=== PATIENT | female | born 1960 | race Caucasian/White ===

== ENCOUNTER 2018-01-13 01:04 | Emergency (ER) | payer OTHER ==
[2018-01-13] MEDS ORDERED: CYCLOBENZAPRINE 10MG STARTER 3 TAB BTL PO STA (02:23)
--- NOTE | 2018-01-13 02:25 | ED ---
General Adult HPI - General Chief complaint: Skin/Abscess/Foreign Body Stated complaint: pain Time Seen by Provider: 01/13/18 01:25 Source: patient, RN notes reviewed, old records reviewed Mode of arrival: ambulatory Limitations: no limitations - History of Present Illness Initial comments: This patient is a 57 year old female with CC of neck abscess. She has been seen by [facility] and PCP and placed on clindamycin and rifampin. She reports that she thinks it needs to be drained at this time. She also states that she is having muscle spasm and pinched nerve in her neck and mid back. No falls or trauma. She states that she is out of her gabapentin for her neuroahty. She also complains of concern for a yeast infection because of taking antibiotics. - Related Data Home Medications Medication Instructions Recorded Confirmed Enalapril/Hydrochlorothiazide 1 each PO DAILY 02/15/15 03/06/15 [Vaseretic 10-25 mg] glipiZIDE [Glucotrol] 1 tab PO DAILY 02/15/15 03/06/15 metFORMIN HCL 1,000 mg PO BID 02/15/15 03/06/15 Previous Rx's Medication Instructions Recorded Cephalexin [Keflex] 500 mg PO Q6HR 14 Days cap 02/15/15 Acetaminophen-Codeine 300-30mg 1 each PO Q4H PRN #20 tablet 03/06/15 [Tylenol w/codeine #3] Doxycycline Monohydrate [Monodox] 100 mg PO Q12HR #20 cap 03/06/15 Naproxen [Naprosyn] 500 mg PO Q12HR #24 tab 03/06/15 Fluconazole [Diflucan] 150 mg PO ONCE #3 tab 01/13/18 HYDROcodone/APAP 5-325MG [Radom 1 - 2 tab PO Q6HR PRN #8 tab 01/13/18 5-325] Methocarbamol [Robaxin] 1,000 mg PO QID #15 tab 01/13/18 Allergies Allergy/AdvReac Type Severity Reaction Status Date / Time codeine Allergy Rash/Hives Verified 01/13/18 01:09 Sulfa (Sulfonamide Allergy Unknown Verified 01/13/18 01:10 Antibiotics) Review of Systems ROS Statement: Those systems with pertinent positive or pertinent negative responses have been documented in the HPI. ROS Other: All systems not noted in ROS Statement are negative. Past Medical History Past Medical History: Diabetes Mellitus, Hypertension History of Any Multi-Drug Resistant Organisms: MRSA Date of last positivie culture/infection: 02/15/2015 MDRO Source:: Face Past Surgical History: Section, Orthopedic Surgery Past Psychological History: No Psychological Hx Reported Smoking Status: Never smoker Past Alcohol Use History: None Reported Past Drug Use History: None Reported General Exam - General Exam Comments Initial Comments: This is a 57 year old female no distress. Patient appears to be homeless, has belongings in bags. Limitations: no limitations General appearance: alert, in no apparent distress Head exam: Present: atraumatic Eye exam: Present: normal appearance, PERRL, EOMI. Absent: scleral icterus, conjunctival injection, periorbital swelling ENT exam: Present: normal exam, mucous membranes moist Neck exam: Present: normal inspection, other (cyst and abscess over posterior neck. Measures 3 cm. ). Absent: tenderness, meningismus, lymphadenopathy Respiratory exam: Present: normal lung sounds bilaterally. Absent: respiratory distress, wheezes, rales, rhonchi, stridor Cardiovascular Exam: Present: regular rate, normal rhythm, normal heart sounds. Absent: systolic murmur, diastolic murmur, rubs, gallop, clicks GI/Abdominal exam: Present: soft, normal bowel sounds. Absent: distended, tenderness, guarding, rebound, rigid Extremities exam: Present: normal inspection, full ROM, normal capillary refill. Absent: tenderness, pedal edema, joint swelling, calf tenderness Back exam: Present: normal inspection Neurological exam: Present: alert, oriented X3, CN II-XII intact Psychiatric exam: Present: normal affect, normal mood Skin exam: Present: warm, dry, intact, normal color. Absent: rash Course Vital Signs 01/13/18 01/13/18 01:06 02:46 Temperature 98.5 F 97.4 F L Pulse Rate 116 H 95 Respiratory 18 19 Rate Blood Pressure 125/75 132/63 O2 Sat by Pulse 98 97 Oximetry Procedures - Incision & Drainage Site: neck Size (cm): 3 Anesthetic Used: lidocaine 1% Amount (mLs): 2 I&D Cleaning Method: Iodine Sterile Field Used?: Yes Scalpel Used: #11 I&D Drainage Obtained: Blood Culture Obtained?: No Complications: pain Patient Tolerated Procedure: well Medical Decision Making - Medical Decision Making 57-year-old female complaining of abscess over her neck. She states that she's been on anabiotic's already. She still has anabiotic's left. Concern for [place] faction. She also states that she's out of her muscle relaxers. Patient does have a prescription for a Robaxin. I will refill this for her. Patient did undergo incision and drainage of the neck abscess. No significant puss was removed. Patient informed thta she may need to see demratolgist for enlarge cyst removal. She complains of pain after I and D. MAPS report ran, and patient has had no controlled substances for one year. Discussed will give her 8 pain pills, and she can follow up with PCP. REturn parameters dicsussed. Disposition Clinical Impression: Muscle spasm, Epidermal cyst of neck Disposition: HOME SELF-CARE Condition: Good Instructions: Muscle Spasm (ED), Cyst (ED) Additional Instructions: Patient denies use a muscle relaxers as prescribed. Return to the emergency department if any alarming signs or symptoms occur. Continue your antibiotic prescription. Follow-up with primary care provider salesperson wigs for complete removal of the cyst on the neck. Prescriptions: Fluconazole [Diflucan] 150 mg PO ONCE #3 tab HYDROcodone/APAP 5-325MG [Radom 5-325] 1 - 2 tab PO Q6HR PRN #8 tab PRN Reason: Pain Methocarbamol [Robaxin] 1,000 mg PO QID #15 tab Is patient prescribed a controlled substance at d/c from ED?: Yes When asked, does pt state using other controlled substances?: No If prescribed controlled substance>3 days was MAPS reviewed?: Prescribed <3 Days If opioid is for acute pain is fill amount 7 days or less?: No If Rx opioid, was Start Talking consent form obtained?: No Referrals: Patricio Stein MD [Primary Care Provider] - 1-2 days Time of Disposition: 02:22
[2018-01-13 02:47] VITALS: BP 132/63; PULSE 95; RESP 19; TEMP 97.4
== END 2018-01-13 02:47 | disposition home or self-care (01) ==
LOC: EC 01:04
DX: L72.0 Epidermal cyst (principal); M62.838 Other muscle spasm; M62.830 Muscle spasm of back; I10 Essential (primary) hypertension; E11.40 Type 2 diabetes mellitus with diabetic neuropathy, unspecified; Z86.14 Personal history of Methicillin resistant Staphylococcus aureus infection; Z79.899 Other long term (current) drug therapy; Z79.84 Long term (current) use of oral hypoglycemic drugs; Z88.2 Allergy status to sulfonamides; Z88.5 Allergy status to narcotic agent
CPT/HCPCS: 10060; 99283

== ENCOUNTER 2019-02-25 02:16 | Emergency (ER) | payer OTHER ==
[2019-02-25 02:38] VITALS: RESP 18; TEMP 98.1
[2019-02-25] MEDS ORDERED: traMADol 50 MG STARTER PACK 3 TAB BTL PO STA (03:26)
[2019-02-25] MEDS ORDERED: KETOROLAC 30 MG/ML 1 ML VIAL IM STA (03:26)
[2019-02-25] MEDS ORDERED: ORPHENADRINE 30 MG/ML 2 ML VIAL IM STA (03:28)
--- NOTE | 2019-02-25 03:31 | ED ---
Back Pain HPI - General Chief Complaint: Back Pain/Injury Stated Complaint: Back Pain Time Seen by Provider: 02/25/19 03:16 Source: patient Limitations: no limitations - History of Present Illness Initial Comments: 59-year-old female patient with past medical history significant for neuropathy presents to the emergency department today for evaluation of acute low back pain. Patient states that she has been moving her belongings into storage. Patient states she has been lifting and appropriately using her back muscles. Patient states she is having bilateral low back pain. Patient states the pain worsens with bending and lifting. She denies any radiation of the pain down her legs. Denies any new numbness or tingling to the lower extremities. Denies any saddle anesthesia or loss of bowel or bladder control. Patient denies fever or chills with this. Denies any hematuria, dysuria, urinary frequency, urinary urgency. Patient states she was seen and evaluated at [facility] was not giving any pain medications. Patient states she has been taking ibuprofen but has not been helping. She is requesting something for pain. Patient denies any recent rash, shortness breath, chest pain, abdominal pain, nausea, vomiting, diarrhea, constipation, weakness, hematuria, dysuria, urinary urgency, urinary frequency, headache, visual changes, or any other complaints. - Related Data Home Medications Medication Instructions Recorded Confirmed Enalapril/Hydrochlorothiazide 1 each PO DAILY 02/15/15 02/25/19 [Vaseretic 10-25 mg] glipiZIDE [Glucotrol] 1 tab PO DAILY 02/15/15 02/25/19 metFORMIN HCL 1,000 mg PO BID 02/15/15 02/25/19 Previous Rx's Medication Instructions Recorded Cephalexin [Keflex] 500 mg PO Q6HR 14 Days cap 02/15/15 Acetaminophen-Codeine 300-30mg 1 each PO Q4H PRN #20 tablet 03/06/15 [Tylenol w/codeine #3] Fluconazole [Diflucan] 150 mg PO ONCE #3 tab 01/13/18 Methocarbamol [Robaxin] 1,000 mg PO QID #15 tab 01/13/18 Allergies Allergy/AdvReac Type Severity Reaction Status Date / Time codeine Allergy Rash/Hives Verified 01/13/18 01:09 Sulfa (Sulfonamide Allergy Unknown Verified 01/13/18 01:10 Antibiotics) Review of Systems ROS Statement: Those systems with pertinent positive or pertinent negative responses have been documented in the HPI. ROS Other: All systems not noted in ROS Statement are negative. Past Medical History Past Medical History: Atrial Fibrillation, Diabetes Mellitus, Hypertension History of Any Multi-Drug Resistant Organisms: MRSA Date of last positivie culture/infection: 02/15/2015 MDRO Source:: Face Past Surgical History: Section, Orthopedic Surgery Past Psychological History: No Psychological Hx Reported Smoking Status: Never smoker Past Alcohol Use History: Occasional Past Drug Use History: None Reported General Exam Limitations: no limitations General appearance: alert, in no apparent distress, other (Physical well- developed, well-nourished adult female patient in no acute distress. Vital signs upon presentation are temperature 98.1F, pulse 124, respirations 18, blood pressure 120/69, pulse ox 97% on room air.) Respiratory exam: Present: normal lung sounds bilaterally. Absent: respiratory distress, wheezes, rales, rhonchi, stridor Cardiovascular Exam: Present: regular rate, normal rhythm, normal heart sounds. Absent: systolic murmur, diastolic murmur, rubs, gallop, clicks GI/Abdominal exam: Present: soft, normal bowel sounds. Absent: distended, tenderness, guarding, rebound, rigid Extremities exam: Present: normal inspection, full ROM, normal capillary refill, other (Skin to the lower extremities is pink, warm, dry. Cap refills less than 3 seconds. Pedal and posttibial pulses are 2+ and equal bilaterally.). Absent: tenderness, pedal edema, joint swelling, calf tenderness Back exam: Present: normal inspection. Absent: vertebral tenderness Neurological exam: Present: alert, oriented X3, CN II-XII intact, other (Strength in all 4 extremities is 5/5.) Psychiatric exam: Present: normal affect, normal mood Skin exam: Present: warm, dry, intact, normal color. Absent: rash Course Vital Signs 02/25/19 02/25/19 02/25/19 02:31 03:01 03:52 Temperature 98.1 F Pulse Rate 124 H 108 H 110 H Respiratory 18 18 Rate Blood Pressure 120/69 132/79 O2 Sat by Pulse 97 97 Oximetry Medical Decision Making - Medical Decision Making 59-year-old female patient presents to the emergency department today for evaluation of the low back pain. Patient does admit to having moved her belongings into storage and has been lifting heavy objects for the last 3 days. Patient does admit to being homeless and carrying 2 large bags with her at all times. Patient denies any concerning symptoms for cauda equina. Physical examination is unremarkable. She is neurologically intact with no focal deficits. She is able to ambulate without difficulty. Patient was given pain medication here in the emergency department. She is instructed to follow-up w ith her primary care physician for any further medications. Return parameters were discussed in detail. She verbalizes understanding and agrees with this plan. Disposition Clinical Impression: Low back pain Disposition: HOME SELF-CARE Condition: Good Instructions (If sedation given, give patient instructions): Acute Low Back Pain (ED) Additional Instructions: Continue taking ibuprofen. Take starter pack medication sparingly. Follow-up with your primary care physician for recheck as soon as possible and refill any further medications. Return to the emergency department immediately for any new, worsening, or concerning symptoms. Is patient prescribed a controlled substance at d/c from ED?: No Referrals: Alisa Alfred MD [Primary Care Provider] - 1-2 days Time of Disposition: 03:31
[2019-02-25 03:56] VITALS: BP 132/79; PULSE 110
== END 2019-02-25 03:52 | disposition home or self-care (01) ==
LOC: EC 02:16
DX: M54.5 Low back pain (principal); E11.9 Type 2 diabetes mellitus without complications; I10 Essential (primary) hypertension; Z59.0 Homelessness; Z88.2 Allergy status to sulfonamides; Z88.5 Allergy status to narcotic agent; Z79.84 Long term (current) use of oral hypoglycemic drugs; Z79.899 Other long term (current) drug therapy; Z86.14 Personal history of Methicillin resistant Staphylococcus aureus infection; Z86.69 Personal history of other diseases of the nervous system and sense organs; X50.0XXA Overexertion from strenuous movement or load, initial encounter
CPT/HCPCS: 99283; 96372 ×2; J2360; J1885

== ENCOUNTER 2019-02-27 05:30 | Emergency (ER) | payer OTHER ==
[2019-02-27] MEDS ORDERED: DIPH,PERTUS(ACELL)TETVAC-LF 0.5 ML VIAL IM ONE (05:37)
[2019-02-27] MEDS ORDERED: SODIUM CHLORIDE 0.9% 1,000 ML IV STA (05:37)
--- NOTE | 2019-02-27 06:14 | CT ---
EXAM: CT Head Without Intravenous Contrast. CLINICAL HISTORY: Reason: trauma TECHNIQUE: Axial computed tomography images of the head/brain without intravenous contrast. CTDI is 25.8 mGy and DLP is 821 mGy-cm. This CT exam was performed using one or more of the following dose reduction techniques: automated exposure control, adjustment of the mA and/or kV according to patient size, and/or use of iterative reconstruction technique. COMPARISON: No relevant prior studies available. FINDINGS: Brain: No acute intracranial hemorrhage or mass effect. No significant white matter disease. No edema. Ventricles: Unremarkable. No ventriculomegaly. Bones: No acute fracture. Sinuses: Unremarkable as visualized. No acute sinusitis. Mastoid air cells: Unremarkable as visualized. No mastoid effusion. IMPRESSION: No evidence of acute intracranial abnormality. EXAM: CT Cervical Spine Without Intravenous Contrast. CLINICAL HISTORY: Reason: trauma TECHNIQUE: Axial computed tomography images of the cervical spine without intravenous contrast. CTDI is 8.8 mGy and DLP is 269 mGy-cm. This CT exam was performed using one or more of the following dose reduction techniques: automated exposure control, adjustment of the mA and/or kV according to patient size, and/or use of iterative reconstruction technique. COMPARISON: No relevant prior studies available. FINDINGS: Vertebrae: Unremarkable. No acute fracture. Discs/spinal canal/neural foramina: No acute findings. No spinal canal stenosis. Soft tissues: Unremarkable. Lung apices: Unremarkable as visualized. IMPRESSION: No fracture or malalignment of the cervical spine
[2019-02-27] MEDS ORDERED: LIDOCAINE 1% INJ 10MG/ML (20 ML MDV) SQ ONE (06:17)
--- NOTE | 2019-02-27 06:29 | CT ---
EXAM: CT Maxillofacial Without Intravenous Contrast. CLINICAL HISTORY: Reason: trauma TECHNIQUE: Axial computed tomography images of the face without intravenous contrast. CTDI is 8.8 mGy and DLP is 269 mGy-cm. This CT exam was performed using one or more of the following dose reduction techniques: automated exposure control, adjustment of the mA and/or kV according to patient size, and/or use of iterative reconstruction technique. COMPARISON: No relevant prior studies available. FINDINGS: Bones: No acute fracture. Extracranial soft tissues: Mild left periorbital soft tissue swelling. Sinuses: Mild mucosal thickening seen within bilateral maxillary sinuses. No air-fluid levels. Orbits: Unremarkable. IMPRESSION: No evidence of acute facial fracture. Left periorbital soft tissue swelling.
[2019-02-27 06:33] LABS: ALT 23 U/L (9-52); AST 43 U/L (14-36); African American GFR (CKD) >90 (>60 ml/min/1.73 sqM); Alkaline Phosphatase 126 U/L (38-126); Anion Gap 13 mmol/L; Blood Urea Nitrogen 12 mg/dL (7-17); Calcium 8.9 mg/dL (8.4-10.2); Carbon Dioxide 18 mmol/L (22-30); Chloride 110 mmol/L (98-107); Glucose 193 mg/dL (74-99); Potassium 4.3 mmol/L (3.5-5.1); Sodium 141 mmol/L (137-145); Total Bilirubin 0.9 mg/dL (0.2-1.3); Total Protein 8.1 g/dL (6.3-8.2)
[2019-02-27 06:34] LABS: Anisocytosis Slight; Basophils % (A) 1 %; Eosinophils # (A) 0.1 k/uL (0-0.7); Eosinophils % (A) 2 %; HCT 36.2 % (34.0-46.0); HGB 11.3 gm/dL (11.4-16.0); Hypochromasia Moderate; Lymphocytes # (A) 1.2 k/uL (1.0-4.8); Lymphocytes % (A) 21 %; MCH 29.2 pg (25.0-35.0); MCHC 31.3 g/dL (31.0-37.0); MCV 93.4 fL (80.0-100.0); Mean Platelet Volume 7.7; Monocytes # (A) 0.5 k/uL (0-1.0); Monocytes % (A) 9 %; Neutrophils # (A) 3.6 k/uL (1.3-7.7); Neutrophils % (A) 63 %; Platelet Count 213 k/uL (150-450); RBC 3.87 m/uL (3.80-5.40); RDW 16.6 % (11.5-15.5); WBC 5.7 k/uL (3.8-10.6)
[2019-02-27 06:52] LABS: Partial Thromboplastin Time 24.4 sec (22.0-30.0); Prothrombin Time 10.9 sec (9.0-12.0)
[2019-02-27 07:08] LABS: Alcohol 158 mg/dL
[2019-02-27] MEDS ORDERED: METOPROLOL SUCCINATE (ER) 50 MG TAB.ER.24H PO STA (07:11)
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
[2019-02-27 07:51] VITALS: BP 148/89; PULSE 109; RESP 20; TEMP 98.3
== END 2019-02-27 08:30 | disposition home or self-care (01) ==
LOC: EC 05:30
DX: S01.81XA Laceration without foreign body of other part of head, initial encounter (principal); Z23 Encounter for immunization; G56.02 Carpal tunnel syndrome, left upper limb; E11.9 Type 2 diabetes mellitus without complications; I10 Essential (primary) hypertension; Z79.84 Long term (current) use of oral hypoglycemic drugs; Z79.899 Other long term (current) drug therapy; Z88.2 Allergy status to sulfonamides; Z88.5 Allergy status to narcotic agent; Z59.0 Homelessness; W18.09XA Striking against other object with subsequent fall, initial encounter; Y93.84 Activity, sleeping; Y92.521 Bus station as the place of occurrence of the external cause
CPT/HCPCS: 36415; 93005; 80053; 85025; 85610; 85730; 72125; 70486; 70450; 90715; 99284; 12013; 90471; 96360; G0480; J2001; 80320

== ENCOUNTER 2019-03-25 02:15 | Emergency (ER) | payer OTHER ==
[2019-03-25 02:28] VITALS: BP 155/82; PULSE 99; RESP 18; TEMP 97.5
--- NOTE | 2019-03-25 02:34 | ED ---
General Adult HPI - General Chief complaint: Recheck/Abnormal Lab/Rx Stated complaint: Back Pain Time Seen by Provider: 03/25/19 02:30 Source: patient Mode of arrival: ambulatory Limitations: no limitations - History of Present Illness Initial comments: Prema is a 51-year-old female who presents the emergency department today for reevaluation of her left wrist splint. 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 Patient states her follow-up has been delayed due to not having insurance and being homeless, however she has finally gotten follow-up established. Patient reports that she's been wearing the splint for multiple weeks, she states that it's gotten wet multiple times she is followed up with the walk-in clinic and has a slightly rapid however she feels like it is no longer functional. Patient denies any acute injuries or complaints. - Related Data Home Medications Medication Instructions Recorded Confirmed Enalapril/Hydrochlorothiazide 1 each PO DAILY 02/15/15 02/25/19 [Vaseretic 10-25 mg] glipiZIDE [Glucotrol] 1 tab PO DAILY 02/15/15 02/25/19 metFORMIN HCL 1,000 mg PO BID 02/15/15 02/25/19 Previous Rx's Medication Instructions Recorded Cephalexin [Keflex] 500 mg PO Q6HR 14 Days cap 02/15/15 Acetaminophen-Codeine 300-30mg 1 each PO Q4H PRN #20 tablet 03/06/15 [Tylenol w/codeine #3] Fluconazole [Diflucan] 150 mg PO ONCE #3 tab 01/13/18 Methocarbamol [Robaxin] 1,000 mg PO QID #15 tab 01/13/18 Allergies Allergy/AdvReac Type Severity Reaction Status Date / Time codeine Allergy Rash/Hives Verified 03/25/19 02:28 Sulfa (Sulfonamide Allergy Unknown Verified 03/25/19 02:28 Antibiotics) Review of Systems ROS Statement: Those systems with pertinent positive or pertinent negative responses have been documented in the HPI. ROS Other: All systems not noted in ROS Statement are negative. Past Medical History Past Medical History: Atrial Fibrillation, Diabetes Mellitus, Hypertension Additional Past Medical History / Comment(s): radial nerve damage, back pain, History of Any Multi-Drug Resistant Organisms: MRSA Date of last positivie culture/infection: 02/15/2015 MDRO Source:: Face Past Surgical History: Section, Orthopedic Surgery Additional Past Surgical History / Comment(s): left great toe, Past Psychological History: No Psychological Hx Reported Smoking Status: Never smoker Past Alcohol Use History: Occasional Past Drug Use History: None Reported General Exam - General Exam Comments Initial Comments: Physical Exam GENERAL: Patient is well-developed and well-nourished. Patient is nontoxic and well-hydrated and is in no distress. HENT: Normocephalic, Atraumatic. EYES: PERRL, EOMI PULMONARY: Unlabored respirations CARDIOVASCULAR: RRR ABDOMEN: Soft and nontender with normal bowel sounds. SKIN: Well-healing laceration on left face, sutures recently removed : Deferred NEUROLOGIC: Patient is alert and oriented x3. Moving all extremities spontaneously MUSCULOSKELETAL: Weakness of the right arm is chronic Left arm any splint with multiple layers of Norm wrap PSYCHIATRIC: Normal psychiatric evaluation Limitations: no limitations Course Vital Signs 03/25/19 02:26 Temperature 97.5 F L Pulse Rate 99 Respiratory 18 Rate Blood Pressure 155/82 O2 Sat by Pulse 98 Oximetry Procedures - Orthopedic Splinting/Casting Injury #1 Side: left Upper Extremity Injury Location: wrist Upper Extremity Immobilizer: wrist splint, Norm wrap Medical Decision Making - Medical Decision Making The patient was seen and evaluated, history is obtained from patient, patient no acute injuries or complaints, patient would like her splint reassessed Upon evaluation the splint is in disrepair, is malodorous. The splint was removed patient washed her arms thoroughly. Her arms and dry thoroughly and new splint was applied. The patient was advised to try to keep the splint dry follow-up with hand surgery as scheduled Disposition Clinical Impression: Wrist pain, chronic Disposition: HOME SELF-CARE Condition: Stable Instructions (If sedation given, give patient instructions): Wrist Injury (ED) Is patient prescribed a controlled substance at d/c from ED?: No Referrals: Alisa Alfred MD [Primary Care Provider] - 1-2 days
--- NOTE | 2019-03-28 03:53 | CDI ---
Documentation Clarification OP Dear Aida MENON, DO Please provide type of splint applied. Thank you, Michael Ovalle Learning And Development Analyst If you have any questions, please contact Forging Operator at [phone] [facility]
== END 2019-03-25 03:30 | disposition home or self-care (01) ==
LOC: EC 02:15
DX: M25.532 Pain in left wrist (principal); G89.29 Other chronic pain; M54.9 Dorsalgia, unspecified; E11.9 Type 2 diabetes mellitus without complications; I10 Essential (primary) hypertension; Z86.14 Personal history of Methicillin resistant Staphylococcus aureus infection; Z79.84 Long term (current) use of oral hypoglycemic drugs; Z79.899 Other long term (current) drug therapy; Z88.5 Allergy status to narcotic agent; Z88.2 Allergy status to sulfonamides
CPT/HCPCS: 29125; 99283

== ENCOUNTER 2019-04-22 13:39 | Inpatient (IN) | payer OTHER ==
[2019-04-22] MEDS ORDERED: METOCLOPRAMIDE 5 MG/ML 2 ML VIAL IVP STA (14:07)
[2019-04-22] MEDS ORDERED: SODIUM CHLORIDE 0.9% 1,000 ML IV STA (14:07)
[2019-04-22] MEDS ORDERED: KETOROLAC 30 MG/ML 1 ML VIAL IVP STA (14:07)
[2019-04-22] MEDS ORDERED: diphenhydrAMINE 50 MG/ML 1 ML VIAL IVP STA (14:07)
[2019-04-22 14:45] LABS: Anisocytosis Slight; Basophils % (A) 0 %; Eosinophils # (A) 0.1 k/uL (0-0.7); Eosinophils % (A) 2 %; HCT 32.7 % (34.0-46.0); HGB 10.7 gm/dL (11.4-16.0); Lymphocytes # (A) 0.9 k/uL (1.0-4.8); Lymphocytes % (A) 11 %; MCH 29.2 pg (25.0-35.0); MCHC 32.6 g/dL (31.0-37.0); MCV 89.6 fL (80.0-100.0); Mean Platelet Volume 7.4; Monocytes # (A) 0.3 k/uL (0-1.0); Monocytes % (A) 4 %; Neutrophils # (A) 6.9 k/uL (1.3-7.7); Neutrophils % (A) 82 %; Platelet Count 306 k/uL (150-450); RBC 3.65 m/uL (3.80-5.40); RDW 16.1 % (11.5-15.5); WBC 8.4 k/uL (3.8-10.6)
[2019-04-22 14:52] LABS: ALT 21 U/L (9-52); AST 26 U/L (14-36); African American GFR (CKD) >90 (>60 ml/min/1.73 sqM); Albumin 3.8 g/dL (3.5-5.0); Alkaline Phosphatase 116 U/L (38-126); Anion Gap 14 mmol/L; Blood Urea Nitrogen 17 mg/dL (7-17); Carbon Dioxide 18 mmol/L (22-30); Chloride 105 mmol/L (98-107); Glucose 278 mg/dL (74-99); Potassium 3.7 mmol/L (3.5-5.1); Sodium 137 mmol/L (137-145); Total Bilirubin 1.2 mg/dL (0.2-1.3); Total Protein 7.6 g/dL (6.3-8.2)
--- NOTE | 2019-04-22 15:06 | XR ---
EXAMINATION TYPE: XR KUB DATE OF EXAM: 04/22/2019 CLINICAL DATA: 59-year-old female with abdominal pain, PH[facility] COMPARISON: None FINDINGS: Lung bases are clear. No evidence for free intraperitoneal air. No dilated small bowel or air-fluid levels. Scattered air and stool seen throughout the colon extendi ng distally into the rectum. Moderate to large stool burden. No suspicious calcifications identified. Levoconvex scoliosis. IMPRESSION: 1. Moderate to large stool burden. 2.No evidence of bowel obstruction or free intraperitoneal air.
[2019-04-22 16:07] LABS: Appearance,Urine Clear (Clear); Bilirubin,Urine Negative (Negative); Blood,Urine Small (Negative); Color,Urine Light Yellow; Glucose,Urine (UA) 1+ (Negative); Ketones,Urine Negative (Negative); Leukocyte Esterase,Urine Negative (Negative); Nitrite,Urine Negative (Negative); PH, Urine 6.5 (5.0-8.0); Protein,Urine 1+ (Negative); RBC,Urine 2 /hpf (0-5); Specific Gravity,Urine 1.005 (1.001-1.035); Squamous Epithelial Cell,Urine <1 /hpf (0-4); Urobilinogen,Urine <2.0 mg/dL (<2.0)
[2019-04-22] MEDS ORDERED: KETOROLAC 30 MG/ML 1 ML VIAL IVP PRN (16:16)
[2019-04-22] MEDS ORDERED: HYDROmorphone 0.5 MG/0.5 ML SYRINGE IVP PRN (16:16)
[2019-04-22] MEDS ORDERED: NALOXONE 0.4 MG/ML 1 ML VIAL IV PRN (16:16)
--- NOTE | 2019-04-22 16:16 | ED ---
Abdominal Pain HPI - General Source: patient, RN notes reviewed Mode of arrival: ambulatory Limitations: no limitations <Randy Caba - Last Filed: 04/22/19 16:14> <Corbin Lovelace - Last Filed: 04/22/19 16:35> - General Chief Complaint: Abdominal Pain Stated Complaint: Lower back pain, abd pain, nausea Time Seen by Provider: 04/22/19 13:59 - History of Present Illness Initial Comments: 59-year-old female presents emergency Department chief complaint of abdominal pain. Patient states she's been having worsening symptoms. Patient states she is upper abdominal cramping and pain he rates her back. Patient states that she does not feel constipated though she's had some harder stools than usual. Patient had some nausea no recent vomiting. Denies fever, chills no chest pain or shortness breath. Patient states that she has known hiatal hernia no dysuria no hematuria no melena or hematochezia. (Randy Caba) - Related Data Home Medications Medication Instructions Recorded Confirmed Enalapril/Hydrochlorothiazide 1 each PO DAILY 02/15/15 02/25/19 [Vaseretic 10-25 mg] glipiZIDE [Glucotrol] 1 tab PO DAILY 02/15/15 02/25/19 metFORMIN HCL 1,000 mg PO BID 02/15/15 02/25/19 Previous Rx's Medication Instructions Recorded Cephalexin [Keflex] 500 mg PO Q6HR 14 Days cap 02/15/15 Acetaminophen-Codeine 300-30mg 1 each PO Q4H PRN #20 tablet 03/06/15 [Tylenol w/codeine #3] Fluconazole [Diflucan] 150 mg PO ONCE #3 tab 01/13/18 Methocarbamol [Robaxin] 1,000 mg PO QID #15 tab 01/13/18 Allergies Allergy/AdvReac Type Severity Reaction Status Date / Time codeine Allergy Rash/Hives Verified 04/22/19 13:48 Sulfa (Sulfonamide Allergy Unknown Verified 04/22/19 13:48 Antibiotics) Review of Systems ROS Other: All systems not noted in ROS Statement are negative. <Randy Caba - Last Filed: 04/22/19 16:14> ROS Other: All systems not noted in ROS Statement are negative. <Corbin Lovelace - Last Filed: 04/22/19 16:35> ROS Statement: Those systems with pertinent positive or pertinent negative responses have been documented in the HPI. Past Medical History Past Medical History: Atrial Fibrillation, Diabetes Mellitus, Hypertension Additional Past Medical History / Comment(s): radial nerve damage, back pain, History of Any Multi-Drug Resistant Organisms: MRSA Date of last positivie culture/infection: 02/15/2015 MDRO Source:: Face Past Surgical History: Section, Orthopedic Surgery Additional Past Surgical History / Comment(s): left great toe, Past Psychological History: No Psychological Hx Reported Smoking Status: Never smoker Past Alcohol Use History: Occasional Past Drug Use History: None Reported <Randy Caba - Last Filed: 04/22/19 16:14> General Exam Limitations: no limitations General appearance: alert, in no apparent distress Head exam: Present: atraumatic, normocephalic, normal inspection Eye exam: Present: normal appearance, PERRL, EOMI. Absent: scleral icterus, conjunctival injection, periorbital swelling ENT exam: Present: normal exam, normal oropharynx, mucous membranes moist Neck exam: Present: normal inspection, full ROM. Absent: tenderness, meningismus, lymphadenopathy Respiratory exam: Present: normal lung sounds bilaterally. Absent: respiratory distress, wheezes, rales, rhonchi, stridor Cardiovascular Exam: Present: regular rate, normal rhythm, normal heart sounds. Absent: systolic murmur, diastolic murmur, rubs, gallop, clicks GI/Abdominal exam: Present: soft, tenderness, normal bowel sounds. Absent: distended, guarding, rebound, rigid Back exam: Absent: CVA tenderness (R), CVA tenderness (L) <Randy Caba - Last Filed: 04/22/19 16:14> Course <Corbin Lovelace - Last Filed: 04/22/19 16:35> Vital Signs 04/22/19 04/22/19 04/22/19 13:46 15:54 16:31 Temperature 98 F 98.0 F Pulse Rate 105 H 85 Respiratory 20 18 18 Rate Blood Pressure 167/68 169/92 O2 Sat by Pulse 98 99 Oximetry - Reevaluation(s) Reevaluation #1: 04/22/19 16:34 PA supervision: I personally evaluate this case and did discuss the findings with Dr. Duke. Patient will be admitted for evaluation treatment of acute pancreatitis. (Corbin Lovelace) Medical Decision Making - Lab Data Result diagrams: 04/22/19 14:30 04/22/19 14:30 <Randy Caba - Last Filed: 04/22/19 16:14> - Lab Data Result diagrams: 04/22/19 14:30 04/22/19 14:30 <Corbin Lovelace - Last Filed: 04/22/19 16:35> - Medical Decision Making 51-year-old female presented for abdominal pain. Patient has acute pancreatitis. Patient states she's occasional alcohol drinker but states that she does not drink recently. Patient will be admitted for pain control, IV hydration (Randy Caba) - Lab Data Lab Results 04/22/19 04/22/19 04/22/19 Range/Units 14:30 14:30 15:50 WBC 8.4 (3.8-10.6) k/uL RBC 3.65 L (3.80-5.40) m/uL Hgb 10.7 L (11.4-16.0) gm/dL Hct 32.7 L (34.0-46.0) % MCV 89.6 (80.0-100.0) fL MCH 29.2 (25.0-35.0) pg MCHC 32.6 (31.0-37.0) g/dL RDW 16.1 H (11.5-15.5) % Plt Count 306 (150-450) k/uL Neutrophils % 82 % Lymphocytes % 11 % Monocytes % 4 % Eosinophils % 2 % Basophils % 0 % Neutrophils # 6.9 (1.3-7.7) k/uL Lymphocytes # 0.9 L (1.0-4.8) k/uL Monocytes # 0.3 (0-1.0) k/uL Eosinophils # 0.1 (0-0.7) k/uL Basophils # 0.0 (0-0.2) k/uL Anisocytosis Slight Sodium 137 (137-145) mmol/L Potassium 3.7 (3.5-5.1) mmol/L Chloride 105 (98-107) mmol/L Carbon Dioxide 18 L (22-30) mmol/L Anion Gap 14 mmol/L BUN 17 (7-17) mg/dL Creatinine 0.50 L (0.52-1.04) mg/dL Est GFR (CKD-EPI)AfAm >90 (>60 ml/min/1.73 sqM) Est GFR (CKD-EPI)NonAf >90 (>60 ml/min/1.73 sqM) Glucose 278 H (74-99) mg/dL Calcium 9.0 (8.4-10.2) mg/dL Total Bilirubin 1.2 (0.2-1.3) mg/dL AST 26 (14-36) U/L ALT 21 (9-52) U/L Alkaline Phosphatase 116 (38-126) U/L Total Protein 7.6 (6.3-8.2) g/dL Albumin 3.8 (3.5-5.0) g/dL Lipase 4809 H (23-300) U/L Urine Color Light Yellow Urine Appearance Clear (Clear) Urine pH 6.5 (5.0-8.0) Ur Specific [place] 1.005 (1.001-1.035) Urine Protein 1+ H (Negative) Urine Glucose (UA) 1+ H (Negative) Urine Ketones Negative (Negative) Urine Blood Small H (Negative) Urine Nitrite Negative (Negative) Urine Bilirubin Negative (Negative) Urine Urobilinogen <2.0 (<2.0) mg/dL Ur Leukocyte Esterase Negative (Negative) Urine RBC 2 (0-5) /hpf Urine WBC 1 (0-5) /hpf Ur Squamous Epith Cells <1 (0-4) /hpf Disposition <Randy Caba - Last Filed: 04/22/19 16:14> <Corbin Lovelace - Last Filed: 04/22/19 16:35> Clinical Impression: Acute pancreatitis Disposition: ADMITTED IP TO THIS HOSP Condition: Fair Referrals: Alisa Alfred MD [Primary Care Provider] - 1-2 days
[2019-04-22] MEDS: SODIUM CHLORIDE 0.9% 1,000 ML IV SCH (16:45)
[2019-04-22] MEDS ORDERED: glipiZIDE 5 MG TAB PO PRN (19:56)
--- NOTE | 2019-04-22 20:55 | XR ---
EXAMINATION TYPE: XR chest 1V portable DATE OF EXAM: 04/22/2019 COMPARISON: 03/06/2015 HISTORY: Abdominal pain TECHNIQUE: Single frontal view of the chest is obtained. FINDINGS: There is no heart failure nor confluent pneumonic infiltrate. Costophrenic angles are ilene r. Bony thorax is intact. There is hiatal hernia. IMPRESSION: No active cardiopulmonary disease. No change.
[2019-04-22 22:05] LABS: Glucose,Whole Blood 126 mg/dL (75-99)
[2019-04-22] MEDS: IOPAMIDOL-300 CONTRAST 30 ML VIAL (ORAL USE) PO PRN ×2 (22:26→23:26)
[2019-04-22] MEDS: INSULIN ASPART (NovoLOG) 100 UNIT/ML VIAL SQ SCH (22:27)
[2019-04-22] MEDS: GABAPENTIN 400 MG CAP PO SCH (22:27)
[2019-04-22] MEDS ORDERED: DILTIAZEM 5 MG/ML 5 ML VIAL IVP STA (23:19)
[2019-04-22] MEDS ORDERED: DILTIAZEM 125 MG in SODIUM CHLORIDE 0.9% 100 ML IV SCH (23:30)
--- NOTE | 2019-04-22 23:58 | HP ---
HISTORY AND PHYSICAL DATE OF SERVICE: 04/22/2019. CHIEF COMPLAINTS: Abdominal pain. HISTORY OF PRESENT ILLNESS: This 59-year-old woman with a past medical history of multiple medical problems including atrial fibrillation, diabetes, hypertension, history of history of back pain, history of MRSA, history of multiple trigger fingers, being followed by Dr. Alisa Alfred in the outpatient setting is complaining of abdominal pain. The pain is felt in the anterior part of the abdomen which is radiating sideways and mostly cramping in nature. The patient came to [facility] and the patient was found to have a lipase of [id number] indicating of acute pancreatitis. The patient admitted for further evaluation and treatment. There is no history of fever, rigors or chills. No history of headache or loss of consciousness. Patient apparently was admitted in [facility] also recently. Patient also had a cast applied for the radial on the left side. The patient has multiple trigger fingers in bilateral fingers surgery, being followed by the orthopedic surgeon according to her. There is no history of fever, rigors or chills. No history of headache, loss of consciousness or seizures. PAST MEDICAL HISTORY: History of atrial ablation, diabetes, hypertension, history of back pain, history of MRSA. MEDICATIONS: Prior to admission home medications are: 1. Glucotrol 5 mg daily p.r.n. 2. DOK. 3. Toprol-XL 25 mg p.o. daily. 4. Zanaflex 4 mg q.h.s. p.r.n. 5. Metformin 1000 mg p.o. b.i.d. 6. FiberCon 620 mg p.o. daily. 7. Singulair 10 mg p.o. daily. 8. Loratadine 10 mg p.o. 9. Motrin 800 mg p.o. t.i.d. 10.Neurontin 800 mg p.o. b.i.d. 11.Lisinopril 20 mg daily. ALLERGIES: CODEINE AND SULFA. FAMILY HISTORY: No history of heart disease or strokes in the family. SOCIAL HISTORY: No history of smoking. Occasional alcohol intake. REVIEW OF SYSTEMS: ENT: Diminished vision. Diminished hearing. CARDIOVASCULAR: No angina or palpitations. RESPIRATIONS: No cough. No hemoptysis. GI as mentioned earlier. no dysuria or hematuria. NERVOUS SYSTEM: No numbness or weakness. ALLERGY/IMMUNOLOGY: No asthma or hayfever. MUSCULOSKELETAL as mentioned earlier. HEMATOLOGY/ONCOLOGY: No history of anemia. ENDOCRINE: Diabetes. CONSTITUTIONAL: As mentioned earlier. DERMATOLOGY: Negative. RHEUMATOLOGY: Negative. PSYCHIATRIC: As mentioned earlier. PHYSICAL EXAM: Patient is alert, oriented x3. The pulse is 106, blood pressure is 172/90. Respirations 20, temperature 97.8, pulse ox 100 percent on room air. HEENT are conjunctivae normal. Oral mucosa moist. NECK is no jugular venous distention. No carotid bruit. No lymph node enlargement. CARDIOVASCULAR SYSTEM: S1, S2. No S3, no S4. RESPIRATIONS: Breath sounds diminished in the bases. No rhonchi. No crackles. ABDOMEN: Soft. Mild diffuse distention. Mild diffuse tenderness also present. No guarding. No mass palpable. Both hands multiple trigger fingers. LEGS no edema. No swelling. NERVOUS SYSTEM: Higher functions as mentioned earlier. Moves all 4 limbs. No focal motor or sensory deficits. LYMPHATICS: No lymph nodes palpable in the neck, axillae or groin. SKIN: No ulcer. No rashes. No bleeding. JOINTS: No active deforming arthropathy. LABS: At this time shows WBC 8.5, hemoglobin 10.7, sodium 130, potassium 3.7, glucose 270. Other labs are reviewed. ASSESSMENT: 1. Abdominal pain with acute severe pancreatitis, present on admission. 2. Diabetes mellitus type 2. 3. Atrial fibrillation, chronic. 4. Hypertension. 5. Left radial nerve damage. 6. History of back pain, degenerative joint disease. 7. History of MRSA. 8. History of section. 9. History of degenerative joint disease. 10.Multiple trigger fingers in both hands. 11.Anemia, normocytic anemia of chronic disease. RECOMMENDATIONS AND DISCUSSION: In this 59-year-old woman who presented with multiple medical issues, we will monitor the patient closely, continue the current management and continue symptomatic treatment. We will obtain a Gastroenterology consultation. I would also recommend symptomatic treatment. I would also recommend proton pump inhibitors. DVT prophylaxis. CT scan of the abdomen pelvis with only p.o. contrast and continue to monitor. A chest x-ray also will be ordered. Prognosis guarded because of multiple complex medical issues. Medication reconciliation will be continued. Home medications will be continued. A copy of this dictation being forwarded to Dr. Alisa Alfred who is the primary physician. The exact etiology of pancreatitis is unknown at this time. The patient does not have any predisposing factors such as hyperlipidemia or ETOH. The possibility of idiopathic or gallstone pancreatitis high on the list. We will continue to monitor. Prognosis guarded. JOSEPHINEL / IJN: [id number] / MTDGrecia
[2019-04-23] MEDS: HYDROmorphone 1 MG/ML 1 ML SYRINGE IVP PRN ×4 (00:21→19:33)
--- NOTE | 2019-04-23 01:28 | CT ---
EXAM: CT Abdomen and Pelvis Without Intravenous Contrast CLINICAL HISTORY: ITS.REASON CT Reason: pancreatitis TECHNIQUE: Axial computed tomography images of the abdomen and pelvis without intravenous contrast. CTDI is 14.9 mGy and DLP is 895.9 mGy-cm. This CT exam was performed using one or more of the following dose reduction techniques: automated exposure control, adjustment of the mA and/or kV according to patient size, and/or use of iterative reconstruction technique. COMPARISON: 04/22/2019. FINDINGS: Limitations: Limited evaluation of the viscera due to lack of intravenous contrast administration. Lung bases: Subsegmental atelectasis at the lung bases. Mediastinum: A 9.8 x 7.7 cm hiatal hernia is noted. ABDOMEN: Liver: Unremarkable. Gallbladder and bile ducts: No gallstone is noted. No intrahepatic duct dilatation. Common bile duct does not appear to be dilated. Pancreas: Extensive inflammatory changes are noted surrounding the pancreas compatible with fulminant acute pancreatitis. Coarse calcifications are noted in the head and body of the pancreas suggestive of chronic pancreatitis. No ductal dilation. Spleen: Unremarkable. No splenomegaly. Adrenals: Unremarkable. No mass. Kidneys and ureters: Unremarkable. No obstructing stones. No hydronephrosis. Stomach and bowel: Unremarkable. No obstruction. No mucosal thickening. PELVIS: Appendix: No findings to suggest acute appendicitis. Bladder: Unremarkable. No stones. Reproductive: Unremarkable as visualized. ABDOMEN and PELVIS: Intraperitoneal space: Small amount of ascites about the right lobe of the liver tracking along the right pericolic gutter. Small amount of ascites in the left pericolic gutter. No free air. Bones/joints: Compression deformity of the L1 vertebral body of indeterminate age. No dislocation. Soft tissues: Unremarkable. Vasculature: See above. Lymph nodes: Unremarkable. No enlarged lymph nodes. IMPRESSION: Acute pancreatitis. Changes of chronic pancreatitis. Hiatal hernia. Ascites.
[2019-04-23] MEDS: SODIUM CHLORIDE 0.9% 1,000 ML IV SCH ×3 (04:46→23:59)
[2019-04-23 06:20] LABS: Glucose,Whole Blood 93 mg/dL (75-99)
[2019-04-23] MEDS: INSULIN ASPART (NovoLOG) 100 UNIT/ML VIAL SQ SCH ×4 (06:44→20:33)
[2019-04-23 06:46] LABS: Anisocytosis Slight; Basophils % (A) 1 %; Eosinophils # (A) 0.2 k/uL (0-0.7); Eosinophils % (A) 3 %; HCT 31.7 % (34.0-46.0); Hypochromasia Slight; Lymphocytes % (A) 15 %; MCH 29.4 pg (25.0-35.0); MCHC 31.6 g/dL (31.0-37.0); Mean Platelet Volume 7.7; Monocytes # (A) 0.3 k/uL (0-1.0); Monocytes % (A) 5 %; Neutrophils % (A) 75 %; Platelet Count 265 k/uL (150-450); RBC 3.41 m/uL (3.80-5.40); RDW 16.3 % (11.5-15.5); WBC 6.7 k/uL (3.8-10.6)
[2019-04-23 06:56] LABS: ALT 24 U/L (9-52); AST 25 U/L (14-36); African American GFR (CKD) >90 (>60 ml/min/1.73 sqM); Albumin 3.4 g/dL (3.5-5.0); Alkaline Phosphatase 92 U/L (38-126); Anion Gap 9 mmol/L; Blood Urea Nitrogen 13 mg/dL (7-17); Calcium 8.5 mg/dL (8.4-10.2); Carbon Dioxide 23 mmol/L (22-30); Chloride 109 mmol/L (98-107); Glucose 99 mg/dL (74-99); Potassium 3.7 mmol/L (3.5-5.1); Sodium 141 mmol/L (137-145); Total Bilirubin 1.2 mg/dL (0.2-1.3); Total Protein 6.9 g/dL (6.3-8.2)
[2019-04-23 07:22] LABS: Amylase 590 U/L (30-110)
[2019-04-23] MEDS: LISINOPRIL 20 MG TAB PO SCH (08:59)
[2019-04-23] MEDS: GABAPENTIN 400 MG CAP PO SCH ×2 (08:59→20:33)
[2019-04-23] MEDS ORDERED: METOPROLOL SUCCINATE (ER) 25 MG TAB.ER.24H PO SCH (09:00)
[2019-04-23] MEDS ORDERED: HEPARIN SODIUM,PORCINE 5,000 UNIT/ML 1 ML VIAL IV ONE (10:31)
[2019-04-23] MEDS ORDERED: HEPARIN SODIUM,PORCINE 5,000 UNIT/ML 1 ML VIAL IV PRN (10:31)
--- NOTE | 2019-04-23 10:32 | P.CRDCN ---
History of Present Illness Consult date: 04/23/19 Requesting physician: Maddie Duke Consult reason: atrial fibrillation Chief complaint: Abdominal pain History of present illness: This is a 59-year-old female with past medical history significant for paroxysmal atrial fibrillation, diabetes, hypertension, MRSA, multiple trigger fingers, back pain, occasional alcohol use, who presented to the emergency room with symptoms of severe abdominal pain on April 22. A cardiology consultation was requested at this time because the patient had gone into atrial fibrillation with a rapid ventricular response. It's hard to get a detailed history from the patient, she doesn't seem to be able to focus on one issue at a time, appears very stressed. She does state that she has known to have atrial fibrillation off and on in the past, she states that she was on Eliquis, Xarelto, Coumadin, aspirin, all at different times, but currently was not on any anticoagulation prior to coming in. Patients states that she is currently homeless, she has stated several of the shelters in this area, and currently feels that she has nowhere to go. KUB was performed on arrival here which revealed moderate to large stool burden, no evidence of bowel obstruction or free air. Chest x-ray does not reveal any active cardiopulmonary disease. CAT scan of the abdomen and pelvis was performed which revealed acute pancreatitis, hiatal hernia, ascites. Blood pressure on arrival here 166/68, heart rate 105, temperature 90.8, she's 98% on room air. Blood pressure this morning 160/90 with a heart rate in the 90s, 98% on room air. White blood cell count is normal, hemoglobin 10.0, platelet count 265. Sodium 141, potassium 3.7, BUN 13, creatinine 0.5. AST ALT and alk phos normal, troponin negative, albumin is 3.4, amylase 590, lipase 4809 on admission, 2736 this morning, UA was negative. At the time of my examination this morning, the patient's main complaint is that of severe abdominal discomfort, she denies any palpitations, her breathing overall is stable. Past Medical History Past Medical History: Atrial Fibrillation, Diabetes Mellitus, Hypertension Additional Past Medical History / Comment(s): radial nerve damage, back pain, History of Any Multi-Drug Resistant Organisms: MRSA Date of last positivie culture/infection: 02/15/2015 MDRO Source:: Face and foot Past Surgical History: Section, Orthopedic Surgery Additional Past Surgical History / Comment(s): left great toe, Past Psychological History: No Psychological Hx Reported Smoking Status: Never smoker Past Alcohol Use History: Occasional Past Drug Use History: None Reported Medications and Allergies Home Medications Medication Instructions Recorded Confirmed Type metFORMIN HCL 1,000 mg PO BID 02/15/15 04/22/19 History Calcium Polycarbophil [Fibercon] 625 mg PO DAILY 04/22/19 04/22/19 History Docusate Sodium [Dok] 100 mg PO DAILY PRN 04/22/19 04/22/19 History Gabapentin [Neurontin] 800 mg PO BID 04/22/19 04/22/19 History Ibuprofen [Motrin] 800 mg PO TID 04/22/19 04/22/19 History Lisinopril 20 mg PO DAILY 04/22/19 04/22/19 History Loratadine 10 mg PO DAILY 04/22/19 04/22/19 History Metoprolol Succinate [Toprol XL] 25 mg PO DAILY 04/22/19 04/22/19 History Montelukast Sodium [Singulair] 10 mg PO DAILY 04/22/19 04/22/19 History glipiZIDE [Glucotrol] 5 mg PO DAILY PRN 04/22/19 04/22/19 History tiZANidine [Zanaflex] 4 mg PO HS PRN 04/22/19 04/22/19 History Allergies Allergy/AdvReac Type Severity Reaction Status Date / Time codeine Allergy Rash/Hives Verified 04/22/19 16:58 Sulfa (Sulfonamide Allergy Unknown Verified 04/22/19 16:58 Antibiotics) Physical Exam Vitals: Vital Signs Temp Pulse Pulse Pulse Resp BP BP 04/23/19 08:00 97.1 F L 95 18 160/92 04/23/19 03:22 98.4 F 99 18 147/94 04/23/19 03:21 18 04/23/19 01:46 114 H 153/106 04/23/19 00:30 98.5 F 120 H 18 184/113 04/22/19 23:36 97.8 F 128 H 128 H 18 180/98 04/22/19 21:17 97.8 F 128 H 16 163/86 04/22/19 19:20 97.8 F 106 H 119 H 20 172/99 04/22/19 16:31 98.0 F 85 18 169/92 04/22/19 15:54 18 04/22/19 13:46 98 F 105 H 20 167/68 Pulse Ox 04/23/19 08:00 98 04/23/19 03:22 99 04/23/19 03:21 04/23/19 01:46 04/23/19 00:30 99 04/22/19 23:36 04/22/19 21:17 100 04/22/19 19:20 100 04/22/19 16:31 99 04/22/19 15:54 04/22/19 13:46 98 Intake and Output 04/22/19 04/23/19 04/23/19 22:59 06:59 14:59 Intake Total 800 Balance 800 Intake: Oral 800 Other: Voiding Method Toilet # Voids 1 Weight 93.4 kg PHYSICAL EXAMINATION: GENERAL: 59-year-old female in no acute distress at the time of my examination HEENT: Head is atraumatic, normocephalic. Pupils equal, round. Sclera anicteric. Conjunctiva are clear. Mucous membranes of the mouth are moist. Neck is supple. There is no elevated jugular venous pressure. No carotid bruit is heard. HEART EXAMINATION: Heart S1, S2 normal. No murmur or gallop heard. CHEST EXAMINATION: Lungs are clear to auscultation and precussion. No chest wall tenderness is noted on palpation or with deep breathing. ABDOMEN: Soft, nontender. Bowel sounds are heard. No organomegaly noted. EXTREMITIES: 2+ peripheral pulses with evidence of peripheral edema and no calf tenderness noted. Patient has multiple trigger fingers NEUROLOGIC patient is awake, alert and oriented 3 . . Results 04/23/19 06:08 04/23/19 06:08 Cardiac Enzymes 04/22/19 04/22/19 04/23/19 Range/Units 14:30 23:31 06:08 AST 26 25 (14-36) U/L Troponin I <0.012 (0.000-0.034) ng/mL CBC 04/22/19 04/23/19 Range/Units 14:30 06:08 WBC 8.4 6.7 (3.8-10.6) k/uL RBC 3.65 L 3.41 L (3.80-5.40) m/uL Hgb 10.7 L 10.0 L (11.4-16.0) gm/dL Hct 32.7 L 31.7 L (34.0-46.0) % Plt Count 306 265 (150-450) k/uL Comprehensive Metabolic Panel 04/22/19 04/23/19 Range/Units 14:30 06:08 Sodium 137 141 (137-145) mmol/L Potassium 3.7 3.7 (3.5-5.1) mmol/L Chloride 105 109 H (98-107) mmol/L Carbon Dioxide 18 L 23 (22-30) mmol/L BUN 17 13 (7-17) mg/dL Creatinine 0.50 L 0.56 (0.52-1.04) mg/dL Glucose 278 H 99 (74-99) mg/dL Calcium 9.0 8.5 (8.4-10.2) mg/dL AST 26 25 (14-36) U/L ALT 21 24 (9-52) U/L Alkaline Phosphatase 116 92 (38-126) U/L Total Protein 7.6 6.9 (6.3-8.2) g/dL Albumin 3.8 3.4 L (3.5-5.0) g/dL Current Medications Generic Name Dose Route Start Last Admin Trade Name Freq PRN Reason Stop Dose Admin Acetaminophen 650 mg 04/22/19 16:16 Tylenol Tab PO Q6HR PRN Mild Pain or Fever > 100.5 Hydrocodone Bitart/Acetaminophen 1 each 04/22/19 16:16 [place] 5-325 PO Q4HR PRN Moderate Pain Gabapentin 800 mg 04/22/19 21:00 04/23/19 08:59 Neurontin PO 800 mg BID BIBIANA Administration Glipizide 5 mg 04/22/19 19:56 Glucotrol PO DAILY PRN Elevated Blood Sugar Hydromorphone HCl 0.5 mg 04/22/19 16:16 Dilaudid IVP Q3HR PRN Moderate Pain Hydromorphone HCl 1 mg 04/22/19 16:16 04/23/19 08:59 Dilaudid IVP 1 mg Q3HR PRN Administration Severe Pain Sodium Chloride 1,000 mls @ 100 mls/hr 04/22/19 16:30 04/23/19 04:46 Saline 0.9% IV 100 mls/hr .Q10H BIBIANA Administration Diltiazem HCl 125 mg/ Sodium 125 mls @ 5 mls/hr 04/22/19 23:30 04/23/19 00:26 Chloride IV 5 mg/hr .Q24H BIBIANA 5 mls/hr Administration 5 MG/HR Insulin Aspart 0 unit 04/22/19 21:00 04/23/19 06:44 Novolog SQ Not Given ACHS [facility] Protocol Lisinopril 20 mg 04/23/19 09:00 04/23/19 08:59 Zestril PO 20 mg DAILY BIB[facility]NA Administration Metoprolol Succinate 25 mg 04/23/19 09:00 04/23/19 08:59 Toprol Xl PO 25 mg DAILY BIBIANA Administration Naloxone HCl 0.2 mg 04/22/19 16:16 Narcan IV Q2M PRN Opioid Reversal Ondansetron HCl 4 mg 04/22/19 16:16 Zofran IVP Q8HR PRN Nausea And Vomiting Intake and Output 04/22/19 04/23/19 04/23/19 22:59 06:59 14:59 Intake Total 800 Balance 800 Intake: Oral 800 Other: Voiding Method Toilet # Voids 1 Weight 93.4 kg 04/23/19 06:08 04/23/19 06:08 EKG Interpretations (text) EKG shows atrial fibrillation with moderately rapid ventricular response Assessment and Plan Plan: Assessment and plan #1 acute pancreatitis #2 paroxysmal atrial fibrillation #3 diabetes #4 hypertension #5 MRSA #6 history of multiple trigger fingers #7 occasional EtOH use #8 anxiety #9 chronic neck and back pain Plan We will discontinue the IV Cardizem and increase the patient's dose of m etoprolol, patient is a diabetic, we will initiate a statin on her. I also had a lengthy discussion with her regarding the importance of anticoagulation for stroke prevention, patient has been on multiple blood thinners in the past and she is agreeable to be back on Eliquis. We will obtain an echocardiogram with Doppler study as well as a TSH level. We will initiate IV heparin, until the patient is evaluated by GI service, if no procedures are scheduled to be performed we can start the patient on Eliquis. Further recommendations to follow. DNP note has been reviewed, I agree with a documented findings and plan of care. Patient was seen and examined.
[2019-04-23] MEDS ORDERED: HEPARIN SOD,PORK IN 0.45% NACL 25,000 UNIT in 0.45% NACL 1 250ML.BAG IV SCH (10:45)
[2019-04-23] MEDS: HYDROcodone/APAP 5-325MG 1 EACH TAB PO PRN ×2 (10:51→15:53)
[2019-04-23 11:05] LABS: Anisocytosis Slight; Basophils % (A) 0 %; Eosinophils # (A) 0.1 k/uL (0-0.7); Eosinophils % (A) 2 %; HCT 31.6 % (34.0-46.0); Hypochromasia Slight; Lymphocytes # (A) 0.7 k/uL (1.0-4.8); Lymphocytes % (A) 10 %; MCH 29.4 pg (25.0-35.0); MCHC 31.6 g/dL (31.0-37.0); MCV 92.9 fL (80.0-100.0); Mean Platelet Volume 7.6; Monocytes # (A) 0.4 k/uL (0-1.0); Monocytes % (A) 6 %; Neutrophils # (A) 5.7 k/uL (1.3-7.7); Neutrophils % (A) 81 %; Platelet Count 282 k/uL (150-450); RDW 16.1 % (11.5-15.5); WBC 7.1 k/uL (3.8-10.6)
[2019-04-23] MEDS ORDERED: METOPROLOL SUCCINATE (ER) 25 MG TAB.ER.24H PO STA ×2 (11:12→11:34)
[2019-04-23 11:22] LABS: INR 1.1 (<1.2); Partial Thromboplastin Time 25.6 sec (22.0-30.0); Prothrombin Time 11.8 sec (9.0-12.0)
[2019-04-23 12:35] LABS: Glucose,Whole Blood 147 mg/dL (75-99)
--- NOTE | 2019-04-23 13:11 | ECHOF ---
Referral Reason:afib MEASUREMENTS -------- HEIGHT: 182.9 cm WEIGHT: 93.0 kg BP: IVSd: 1.5 cm (0.6 - 1.1) LVIDd: 4.3 cm (3.9 - 5.3) LVPWd: 1.1 cm (0.6 - 1.1) EDV(Teich): 83 ml IVSs: 1.8 cm LVIDs: 3.3 cm LVPWs: 1.5 cm %IVS Thck: 19 % ESV(Teich): 44 ml EF(Teich): 46 % %FS: 23 % SV(Teich): 38 ml LA Diam: 4.7 cm (2.7 - 3.8) LALs A4C: 5.6 cm LAAs A4C: 24.0 cm LAESV A-L A4C: 87 ml LAESV MOD A4C: 82 ml LALs A2C: 5.2 cm LAAs A2C: 18.7 cm LAESV A-L A2C: 57 ml LAESV MOD A2C: 55 ml LAESV(A-L): 73 ml LAESV Index (A-L): 34.12 ml/m Ao Diam: 3.3 cm (2.0 - 3.7) LA Diam: 3.6 cm (2.7 - 3.8) AV Cusp: 2.1 cm (1.5 - 2.6) EPSS: 1.1 cm MV E Chau: 1.16 m/s MV DecT: 85 ms MV Dec [place]: 13.6 m/s MV A Chau: 0.03 m/s MV E/A Ratio: 36.51 MV PHT: 25 ms TR Vmax: 2.83 m/s TR maxP.08 mmHg RAP: 5.00 mmHg RVSP: 37.08 mmHg MV EF SLOPE: 118.44 mm/s (70 - 150) MV EXCURSION: 21.52 mm (> 18.000) FINDINGS -------- Atrial fibrillation. This was a technically adequate study. The left ventricular size is normal. There is moderate concentric left ventricular hypertrophy. O verall left ventricular systolic function is low-normal with, an EF between 50 - 55 %. Left ventric ular fillimg pressure cannot be estimated due to Atrial fibrillation. The right ventricle is normal in size. The left atrium is moderately dilated. LA is moderately dilated 34-39 ml/m2 The right atrial size is normal. The aortic valve is trileaflet, and appears structurally normal. No aortic stenosis or regurgitation. Mild mitral annular calcification present. Mild mitral regurgitation is present. Mild tricuspid regurgitation present. There is mild pulmonary hypertension. The right ventricular systolic pressure, as measured by Doppler, is 37.08mmHg. There is no pulmonic regurgitation present. The aortic root size is normal. There is no pericardial effusion. CONCLUSIONS -------- 1. Atrial fibrillation. 2. This was a technically adequate study. 3. The left ventricular size is normal. 4. There is moderate concentric left ventricular hypertrophy. 5. Overall left ventricular systolic function is low-normal with, an EF between 50 - 55 %. 6. Left ventricular fillimg pressure cannot be estimated due to Atrial fibrillation. 7. The right ventricle is normal in size. 8. The left atrium is moderately dilated. 9. LA is moderately dilated 34-39 ml/m2 10. The right atrial size is normal. 11. The aortic valve is trileaflet, and appears structurally normal. No aortic stenosis or regurgitat ion. 12. Mild mitral annular calcification present. 13. Mild mitral regurgitation is present. 14. Mild tricuspid regurgitation present. 15. There is mild pulmonary hypertension. 16. The right ventricular systolic pressure, as measured by Doppler, is 37.08mmHg. 17. There is no pulmonic regurgitation present. 18. The aortic root size is normal. 19. There is no pericardial effusion. CALL CENTER AGENT: Britney Anderson RDCS
--- NOTE | 2019-04-23 14:17 | US ---
EXAMINATION TYPE: US gallbladder DATE OF EXAM: 04/23/2019 COMPARISON: CT CLINICAL HISTORY: gall stones, pancreatitis. EXAM MEASUREMENTS: Liver Length: 19.3 cm Gallbladder Wall: 0.3 cm CBD: 0.6 cm Right Kidney: 12.1 x 5.4 x 6.6 cm Technically difficult study due to being performed portably and extensive midline bowel gas. Pancreas: Obscured by bowel gas Liver: limited to intercostal views, visualized portions appear wnl , measures 19.3 cm Gallbladder: No stones seen Evidence for sonographic Ivory's sign: No CBD: wnl Right Kidney: No hydronephrosis or masses seen IMPRESSION: No gallstones or dilated ducts. No focal liver defect.
[2019-04-23 16:35] LABS: Glucose,Whole Blood 136 mg/dL (75-99)
[2019-04-23] MEDS ORDERED: amLODIPine 5 MG TAB PO STA (18:30)
[2019-04-23] MEDS: MEROPENEM 2 GM in SODIUM CHLORIDE 0.9% 100 ML IVPB SCH ×2 (19:15→23:28)
[2019-04-23] MEDS: ACETAMINOPHEN TAB 325 MG TAB PO PRN (19:33)
[2019-04-23] MEDS: ONDANSETRON 4 MG/2 ML VIAL IVP PRN (19:33)
[2019-04-23 20:05] LABS: Glucose,Whole Blood 130 mg/dL (75-99)
--- NOTE | 2019-04-23 22:01 | PN ---
PROGRESS NOTE DATE OF SERVICE: 04/23/2019. This 59-year-old woman who was admitted after abdominal pain with acute severe pancreatitis being closely monitored. Patient also had atrial fibrillation, rapid ventricular rate. The patient was transferred to the Cardiology unit and the patient was started on IV heparin as well. The patient being closely monitored at this time. Amylase and lipase are still elevated at [address] scan of the abdomen and pelvis was also done which showed extensive inflammatory changes surrounding in the pancreas with acute pancreatitis. Coarse calcification also noted. Chronic pancreatitis also noted. The 2D echo showed ejection fraction of 50-55 percent and moderately dilated LA. A gallbladder ultrasound was also done which showed no gallstones or dilated ducts also. No chest pain. No palpitations. PAST MEDICAL HISTORY: Reviewed. REVIEW OF SYSTEMS: Cardiovascular System: As mentioned earlier. RESPIRATORY: As mentioned earlier. GASTROINTESTINAL: As mentioned earlier. no dysuria. Nervous systems: No numbness or weakness. CURRENT MEDICATIONS: Reviewed and include: 1. Tylenol 650 q.6h p.r.n. 2. Siren 5 mg q.4 p.r.n. 3. Lipitor 40 mg p.o. daily. 4. Neurontin 800 mg p.o. b.i.d. 5. Glucotrol 5 mg p.o. daily. 6. Heparin subcu b.i.d. 7. Dilaudid p.r.n. 8. NovoLog. 9. Zestril 20 mg p.r.n. 10.Toprol-XL 50 mg p.o. daily. 11.Zofran. PHYSICAL EXAM: Patient is alert, oriented times three. Pulse is 87. Blood pressure 151/86, respiration 18, temperature 97.2, pulse ox 100 percent on room air. HEENT: Conjunctivae normal. NECK: No jugular venous distention. CARDIOVASCULAR: S1, S2 muffled. RESPIRATIONS: Breath sounds diminished in the bases. A few scattered rhonchi and crackles. ABDOMEN: Soft, nontender. Mild diffuse discomfort on palpation. No guarding. No mass palpable. LEGS: No edema. No swelling. CENTRAL NERVOUS SYSTEM: No focal deficits. LABS: WBC 7.1, hemoglobin is 10, sodium 131, potassium 3.7. Amylase 590, lipase is 2736. ASSESSMENT: 1. Abdominal pain with acute severe pancreatitis with fulminant pancreatitis present on admission. 2. Atrial fibrillation with fast ventricular rate. 3. Chronic pancreatitis in the CT scan. 4. Diabetes mellitus type 2. 5. Atrial fibrillation, chronic. 6. Hypertension. 7. Left radial nerve damage. 8. History of back pain, degenerative joint disease. 9. History of MRSA. 10.History of section. 11.History of degenerative joint disease. 12.History of multiple trigger fingers on both hands. 13.Anemia, normocytic anemia of chronic disease. RECOMMENDATIONS AND DISCUSSION: Recommend to continue current medications, continue to monitor. Symptomatic treatment. Otherwise at this time, I recommend to continue current medications, symptomatic treatment. Otherwise, will continue with diltiazem. Continue with beta blockers and I would also recommend avoid IV heparin because of the fulminant nature of the pancreatitis. Empiric antibiotics. Repeat labs. Guarded prognosis. Further recommendations to follow. I would also recommend closely follow with Gastroenterology also. MMODL / IJN: [id number] / MTDD
--- NOTE | 2019-04-23 23:29 | P.CONS ---
History of Present Illness - Reason for Consult Consult date: 04/23/19 Pancreatitis Requesting physician: Maddie Duke - Chief Complaint Abdominal pain - History of Present Illness 59-year-old female with a medical history significant for hypertension, diabetes mellitus, atrial fibrillation, chronic back pain as well as prior episode of MRSA who presented to the hospital with complaints of abdominal pain. The patient reported severe sharp and cramping abdominal pain with associated nausea and vomiting. The pain was present for over 1 day and constant in nature causing her to present to the hospital for further evaluation. She denies any significant history of tobacco or alcohol abuse. She does report chronic constipation at baseline her bowel movements have been stable. On presentation to the hospital computed tomography scan of the abdomen was suggestive of acute on chronic pancreatitis with findings of ascites. Ultrasound gallbladder was negative for any biliary abnormalities or gallstones. Lipase on presentation was greater than 4000. Currently she is seen lying in bed reporting that overall her abdominal pain is improved. No further nausea or vomiting. She has tolerated liquids. Review of Systems REVIEW OF SYSTEMS: CONSTITUTIONAL: Denies any fevers, chills, weight change or fatigue. CARDIOVASCULAR: Denies any chest pain, palpitations high or low blood pressures RESPIRATORY: Denies any shortness of breath, hemoptysis or cough. GENITOURINARY: No dysuria or hematuria. MUSCULOSKELETAL: Does report chronic musculoskeletal problems with hands. SKIN: Denies any new rashes or lesions, jaundice or pallor. PSYCHIATRICNo recent change in mmod. NEUROLOGY: Denies headache, denies any new focal deficits. EARS/NOSE/THROAT: No recent hearing change, congestion, nasal discharge or sore throat. EYES: No pain in eyes, discharge or change in vision. GASTROINTESTINAL: As per HPI. Past Medical History Past Medical History: Atrial Fibrillation, Diabetes Mellitus, Hypertension Additional Past Medical History / Comment(s): radial nerve damage, back pain, History of Any Multi-Drug Resistant Organisms: MRSA Year Discovered:: 02/15/2015 MDRO Source:: Face and foot Past Surgical History: Section, Orthopedic Surgery Additional Past Surgical History / Comment(s): left great toe, Past Psychological History: No Psychological Hx Reported Smoking Status: Never smoker Past Alcohol Use History: Occasional Past Drug Use History: None Reported Additional History: Family history: Reviewed with the patient in no ncontributory to current medical presentation. Medications and Allergies Home Medications Medication Instructions Recorded Confirmed Type metFORMIN HCL 1,000 mg PO BID 02/15/15 04/22/19 History Calcium Polycarbophil [Fibercon] 625 mg PO DAILY 04/22/19 04/22/19 History Docusate Sodium [Dok] 100 mg PO DAILY PRN 04/22/19 04/22/19 History Gabapentin [Neurontin] 800 mg PO BID 04/22/19 04/22/19 History Ibuprofen [Motrin] 800 mg PO TID 04/22/19 04/22/19 History Lisinopril 20 mg PO DAILY 04/22/19 04/22/19 History Loratadine 10 mg PO DAILY 04/22/19 04/22/19 History Metoprolol Succinate [Toprol XL] 25 mg PO DAILY 04/22/19 04/22/19 History Montelukast Sodium [Singulair] 10 mg PO DAILY 04/22/19 04/22/19 History glipiZIDE [Glucotrol] 5 mg PO DAILY PRN 04/22/19 04/22/19 History tiZANidine [Zanaflex] 4 mg PO HS PRN 04/22/19 04/22/19 History Allergies Allergy/AdvReac Type Severity Reaction Status Date / Time codeine Allergy Rash/Hives Verified 04/22/19 16:58 Sulfa (Sulfonamide Allergy Unknown Verified 04/22/19 16:58 Antibiotics) Physical Exam Vitals: Vital Signs Temp Pulse Pulse Resp BP Pulse Ox 04/23/19 20:30 167/89 04/23/19 19:15 97.8 F 83 18 182/125 100 04/23/19 16:00 97.8 F 88 18 150/98 98 04/23/19 12:00 97.2 F L 87 18 151/86 100 04/23/19 08:00 97.1 F L 95 18 160/92 98 04/23/19 03:22 98.4 F 99 18 147/94 99 04/23/19 03:21 18 04/23/19 01:46 114 H 153/106 04/23/19 00:30 98.5 F 120 H 18 184/113 99 04/22/19 23:36 97.8 F 128 H 128 H 18 180/98 Intake and Output 04/23/19 04/23/19 04/24/19 14:59 22:59 06:59 Intake Total 1865 663.462 Balance 1865 663.462 Intake: Intake, IV Titration 825 63.462 Amount Diltiazem 125 mg In 25 Sodium Chloride 0.9% 100 ml @ 5 MG/HR 5 mls/hr IV .Q24H BIBIANA Rx#:[id number] Heparin Sod,Pork in 0.45% 63.462 NaCl 25,000 unit In 0.45 % NaCl 1 250ml.bag @ 10.7 UNITS/KG/HR 9.994 mls/hr IV .Q24H BIBIANA Rx#: [id number] Sodium Chloride 0.9% 1, 800 000 ml @ 100 mls/hr IV . Q10H BIBIANA Rx#:[id number] Oral 1040 600 Other: Voiding Method Toilet Toilet # Voids 3 On physical examination, patient appears comfortable in no apparent distress. HEAD: Normocephalic, atraumatic. EYES: No scleral icterus. No conjunctival injection. MOUTH: No lesions, tongue midline. NECK: Trachea midline, no gross abnormalities. CHEST: Clear to auscultation with no wheezing or rhonchi appreciated. HEART: Regular rate and rhythm. ABDOMEN: Soft, obese. Bowel sounds are positive. No organomegaly. No guarding or rigidity. EXTREMITIES: No pedal edema. SKIN: No rashes, no jaundice. NEUROLOGIC: Alert and oriented x3. No focal deficits. Results CBC & Chem 7: 04/23/19 10:45 04/23/19 06:08 Labs: Abnormal Lab Results - Last 24 Hours (Table) 04/23/19 04/23/19 04/23/19 Range/Units 06:08 06:08 10:45 RBC 3.41 L 3.40 L (3.80-5.40) m/uL Hgb 10.0 L 10.0 L (11.4-16.0) gm/dL Hct 31.7 L 31.6 L (34.0-46.0) % RDW 16.3 H 16.1 H (11.5-15.5) % Lymphocytes # 0.7 L (1.0-4.8) k/uL APTT (22.0-30.0) sec Chloride 109 H (98-107) mmol/L POC Glucose (mg/dL) (75-99) mg/dL Albumin 3.4 L (3.5-5.0) g/dL Amylase 590 H* (30-110) U/L Lipase 2736 H (23-300) U/L 04/23/19 04/23/19 04/23/19 Range/Units 12:01 16:34 16:43 RBC (3.80-5.40) m/uL Hgb (11.4-16.0) gm/dL Hct (34.0-46.0) % RDW (11.5-15.5) % Lymphocytes # (1.0-4.8) k/uL APTT 32.1 H (22.0-30.0) sec Chloride (98-107) mmol/L POC Glucose (mg/dL) 147 H 136 H (75-99) mg/dL Albumin (3.5-5.0) g/dL Amylase (30-110) U/L Lipase (23-300) U/L 04/23/19 Range/Units 20:04 RBC (3.80-5.40) m/uL Hgb (11.4-16.0) gm/dL Hct (34.0-46.0) % RDW (11.5-15.5) % Lymphocytes # (1.0-4.8) k/uL APTT (22.0-30.0) sec Chloride (98-107) mmol/L POC Glucose (mg/dL) 130 H (75-99) mg/dL Albumin (3.5-5.0) g/dL Amylase (30-110) U/L Lipase (23-300) U/L Microbiology - Last 24 Hours (Table) 04/23/19 19:00 Urine Culture - Preliminary Urine,Voided CT scan - abdomen: report reviewed (Computed tomography scan of abdomen with findings of acute uncomplicated pancreatitis with findings of chronic pancreatitis.) Assessment and Plan (1) Acute pancreatitis Narrative/Plan: 69-year-old female who presents to the hospital with complaints of abdominal pain and was found to have inflammation in the pancreas on computed tomography scan of the abdomen consistent with acute pancreatitis. Lipase was also found to be elevated at greater than 4000. No prior episodes of pancreatitis reported by the patient. She denies any excessive alcohol use. Ultrasound and CT were both negative for any biliary abnormalities or findings of cholelithiasis. Current Visit: Yes Status: Acute Code(s): K85.90 - ACUTE PANCREATITIS WITHOUT NECROSIS OR INFECTION, UNSP SNOMED Code(s): 722902126 Plan: Supportive care Liquid diet, okay to advance to low-fat as abdominal pain improves We'll check ANABELL and IgG levels Continue bowel regimen Continue pain control Continue IV fluid hydration Continue to monitor clinically Thank you for allowing us to this. In the care of the patient we will continue to follow
[2019-04-24] MEDS: HYDROcodone/APAP 5-325MG 1 EACH TAB PO PRN ×3 (02:24→16:18)
[2019-04-24 06:13] LABS: Glucose,Whole Blood 150 mg/dL (75-99)
[2019-04-24] MEDS: INSULIN ASPART (NovoLOG) 100 UNIT/ML VIAL SQ SCH ×4 (06:13→21:39)
[2019-04-24 07:04] LABS: Basophils # (A) 0.1 k/uL (0-0.2); Basophils % (A) 1 %; Eosinophils # (A) 0.2 k/uL (0-0.7); Eosinophils % (A) 4 %; HCT 29.8 % (34.0-46.0); HGB 9.4 gm/dL (11.4-16.0); Hypochromasia Slight; Lymphocytes # (A) 0.9 k/uL (1.0-4.8); Lymphocytes % (A) 18 %; MCHC 31.6 g/dL (31.0-37.0); MCV 91.7 fL (80.0-100.0); Mean Platelet Volume 7.5; Monocytes # (A) 0.3 k/uL (0-1.0); Monocytes % (A) 7 %; Neutrophils # (A) 3.4 k/uL (1.3-7.7); Neutrophils % (A) 68 %; Platelet Count 244 k/uL (150-450); RBC 3.25 m/uL (3.80-5.40); RDW 15.8 % (11.5-15.5); WBC 4.9 k/uL (3.8-10.6)
[2019-04-24 07:15] LABS: ALT 15 U/L (9-52); AST 21 U/L (14-36); African American GFR (CKD) >90 (>60 ml/min/1.73 sqM); Albumin 3.1 g/dL (3.5-5.0); Alkaline Phosphatase 85 U/L (38-126); Amylase 152 U/L (30-110); Anion Gap 7 mmol/L; Blood Urea Nitrogen 9 mg/dL (7-17); Calcium 8.6 mg/dL (8.4-10.2); Carbon Dioxide 22 mmol/L (22-30); Chloride 109 mmol/L (98-107); Glucose 145 mg/dL (74-99); Potassium 3.5 mmol/L (3.5-5.1); Sodium 138 mmol/L (137-145); Total Bilirubin 0.9 mg/dL (0.2-1.3); Total Protein 6.5 g/dL (6.3-8.2); Triglycerides 43 mg/dL (<150)
[2019-04-24] MEDS: LISINOPRIL 20 MG TAB PO SCH (09:34)
[2019-04-24] MEDS: ATORVASTATIN 40 MG TAB PO SCH (09:34)
[2019-04-24] MEDS: amLODIPine 5 MG TAB PO SCH (09:34)
[2019-04-24] MEDS: METOPROLOL SUCCINATE (ER) 50 MG TAB.ER.24H PO SCH (09:34)
[2019-04-24] MEDS: DOCUSATE 100 MG CAP PO SCH ×2 (09:34→20:27)
[2019-04-24] MEDS: GABAPENTIN 400 MG CAP PO SCH ×2 (09:35→20:27)
[2019-04-24] MEDS: MEROPENEM 2 GM in SODIUM CHLORIDE 0.9% 100 ML IVPB SCH ×3 (09:36→23:05)
[2019-04-24] MEDS: SODIUM CHLORIDE 0.9% 1,000 ML IV SCH ×2 (09:36→17:42)
[2019-04-24 11:41] LABS: Glucose,Whole Blood 229 mg/dL (75-99)
[2019-04-24] MEDS: ACETAMINOPHEN TAB 325 MG TAB PO PRN ×2 (12:35→20:27)
[2019-04-24 16:49] LABS: Glucose,Whole Blood 133 mg/dL (75-99)
[2019-04-24 20:45] LABS: Glucose,Whole Blood 197 mg/dL (75-99)
--- NOTE | 2019-04-24 20:49 | P.PN ---
Subjective Progress Note Date: 04/24/19 Principal diagnosis: Acute uncomplicated pancreatitis Patient seen lying in bed reporting that her abdominal pain is improved. She is upset that she has not mashed potatoes with her lunch tray today. No nausea or vomiting. Objective - Vital Signs Vital signs: Vital Signs Temp 97.7 F 04/24/19 16:00 Pulse 81 04/24/19 16:00 Resp 16 04/24/19 16:00 BP 145/87 04/24/19 16:00 Pulse Ox 99 04/24/19 16:00 Intake & Output 04/24/19 04/24/19 04/25/19 06:59 18:59 06:59 Intake Total 1999 Balance 1999 Weight 95.5 kg 95.5 kg Intake: Intake, IV Titration 800 Amount Meropenem 2 gm In Sodium 100 Chloride 0.9% 100 ml @ 200 mls/hr IVPB Q8HR [facility] Rx#:[id number] Sodium Chloride 0.9% 1, 700 000 ml @ 100 mls/hr IV . Q10H [facility] Rx#:[id number] Oral 1200 Other: Voiding Method Toilet # Voids 2 - Exam On physical examination, patient appears comfortable in no apparent distress. HEAD: Normocephalic, atraumatic. EYES: No scleral icterus. No conjunctival injection. MOUTH: No lesions, tongue midline. NECK: Trachea midline, no gross abnormalities. CHEST: Clear to auscultation with no wheezing or rhonchi appreciated. HEART: S1-S2 appreciated. ABDOMEN: Soft, nontender. Bowel sounds are positive. No organomegaly. No guarding or rigidity. EXTREMITIES: No pedal edema. SKIN: No rashes, no jaundice. NEUROLOGIC: Alert and oriented x3. No focal deficits. - Labs CBC & Chem 7: 04/24/19 06:09 04/24/19 06:09 Labs: Abnormal Lab Results - Last 24 Hours (Table) 04/24/19 04/24/19 04/24/19 Range/Units 06:09 06:09 06:11 RBC 3.25 L (3.80-5.40) m/uL Hgb 9.4 L (11.4-16.0) gm/dL Hct 29.8 L (34.0-46.0) % RDW 15.8 H (11.5-15.5) % Lymphocytes # 0.9 L (1.0-4.8) k/uL Chloride 109 H (98-107) mmol/L Creatinine 0.43 L (0.52-1.04) mg/dL Glucose 145 H (74-99) mg/dL POC Glucose (mg/dL) 150 H (75-99) mg/dL Albumin 3.1 L (3.5-5.0) g/dL Amylase 152 H (30-110) U/L Lipase 308 H (23-300) U/L 04/24/19 04/24/19 Range/Units 11:40 16:47 RBC (3.80-5.40) m/uL Hgb (11.4-16.0) gm/dL Hct (34.0-46.0) % RDW (11.5-15.5) % Lymphocytes # (1.0-4.8) k/uL Chloride (98-107) mmol/L Creatinine (0.52-1.04) mg/dL Glucose (74-99) mg/dL POC Glucose (mg/dL) 229 H 133 H (75-99) mg/dL Albumin (3.5-5.0) g/dL Amylase (30-110) U/L Lipase (23-300) U/L Microbiology - Last 24 Hours (Table) 04/23/19 17:32 Blood Culture - Preliminary Blood No Growth after 24 hours 04/23/19 19:00 Urine Culture - Preliminary Urine,Voided Assessment and Plan (1) Acute pancreatitis Narrative/Plan: 69-year-old female who presents to the hospital with complaints of abdominal pain and was found to have inflammation in the pancreas on computed tomography scan of the abdomen consistent with acute pancreatitis. Lipase was also found to be elevated at greater than 4000. No prior episodes of pancreatitis reported by the patient. She denies any excessive alcohol use. Ultrasound and CT were both negative for any biliary abnormalities or findings of cholelithiasis. Current Visit: Yes Status: Acute Code(s): K85.90 - ACUTE PANCREATITIS WITHOUT NECROSIS OR INFECTION, UNSP SNOMED Code(s): 710997200 Plan: Supportive care Patient tolerating low-fat diet ANABELL and IgG levels pending Continue bowel regimen Continue pain control Continue IV fluid hydrationOkay to discharge from gastroenterology standpoint Patient should have MRI or endoscopic ultrasound in 6-8 weeks to rule out pancreatic pathology as source of acute pancreatitis after inflammation has subsided Thank you for allowing us to participate in the care of this patient, the GI service will stand by, please also
--- NOTE | 2019-04-24 21:45 | PN ---
PROGRESS NOTE DATE OF SERVICE: 04/24/2019. This 59-year-old woman who was admitted with abdominal pain with acute severe pancreatitis and pancreatitis present on admission. The patient had atrial fibrillation. Heparin has been avoided at this time. Ultrasound of the gallbladder was done which showed no gallstones. No dilated pancreatic duct. The patient was seen by Cardiology and also Gastroenterology, Dr. Rodarte has seen the patient and recommended to continue the current medications. ANABELL and IgG levels have been recommended at this time. No chest pain. No palpitations. 2D echo with Doppler showed ejection fraction about 50-55 percent with moderate LA dilatation thank current medications are please also history the patient also had atrial fibrillation for that reason was transferred to telemetry and is being closely monitored. Rate is controlled at this time. PAST MEDICAL HISTORY: Reviewed. REVIEW OF SYSTEMS: CARDIOVASCULAR: As mentioned earlier. RESPIRATORY: As mentioned earlier. GASTROINTESTINAL: No nausea or vomiting. no dysuria. CENTRAL NERVOUS SYSTEM: No numbness or weakness. MEDICATIONS: The current medications are: 1. Tylenol p.r.n. 2. [place] 5 mg. 3. Norvasc 5 mg. 4. Lipitor 40 mg. 5. Colace 100 mg p.o. b.i.d. 6. Neurontin 800 mg p.o. b.i.d. 7. Glucotrol 5 mg p.r.n. 8. Dilaudid 0.5 q.3 p.r.n. 9. NovoLog scale. 10.Zestril 20 mg p.o. daily. 11.Meropenem 2 g IV q.8h. 12.Toprol-XL 50 mg p.o. daily. 13.Zofran. PHYSICAL EXAM: Patient is alert, oriented times three. Pulse is 89. Blood pressure 154/98, respirations 16, temperature 97.2. Pulse ox 100 percent on room air. HEENT: Conjunctivae normal. Oral mucosa moist. NECK is no jugular venous distention. No carotid bruit. No lymph node enlargement. CARDIOVASCULAR SYSTEM: S1, S2 muffled, irregular. No murmurs. No thrills. RESPIRATIONS: Breath sounds diminished at the bases. No rhonchi. No crackles. ABDOMEN: Soft. Mild diffuse discomfort. No guarding. No rigidity. No mass palpable. LEGS: No edema. No swelling. CENTRAL NERVOUS SYSTEM: No focal deficits. LABS: WBC 4.9, hemoglobin 9.4, glucose 150. ASSESSMENT: 1. Abdominal pain with acute severe pancreatitis with necrotizing pancreatitis, present on admission. 2. Atrial fibrillation with fast ventricular rate. 3. Chronic pancreatitis in the CT scan. 4. Diabetes mellitus type 2. 5. History of atrial fibrillation chronic. 6. Hypertension. 7. Left radial nerve damage recently. 8. History of back pain, degenerative joint disease. 9. History of MRSA. 10.History of section. 11.History of degenerative joint disease. 12.History of multiple trigger fingers on both hands. 13.Anemia, normocytic anemia of chronic disease. RECOMMENDATIONS AND DISCUSSION: Recommend to continue current medications, symptomatic treatment. Closely monitor. Other than that, I would recommend continue with antibiotics. Continue with beta blockers. Monitor closely. Guarded prognosis because of multiple complex medical issues. Further recommendations to follow. MMANUPAMAL / CESARION: [id number] / MTDD
[2019-04-25] MEDS: ACETAMINOPHEN TAB 325 MG TAB PO PRN ×3 (02:01→21:22)
[2019-04-25] MEDS: SODIUM CHLORIDE 0.9% 1,000 ML IV SCH ×2 (05:24→12:43)
[2019-04-25] MEDS: INSULIN ASPART (NovoLOG) 100 UNIT/ML VIAL SQ SCH ×4 (06:05→21:09)
[2019-04-25 06:29] LABS: Glucose,Whole Blood 134 mg/dL (75-99)
[2019-04-25 06:33] LABS: Anisocytosis Slight; Basophils % (A) 1 %; Eosinophils # (A) 0.2 k/uL (0-0.7); Eosinophils % (A) 5 %; HCT 31.2 % (34.0-46.0); Hypochromasia Slight; Lymphocytes % (A) 22 %; MCH 29.4 pg (25.0-35.0); MCHC 31.9 g/dL (31.0-37.0); MCV 92.4 fL (80.0-100.0); Mean Platelet Volume 7.6; Monocytes # (A) 0.2 k/uL (0-1.0); Monocytes % (A) 5 %; Neutrophils # (A) 2.9 k/uL (1.3-7.7); Neutrophils % (A) 65 %; Platelet Count 275 k/uL (150-450); RBC 3.38 m/uL (3.80-5.40); RDW 16.2 % (11.5-15.5); WBC 4.6 k/uL (3.8-10.6)
[2019-04-25 07:10] LABS: ALT 23 U/L (9-52); AST 32 U/L (14-36); African American GFR (CKD) >90 (>60 ml/min/1.73 sqM); Albumin 3.6 g/dL (3.5-5.0); Alkaline Phosphatase 144 U/L (38-126); Amylase 65 U/L (30-110); Anion Gap 9 mmol/L; Blood Urea Nitrogen 13 mg/dL (7-17); Calcium 9.1 mg/dL (8.4-10.2); Carbon Dioxide 22 mmol/L (22-30); Chloride 109 mmol/L (98-107); Glucose 129 mg/dL (74-99); Potassium 4.3 mmol/L (3.5-5.1); Sodium 140 mmol/L (137-145); Total Protein 7.7 g/dL (6.3-8.2)
[2019-04-25] MEDS: HYDROcodone/APAP 5-325MG 1 EACH TAB PO PRN ×3 (07:34→17:40)
[2019-04-25] MEDS: amLODIPine 5 MG TAB PO SCH (08:51)
[2019-04-25] MEDS: LISINOPRIL 20 MG TAB PO SCH (08:51)
[2019-04-25] MEDS: METOPROLOL SUCCINATE (ER) 50 MG TAB.ER.24H PO SCH (08:51)
[2019-04-25] MEDS: DOCUSATE 100 MG CAP PO SCH ×2 (08:51→21:09)
[2019-04-25] MEDS: GABAPENTIN 400 MG CAP PO SCH ×2 (08:51→21:09)
[2019-04-25] MEDS: ATORVASTATIN 40 MG TAB PO SCH (08:51)
[2019-04-25] MEDS: MEROPENEM 2 GM in SODIUM CHLORIDE 0.9% 100 ML IVPB SCH ×2 (08:52→16:42)
[2019-04-25 08:53] LABS: IgG Subclass 3 28.8 mg/dL (11.0-85.0)
--- NOTE | 2019-04-25 09:04 | PN ---
PROGRESS NOTE This patient is admitted with acute pancreatitis. Patient has atrial fibrillation. Patient's heart rate remains controlled. She is feeling better. Denies any chest pain or shortness of breath. Blood pressure is 153/89 mmHg, heart rate is 90 per minute. First and second heart sounds are normal. Lungs are clinically clear to auscultation and percussion. We will start the patient on Eliquis when it is okay with GI services. MMODL / IJN: [id number] /
[2019-04-25 12:18] LABS: Glucose,Whole Blood 219 mg/dL (75-99)
--- NOTE | 2019-04-25 13:14 | P.PN ---
Subjective Progress Note Date: 04/25/19 This is a 59-year-old female with past medical history significant for paroxysmal atrial fibrillation, diabetes, hypertension, MRSA, multiple trigger fingers, back pain, occasional alcohol use, who presented to the emergency room with symptoms of severe abdominal pain on April 22. A cardiology consultation was requested at this time because the patient had gone into atrial fibrillation with a rapid ventricular response. It's hard to get a detailed history from the patient, she doesn't seem to be able to focus on one issue at a time, appears very stressed. She does state that she has known to have atrial fibrillation off and on in the past, she states that she was on Eliquis, Xarelt o, Coumadin, aspirin, all at different times, but currently was not on any anticoagulation prior to coming in. Patients states that she is currently homeless, she has stated several of the shelters in this area, and currently feels that she has nowhere to go. KUB was performed on arrival here which revealed moderate to large stool burden, no evidence of bowel obstruction or free air. Chest x-ray does not reveal any active cardiopulmonary disease. CAT scan of the abdomen and pelvis was performed which revealed acute pancreatitis, hiatal hernia, ascites. Blood pressure on arrival here 166/68, heart rate 105, temperature 90.8, she's 98% on room air. Blood pressure this morning 160/90 with a heart rate in the 90s, 98% on room air. White blood cell count is normal, hemoglobin 10.0, platelet count 265. Sodium 141, potassium 3.7, BUN 13, creatinine 0.5. AST ALT and alk phos normal, troponin negative, albumin is 3.4, amylase 590, lipase 4809 on admission, 2736 this morning, UA was negative. At the time of my examination this morning, the patient's main complaint is that of severe abdominal discomfort, she denies any palpitations, her breathing overall is stable. 04/25/2019 Patient was seen and examined this morning, continues to be in atrial fibrillation, heart rate is under adequate control. From our perspective, patient will need to be started on Eliquis once she has been cleared by GI service. Objective - Vital Signs Vital signs: Vital Signs Temp 97.1 F L 04/25/19 06:09 Pulse 97 04/25/19 06:09 Resp 16 04/25/19 06:09 BP 155/97 04/25/19 06:09 Pulse Ox 98 04/25/19 06:09 Intake & Output 04/24/19 04/25/19 04/25/19 18:59 06:59 18:59 Intake Total 1999 1540 Balance 1999 1540 Weight 95.5 kg 96.2 kg Intake: Intake, IV Titration 800 700 Amount Meropenem 2 gm In Sodium 100 100 Chloride 0.9% 100 ml @ 200 mls/hr IVPB Q8HR [facility] Rx#:[id number] Sodium Chloride 0.9% 1, 700 600 000 ml @ 100 mls/hr IV . Q10H [facility] Rx#:[id number] Oral 1200 840 Other: # Voids 2 1 2 # Bowel Movements 1 - Exam PHYSICAL EXAMINATION: GENERAL: 59-year-old female in no acute distress at the time of my examination HEENT: Head is atraumatic, normocephalic. Pupils equal, round. Sclera anicteric. Conjunctiva are clear. Mucous membranes of the mouth are moist. Neck is supple. There is no elevated jugular venous pressure. No carotid bruit is heard. HEART EXAMINATION: Heart S1, S2 normal. No murmur or gallop heard. CHEST EXAMINATION: Lungs are clear to auscultation and precussion. No chest wall tenderness is noted on palpation or with deep breathing. ABDOMEN: Soft, nontender. Bowel sounds are heard. No organomegaly noted. EXTREMITIES: 2+ peripheral pulses with evidence of peripheral edema and no calf tenderness noted. Patient has multiple trigger fingers NEUROLOGIC patient is awake, alert and oriented 3 . . - Labs CBC & Chem 7: 04/25/19 05:52 04/25/19 05:52 Labs: Abnormal Lab Results - Last 24 Hours (Table) 04/24/19 04/24/19 04/24/19 Range/Units 06:09 16:47 20:44 RBC (3.80-5.40) m/uL Hgb (11.4-16.0) gm/dL Hct (34.0-46.0) % RDW (11.5-15.5) % Chloride (98-107) mmol/L Glucose (74-99) mg/dL POC Glucose (mg/dL) 133 H 197 H (75-99) mg/dL Alkaline Phosphatase (38-126) U/L Lipase (23-300) U/L IgG1 1060.0 H (405.0-1011.0) mg/dL IgG4 235.0 H (3.0-175.0) mg/dL ANABELL Screen POSITIVE H (NEGATIVE) 04/25/19 04/25/19 04/25/19 Range/Units 05:52 05:52 06:02 RBC 3.38 L (3.80-5.40) m/uL Hgb 10.0 L (11.4-16.0) gm/dL Hct 31.2 L (34.0-46.0) % RDW 16.2 H (11.5-15.5) % Chloride 109 H (98-107) mmol/L Glucose 129 H (74-99) mg/dL POC Glucose (mg/dL) 134 H (75-99) mg/dL Alkaline Phosphatase 144 H (38-126) U/L Lipase 335 H (23-300) U/L IgG1 (405.0-1011.0) mg/dL IgG4 (3.0-175.0) mg/dL ANABELL Screen (NEGATIVE) 04/25/19 Range/Units 11:38 RBC (3.80-5.40) m/uL Hgb (11.4-16.0) gm/dL Hct (34.0-46.0) % RDW (11.5-15.5) % Chloride (98-107) mmol/L Glucose (74-99) mg/dL POC Glucose (mg/dL) 219 H (75-99) mg/dL Alkaline Phosphatase (38-126) U/L Lipase (23-300) U/L IgG1 (405.0-1011.0) mg/dL IgG4 (3.0-175.0) mg/dL ANABELL Screen (NEGATIVE) Microbiology - Last 24 Hours (Table) 04/23/19 19:00 Urine Culture - Final Urine,Voided 04/23/19 17:32 Blood Culture - Preliminary Blood No Growth after 24 hours Assessment and Plan Plan: Assessment and plan #1 acute pancreatitis #2 paroxysmal atrial fibrillation #3 diabetes #4 hypertension #5 MRSA #6 history of multiple trigger fingers #7 occasional EtOH use #8 anxiety #9 chronic neck and back pain Plan From cardiology's perspective, patient will need to be initiated on Eliquis 5 mg one tablet by mouth twice a day once cleared by GI service. Continue the rest of her medications. DNP note has been reviewed, I agree with a documented findings and plan of care. Patient was seen and examined.
--- NOTE | 2019-04-25 13:51 | P.CONS ---
History of Present Illness - Reason for Consult Consult date: 04/25/19 Bilateral foot wounds - History of Present Illness This is a 59-year-old female who presented to the hospital on April 22 with abdominal pain and has been treated for acute pancreatitis with improvement of her lipase and resolution of symptoms. The patient is currently tolerating a low-fat diet. She was followed by Dr. Rodarte and cleared for discharge. Patient did have IgG 1 and IgG G4 levels elevated, ANABELL positive. The patient has been followed by cardiology for paroxysmal atrial fibrillation, patient is on chronic eliquis. Regarding patient's wounds on her feet. She has seen Dr. 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 Patient states that she saw Dr. Comer at the [place] office but now she does not have a car and has to use the bus and in [place] appointment at our office for evaluation of a nonhealing wound to the right great toe. For unexplained reason, patient apparently was not seen in the office. Patient presents with a diabetic wound to the plantar surface of the right great toe and also a small wound to the plantar surface of the left foot at the distal fourth metatarsal. Patient has another wound on the left third toe. Complicating wound healing is that patient is homeless and states that she is walking many miles each day or using the bus. She sleeps at [facility] or [facility]. She has multiple physical complaints regarding joint pain such as shoulder pain, neck pain, contractures of the fingers. Review of Systems Constitutional: Denies anorexia, Denies chills, Denies fatigue, Denies fever, Denies poor appetite, Denies weakness Eyes: denies blurred vision, denies pain Ears, nose, mouth and throat: Denies dysphagia, Denies nasal congestion, Denies nasal discharge, Denies vertigo Cardiovascular: Denies chest pain, Denies dyspnea on exertion, Denies li ghtheadedness, Denies shortness of breath, Denies syncope Respiratory: Denies cough, Denies cough with sputum, Denies dyspnea, Denies hemoptysis, Denies home oxygen, Denies wheezing Gastrointestinal: Denies abdominal pain, Denies diarrhea, Denies loss of appetite, Denies vomiting Genitourinary: Denies difficulty voiding, Denies urgency Musculoskeletal: Reports frequent falls, Denies myalgias Integumentary: Reports wounds, Denies pruritus, Denies rash Neurological: Reports numbness, Denies change in mentation, Denies change in speech, Denies weakness Psychiatric: Denies anxiety, Denies depression Endocrine: Denies fatigue, Denies weight change Past Medical History Past Medical History: Atrial Fibrillation, Diabetes Mellitus, Hypertension Additional Past Medical History / Comment(s): radial nerve damage, back pain, History of Any Multi-Drug Resistant Organisms: MRSA Year Discovered:: 02/15/2015 MDRO Source:: Face and foot Past Surgical History: Section, Orthopedic Surgery Additional Past Surgical History / Comment(s): left great toe, Past Psychological History: No Psychological Hx Reported Smoking Status: Never smoker Past Alcohol Use History: Occasional Additional Past Alcohol Use History / Comment(s): Patient states that she is a lifelong nonsmoker, no illicit drug use, no alcohol use. She is homeless and states that she is walking many miles each day. She sleeps at [facility] or [facility]. Past Drug Use History: None Reported Medications and Allergies Home Medications Medication Instructions Recorded Confirmed Type metFORMIN HCL 1,000 mg PO BID 02/15/15 04/22/19 History Calcium Polycarbophil [Fibercon] 625 mg PO DAILY 04/22/19 04/22/19 History Docusate Sodium [Dok] 100 mg PO DAILY PRN 04/22/19 04/22/19 History Gabapentin [Neurontin] 800 mg PO BID 04/22/19 04/22/19 History Ibuprofen [Motrin] 800 mg PO TID 04/22/19 04/22/19 History Lisinopril 20 mg PO DAILY 04/22/19 04/22/19 History Loratadine 10 mg PO DAILY 04/22/19 04/22/19 History Metoprolol Succinate [Toprol XL] 25 mg PO DAILY 04/22/19 04/22/19 History Montelukast Sodium [Singulair] 10 mg PO DAILY 04/22/19 04/22/19 History glipiZIDE [Glucotrol] 5 mg PO DAILY PRN 04/22/19 04/22/19 History tiZANidine [Zanaflex] 4 mg PO HS PRN 04/22/19 04/22/19 History Allergies Allergy/AdvReac Type Severity Reaction Status Date / Time codeine Allergy Rash/Hives Verified 09/06/19 16:58 Sulfa (Sulfonamide Allergy Unknown Verified 04/22/19 16:58 Antibiotics) Physical Exam Vitals: Vital Signs Temp Pulse Resp BP BP Pulse Ox 04/25/19 06:09 97.1 F L 97 16 155/97 98 04/24/19 23:00 97.1 F L 98 16 154/89 98 04/24/19 16:00 97.7 F 81 16 145/87 99 Intake and Output 04/24/19 04/25/19 04/25/19 22:59 06:59 14:59 Intake Total 1540 Balance 1540 Intake: Intake, IV Titration 700 Amount Meropenem 2 gm In Sodium 100 Chloride 0.9% 100 ml @ 200 mls/hr IVPB Q8HR [facility] Rx#:[id number] Sodium Chloride 0.9% 1, 600 000 ml @ 100 mls/hr IV . Q10H [facility] Rx#:[id number] Oral 840 Other: # Voids 1 1 2 # Bowel Movements 1 Weight 96.2 kg Gen: This is an obese 59-year-old female. She appears disheveled. She is fully dressed in street cloths. HEENT: Head is atraumatic, normocephalic. Pupils equal, round. Sclerae is anicteric. Oral mucous membranes are moist. NECK: Supple. No JVD. No lymphadenopathy. No thyromegaly. LUNGS: Clear to auscultation. No wheezes or rhonchi. No intercostal retractions. HEART: Irregular rate and rhythm. No murmur. ABDOMEN: Soft. Bowel sounds are present. No masses. No tenderness. EXTREMITIES: 1+ bilateral pedal edema. No calf tenderness. Dorsalis pedis +2 bilaterally. Patient has a diabetic wound to the plantar surface of the right great toe. No drainage. Small wound to the distal left fourth metatarsal. No drainage. Foul odor from her feet. Contractures noted to the right fourth and fifth fingers and left fourth finger. NEUROLOGICAL: Patient is awake, alert and oriented x3. Cranial nerves 2 through 12 are grossly intact. Results Results: Laboratory Results WBC 4.6 k/uL (3.8-10.6) 04/25/19 05:52 RBC 3.38 m/uL (3.80-5.40) L 04/25/19 05:52 Hgb 10.0 gm/dL (11.4-16.0) L 04/25/19 05:52 Hct 31.2 % (34.0-46.0) L 04/25/19 05:52 MCV 92.4 fL (80.0-100.0) 04/25/19 05:52 MCH 29.4 pg (25.0-35.0) 04/25/19 05:52 MCHC 31.9 g/dL (31.0-37.0) 04/25/19 05:52 RDW 16.2 % (11.5-15.5) H 04/25/19 05:52 Plt Count 275 k/uL (150-450) 04/25/19 05:52 Neutrophils % 65 % 04/25/19 05:52 Lymphocytes % 22 % 04/25/19 05:52 Monocytes % 5 % 04/25/19 05:52 Eosinophils % 5 % 04/25/19 05:52 Basophils % 1 % 04/25/19 05:52 Neutrophils # 2.9 k/uL (1.3-7.7) 04/25/19 05:52 Lymphocytes # 1.0 k/uL (1.0-4.8) 04/25/19 05:52 Monocytes # 0.2 k/uL (0-1.0) 04/25/19 05:52 Eosinophils # 0.2 k/uL (0-0.7) 04/25/19 05:52 Basophils # 0.0 k/uL (0-0.2) 04/25/19 05:52 Hypochromasia Slight 04/25/19 05:52 Anisocytosis Slight 04/25/19 05:52 PT 11.8 sec (9.0-12.0) 04/23/19 10:45 INR 1.1 (<1.2) 04/23/19 10:45 APTT 32.1 sec (22.0-30.0) H 04/23/19 16:43 Sodium 140 mmol/L (137-145) 04/25/19 05:52 Potassium 4.3 mmol/L (3.5-5.1) 04/25/19 05:52 Chloride 109 mmol/L (98-107) H 04/25/19 05:52 Carbon Dioxide 22 mmol/L (22-30) 04/25/19 05:52 Anion Gap 9 mmol/L 04/25/19 05:52 BUN 13 mg/dL (7-17) 04/25/19 05:52 Creatinine 0.54 mg/dL (0.52-1.04) 04/25/19 05:52 Est GFR (CKD-EPI)AfAm >90 (>60 ml/min/1.73 sqM) 04/25/19 05:52 Est GFR (CKD-EPI)NonAf >90 (>60 ml/min/1.73 sqM) 04/25/19 05:52 Glucose 129 mg/dL (74-99) H 04/25/19 05:52 POC Glucose (mg/dL) 219 mg/dL (75-99) H 04/25/19 11:38 POC Glu Laboratory Technician ID Junie aMs 04/25/19 11:38 Calcium 9.1 mg/dL (8.4-10.2) 04/25/19 05:52 Total Bilirubin 1.0 mg/dL (0.2-1.3) 04/25/19 05:52 AST 32 U/L (14-36) 04/25/19 05:52 ALT 23 U/L (9-52) 04/25/19 05:52 Alkaline Phosphatase 144 U/L (38-126) H 04/25/19 05:52 Troponin I <0.012 ng/mL (0.000-0.034) 04/22/19 23:31 Total Protein 7.7 g/dL (6.3-8.2) 04/25/19 05:52 Albumin 3.6 g/dL (3.5-5.0) 04/25/19 05:52 Triglycerides 43 mg/dL (<150) 04/24/19 06:09 Amylase 65 U/L (30-110) 04/25/19 05:52 Lipase 335 U/L (23-300) H 04/25/19 05:52 TSH 3.980 mIU/L (0.465-4.680) 04/23/19 10:45 Urine Color Light Yellow 04/22/19 15:50 Urine Appearance Clear (Clear) 04/22/19 15:50 Urine pH 6.5 (5.0-8.0) 04/22/19 15:50 Ur Specific [place] 1.005 (1.001-1.035) 04/22/19 15:50 Urine Protein 1+ (Negative) H 04/22/19 15:50 Urine Glucose (UA) 1+ (Negative) H 04/22/19 15:50 Urine Ketones Negative (Negative) 04/22/19 15:50 Urine Blood Small (Negative) H 04/22/19 15:50 Urine Nitrite Negative (Negative) 04/22/19 15:50 Urine Bilirubin Negative (Negative) 04/22/19 15:50 Urine Urobilinogen <2.0 mg/dL (<2.0) 04/22/19 15:50 Ur Leukocyte Esterase Negative (Negative) 04/22/19 15:50 Urine RBC 2 /hpf (0-5) 04/22/19 15:50 Urine WBC 1 /hpf (0-5) 04/22/19 15:50 Ur Squamous Epith Cells <1 /hpf (0-4) 04/22/19 15:50 IgG1 1060.0 mg/dL (405.0-1011.0) H 04/24/19 06:09 IgG2 484.0 mg/dL (169.0-640.0) 04/24/19 06:09 IgG3 28.8 mg/dL (11.0-85.0) 04/24/19 06:09 IgG4 235.0 mg/dL (3.0-175.0) H 04/24/19 06:09 ANABELL Screen POSITIVE (NEGATIVE) H 04/24/19 06:09 CBC & Chem 7: 04/25/19 05:52 04/25/19 05:52 Labs: Abnormal Lab Results - Last 24 Hours (Table) 04/24/19 04/24/19 04/24/19 Range/Units 06:09 16:47 20:44 RBC (3.80-5.40) m/uL Hgb (11.4-16.0) gm/dL Hct (34.0-46.0) % RDW (11.5-15.5) % Chloride (98-107) mmol/L Glucose (74-99) mg/dL POC Glucose (mg/dL) 133 H 197 H (75-99) mg/dL Alkaline Phosphatase (38-126) U/L Lipase (23-300) U/L IgG1 1060.0 H (405.0-1011.0) mg/dL IgG4 235.0 H (3.0-175.0) mg/dL ANABELL Screen POSITIVE H (NEGATIVE) 04/25/19 04/25/19 04/25/19 Range/Units 05:52 05:52 06:02 RBC 3.38 L (3.80-5.40) m/uL Hgb 10.0 L (11.4-16.0) gm/dL Hct 31.2 L (34.0-46.0) % RDW 16.2 H (11.5-15.5) % Chloride 109 H (98-107) mmol/L Glucose 129 H (74-99) mg/dL POC Glucose (mg/dL) 134 H (75-99) mg/dL Alkaline Phosphatase 144 H (38-126) U/L Lipase 335 H (23-300) U/L IgG1 (405.0-1011.0) mg/dL IgG4 (3.0-175.0) mg/dL ANABELL Screen (NEGATIVE) 04/25/19 Range/Units 11:38 RBC (3.80-5.40) m/uL Hgb (11.4-16.0) gm/dL Hct (34.0-46.0) % RDW (11.5-15.5) % Chloride (98-107) mmol/L Glucose (74-99) mg/dL POC Glucose (mg/dL) 219 H (75-99) mg/dL Alkaline Phosphatase (38-126) U/L Lipase (23-300) U/L IgG1 (405.0-1011.0) mg/dL IgG4 (3.0-175.0) mg/dL ANABELL Screen (NEGATIVE) Microbiology - Last 24 Hours (Table) 04/23/19 19:00 Urine Culture - Final Urine,Voided 04/23/19 17:32 Blood Culture - Preliminary Blood No Growth after 24 hours Assessment and Plan Plan: This is a 59-year-old female who presented to hospital with acute pancreatitis that has resolved with positive IgG 1 and IgG 4. Patient has been followed by Dr. Montiel has been cleared for discharge. We have been asked to see the patient regarding diabetic foot wound. She does have history of care under Dr. Comer 3 years ago for left great toe wound status post amputation. Local wound care will be addressed. Patient is currently on meropenem. Continue supportive care. Further recommendations as patient process. The above dictated assessment and findings were discussed with Dr. Leggett. The impression and plan of care have been directed as dictated. Priti Vigil nurse practitioner acting as scribe for Dr. Leggett.
[2019-04-25] MEDS: PANTOPRAZOLE 40 MG TABLET PO SCH (16:42)
[2019-04-25 17:29] LABS: Glucose,Whole Blood 203 mg/dL (75-99)
--- NOTE | 2019-04-25 18:25 | PN ---
PROGRESS NOTE DATE OF SERVICE: 04/25/2019. This 59-year-old woman who was admitted with abdominal pain and acute severe pancreatitis also had features of necrotizing pancreatitis. The patient also had atrial fibrillation. Patient is being closely monitored. Multiple consultants are following the patient closely. The patient also had bilateral leg wounds. Gastroenterology, Cardiology and multiple consultants are following the patient closely. No chest pain. No palpitation. Past medical history reviewed. REVIEW OF SYSTEMS: CARDIOVASCULAR SYSTEM: As mentioned earlier. RESPIRATORY SYSTEM: As mentioned earlier. GI: As mentioned earlier. : No dysuria or retention. NERVOUS SYSTEM: No numbness, weakness. CURRENT MEDICATIONS: Reviewed. They include: 1. Tylenol 650 q.6 p.r.n. 2. [place] 5 mg q.4 p.r.n. 3. Norvasc 5 mg p.o. daily. 4. Lipitor 40 mg p.o. daily. 5. Colace 100 mg p.o. b.i.d. 6. Neurontin 800 mg p.o. b.i.d. 7. Glucotrol 5 mg p.o. daily. 8. Dilaudid 0.5 mg q.3 p.r.n. 9. NovoLog before meals and at bedtime. 10.Zestril 20 mg p.o. daily. 11.Meropenem 2 grams IV q.8. 12.Narcan 0.2 q.2 p.r.n. 13.Zofran 4 mg q.8 p.r.n. PHYSICAL EXAMINATION: Patient is alert, oriented x3. Pulse is 98, blood pressure 150/96, respirations 16, temperature 97.1, pulse ox 99% on room air. HEENT: Conjunctivae normal. NECK: No jugular venous distention. CARDIOVASCULAR SYSTEM: S1, S2 muffled. RESPIRATORY SYSTEM: Breath sounds diminished at the bases. Bilateral scattered rhonchi and crackles. ABDOMEN: Soft. Mild diffuse discomfort. Otherwise, no mass palpable. LEGS: No edema. No swelling. On examination of the bilateral feet, there are minimal wounds and amputation also present. NERVOUS SYSTEM: No focal deficit. LABS: WBC 4.6, hemoglobin 10. Amylase is 65, lipase 355. Accu-Cheks are noted. ASSESSMENT: 1. Abdominal pain with acute severe pancreatitis with necrotizing pancreatitis, present on admission. 2. Atrial fibrillation with fast ventricular rate, present on admission. 3. Chronic pancreatitis on the CT scan. 4. Diabetes mellitus, type 2. 5. History of atrial fibrillation, chronic. 6. Hypertension. 7. Left radial nerve damage recently, possibly secondary to compression. 8. History of back pain, degenerative joint disease. 9. History of methicillin-resistant Staphylococcus aeruginosa. 10.History of section. 11.History of degenerative joint disease. 12.Multiple trigger fingers of both hands. 13.Anemia; normocytic anemia of chronic disease. RECOMMENDATIONS AND DISCUSSION: I recommend to continue current medications, continue with the monitoring, symptomatic treatment. Otherwise as this time I recommend continuing with empiric antibiotics. Advance diet per Gastroenterology. We will cut down the fluids. We will continue to monitor. Avoid anticoagulation because of the significant pancreatic lesions. I would also recommend a repeat CT scan of the abdomen and pelvis tomorrow morning to ensure stability, document improvement, and we will continue to monitor. Continue the rest of the medications, including proton pump inhibitors. Guarded prognosis. Further recommendations to follow. MMODL / IJN: [id number] /
[2019-04-25 20:46] LABS: Glucose,Whole Blood 162 mg/dL (75-99)
--- NOTE | 2019-04-25 22:15 | P.CON ---
Consult Note - . Consult date: 04/25/19 Assessment/Plan:: This is a 59-year-old female who presented to the hospital on April 22 with abdominal pain and has been treated for acute pancreatitis with improvement of her lipase and resolution of symptoms. The patient is currently tolerating a low-fat diet. She was followed by Dr. Rodarte and cleared for discharge. Patient did have IgG 1 and IgG G4 levels elevated, ANABELL positive. The patient has been followed by cardiology for paroxysmal atrial fibrillation, patient is on chronic eliquis. Regarding patient's wounds on her feet. She has seen Dr. 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 Patient states that she saw Dr. Comer at the [facility] office but now she does not have a car and has to use the bus and in [place] appointment at our office for evaluation of a nonhealing wound to the right great toe. For unexplained reason, patient apparently was not seen in the office. Patient presents with a diabetic wound to the plantar surface of the right great toe and also a small wound to the plantar surface of the left foot at the distal fourth metatarsal. Patient has another wound on the left third toe. Complicating wound healing is that patient is homeless and states that she is walking many miles each day or using the bus. She sleeps at [facility] or [facility]. She has multiple physical complaints regarding joint pain such as shoulder pain, neck pain, contractures of the fingers. Please see the consult note as dictated by nurse practitioner Priti Stoutblake. 51-year-old woman who has multiple medical troubles presents to hospital with significant abdominal pain and evidence of an acute pancreatitis, she's been evaluated by gastroenterology and has been allowed dietary advancement. During the exam the patient is very anxious, has pressured speech, has difficulty with completing thought process. Visually that she is homeless in the social work team is working some type of placement, unclear what her psychiatric status is. He has noticed sirs the ulceration of the right foot great toe plantar for which wound care will be supplied. The also apply some care to the left foot third toe. A follow-up computed tomography scan has been requested to ensure that her pancreatitis is improving without evidence of pseudocyst formation or hemorrhagic changes. She is currently having no fevers or chills and does not need antibiotic therapy regarding necrotic infected pancreatitis. I agree with evaluation, assessment and plan as dictated by nurse practitioner Mrs. Priti Vigil.
--- NOTE | 2019-04-25 23:22 | CT ---
EXAMINATION TYPE: CT abdomen pelvis wo con DATE OF EXAM: 04/25/2019 HISTORY: Pancreatitis. CT DLP: 984.3 mGycm. Automated Exposure Control for Dose Reduction was Utilized. TECHNIQUE: CT scan of the abdomen and pelvis is performed with oral but without IV contrast. COMPARISON: CT abdomen and pelvis 2 days earlier. FINDINGS: Within the limitations of a non-contrast study, the following observations are made. LUNG BASES: New bibasilar atelectatic changes. LIVER/GB: No significant abnormality is appreciated. PANCREAS: Suboptimal evaluation of pancreas without dedicated IV contrast. Moderate ill-defined fluid and fat stranding surrounding pancreas felt less prominent than prior study. Calcified subcentimeter lymph nodes periPancreatic duodenal groove axial image 35 redemonstrated. Some scattered pancreatic glandular calcifications redemonstrated. No new well-formed fluid collection is identified. SPLEEN: No significant abnormality is seen. ADRENALS: No significant abnormality is seen. KIDNEYS: No significant abnormality is seen. BOWEL: Moderate to large size hiatal hernia more prominent from prior study. GENITAL ORGANS: Heterogeneous anteverted uterus.. LYMPH NODES: Prominent lymph nodes predominantly subcentimeter in size throughout the mesentery and r etroperitoneum is redemonstrated. OSSEOUS STRUCTURES: Mild to moderate compression fracture L1 level with sclerosis redemonstrated. Lucho e adjacent vacuum disc phenomenon T12-L1 level again seen. Overall fraction is of indeterminant age. Cannot exclude acute on chronic or subacute fracture. OTHER: Mild to moderate diffuse subcutaneous edema on current study slightly more prominent than prio r. IMPRESSION: CT findings consistent with acute on chronic pancreatitis redemonstrated. Degree of infla mmatory change improved from 2 days earlier. No new well-formed fluid collection identified. Suboptim al study without IV contrast. Nonspecific adenopathy should be followed.
[2019-04-26] MEDS: HYDROcodone/APAP 5-325MG 1 EACH TAB PO PRN ×5 (00:25→21:45)
[2019-04-26] MEDS: MEROPENEM 2 GM in SODIUM CHLORIDE 0.9% 100 ML IVPB SCH ×4 (00:25→23:59)
[2019-04-26 06:28] LABS: Glucose,Whole Blood 132 mg/dL (75-99)
[2019-04-26] MEDS: INSULIN ASPART (NovoLOG) 100 UNIT/ML VIAL SQ SCH ×4 (06:47→21:46)
[2019-04-26] MEDS: PANTOPRAZOLE 40 MG TABLET PO SCH (06:47)
[2019-04-26 06:59] LABS: Anisocytosis Slight; Basophils # (A) 0.1 k/uL (0-0.2); Basophils % (A) 2 %; Eosinophils # (A) 0.2 k/uL (0-0.7); Eosinophils % (A) 5 %; HCT 30.2 % (34.0-46.0); HGB 9.4 gm/dL (11.4-16.0); Hypochromasia Slight; Lymphocytes % (A) 24 %; MCHC 31.1 g/dL (31.0-37.0); MCV 93.1 fL (80.0-100.0); Mean Platelet Volume 8.2; Monocytes # (A) 0.4 k/uL (0-1.0); Monocytes % (A) 9 %; Neutrophils # (A) 2.4 k/uL (1.3-7.7); Neutrophils % (A) 58 %; Platelet Count 258 k/uL (150-450); RBC 3.25 m/uL (3.80-5.40); RDW 16.2 % (11.5-15.5); WBC 4.1 k/uL (3.8-10.6)
[2019-04-26] MEDS: amLODIPine 5 MG TAB PO SCH (08:21)
[2019-04-26] MEDS: GABAPENTIN 400 MG CAP PO SCH ×2 (08:21→20:20)
[2019-04-26] MEDS: ATORVASTATIN 40 MG TAB PO SCH (08:21)
[2019-04-26] MEDS: METOPROLOL SUCCINATE (ER) 50 MG TAB.ER.24H PO SCH (08:21)
[2019-04-26] MEDS: LISINOPRIL 20 MG TAB PO SCH (08:22)
[2019-04-26] MEDS: DOCUSATE 100 MG CAP PO SCH ×2 (08:22→20:20)
[2019-04-26 11:18] LABS: ANA Pattern Speckled
[2019-04-26 12:09] LABS: Glucose,Whole Blood 203 mg/dL (75-99)
[2019-04-26] MEDS: ACETAMINOPHEN TAB 325 MG TAB PO PRN (14:50)
--- NOTE | 2019-04-26 15:13 | PN ---
PROGRESS NOTE DATE OF SERVICE: 04/26/2019 This is a 59-year-old woman who was admitted with abdominal pain with severe possible necrotizing pancreatitis, is being closely monitored. No chest pain, no palpitation, no fever. The patient also has bilateral leg wound also. PHYSICAL EXAMINATION: Alert and oriented x3, The pulse is 85, blood pressure 143/91, respiration 20, temperature 97.2, pulse ox 97% on room air. HEENT: Conjunctivae normal. NECK: No jugular venous distension. CARDIOVASCULAR SYSTEM: S1, S2, muffled. RESPIRATION: Breath sounds diminished at the bases, no rhonchi, no crackles. ABDOMEN: Soft, nontender. No mass. LEGS: No edema, no swelling. NERVOUS SYSTEM: No focal deficits. LABS: WBC 4.2, hemoglobin is 9.4. ASSESSMENT: 1. Abdominal pain with acute severe pancreatitis with necrotizing pancreatitis, present on admission. 2. Atrial fibrillation with fast ventricular rate, present on admission. 3. Chronic pancreatitis of the CAT scan. 4. Diabetes mellitus type 2. 5. History of atrial fibrillation, chronic. 6. Hypertension. 7. Left radial nerve damage recently, possibly secondary to compression. 8. History of back pain. degenerative joint disease. 9. History of methicillin-resistant Staphylococcus aureus. 10.Coronary artery disease. 11.History of degenerative joint disease. 12.Multiple trigger fingers on both hands. 13.Anemia, normocytic anemia of chronic disease. 14.Possible bilateral feet wounds. RECOMMENDATIONS AND DISCUSSION: Recommend to continue current management, recommend closely follow with Gastroenterology and as well as Infectious Disease. Guarded prognosis because of multiple complex medical issues. Further recommendations to follow. MMODL / IJN: [id number] /
[2019-04-26 16:56] LABS: Glucose,Whole Blood 185 mg/dL (75-99)
[2019-04-26 20:54] LABS: Glucose,Whole Blood 182 mg/dL (75-99)
[2019-04-26 21:19] LABS: DNA Double-Stranded NEGATIVE (NEGATIVE)
--- NOTE | 2019-04-26 22:41 | P.PN ---
Subjective Progress Note Date: 04/26/19 This is a 59-year-old female who presented to the hospital on April 22 with abdominal pain and has been treated for acute pancreatitis with improvement of her lipase and resolution of symptoms. The patient is currently tolerating a low-fat diet. She was followed by Dr. Rodarte and cleared for discharge. Patient did have IgG 1 and IgG G4 levels elevated, ANABELL positive. The patient has been followed by cardiology for paroxysmal atrial fibrillation, patient is on chronic eliquis. Regarding patient's wounds on her feet. She has seen Dr. 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 Patient states that she saw Dr. Comer at the [place] office but now she does not have a car and has to use the bus and in [place] appointment at our office for evaluation of a nonhealing wound to the right great toe. For unexplained reason, patient apparently was not seen in the office. Patient presents with a diabetic wound to the plantar surface of the right great toe and also a small wound to the plantar surface of the left foot at the distal fourth metatarsal. Patient has another wound on the left third toe. Complicating wound healing is that patient is homeless and states that she is walking many miles each day or using the bus. She sleeps at [facility] or [facility]. She has multiple physical complaints regarding joint pain such as shoulder pain, neck pain, contractures of the fingers. 04/26/2019 the patient has had her computed tomography scan performed that shows evidence of the improvement of the pancreatitis. Patient has a very significant affect and that she has pressured speech, jumps around in her thought processes, and tries to ensure that the observers think that she has a good grasp of what happening. Objective - Vital Signs Vital signs: Vital Signs Temp 97.3 F L 04/26/19 20:20 Pulse 110 H 04/26/19 20:20 Resp 18 04/26/19 20:20 BP 139/79 04/26/19 20:20 Pulse Ox 97 04/26/19 20:20 Intake & Output 04/26/19 04/26/19 04/27/19 06:59 18:59 06:59 Intake Total 200 1950 1080 Balance 200 1950 1080 Weight 97 kg Intake: Intake, IV Titration 100 Amount Meropenem 2 gm In Sodium 100 Chloride 0.9% 100 ml @ 200 mls/hr IVPB Q8HR [facility] Rx#:[id number] Oral 200 1850 1080 Other: Voiding Method Toilet # Voids 1 3 1 # Bowel Movements 1 - Exam Gen: This is an obese 59-year-old female. She appears disheveled. She is fully dressed in street cloths. HEENT: Head is atraumatic, normocephalic. Pupils equal, round. Sclerae is anicteric. Oral mucous membranes are moist. NECK: Supple. No JVD. No lymphadenopathy. No thyromegaly. LUNGS: Clear to auscultation. No wheezes or rhonchi. No intercostal retractions. HEART: Irregular rate and rhythm. No murmur. ABDOMEN: Soft. Bowel sounds are present. No masses. No tenderness. EXTREMITIES: 1+ bilateral pedal edema. No calf tenderness. Dorsalis pedis +2 bilaterally. Patient has a diabetic wound to the plantar surface of the right great toe. No drainage. Small wound to the distal left fourth metatarsal. No drainage. Foul odor from her feet. Contractures noted to the right fourth and fifth fingers and left fourth finger. NEUROLOGICAL: Patient is awake, alert and oriented x3. Pressured speech, obvious high anxiety - Labs CBC & Chem 7: 04/26/19 05:26 04/25/19 05:52 Labs: Abnormal Lab Results - Last 24 Hours (Table) 04/26/19 04/26/19 04/26/19 Range/Units 05:26 06:26 11:58 RBC 3.25 L (3.80-5.40) m/uL Hgb 9.4 L (11.4-16.0) gm/dL Hct 30.2 L (34.0-46.0) % RDW 16.2 H (11.5-15.5) % POC Glucose (mg/dL) 132 H 203 H (75-99) mg/dL 04/26/19 04/26/19 Range/Units 16:49 20:53 RBC (3.80-5.40) m/uL Hgb (11.4-16.0) gm/dL Hct (34.0-46.0) % RDW (11.5-15.5) % POC Glucose (mg/dL) 185 H 182 H (75-99) mg/dL Microbiology - Last 24 Hours (Table) 04/23/19 17:32 Blood Culture - Preliminary Blood No Growth after 72 hours Laboratory Results WBC 4.1 k/uL (3.8-10.6) 04/26/19 05:26 RBC 3.25 m/uL (3.80-5.40) L 04/26/19 05:26 Hgb 9.4 gm/dL (11.4-16.0) L 04/26/19 05:26 Hct 30.2 % (34.0-46.0) L 04/26/19 05:26 MCV 93.1 fL (80.0-100.0) 04/26/19 05:26 MCH 29.0 pg (25.0-35.0) 04/26/19 05:26 MCHC 31.1 g/dL (31.0-37.0) 04/26/19 05:26 RDW 16.2 % (11.5-15.5) H 04/26/19 05:26 Plt Count 258 k/uL (150-450) 04/26/19 05:26 Neutrophils % 58 % 04/26/19 05:26 Lymphocytes % 24 % 04/26/19 05:26 Monocytes % 9 % 04/26/19 05:26 Eosinophils % 5 % 04/26/19 05:26 Basophils % 2 % 04/26/19 05:26 Neutrophils # 2.4 k/uL (1.3-7.7) 04/26/19 05:26 Lymphocytes # 1.0 k/uL (1.0-4.8) 04/26/19 05:26 Monocytes # 0.4 k/uL (0-1.0) 04/26/19 05:26 Eosinophils # 0.2 k/uL (0-0.7) 04/26/19 05:26 Basophils # 0.1 k/uL (0-0.2) 04/26/19 05:26 Hypochromasia Slight 04/26/19 05:26 Anisocytosis Slight 04/26/19 05:26 PT 11.8 sec (9.0-12.0) 04/23/19 10:45 INR 1.1 (<1.2) 04/23/19 10:45 APTT 32.1 sec (22.0-30.0) H 04/23/19 16:43 Sodium 140 mmol/L (137-145) 04/25/19 05:52 Potassium 4.3 mmol/L (3.5-5.1) 04/25/19 05:52 Chloride 109 mmol/L (98-107) H 04/25/19 05:52 Carbon Dioxide 22 mmol/L (22-30) 04/25/19 05:52 Anion Gap 9 mmol/L 04/25/19 05:52 BUN 13 mg/dL (7-17) 04/25/19 05:52 Creatinine 0.54 mg/dL (0.52-1.04) 04/25/19 05:52 Est GFR (CKD-EPI)AfAm >90 (>60 ml/min/1.73 sqM) 04/25/19 05:52 Est GFR (CKD-EPI)NonAf >90 (>60 ml/min/1.73 sqM) 04/25/19 05:52 Glucose 129 mg/dL (74-99) H 04/25/19 05:52 POC Glucose (mg/dL) 182 mg/dL (75-99) H 04/26/19 20:53 POC Glu Tinsmith Apprentice Staci Callahan 04/26/19 20:53 Calcium 9.1 mg/dL (8.4-10.2) 04/25/19 05:52 Total Bilirubin 1.0 mg/dL (0.2-1.3) 04/25/19 05:52 AST 32 U/L (14-36) 04/25/19 05:52 ALT 23 U/L (9-52) 04/25/19 05:52 Alkaline Phosphatase 144 U/L (38-126) H 04/25/19 05:52 Troponin I <0.012 ng/mL (0.000-0.034) 04/22/19 23:31 Total Protein 7.7 g/dL (6.3-8.2) 04/25/19 05:52 Albumin 3.6 g/dL (3.5-5.0) 04/25/19 05:52 Triglycerides 43 mg/dL (<150) 04/24/19 06:09 Amylase 65 U/L (30-110) 04/25/19 05:52 Lipase 335 U/L (23-300) H 04/25/19 05:52 TSH 3.980 mIU/L (0.465-4.680) 04/23/19 10:45 Urine Color Light Yellow 04/22/19 15:50 Urine Appearance Clear (Clear) 04/22/19 15:50 Urine pH 6.5 (5.0-8.0) 04/22/19 15:50 Ur Specific [place] 1.005 (1.001-1.035) 04/22/19 15:50 Urine Protein 1+ (Negative) H 04/22/19 15:50 Urine Glucose (UA) 1+ (Negative) H 04/22/19 15:50 Urine Ketones Negative (Negative) 04/22/19 15:50 Urine Blood Small (Negative) H 04/22/19 15:50 Urine Nitrite Negative (Negative) 04/22/19 15:50 Urine Bilirubin Negative (Negative) 04/22/19 15:50 Urine Urobilinogen <2.0 mg/dL (<2.0) 04/22/19 15:50 Ur Leukocyte Esterase Negative (Negative) 04/22/19 15:50 Urine RBC 2 /hpf (0-5) 04/22/19 15:50 Urine WBC 1 /hpf (0-5) 04/22/19 15:50 Ur Squamous Epith Cells <1 /hpf (0-4) 04/22/19 15:50 IgG1 1060.0 mg/dL (405.0-1011.0) H 04/24/19 06:09 IgG2 484.0 mg/dL (169.0-640.0) 04/24/19 06:09 IgG3 28.8 mg/dL (11.0-85.0) 04/24/19 06:09 IgG4 235.0 mg/dL (3.0-175.0) H 04/24/19 06:09 ANABELL Screen POSITIVE (NEGATIVE) H 04/24/19 06:09 ANABELL Titer Titer 1:160 04/24/19 06:09 ANABELL Pattern Speckled 04/24/19 06:09 Double Strand DNA Ab NEGATIVE (NEGATIVE) 04/26/19 05:26 Anti-DNA Ab Interp 1.0 IU/mL 04/26/19 05:26 Assessment and Plan (1) Acute pancreatitis Narrative/Plan: 51-year-old woman who has multiple medical troubles presents to hospital with significant abdominal pain and evidence of an acute pancreatitis, she's been evaluated by gastroenterology and has been allowed dietary advancement. During the exam the patient is very anxious, has pressured speech, has difficulty with completing thought process. Visually that she is homeless in the social work team is working some type of placement, unclear what her psychiatric status is. He has noticed sirs the ulceration of the right foot great toe plantar for which wound care will be supplied. The also apply some care to the left foot third toe. A follow-up computed tomography scan has been requested to ensure that her pancreatitis is improving without evidence of pseudocyst formation or he morrhagic changes. She is currently having no fevers or chills and does not need antibiotic therapy regarding necrotic infected pancreatitis. 04/26/2019 the medical and he has been requested to be applied to her feet. The nursing staff relates they have applied and then directly thereafter the patient apparently takes off the dressings and that she is not trusting with the nurses are doing. As noted she has pressured speech and has significant anxiety. She has nowhere to live when she leaves the hospital. She does want her Medicare money so she can out and rent an apartment. She does not seem to have adequate plans to her living situation at discharge. counter supply worker is actively engaged. Current Visit: Yes Status: Acute Code(s): K85.90 - ACUTE PANCREATITIS WITHOUT NECROSIS OR INFECTION, UNSP SNOMED Code(s): 762190798
[2019-04-27] MEDS: HYDROcodone/APAP 5-325MG 1 EACH TAB PO PRN ×5 (02:59→20:42)
[2019-04-27 06:24] LABS: Glucose,Whole Blood 90 mg/dL (75-99)
[2019-04-27] MEDS: INSULIN ASPART (NovoLOG) 100 UNIT/ML VIAL SQ SCH ×4 (06:29→20:38)
[2019-04-27] MEDS: PANTOPRAZOLE 40 MG TABLET PO SCH (06:52)
[2019-04-27] MEDS: METOPROLOL SUCCINATE (ER) 50 MG TAB.ER.24H PO SCH (08:40)
[2019-04-27] MEDS: MEROPENEM 2 GM in SODIUM CHLORIDE 0.9% 100 ML IVPB SCH ×3 (08:40→23:10)
[2019-04-27] MEDS: ATORVASTATIN 40 MG TAB PO SCH (08:41)
[2019-04-27] MEDS: DOCUSATE 100 MG CAP PO SCH ×3 (08:41→20:42)
[2019-04-27] MEDS: amLODIPine 5 MG TAB PO SCH (08:41)
[2019-04-27] MEDS: LISINOPRIL 20 MG TAB PO SCH (08:41)
[2019-04-27] MEDS: GABAPENTIN 400 MG CAP PO SCH ×2 (08:41→20:38)
[2019-04-27 11:58] LABS: Glucose,Whole Blood 160 mg/dL (75-99)
[2019-04-27 14:17] VITALS: BMI 29.0
[2019-04-27] MEDS: ACETAMINOPHEN TAB 325 MG TAB PO PRN (14:47)
--- NOTE | 2019-04-27 15:58 | PN ---
PROGRESS NOTE DATE OF SERVICE: 04/27/2019 This 59-year-old woman who was admitted with acute pancreatitis also had multiple cardiac issues. The patient is being closely monitored at this time. The patient is on antibiotics. The patient also had bilateral leg wounds. A CT scan of the abdomen and pelvis repeated showed stability. No chest pain. No palpitations. No fever. On exam, alert and oriented x3. Pulse 97, blood pressure 137/80, respirations 16, temperature 98.1, pulse ox 98% on room air. HEENT: Conjunctivae normal. NECK: No jugular venous distention. CARDIOVASCULAR SYSTEM: S1, S2 muffled. RESPIRATORY SYSTEM: Breath sounds diminished at the bases. Bilateral scattered rhonchi and crackles. ABDOMEN: Soft, non-tender. LEGS: No edema. No swelling. NERVOUS SYSTEM: No focal deficit. LABS: Accu-Cheks 90, 160. WBC 4.1, hemoglobin 9.4. Otherwise, amylase and lipase increased significantly. ASSESSMENT: 1. Abdominal pain with acute severe pancreatitis, necrotizing pancreatitis, present on admission. 2. Rule out autoimmune pancreatitis. 3. Atrial fibrillation with fast ventricular rate, present on admission. 4. Chronic pancreatitis on the CT scan. 5. Diabetes mellitus, type 2. 6. History of atrial fibrillation, chronic. 7. Hypertension. 8. 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 9. History of back pain, degenerative joint disease. 10.History of methicillin-resistant Staphylococcus aeruginosa. 11.History of coronary artery disease. 12.History of degenerative joint disease. 13.History of multiple trigger fingers in both hands. 14.Anemia, normocytic; anemia of chronic disease. 15.Bilateral foot wounds, possibly related to diabetes mellitus, type 2. RECOMMENDATIONS AND DISCUSSION: In this 59-year-old woman who presented with multiple complex medical issues, we will monitor the patient closely, continue the current medications, continue with antibiotics, continue with symptomatic treatment. Otherwise, closely follow with Infectious Disease, Gastroenterology and Cardiology. Prognosis guarded because of multiple complex medical issues. Further recommendations to follow. MMODL / IJN: [id number] /
[2019-04-27 17:14] LABS: Glucose,Whole Blood 98 mg/dL (75-99)
[2019-04-27 20:44] LABS: Glucose,Whole Blood 167 mg/dL (75-99)
[2019-04-27] MEDS: HYDROmorphone 1 MG/ML 1 ML SYRINGE IVP PRN (23:15)
[2019-04-28] MEDS: HYDROcodone/APAP 5-325MG 1 EACH TAB PO PRN ×4 (06:01→21:47)
[2019-04-28] MEDS: INSULIN ASPART (NovoLOG) 100 UNIT/ML VIAL SQ SCH ×4 (07:30→20:50)
[2019-04-28 07:33] LABS: Glucose,Whole Blood 108 mg/dL (75-99)
[2019-04-28] MEDS: GABAPENTIN 400 MG CAP PO SCH ×2 (08:12→21:07)
[2019-04-28] MEDS: PANTOPRAZOLE 40 MG TABLET PO SCH (08:13)
[2019-04-28] MEDS: DOCUSATE 100 MG CAP PO SCH ×2 (08:13→21:07)
[2019-04-28] MEDS: ATORVASTATIN 40 MG TAB PO SCH (09:06)
[2019-04-28] MEDS: amLODIPine 5 MG TAB PO SCH (09:06)
[2019-04-28] MEDS: METOPROLOL SUCCINATE (ER) 50 MG TAB.ER.24H PO SCH (09:06)
[2019-04-28] MEDS: LISINOPRIL 20 MG TAB PO SCH (09:06)
[2019-04-28] MEDS: MEROPENEM 2 GM in SODIUM CHLORIDE 0.9% 100 ML IVPB SCH ×2 (10:17→15:52)
[2019-04-28 12:25] LABS: Glucose,Whole Blood 209 mg/dL (75-99)
--- NOTE | 2019-04-28 12:30 | NM ---
EXAMINATION TYPE: NM bone 3 phase DATE OF EXAM: 04/28/2019 COMPARISON: No plain film supplied for correlation. HISTORY: Open wound right foot first digit Triple phase bone scintigraphy was performed following the injection of 23.4 mCi Tc 99m MDP. Immedia te images and 4 hours post injection images acquired. FINDINGS: Mild increased uptake is noted to the first digit of the right foot on blood flow and blood pool imag ing. Some increased uptake also noted in the digits of the left foot on blood flow and blood pool jeremias ging. Some more focal uptake is noted on delayed imaging within the first digit of the right foot, bu t is likely the second and third digit of the left foot. Focal uptake noted at what may be the second and third digit of the right foot may be due to osteoarthritic change. IMPRESSION: Findings may be indicative of osteomyelitis. There may be associated cellulitis.
[2019-04-28 17:34] LABS: Glucose,Whole Blood 93 mg/dL (75-99)
--- NOTE | 2019-04-28 18:23 | PN ---
PROGRESS NOTE DATE OF SERVICE: 04/28/2019 This 59-year-old woman was admitted with multiple medical issues, including acute pancreatitis. She had a significant infection of the foot, also. The patient is on IV antibiotics. A bone scan was done today per infectious disease recommendation showed possible osteomyelitis. Possibility of IV antibiotics is being considered at this time. No chest pain. No palpitations. No fever. PHYSICAL EXAMINATION: Alert and oriented x3. Pulse is 110, blood pressure 130/59, respiration 20, temperature 97.1, pulse ox 100% on room air. HEENT: Conjunctivae normal. NECK: No jugular venous distention. CARDIOVASCULAR SYSTEM: S1, S2 muffled. RESPIRATORY SYSTEM: Breath sounds diminished at the bases. No rhonchi. No crackles. ABDOMEN: Soft, non-tender. LEGS: No edema. No swelling. Bilateral foot wound, osteomyelitis. LABS: Accu-Cheks 108, 209. ASSESSMENT: 1. Abdominal pain with acute severe pancreatitis, necrotizing pancreatitis, present on admission. 2. Possible osteomyelitis of the feet, diabetic. 3. 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 4. Atrial fibrillation with fast ventricular rate, present on admission. 5. Chronic pancreatitis on the CT scan. 6. Diabetes mellitus, type 2. 7. History of atrial fibrillation, chronic. 8. Hypertension. 9. 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 10.History of back pain, degenerative joint disease. 11.History of methicillin-resistant Staphylococcus aeruginosa previously. 12.History of coronary artery disease. 13.History of degenerative joint disease. 14.History of multiple trigger fingers of both hands. 15.Anemia; normocytic anemia of chronic disease. RECOMMENDATIONS AND DISCUSSION: I recommend to continue current medications, continue with the monitoring, symptomatic treatment. Otherwise at this time continue with antibiotics. Infectious disease evaluation. IV antibiotics to be arranged outpatient. Further recommendations to follow. MMODL / IJN: [id number] / CYRUS
[2019-04-28 20:14] LABS: Glucose,Whole Blood 125 mg/dL (75-99)
[2019-04-29] MEDS: MEROPENEM 2 GM in SODIUM CHLORIDE 0.9% 100 ML IVPB SCH ×3 (00:29→15:27)
[2019-04-29] MEDS: HYDROcodone/APAP 5-325MG 1 EACH TAB PO PRN ×5 (03:10→23:05)
[2019-04-29 07:07] LABS: Glucose,Whole Blood 89 mg/dL (75-99)
[2019-04-29] MEDS: INSULIN ASPART (NovoLOG) 100 UNIT/ML VIAL SQ SCH ×4 (07:27→21:44)
[2019-04-29] MEDS: METOPROLOL SUCCINATE (ER) 50 MG TAB.ER.24H PO SCH (08:51)
[2019-04-29] MEDS: ATORVASTATIN 40 MG TAB PO SCH (08:51)
[2019-04-29] MEDS: LISINOPRIL 20 MG TAB PO SCH (08:52)
[2019-04-29] MEDS: GABAPENTIN 400 MG CAP PO SCH ×2 (08:52→21:44)
[2019-04-29] MEDS: amLODIPine 5 MG TAB PO SCH (08:52)
[2019-04-29] MEDS: DOCUSATE 100 MG CAP PO SCH ×2 (08:53→21:46)
[2019-04-29] MEDS: PANTOPRAZOLE 40 MG TABLET PO SCH (08:53)
[2019-04-29 12:30] LABS: Glucose,Whole Blood 108 mg/dL (75-99)
--- NOTE | 2019-04-29 14:11 | PN ---
PROGRESS NOTE DATE OF SERVICE: 04/29/2019 This 59-year-old woman was admitted with abdominal pain with acute severe pancreatitis, also had significant bilateral foot wound also, possibly secondary to diabetes. Osteomyelitis suspected. Infectious Disease is following the patient closely. Patient on IV antibiotics, outpatient IV antibiotics is being considered. The patient has complaints of diarrhea. No chest pain. No palpitations. No fever. PHYSICAL EXAM: Alert and oriented x3. Pulse is 77, blood pressure 129/77, respiration 18, temperature 97.4, pulse ox 100% on room air. HEENT: Conjunctivae normal. NECK: No jugular venous distension. CARDIOVASCULAR SYSTEM: S1, S2, muffled. RESPIRATION: Breath sounds diminished at the bases, bilateral scattered rhonchi, no crackles. ABDOMEN: Soft, nontender. LEGS: Bilateral leg wound. NERVOUS SYSTEM: No focal deficits. LABS: Glucose 93, 125, 89. ASSESSMENT: 1. Abdominal pain with acute severe pancreatitis, necrotizing pancreatitis, present on admission. 2. Possible osteomyelitis of the feet, diabetic. 3. 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 4. Atrial fibrillation with fast ventricular rate, present on admission. 5. Chronic pancreatitis on the CAT scan. 6. Diabetes mellitus type 2. 7. History atrial fibrillation, chronic. 8. Hypertension. 9. 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 10.History of back pain, degenerative joint disease. 11.History of methicillin-resistant Staphylococcus aureus, previously. 12.History of coronary artery disease. 13.History of degenerative joint disease. 14.History of multiple trigger fingers of both hands. 15.Anemia, normocytic anemia of chronic disease. RECOMMENDATION: Recommend to continue current medications, continue with the monitoring and symptomatic treatment. Otherwise, at this time I recommend continue with antibiotics. I would recommend stool C difficile is negative Imodium p.r.n. and closely follow with Infectious Disease. Further recommendations to follow. The case worker and rn social services to evaluate the patient for possible ECF rehab and outpatient IV antibiotics. Prognosis guarded. Further recommendations to follow. MMODL / IJN: [id number] /
[2019-04-29] MEDS ORDERED: LIDOCAINE 1% INJ 10MG/ML (20 ML MDV) ONE (14:15)
[2019-04-29] MEDS: LIDOCAINE 1% INJ 10MG/ML (20 ML MDV) SQ ONE ×2 (14:21→14:52)
[2019-04-29] MEDS ORDERED: IOPAMIDOL-250 50ML BTL IV ONE (14:30)
--- NOTE | 2019-04-29 15:14 | IR ---
EXAMINATION TYPE: IR cvc insert >=5 years, IR venogram upper ext RT DATE OF EXAM: 04/29/2019 COMPARISON: NONE HISTORY: Infection FINDINGS: Maximal barrier technique was utilized. The skin overlying the right basilic vein was loca lized with ultrasound and noted to be compressible and patent by ultrasound. An ultrasound image was obtained and submitted on patient's chart. Sterile technique utilized with the ultrasound machine. T he skin overlying was prepped and draped and Lidocaine used for local anesthesia. A skin anand was ma de with a scalpel. Access was gained to the vein under direct ultrasound guidance with a 21-gauge ne edle and a 0.018 inch wire was advanced. Wire could not be advanced centrally. Catheter advanced ove r the wire and general hand injection of contrast material was performed. Based on the findings the r ight upper extremity access was aborted. Hemostasis achieved. Attention then directed to the left upp er extremity. Using similar technique, the skin overlying the left brachial vein was localized. The vein was noted to be compressible and patent, an ultrasound image was obtained and submitted on patient's chart. The skin was prepped and draped. Lidocaine used for local anesthesia. Skin anand made with a scalpel. Acc ess gained to the vein under direct ultrasound guidance with a 21-gauge needle. A 0.018 inch wire was advanced. Access site was dilated with a peel-away sheath and the catheter tailored to length. Roxanne ter advanced to the level of the cavoatrial junction at the tip. Catheter was fixed to the skin and a sterile dressing placed. Hemostasis achieved and the catheter was aspirated and flushed with steril e saline. The patient remained in stable condition. FINDINGS: Collateralization noted about the axillary vein level over the right upper chest. Axilla ve in on the right not noted to be patent. IMPRESSION: STATUS POST ultrasound and fluoroscopy-guided PICC line placement. Catheter ready for use . This procedure performed by the undersigned.
[2019-04-29] MEDS: ACETAMINOPHEN TAB 325 MG TAB PO PRN (15:27)
[2019-04-29 17:03] LABS: Glucose,Whole Blood 122 mg/dL (75-99)
[2019-04-29 20:49] LABS: Glucose,Whole Blood 127 mg/dL (75-99)
[2019-04-30] MEDS: MEROPENEM 2 GM in SODIUM CHLORIDE 0.9% 100 ML IVPB SCH ×4 (00:20→23:36)
[2019-04-30] MEDS: HYDROcodone/APAP 5-325MG 1 EACH TAB PO PRN ×5 (02:53→23:35)
[2019-04-30] MEDS: PANTOPRAZOLE 40 MG TABLET PO SCH (07:09)
[2019-04-30] MEDS: INSULIN ASPART (NovoLOG) 100 UNIT/ML VIAL SQ SCH ×4 (07:09→20:10)
[2019-04-30] MEDS: ATORVASTATIN 40 MG TAB PO SCH (07:10)
[2019-04-30] MEDS: LISINOPRIL 20 MG TAB PO SCH (07:10)
[2019-04-30] MEDS: amLODIPine 5 MG TAB PO SCH (07:10)
[2019-04-30] MEDS: DOCUSATE 100 MG CAP PO SCH ×2 (07:10→20:10)
[2019-04-30] MEDS: METOPROLOL SUCCINATE (ER) 50 MG TAB.ER.24H PO SCH (07:10)
[2019-04-30 07:14] LABS: Glucose,Whole Blood 103 mg/dL (75-99)
[2019-04-30] MEDS: GABAPENTIN 400 MG CAP PO SCH ×2 (07:15→20:11)
[2019-04-30 12:06] LABS: Glucose,Whole Blood 180 mg/dL (75-99)
--- NOTE | 2019-04-30 15:49 | PN ---
PROGRESS NOTE DATE OF SERVICE: 04/30/2019 This 59-year-old woman who was admitted with abdominal pain with acute severe pancreatitis with necrotizing pancreatitis also had possible osteomyelitis of the foot ulcer. The patient had a PICC line catheter. The patient also had diarrhea, which was C difficile negative. Patient's diarrhea is slightly better. management. Outpatient IV antibiotics recommended. No chest pain or palpitations. No fever. PHYSICAL EXAMINATION: On exam, alert and oriented x3. Pulse 91, blood pressure 124/68, respirations 16, temperature 97.3, pulse ox 98% on room air. HEENT: Conjunctivae normal. NECK: No jugular venous distention. CARDIOVASCULAR: S1, S2 muffled. RESPIRATORY: Breath sounds diminished in the bases. Scattered rhonchi, no crackles. ABDOMEN: Soft, nontender. No mass palpable. LEGS: Bilateral leg edema, swelling and evidence of osteomyelitis. NERVOUS SYSTEM: No focal deficits. LABS: Labs are the C difficile is negative. Accu-Cheks 103, 180. ASSESSMENT: 1. Abdominal pain with acute severe pancreatitis, necrotizing pancreatitis, present on admission. 2. Possible osteomyelitis of the feet, diabetic. 3. 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 4. Atrial fibrillation with fast ventricular rate, present on admission. 5. Chronic pancreatitis on the CAT scan. 6. Diabetes mellitus type 2. 7. History of atrial fibrillation, chronic. 8. Hypertension. 9. 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 10.History of back pain, degenerative joint disease. 11.History of methicillin-resistant Staphylococcus aureus. 12.History of coronary artery disease. 13.History of degenerative joint disease. 14.History of multiple trigger fingers in both hands. 15.Anemia, normocytic anemia of chronic disease. RECOMMENDATIONS AND DISCUSSION: Recommend to continue current medication, continue with monitoring and symptomatic treatment. Otherwise at this time, recommend to continued antibiotics PICC line. The diarrhea seemed to be improving at this time. I would recommend probiotics and as well as p.r.n. Imodium. Guarded prognosis. Further recommendation to follow. Will await possible ECF rehab. BRITNEY / CESARION: [id number] / MTDD
[2019-04-30 16:35] LABS: Glucose,Whole Blood 99 mg/dL (75-99)
[2019-04-30 19:43] LABS: Glucose,Whole Blood 130 mg/dL (75-99)
[2019-05-01] MEDS: HYDROcodone/APAP 5-325MG 1 EACH TAB PO PRN ×4 (04:52→22:13)
[2019-05-01 07:31] LABS: Glucose,Whole Blood 89 mg/dL (75-99)
[2019-05-01] MEDS: INSULIN ASPART (NovoLOG) 100 UNIT/ML VIAL SQ SCH ×4 (07:33→22:14)
[2019-05-01] MEDS: GABAPENTIN 400 MG CAP PO SCH ×2 (08:28→22:13)
[2019-05-01] MEDS: amLODIPine 5 MG TAB PO SCH (08:28)
[2019-05-01] MEDS: METOPROLOL SUCCINATE (ER) 50 MG TAB.ER.24H PO SCH (08:28)
[2019-05-01] MEDS: LISINOPRIL 20 MG TAB PO SCH (08:28)
[2019-05-01] MEDS: ATORVASTATIN 40 MG TAB PO SCH (08:28)
[2019-05-01] MEDS: MEROPENEM 2 GM in SODIUM CHLORIDE 0.9% 100 ML IVPB SCH ×3 (08:28→23:24)
[2019-05-01] MEDS: DOCUSATE 100 MG CAP PO SCH ×3 (08:28→22:14)
[2019-05-01] MEDS: PANTOPRAZOLE 40 MG TABLET PO SCH (08:29)
[2019-05-01 12:36] LABS: Glucose,Whole Blood 110 mg/dL (75-99)
[2019-05-01 17:04] LABS: Glucose,Whole Blood 98 mg/dL (75-99)
--- NOTE | 2019-05-01 20:04 | PN ---
PROGRESS NOTE DATE OF SERVICE: 05/01/2019 This 59-year-old woman was admitted with abdominal pain, pancreatitis; also had significant other medical issues including possible osteomyelitis of the diabetic foot ulcer on outpatient antibiotics. The patient has some diarrhea. C difficile is negative, being treated conservatively. No chest pain. No palpitations. No fever. EXAM: Alert and oriented x3. Pulse is 100, blood pressure is 145/89, respiration 18, temperature 97.3, pulse ox 100 percent on room air. HEENT: Conjunctivae normal. Oral mucosa moist. NECK: No jugular venous distention. No lymph node enlargement. CARDIOVASCULAR: S1, S2. RESPIRATORY: Diminished breath sounds at the bases. No rhonchi, no crackles. ABDOMEN: Soft, nontender. LEGS: Bilateral leg edema, swelling. NERVOUS SYSTEM: No focal deficits. LABS: ( ) 130, 110. ASSESSMENT: 1. Abdominal pain with severe acute necrotizing pancreatitis present on admission. 2. Possible osteomyelitis of the feet, diabetic. 3. 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 4. Atrial fibrillation with fast ventricular rate present on admission. 5. Chronic pancreatitis on the CT scan. 6. Diabetes mellitus type 2. 7. History of atrial fibrillation, chronic. 8. Hypertension. 9. 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 10.History of back pain, degenerative joint disease. 11.History of MRSA. 12.History of coronary artery disease. 13.History of degenerative joint disease. 14.History of multiple trigger fingers on both hands. 15.Anemia, normocytic anemia of chronic disease. RECOMMENDATIONS AND DISCUSSION: Recommend to continue current medications, continue to monitor, continue symptomatic treatment. Otherwise, at this time I would recommend to follow the patient closely. Otherwise, outpatient antibiotics, PT/OT evaluation, possible ECF rehab. Further recommendations to follow. MMODL / IJN: [id number] /
[2019-05-01 20:53] LABS: Glucose,Whole Blood 142 mg/dL (75-99)
[2019-05-02] MEDS: HYDROcodone/APAP 5-325MG 1 EACH TAB PO PRN ×3 (05:21→19:20)
[2019-05-02 07:27] LABS: Glucose,Whole Blood 102 mg/dL (75-99)
[2019-05-02] MEDS: INSULIN ASPART (NovoLOG) 100 UNIT/ML VIAL SQ SCH ×4 (07:27→20:51)
[2019-05-02] MEDS: DOCUSATE 100 MG CAP PO SCH ×2 (08:11→20:06)
[2019-05-02] MEDS: GABAPENTIN 400 MG CAP PO SCH ×2 (08:20→20:30)
[2019-05-02] MEDS: MEROPENEM 2 GM in SODIUM CHLORIDE 0.9% 100 ML IVPB SCH ×3 (08:20→23:16)
[2019-05-02] MEDS: ATORVASTATIN 40 MG TAB PO SCH (08:21)
[2019-05-02] MEDS: PANTOPRAZOLE 40 MG TABLET PO SCH (08:21)
[2019-05-02] MEDS: METOPROLOL SUCCINATE (ER) 50 MG TAB.ER.24H PO SCH (08:21)
[2019-05-02] MEDS: LISINOPRIL 20 MG TAB PO SCH (08:21)
[2019-05-02] MEDS: amLODIPine 5 MG TAB PO SCH (08:21)
[2019-05-02 11:51] LABS: Glucose,Whole Blood 154 mg/dL (75-99)
--- NOTE | 2019-05-02 15:23 | P.PN ---
Subjective Progress Note Date: 05/02/19 Principal diagnosis: This is a 59-year-old female who was recently admitted with abdominal pain and Pancreatitis and is being followed closely. Patient is also being monitored closely by Dr. Leggett for possible osteomyelitis of a diabetic foot ulcer of the right great toe. Patient is sitting up at the site of the bed in no acute distress today. Patient is currently still on IV antibiotics per infectious disease recommendations and awaiting for ECF placement with continued IV and back therapy in the outpatient setting. Patient denies any chest pain, shortness of breath, or palpitations at this time. Patient is afebrile. Patient denies any nausea, diarrhea, or vomiting at this time and is tolerating diet. Objective - Vital Signs Vital signs: Vital Signs Temp 98.2 F 05/02/19 13:17 Pulse 110 H 05/02/19 13:17 Resp 20 05/02/19 13:17 BP 156/84 05/02/19 13:17 Pulse Ox 100 05/02/19 13:17 Intake & Output 05/01/19 05/02/19 05/02/19 18:59 06:59 18:59 Intake Total 100 950 900 Balance 100 950 900 Intake: IV 100 Meropenem 2 gm In Sodium 100 Chloride 0.9% 100 ml @ 200 mls/hr IVPB Q8HR [facility] Rx#:[id number] Oral 950 900 Other: Voiding Method Toilet # Voids 2 1 # Bowel Movements 1 - Exam Gen: This is a 59-year-old female sitting up at the side of the bed in no acute distress. Vital signs are stable. Blood pressure is 138/81, pulse is 99, respirations are 18, temp is 96.8F, oxygen saturation is 98% on room air. HEENT: Head is atraumatic, normocephalic. Pupils equal, round. Sclerae is anicteric. NECK: Supple. No JVD. No lymphadenopathy. No thyromegaly. LUNGS: Diminished breath sounds at the bases otherwise clear to auscultation. No wheezes or rhonchi. No intercostal retractions. HEART: Regular rate and rhythm. S1 and S2 are normal ABDOMEN: Soft. Bowel sounds are present. No masses. No tenderness. EXTREMITIES: Mild bilateral lower leg edema and some swelling, improved. No calf tenderness. NEUROLOGICAL: Patient is awake, alert and oriented x3. Cranial nerves 2 through 12 are grossly intact. 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 Atrial fibrillation with fast ventricular rate, present on admission Chronic pancreatitis on the computed tomography scan Diabetes mellitus type 2 History of atrial fibrillation, chronic Hypertension Left radial nerve damage recently, secondary to compressive neuropathy History back pain, degenerative joint disease History of MRSA History of coronary artery disease neck sign history of degenerative joint disease History of multiple trigger fingers on both hands Anemia, normocytic anemia of chronic disease Recommendations and discussion: Recommend continue current medications, management, and symptomatic treatment. Continue with IV antibiotic therapy per infectious disease recommendations. Awaiting prior authorization for ECF rehab to [facility]. Case management and social work are following. Infectious disease is following for antibiotic therapy. Guarded prognosis. Further recommendations to follow. Possible discharge once prior auth is obtained to ECF in 24-48 hours.
[2019-05-02 17:10] LABS: Glucose,Whole Blood 135 mg/dL (75-99)
[2019-05-02 20:33] LABS: Glucose,Whole Blood 170 mg/dL (75-99)
--- NOTE | 2019-05-02 21:43 | P.PN ---
Subjective Progress Note Date: 05/02/19 This is a 59-year-old female who presented to the hospital on April 22 with abdominal pain and has been treated for acute pancreatitis with improvement of her lipase and resolution of symptoms. The patient is currently tolerating a low-fat diet. She was followed by Dr. Rodarte and cleared for discharge. Patient did have IgG 1 and IgG G4 levels elevated, ANABELL positive. The patient has been followed by cardiology for paroxysmal atrial fibrillation, patient is on chronic eliquis. Regarding patient's wounds on her feet. She has seen Dr. 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 Patient states that she saw Dr. Comer at the [place] office but now she does not have a car and has to use the bus and in Angel[place] appointment at our office for evaluation of a nonhealing wound to the right great toe. For unexplained reason, patient apparently was not seen in the office. Patient presents with a diabetic wound to the plantar surface of the right great toe and also a small wound to the plantar surface of the left foot at the distal fourth metatarsal. Patient has another wound on the left third toe. Complicating wound healing is that patient is homeless and states that she is walking many miles each day or using the bus. She sleeps at [facility] or [facility]. She has multiple physical complaints regarding joint pain such as shoulder pain, neck pain, contractures of the fingers. 04/26/2019 the patient has had her computed tomography scan performed that shows evidence of the improvement of the pancreatitis. Patient has a very significant affect and that she has pressured speech, jumps around in her thought processes, Objective - Vital Signs Vital signs: Vital Signs Temp 97.4 F L 05/02/19 20:56 Pulse 100 05/02/19 20:56 Resp 18 05/02/19 20:56 BP 139/75 05/02/19 20:56 Pulse Ox 100 05/02/19 20:56 Intake & Output 05/02/19 05/02/19 05/03/19 06:59 18:59 06:59 Intake Total 950 1440 Balance 950 1440 Intake: Oral 950 1440 Other: Voiding Method Toilet # Voids 2 4 # Bowel Movements 1 - Exam Gen: This is an obese 59-year-old female. She appears disheveled. She is fully dressed in street cloths. HEENT: Head is atraumatic, normocephalic. Pupils equal, round. Sclerae is anicteric. Oral mucous membranes are moist. NECK: Supple. No JVD. No lymphadenopathy. No thyromegaly. LUNGS: Clear to auscultation. No wheezes or rhonchi. No intercostal retractions. HEART: Irregular rate and rhythm. No murmur. ABDOMEN: Soft. Bowel sounds are present. No masses. No tenderness. EXTREMITIES: 1+ bilateral pedal edema. No calf tenderness. Dorsalis pedis +2 bilaterally. Patient has a diabetic wound to the plantar surface of the right great toe.full thickness little drainage. Small wound to the distal left fo urth metatarsal. No drainage. Foul odor from her feet. Contractures noted to the right fourth and fifth fingers and left fourth finger. NEUROLOGICAL: Patient is awake, alert and oriented x3. Pressured speech, obvious high anxiety - Labs CBC & Chem 7: 04/26/19 05:26 04/25/19 05:52 Labs: Abnormal Lab Results - Last 24 Hours (Table) 05/02/19 05/02/19 05/02/19 Range/Units 07:21 11:31 16:50 POC Glucose (mg/dL) 102 H 154 H 135 H (75-99) mg/dL 05/02/19 Range/Units 20:11 POC Glucose (mg/dL) 170 H (75-99) mg/dL Laboratory Results WBC 4.1 k/uL (3.8-10.6) 04/26/19 05:26 RBC 3.25 m/uL (3.80-5.40) L 04/26/19 05:26 Hgb 9.4 gm/dL (11.4-16.0) L 04/26/19 05:26 Hct 30.2 % (34.0-46.0) L 04/26/19 05:26 MCV 93.1 fL (80.0-100.0) 04/26/19 05:26 MCH 29.0 pg (25.0-35.0) 04/26/19 05:26 MCHC 31.1 g/dL (31.0-37.0) 04/26/19 05:26 RDW 16.2 % (11.5-15.5) H 04/26/19 05:26 Plt Count 258 k/uL (150-450) 04/26/19 05:26 Neutrophils % 58 % 04/26/19 05:26 Lymphocytes % 24 % 04/26/19 05:26 Monocytes % 9 % 04/26/19 05:26 Eosinophils % 5 % 04/26/19 05:26 Basophils % 2 % 04/26/19 05:26 Neutrophils # 2.4 k/uL (1.3-7.7) 04/26/19 05:26 Lymphocytes # 1.0 k/uL (1.0-4.8) 04/26/19 05:26 Monocytes # 0.4 k/uL (0-1.0) 04/26/19 05:26 Eosinophils # 0.2 k/uL (0-0.7) 04/26/19 05:26 Basophils # 0.1 k/uL (0-0.2) 04/26/19 05:26 Hypochromasia Slight 04/26/19 05:26 Anisocytosis Slight 04/26/19 05:26 PT 11.8 sec (9.0-12.0) 04/23/19 10:45 INR 1.1 (<1.2) 04/23/19 10:45 APTT 32.1 sec (22.0-30.0) H 04/23/19 16:43 Sodium 140 mmol/L (137-145) 04/25/19 05:52 Potassium 4.3 mmol/L (3.5-5.1) 04/25/19 05:52 Chloride 109 mmol/L (98-107) H 04/25/19 05:52 Carbon Dioxide 22 mmol/L (22-30) 04/25/19 05:52 Anion Gap 9 mmol/L 04/25/19 05:52 BUN 13 mg/dL (7-17) 04/25/19 05:52 Creatinine 0.54 mg/dL (0.52-1.04) 04/25/19 05:52 Est GFR (CKD-EPI)AfAm >90 (>60 ml/min/1.73 sqM) 04/25/19 05:52 Est GFR (CKD-EPI)NonAf >90 (>60 ml/min/1.73 sqM) 04/25/19 05:52 Glucose 129 mg/dL (74-99) H 04/25/19 05:52 POC Glucose (mg/dL) 170 mg/dL (75-99) H 05/02/19 20:11 POC Glu Electrical Engineering Designer ID Shabnam Archuleta 05/02/19 20:11 Calcium 9.1 mg/dL (8.4-10.2) 04/25/19 05:52 Total Bilirubin 1.0 mg/dL (0.2-1.3) 04/25/19 05:52 AST 32 U/L (14-36) 04/25/19 05:52 ALT 23 U/L (9-52) 04/25/19 05:52 Alkaline Phosphatase 144 U/L (38-126) H 04/25/19 05:52 Troponin I <0.012 ng/mL (0.000-0.034) 04/22/19 23:31 Total Protein 7.7 g/dL (6.3-8.2) 04/25/19 05:52 Albumin 3.6 g/dL (3.5-5.0) 04/25/19 05:52 Triglycerides 43 mg/dL (<150) 04/24/19 06:09 Amylase 65 U/L (30-110) 04/25/19 05:52 Lipase 335 U/L (23-300) H 04/25/19 05:52 TSH 3.980 mIU/L (0.465-4.680) 04/23/19 10:45 Urine Color Light Yellow 04/22/19 15:50 Urine Appearance Clear (Clear) 04/22/19 15:50 Urine pH 6.5 (5.0-8.0) 04/22/19 15:50 Ur Specific Foster 1.005 (1.001-1.035) 04/22/19 15:50 Urine Protein 1+ (Negative) H 04/22/19 15:50 Urine Glucose (UA) 1+ (Negative) H 04/22/19 15:50 Urine Ketones Negative (Negative) 04/22/19 15:50 Urine Blood Small (Negative) H 04/22/19 15:50 Urine Nitrite Negative (Negative) 04/22/19 15:50 Urine Bilirubin Negative (Negative) 04/22/19 15:50 Urine Urobilinogen <2.0 mg/dL (<2.0) 04/22/19 15:50 Ur Leukocyte Esterase Negative (Negative) 04/22/19 15:50 Urine RBC 2 /hpf (0-5) 04/22/19 15:50 Urine WBC 1 /hpf (0-5) 04/22/19 15:50 Ur Squamous Epith Cells <1 /hpf (0-4) 04/22/19 15:50 IgG1 1060.0 mg/dL (405.0-1011.0) H 04/24/19 06:09 IgG2 484.0 mg/dL (169.0-640.0) 04/24/19 06:09 IgG3 28.8 mg/dL (11.0-85.0) 04/24/19 06:09 IgG4 235.0 mg/dL (3.0-175.0) H 04/24/19 06:09 ANABELL Screen POSITIVE (NEGATIVE) H 04/24/19 06:09 ANABELL Titer Titer 1:160 04/24/19 06:09 ANABELL Pattern Speckled 04/24/19 06:09 Double Strand DNA Ab NEGATIVE (NEGATIVE) 04/26/19 05:26 Anti-DNA Ab Interp 1.0 IU/mL 04/26/19 05:26 C. difficile (EIA) Intrp Negative (Negative) 04/30/19 02:20 Microbiology 04/23/19 17:32 Blood Blood Culture - Final No Growth after 144 hours 04/23/19 19:00 Urine,Voided Urine Culture - Final Assessment and Plan (1) Acute pancreatitis Narrative/Plan: 51-year-old woman who has multiple medical troubles presents to hospital with significant abdominal pain and evidence of an acute pancreatitis, she's been evaluated by gastroenterology and has been allowed dietary advancement. During the exam the patient is very anxious, has pressured speech, has difficulty with completing thought process. Visually that she is homeless in the social work team is working some type of placement, unclear what her psychiatric status is. He has noticed sirs the ulceration of the right foot great toe plantar for which wound care will be supplied. The also apply some care to the left foot third toe. A follow-up computed tomography scan has been requested to ensure that her pancreatitis is improving without evidence of pseudocyst formation or he morrhagic changes. She is currently having no fevers or chills and does not need antibiotic therapy regarding necrotic infected pancreatitis. 04/26/2019 the medical and he has been requested to be applied to her feet. The nursing staff relates they have applied and then directly thereafter the patient apparently takes off the dressings and that she is not trusting with the nurses are doing. As noted she has pressured speech and has significant anxiety. She has nowhere to live when she leaves the hospital. She does want her Medicare money so she can out and rent an apartment. She does not seem to have adequate plans to her living situation at discharge. extrusion utility worker is actively engaged. May 02 2019 patient continues to be critical of the care she is receiving. Nobody knows how to put a dressing. Return to work on her discharge plan. Her pancreatitis is improving. Her appetite improved. Blood sugars have varied quite a bit. She relates that in the hospital to try to give her insulin because trying to control her. We discuss blood glucose control is certainly the goal to improve her health and improve her ability to heal. When somebody is acutely ill, and his pancreatitis off and there blood glucoses vary and requires insulin therapy for improvement. She still is resistant to try to understand the medical basis of her illnesses. Regardless trying to work on the living situation. We'll likely go to extended care to receive her 42 days of intravenous antibiotic therapy to salvage her great toe from the osteomyelitis. Current Visit: Yes Status: Acute Code(s): K85.90 - ACUTE PANCREATITIS WITHOUT NECROSIS OR INFECTION, UNSP SNOMED Code(s): 679035064
[2019-05-03] MEDS: ONDANSETRON 4 MG/2 ML VIAL IVP PRN (00:34)
[2019-05-03] MEDS: HYDROcodone/APAP 5-325MG 1 EACH TAB PO PRN ×4 (04:51→19:49)
[2019-05-03] MEDS: INSULIN ASPART (NovoLOG) 100 UNIT/ML VIAL SQ SCH ×4 (07:27→21:19)
[2019-05-03 07:37] LABS: Glucose,Whole Blood 108 mg/dL (75-99)
[2019-05-03] MEDS: DOCUSATE 100 MG CAP PO SCH (08:26)
[2019-05-03] MEDS: amLODIPine 5 MG TAB PO SCH (08:29)
[2019-05-03] MEDS: ATORVASTATIN 40 MG TAB PO SCH (08:29)
[2019-05-03] MEDS: GABAPENTIN 400 MG CAP PO SCH ×2 (08:29→21:18)
[2019-05-03] MEDS: METOPROLOL SUCCINATE (ER) 50 MG TAB.ER.24H PO SCH (08:29)
[2019-05-03] MEDS: PANTOPRAZOLE 40 MG TABLET PO SCH (08:29)
[2019-05-03] MEDS: LISINOPRIL 20 MG TAB PO SCH (08:29)
[2019-05-03] MEDS: MEROPENEM 2 GM in SODIUM CHLORIDE 0.9% 100 ML IVPB SCH (08:36)
[2019-05-03 11:31] LABS: Glucose,Whole Blood 165 mg/dL (75-99)
--- NOTE | 2019-05-03 16:26 | P.PN ---
Subjective Progress Note Date: 05/03/19 Principal diagnosis: This is a 59-year-old female who was recently admitted with abdominal pain and Pancreatitis and is being followed closely. Patient is also being monitored closely by Dr. Leggett for possible osteomyelitis of a diabetic foot ulcer of the right great toe. Patient is sitting up at the site of the bed in no acute distress today. Patient is currently still on IV antibiotics per infectious disease recommendations and awaiting for ECF placement with continued IV and back therapy in the outpatient setting. Patient denies any chest pain, shortness of breath, or palpitations at this time. Patient is afebrile. Patient denies any nausea, diarrhea, or vomiting at this time and is tolerating diet. 05/03/2019 Patient is sitting up in the chair in no acute distress. No acute changes overnight. Infectious disease placed IV antibiotic recommendations and aut horization is currently pending for [facility]. Patient denies any chest pain, shortness of breath, or palpitations at this time. Patient remains afebrile. Patient is currently still on IV antibiotics in the form of meropenem and will continue in the outpatient setting. Case management and social work are following. Patient denies any nausea or vomiting and is tolerating diet. Guarded prognosis. Objective - Vital Signs Vital signs: Vital Signs Temp 98.4 F 05/03/19 14:00 Pulse 86 05/03/19 14:00 Resp 16 05/03/19 14:00 BP 130/79 05/03/19 14:00 Pulse Ox 94 L 05/03/19 14:00 Intake & Output 05/02/19 05/03/19 05/03/19 18:59 06:59 18:59 Intake Total 1440 400 400 Balance 1440 400 400 Intake: Oral 1440 400 400 Other: Voiding Method Toilet Toilet # Voids 4 2 3 # Bowel Movements 1 - Exam Gen: This is a 59-year-old female sitting up in the chair in no acute distress. Vital signs are stable. Blood pressure is 133/80, pulse is 89, respirations are 16, temp is 98.7 F, oxygen saturation is any for % on room air. HEENT: Head is atraumatic, normocephalic. Pupils equal, round. Sclerae is anicteric. NECK: Supple. No JVD. No lymphadenopathy. No thyromegaly. LUNGS: Diminished breath sounds at the bases otherwise clear to auscultation. No wheezes or rhonchi. No intercostal retractions. HEART: Regular rate and rhythm. S1 and S2 are normal ABDOMEN: Soft. Bowel sounds are present. No masses. No tenderness. EXTREMITIES: Mild bilateral lower leg edema and some swelling, improved. No calf tenderness. NEUROLOGICAL: Patient is awake, alert and oriented x3. Cranial nerves 2 through 12 are grossly intact. - Labs CBC & Chem 7: 04/26/19 05:26 04/25/19 05:52 Labs: Abnormal Lab Results - Last 24 Hours (Table) 05/02/19 05/02/19 05/03/19 Range/Units 16:50 20:11 07:11 POC Glucose (mg/dL) 135 H 170 H 108 H (75-99) mg/dL 05/03/19 Range/Units 11:29 POC Glucose (mg/dL) 165 H (75-99) mg/dL Assessment and Plan Assessment: Abdominal pain with severe acute necrotizing pancreatitis, present on admission Possible osteomyelitis of the feet, diabetic Possible autoimmune pancreatitis Atrial fibrillation with fast ventricular rate, present on admission Chronic pancreatitis on the computed tomography scan Diabetes mellitus type 2 History of atrial fibrillation, chronic Hypertension Left radial nerve damage recently, secondary to compressive neuropathy History back pain, degenerative joint disease History of MRSA History of coronary artery disease neck sign history of degenerative joint disease History of multiple trigger fingers on both hands Anemia, normocytic anemia of chronic disease Recommendations and discussion: Recommend continue current medications, management, and symptomatic treatment. Continue with IV antibiotic therapy per infectious disease recommendations. Awaiting prior authorization for [facility] rehab to [facility]. Case management and social work are following. Infectious disease is following for antibiotic therapy. Guarded prognosis. Further recommendations to follow. Possible discharge once prior auth is obtained to [facility] in 24-48 hours.
[2019-05-03] MEDS ORDERED: DOCUSATE 100 MG CAP PO PRN (16:50)
[2019-05-03 17:04] LABS: Glucose,Whole Blood 61 mg/dL (75-99)
[2019-05-03 17:44] LABS: Glucose,Whole Blood 71 mg/dL (75-99)
[2019-05-03 21:16] LABS: Glucose,Whole Blood 129 mg/dL (75-99)
--- NOTE | 2019-05-03 22:46 | P.PN ---
Subjective Progress Note Date: 05/03/19 This is a 59-year-old female who presented to the hospital on April 22 with abdominal pain and has been treated for acute pancreatitis with improvement of her lipase and resolution of symptoms. The patient is currently tolerating a low-fat diet. She was followed by Dr. Rodarte and cleared for discharge. Patient did have IgG 1 and IgG G4 levels elevated, ANABELL positive. The patient has been followed by cardiology for paroxysmal atrial fibrillation, patient is on chronic eliquis. Regarding patient's wounds on her feet. She has seen Dr. 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 Patient states that she saw Dr. Comer at the [place] office but now she does not have a car and has to use the bus and in [place] appointment at our office for evaluation of a nonhealing wound to the right great toe. For unexplained reason, patient apparently was not seen in the office. Patient presents with a diabetic wound to the plantar surface of the right great toe and also a small wound to the plantar surface of the left foot at the distal fourth metatarsal. Patient has another wound on the left third toe. Complicating wound healing is that patient is homeless and states that she is walking many miles each day or using the bus. She sleeps at [facility] or [facility]. She has multiple physical complaints regarding joint pain such as shoulder pain, neck pain, contractures of the fingers. 04/26/2019 the patient has had her computed tomography scan performed that shows evidence of the improvement of the pancreatitis. Patient has a very significant affect and that she has pressured speech, jumps around in her thought processes 05/03/2019 has further improvement awaiting transfer to [facility] Objective - Vital Signs Vital signs: Vital Signs Temp 98.4 F 05/03/19 14:00 Pulse 86 05/03/19 16:38 Resp 16 05/03/19 16:38 BP 130/79 05/03/19 14:00 Pulse Ox 94 L 05/03/19 14:00 Intake & Output 05/03/19 05/03/19 05/04/19 06:59 18:59 06:59 Intake Total 400 400 Balance 400 400 Intake: Oral 400 400 Other: Voiding Method Toilet # Voids 2 3 - Exam Gen: This is an obese 59-year-old female. She appears disheveled. She is fully dressed in street cloths. HEENT: Head is atraumatic, normocephalic. Pupils equal, round. Sclerae is anicteric. Oral mucous membranes are moist. NECK: Supple. No JVD. No lymphadenopathy. No thyromegaly. LUNGS: Clear to auscultation. No wheezes or rhonchi. No intercostal retractions. HEART: Irregular rate and rhythm. No murmur. ABDOMEN: Soft. Bowel sounds are present. No masses. No tenderness. EXTREMITIES: 1+ bilateral pedal edema. No calf tenderness. Dorsalis pedis +2 bilaterally. Patient has a diabetic wound to the plantar surface of the right great toe.full thickness little drainage. Small wound to the distal left fourth metatarsal. No drainage. Foul odor from her feet. Contractures noted to the right fourth and fifth fingers and left fourth finger. NEUROLOGICAL: Patient is awake, alert and oriented x3. Pressured speech, obvious high anxiety - Labs CBC & Chem 7: 04/26/19 05:26 04/25/19 05:52 Labs: Abnormal Lab Results - Last 24 Hours (Table) 05/03/19 05/03/19 05/03/19 Range/Units 07:11 11:29 17:01 POC Glucose (mg/dL) 108 H 165 H 61 L (75-99) mg/dL 05/03/19 05/03/19 Range/Units 17:24 21:12 POC Glucose (mg/dL) 71 L 129 H (75-99) mg/dL Laboratory Results WBC 4.1 k/uL (3.8-10.6) 04/26/19 05:26 RBC 3.25 m/uL (3.80-5.40) L 04/26/19 05:26 Hgb 9.4 gm/dL (11.4-16.0) L 04/26/19 05:26 Hct 30.2 % (34.0-46.0) L 04/26/19 05:26 MCV 93.1 fL (80.0-100.0) 04/26/19 05:26 MCH 29.0 pg (25.0-35.0) 04/26/19 05:26 MCHC 31.1 g/dL (31.0-37.0) 04/26/19 05:26 RDW 16.2 % (11.5-15.5) H 04/26/19 05:26 Plt Count 258 k/uL (150-450) 04/26/19 05:26 Neutrophils % 58 % 04/26/19 05:26 Lymphocytes % 24 % 04/26/19 05:26 Monocytes % 9 % 04/26/19 05:26 Eosinophils % 5 % 04/26/19 05:26 Basophils % 2 % 04/26/19 05:26 Neutrophils # 2.4 k/uL (1.3-7.7) 04/26/19 05:26 Lymphocytes # 1.0 k/uL (1.0-4.8) 04/26/19 05:26 Monocytes # 0.4 k/uL (0-1.0) 04/26/19 05:26 Eosinophils # 0.2 k/uL (0-0.7) 04/26/19 05:26 Basophils # 0.1 k/uL (0-0.2) 04/26/19 05:26 Hypochromasia Slight 04/26/19 05:26 Anisocytosis Slight 04/26/19 05:26 PT 11.8 sec (9.0-12.0) 04/23/19 10:45 INR 1.1 (<1.2) 04/23/19 10:45 APTT 32.1 sec (22.0-30.0) H 04/23/19 16:43 Sodium 140 mmol/L (137-145) 04/25/19 05:52 Potassium 4.3 mmol/L (3.5-5.1) 04/25/19 05:52 Chloride 109 mmol/L (98-107) H 04/25/19 05:52 Carbon Dioxide 22 mmol/L (22-30) 04/25/19 05:52 Anion Gap 9 mmol/L 04/25/19 05:52 BUN 13 mg/dL (7-17) 04/25/19 05:52 Creatinine 0.54 mg/dL (0.52-1.04) 04/25/19 05:52 Est GFR (CKD-EPI)AfAm >90 (>60 ml/min/1.73 sqM) 04/25/19 05:52 Est GFR (CKD-EPI)NonAf >90 (>60 ml/min/1.73 sqM) 04/25/19 05:52 Glucose 129 mg/dL (74-99) H 04/25/19 05:52 POC Glucose (mg/dL) 129 mg/dL (75-99) H 05/03/19 21:12 POC Glu Flow Floor Attendant Celina Gibson 05/03/19 21:12 Calcium 9.1 mg/dL (8.4-10.2) 04/25/19 05:52 Total Bilirubin 1.0 mg/dL (0.2-1.3) 04/25/19 05:52 AST 32 U/L (14-36) 04/25/19 05:52 ALT 23 U/L (9-52) 04/25/19 05:52 Alkaline Phosphatase 144 U/L (38-126) H 04/25/19 05:52 Troponin I <0.012 ng/mL (0.000-0.034) 04/22/19 23:31 Total Protein 7.7 g/dL (6.3-8.2) 04/25/19 05:52 Albumin 3.6 g/dL (3.5-5.0) 04/25/19 05:52 Triglycerides 43 mg/dL (<150) 04/24/19 06:09 Amylase 65 U/L (30-110) 04/25/19 05:52 Lipase 335 U/L (23-300) H 04/25/19 05:52 TSH 3.980 mIU/L (0.465-4.680) 04/23/19 10:45 Urine Color Light Yellow 04/22/19 15:50 Urine Appearance Clear (Clear) 04/22/19 15:50 Urine pH 6.5 (5.0-8.0) 04/22/19 15:50 Ur Specific [place] 1.005 (1.001-1.035) 04/22/19 15:50 Urine Protein 1+ (Negative) H 04/22/19 15:50 Urine Glucose (UA) 1+ (Negative) H 04/22/19 15:50 Urine Ketones Negative (Negative) 04/22/19 15:50 Urine Blood Small (Negative) H 04/22/19 15:50 Urine Nitrite Negative (Negative) 04/22/19 15:50 Urine Bilirubin Negative (Negative) 04/22/19 15:50 Urine Urobilinogen <2.0 mg/dL (<2.0) 04/22/19 15:50 Ur Leukocyte Esterase Negative (Negative) 04/22/19 15:50 Urine RBC 2 /hpf (0-5) 04/22/19 15:50 Urine WBC 1 /hpf (0-5) 04/22/19 15:50 Ur Squamous Epith Cells <1 /hpf (0-4) 04/22/19 15:50 IgG1 1060.0 mg/dL (405.0-1011.0) H 04/24/19 06:09 IgG2 484.0 mg/dL (169.0-640.0) 04/24/19 06:09 IgG3 28.8 mg/dL (11.0-85.0) 04/24/19 06:09 IgG4 235.0 mg/dL (3.0-175.0) H 04/24/19 06:09 ANABELL Screen POSITIVE (NEGATIVE) H 04/24/19 06:09 ANABELL Titer Titer 1:160 04/24/19 06:09 ANABELL Pattern Speckled 04/24/19 06:09 Double Strand DNA Ab NEGATIVE (NEGATIVE) 04/26/19 05:26 Anti-DNA Ab Interp 1.0 IU/mL 04/26/19 05:26 C. difficile (EIA) Intrp Negative (Negative) 04/30/19 02:20 Microbiology 04/23/19 17:32 Blood Blood Culture - Final No Growth after 144 hours 04/23/19 19:00 Urine,Voided Urine Culture - Final Assessment and Plan (1) Acute pancreatitis Narrative/Plan: 51-year-old woman who has multiple medical troubles presents to hospital with significant abdominal pain and evidence of an acute pancreatitis, she's been evaluated by gastroenterology and has been allowed dietary advancement. During the exam the patient is very anxious, has pressured speech, has difficulty with completing thought process. Visually that she is homeless in the social work team is working some type of placement, unclear what her psychiatric status is. He has noticed sirs the ulceration of the right foot great toe plantar for which wound care will be supplied. The also apply some care to the left foot third toe. A follow-up computed tomography scan has been requested to ensure that her pancreatitis is improving without evidence of pseudocyst formation or hemorrhagic changes. She is currently having no fevers or chills and does not need antibiotic therapy regarding necrotic infected pancreatitis. 04/26/2019 the medical and he has been requested to be applied to her feet. The nursing staff relates they have applied and then directly thereafter the patient apparently takes off the dressings and that she is not trusting with the nurses are doing. As noted she has pressured speech and has significant anxiety. She has nowhere to live when she leaves the hospital. She does want her Medicare money so she can out and rent an apartment. She does not seem to have adequate plans to her living situation at discharge. 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 May 02 2019 patient continues to be critical of the care she is receiving. Nobody knows how to put a dressing. Return to work on her discharge plan. Her pancreatitis is improving. Her appetite improved. Blood sugars have varied quite a bit. She relates that in the hospital to try to give her insulin because trying to control her. We discuss blood glucose control is certainly the goal to improve her health and improve her ability to heal. When somebody is acutely ill, and his pancreatitis off and there blood glucoses vary and requires insulin therapy for improvement. She still is resistant to try to understand the medical basis of her illnesses. Regardless trying to work on the living situation. We'll likely go to extended care to receive her 42 days of intravenous antibiotic therapy to salvage her great toe from the osteomyelitis. 05/03/2019 patient is tolerating antibiotic therapy with cefazolin well. She will transition to this to the extended care facility to receive 14 days of therapy for the osteomyelitis to salvage her great toe. Local wound care, offloading are all important. Current Visit: Yes Status: Acute Code(s): K85.90 - ACUTE PANCREATITIS WITHOUT NECROSIS OR INFECTION, UNSP SNOMED Code(s): 116615709
[2019-05-04] MEDS: ONDANSETRON 4 MG/2 ML VIAL IVP PRN (01:41)
[2019-05-04] MEDS: HYDROcodone/APAP 5-325MG 1 EACH TAB PO PRN ×4 (05:51→21:07)
[2019-05-04 07:41] LABS: Glucose,Whole Blood 86 mg/dL (75-99)
[2019-05-04] MEDS: INSULIN ASPART (NovoLOG) 100 UNIT/ML VIAL SQ SCH ×4 (08:24→22:15)
[2019-05-04] MEDS: GABAPENTIN 400 MG CAP PO SCH ×2 (08:45→21:06)
[2019-05-04] MEDS: LISINOPRIL 20 MG TAB PO SCH (08:46)
[2019-05-04] MEDS: PANTOPRAZOLE 40 MG TABLET PO SCH (08:46)
[2019-05-04] MEDS: METOPROLOL SUCCINATE (ER) 50 MG TAB.ER.24H PO SCH (08:46)
[2019-05-04] MEDS: amLODIPine 5 MG TAB PO SCH (08:46)
[2019-05-04] MEDS: ATORVASTATIN 40 MG TAB PO SCH (08:46)
--- NOTE | 2019-05-04 10:18 | P.CON ---
Consult Note - . Consult date: 05/04/19 Assessment/Plan:: A pleasant 59-year-old female who is being seen for a diabetic foot ulcer. Patient states that she's had the ulcer for quite a few months now. She had been receiving treatment with Dr. dario zapata however due to circumstances she was not able to complete it. Patient states at one time that the area was healed however has reopened. Patient is found to have osteomyelitis at this time. She is being treated by Dr. Leggett with IV antibiotics. Patient is planning on being discharged to an extended care facility. And requesting to continue with wound care at the wound care center. At this time the wound is being treated with Thera honey. Patient is currently homeless. Patient states that she walks everywhere she needs to go puts in many miles at a time. Patient has medical history includes diabetes mellitus, atrial fibrillation, hypertension, indication of the left great toe. Review Of Systems: Constitutional: No fever, no chills, no night sweats. No weight change. No weakness, fatigue or lethargy. No daytime sleepiness. Integumentary: Reports wounds, no lesions. No rash or pruritus. No unusual bruising. No change in hair or nails. General Appearance: Alert, cooperative, no distress, appears stated age. Extremities: Extremities normal, atraumatic, no cyanosis or edema. Decreased sensation Pulses: 2+ and symmetric. Skin: Nonhealing ulceration with fatty layer exposure to right great toe plantar aspect measuring 0.4 x 0.8 x0.4 CM, exudate noted, minimal granulation seen. Neurologic: Alert oriented x3 Assessment/plan: 1. Diabetic foot ulcer with fatty layer exposure with osteomyelitis. Continue IV antibiotics. Continue Thera honey to the site changing Thursday. Continue with offloading. Encouraged patient to continue treatment in the wound care center post discharge. Thank you for the consultation. Any questions please contact the wound care center. DNP note has been reviewed and discussed with Dr. Adkins and the impression and plan of care has been directed as dictated.
--- NOTE | 2019-05-04 11:24 | P.DS ---
Providers Date of admission: 04/22/19 16:34 Expected date of discharge: 05/04/19 Attending physician: Maddie Duke Consults: 04/22/19 23:20 Consult Physician Stat Consulting Provider: Jorden Sher Consult Reason/Comments: afib rvr Do you want consulting provider notified?: Yes 04/23/19 19:08 Consult Physician Urgent Consulting Provider: Corey Leggett Consult Reason/Comments: wounds on bilateral feet Do you want consulting provider notified?: Yes, Notify in am Primary care physician: [facility] Course: Final diagnosis Abdominal pain with severe acute necrotizing pancreatitis, present on admission Possible osteomyelitis of the feet, diabetic Possible autoimmune pancreatitis Atrial fibrillation with fast ventricular rate, present on admission Chronic pancreatitis Diabetes mellitus type 2 History of atrial fibrillation, chronic Hypertension Left radial nerve damage recently, secondary to compressive neuropathy History of back pain, degenerative joint disease History of MRSA History of coronary artery disease History of degenerative joint disease History of multiple trigger fingers on bilateral hands Anemia, normocytic anemia of chronic disease Discharge disposition Patient is being discharged in a stable condition with guarded prognosis to medical [facility] for continued IV antibiotic therapy per infectious disease recommendations. Patient will continue on IV cefepime and orders have been placed by infectious disease. Patient will continue with wound care per infectious disease recommendations as well as well. Total time taken is 35 minutes. History of present illness This is a 51-year-old female was recently admitted with abdominal pain found to have acute severe pancreatitis with necrotizing pancreatitis and is being followed closely. Patient also had possible osteomyelitis the foot ulcer on the right foot and is being followed by infectious disease for IV antibiotic therapy as well as wound care. Patient will continue on IV antibiotic therapy per infectious disease recommendations at [facility]. Patient will follow-up with wound care clinic upon discharge. During hospitalization patient continue to have diarrhea and was tested for C. diff which was negative. Patient states that the diarrhea has gotten better. Patient denies any nausea or vomiting and has been tolerating diet. Patient denies any chest pain, shortness of breath, or palpitations at this time. Patient remains afebrile. Currently patient is working on finding a place to live as she is currently staying with friends here and there. Case management and social work are following closely. Currently patient's condition is stable with much improvement in stable for discharge to the ECF. On exam vital signs are stable. Temp is 98.4F, pulse is 75, respirations are 16, blood pressure is 146/86, oxygen saturation is 100% on room air. Cardio S1 and S2 are muffled. Respiratory system shows diminished breath sounds at the bases otherwise clear to auscultation. Abdomen is soft and nontender. Nervous system shows no focal deficits and gait is steady. Patient does use a walker. Please refer to medication reconciliation sheet for a list of medications. Patient Condition at Discharge: Fair Plan - Discharge Summary Discharge Rx Participant: No New Discharge Prescriptions: New ceFAZolin [Kefzol] 2 gm IVP Q8HR #126 dose Atorvastatin [Lipitor] 40 mg PO DAILY tab HYDROcodone/APAP 5-325MG [[place] 5-325] 1 each PO Q4HR PRN #3 tab PRN Reason: Moderate Pain amLODIPine [Norvasc] 5 mg PO DAILY tab Pantoprazole [Protonix] 40 mg PO AC-BRKFST tablet. Metoprolol Succinate (ER) [Toprol XL] 50 mg PO DAILY tab.er.24h Acetaminophen Tab [Tylenol] 650 mg PO Q6HR PRN tab PRN Reason: Mild Pain Or Fever > 100.5 Ondansetron [Zofran] 4 mg PO Q8HR PRN #6 tab PRN Reason: Nausea Continue metFORMIN HCL 1,000 mg PO BID glipiZIDE [Glucotrol] 5 mg PO DAILY PRN PRN Reason: Blood Sugar Docusate Sodium [Dok] 100 mg PO DAILY PRN PRN Reason: Constipation tiZANidine [Zanaflex] 4 mg PO HS PRN PRN Reason: Muscle Spasm Calcium Polycarbophil [Fibercon] 625 mg PO DAILY Montelukast Sodium [Singulair] 10 mg PO DAILY Loratadine 10 mg PO DAILY Ibuprofen [Motrin] 800 mg PO TID Gabapentin [Neurontin] 800 mg PO BID Lisinopril 20 mg PO DAILY Discontinued Metoprolol Succinate [Toprol XL] 25 mg PO DAILY Discharge Medication List metFORMIN HCL 1,000 mg PO BID 02/15/15 [History] Calcium Polycarbophil [Fibercon] 625 mg PO DAILY 04/22/19 [History] Docusate Sodium [Dok] 100 mg PO DAILY PRN 04/22/19 [History] Gabapentin [Neurontin] 800 mg PO BID 04/22/19 [History] Ibuprofen [Motrin] 800 mg PO TID 04/22/19 [History] Lisinopril 20 mg PO DAILY 04/22/19 [History] Loratadine 10 mg PO DAILY 04/22/19 [History] Montelukast Sodium [Singulair] 10 mg PO DAILY 04/22/19 [History] glipiZIDE [Glucotrol] 5 mg PO DAILY PRN 04/22/19 [History] tiZANidine [Zanaflex] 4 mg PO HS PRN 04/22/19 [History] ceFAZolin [Kefzol] 2 gm IVP Q8HR #126 dose 05/02/19 [Rx] Acetaminophen Tab [Tylenol] 650 mg PO Q6HR PRN tab 05/04/19 [Rx] Atorvastatin [Lipitor] 40 mg PO DAILY tab 05/04/19 [Rx] HYDROcodone/APAP 5-325MG [[place] 5-325] 1 each PO Q4HR PRN #3 tab 05/04/19 [Rx] Metoprolol Succinate (ER) [Toprol XL] 50 mg PO DAILY tab.er.24h 05/04/19 [Rx] Ondansetron [Zofran] 4 mg PO Q8HR PRN #6 tab 05/04/19 [Rx] Pantoprazole [Protonix] 40 mg PO AC-BRKFST tablet. 05/04/19 [Rx] amLODIPine [Norvasc] 5 mg PO DAILY tab 05/04/19 [Rx] Follow up Appointment(s)/Referral(s): Alejandra Roach FNJayy [REFERRING] - 04/29/19 1:00 pm (Thursday) Corey Leggett MD [STAFF PHYSICIAN] - 1 Week Ambulatory/Diagnostic Orders: Basic Metabolic Panel [LAB.AMB] Location: None Selected Complete Blood Count w/diff [LAB.AMB] Location: None Selected Miscellaneous Lab Order [LAB.AMB] Location: None Selected Activity/Diet/Wound Care/Special Instructions: Patient [facility] once auth is obtained Activity as tolerated continue current heart healthy/diabetic diet continue with IV antibiotic therapy Continue with wound care: Right foot ulcer/wound and left foot ulcer/wound: Cleanse with normal saline and apply Therahoney gel to the foot ulcers cover with a nonstick dressing and then roll gauze to secure daily PICC: Apply a bio-patch over the site and secure it with a transparent dressing. Dressing change should be completed every 7 days or as needed if visibly soiled her falling off. Repeat labs as instructed by infectious disease
[2019-05-04 12:12] LABS: Glucose,Whole Blood 110 mg/dL (75-99)
[2019-05-04 17:17] LABS: Glucose,Whole Blood 156 mg/dL (75-99)
--- NOTE | 2019-05-04 18:01 | P.PN ---
Subjective Progress Note Date: 05/04/19 Principal diagnosis: This is a 59-year-old female who was recently admitted with abdominal pain and Pancreatitis and is being followed closely. Patient is also being monitored closely by Dr. Leggett for possible osteomyelitis of a diabetic foot ulcer of the right great toe. Patient is sitting up at the site of the bed in no acute distress today. Patient is currently still on IV antibiotics per infectious disease recommendations and awaiting for ECF placement with continued IV and back therapy in the outpatient setting. Patient denies any chest pain, shortness of breath, or palpitations at this time. Patient is afebrile. Patient denies any nausea, diarrhea, or vomiting at this time and is tolerating diet. 05/03/2019 Patient is sitting up in the chair in no acute distress. No acute changes overnight. Infectious disease placed IV antibiotic recommendations and aut horization is currently pending for [facility]. Patient denies any chest pain, shortness of breath, or palpitations at this time. Patient remains afebrile. Patient is currently still on IV antibiotics in the form of meropenem and will continue in the outpatient setting. Case management and social work are following. Patient denies any nausea or vomiting and is tolerating diet. Guarded prognosis. 05/04/2019 Patient is sitting up in no acute distress. Patient was approved for [facility] but is currently awaiting authorization of IV antibiotics. Patient denies any chest pain, shortness of breath, or palpitations at this time. Patient is afebrile. Patient is tolerating diet with no reports or nausea or vomiting. Patients blood sugars have been in better control. Will continue to monitor closely. Objective - Vital Signs Vital signs: Vital Signs Temp 97.4 F L 05/04/19 12:41 Pulse 89 05/04/19 12:41 Resp 16 05/04/19 12:41 BP 122/75 05/04/19 12:41 Pulse Ox 100 05/04/19 12:41 Intake & Output 05/03/19 05/04/19 05/04/19 18:59 06:59 18:59 Intake Total 400 100 Balance 400 100 Weight 97 kg Intake: Intake, IV Titration 100 Amount ceFAZolin 2 gm In Sodium 100 Chloride 0.9% 50 ml @ 100 mls/hr IVPB Q8HR [facility] Rx# :[id number] Oral 400 Other: Voiding Method Toilet Toilet # Voids 3 2 - Exam Gen: This is a 59-year-old female sitting up at the bedside in no acute distress. Vital signs are stable. Blood pressure is 122/75, pulse is 89, respirations are 16, temp is 97.4 F, oxygen saturation is 100 % on room air. HEENT: Head is atraumatic, normocephalic. Pupils equal, round. Sclerae is anicteric. NECK: Supple. No JVD. No lymphadenopathy. No thyromegaly. LUNGS: Diminished breath sounds at the bases otherwise clear to auscultation. No wheezes or rhonchi. No intercostal retractions. HEART: Regular rate and rhythm. S1 and S2 are normal ABDOMEN: Soft. Bowel sounds are present. No masses. No tenderness. EXTREMITIES: Mild bilateral lower leg edema and some swelling, improved. No calf tenderness. NEUROLOGICAL: Patient is awake, alert and oriented x3. Cranial nerves 2 through 12 are grossly intact. 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 Atrial fibrillation with fast ventricular rate, present on admission Chronic pancreatitis on the computed tomography scan Diabetes mellitus type 2 History of atrial fibrillation, chronic Hypertension Left radial nerve damage recently, secondary to compressive neuropathy History back pain, degenerative joint disease History of MRSA History of coronary artery disease neck sign history of degenerative joint disease History of multiple trigger fingers on both hands Anemia, normocytic anemia of chronic disease Recommendations and discussion: Recommend continue current medications, management, and symptomatic treatment. Will continue to monitor closely. Continue with IV antibiotic therapy per infectious disease recommendations. Awaiting authorization for antibiotics at this time. Authorization to [facility] has been obtained. Case management and social work are following. Infectious disease is following for antibiotic therapy. Guarded prognosis. Further recommendations to follow. Possible discharge once auth is obtained for antibiotics in 24 hours.
[2019-05-04 21:00] LABS: Glucose,Whole Blood 185 mg/dL (75-99)
[2019-05-05] MEDS: HYDROcodone/APAP 5-325MG 1 EACH TAB PO PRN ×2 (03:52→09:11)
[2019-05-05 06:35] VITALS: RESP 16
[2019-05-05 06:57] LABS: Glucose,Whole Blood 140 mg/dL (75-99)
[2019-05-05] MEDS: METOPROLOL SUCCINATE (ER) 50 MG TAB.ER.24H PO SCH (07:54)
[2019-05-05] MEDS: PANTOPRAZOLE 40 MG TABLET PO SCH (07:55)
[2019-05-05] MEDS: ATORVASTATIN 40 MG TAB PO SCH (07:55)
[2019-05-05] MEDS: amLODIPine 5 MG TAB PO SCH (07:55)
[2019-05-05] MEDS: GABAPENTIN 400 MG CAP PO SCH (07:55)
[2019-05-05] MEDS: LISINOPRIL 20 MG TAB PO SCH (07:56)
[2019-05-05] MEDS: INSULIN ASPART (NovoLOG) 100 UNIT/ML VIAL SQ SCH ×2 (08:03→11:43)
[2019-05-05 11:22] LABS: Glucose,Whole Blood 68 mg/dL (75-99)
[2019-05-05 11:47] LABS: Glucose,Whole Blood 77 mg/dL (75-99)
[2019-05-05 12:25] VITALS: BP 129/72; PULSE 97; TEMP 97.3
== END 2019-05-05 14:47 | DRG 439 ==
LOC: EC 13:39 → 6PED 16:34 → 4SSUR 21:22 → 3SCARD 23:38 → 4MS4W 04-27 17:56
PROVIDERS: ADMIT Hospitalist; ATTEND Hospitalist
PROC: 02HV33Z Insertion of Infusion Device into Superior Vena Cava, Percutaneous Approach (ICD-10-PCS; principal; 2019-04-29 14:08)
DX: K85.91 Acute pancreatitis with uninfected necrosis, unspecified (principal); R18.8 Other ascites; M86.171 Other acute osteomyelitis, right ankle and foot; D63.8 Anemia in other chronic diseases classified elsewhere; E11.621 Type 2 diabetes mellitus with foot ulcer; E11.69 Type 2 diabetes mellitus with other specified complication; F41.9 Anxiety disorder, unspecified; E11.42 Type 2 diabetes mellitus with diabetic polyneuropathy; Z79.84 Long term (current) use of oral hypoglycemic drugs; G89.29 Other chronic pain; I10 Essential (primary) hypertension; I25.10 Atherosclerotic heart disease of native coronary artery without angina pectoris; I48.2 Chronic atrial fibrillation; K44.9 Diaphragmatic hernia without obstruction or gangrene; K59.09 Other constipation; K86.1 Other chronic pancreatitis; L08.9 Local infection of the skin and subcutaneous tissue, unspecified; L97.519 Non-pressure chronic ulcer of other part of right foot with unspecified severity; M65.30 Trigger finger, unspecified finger; R76.8 Other specified abnormal immunological findings in serum; Z59.0 Homelessness; Z79.01 Long term (current) use of anticoagulants; Z79.899 Other long term (current) drug therapy; Z86.14 Personal history of Methicillin resistant Staphylococcus aureus infection; G56.32 Lesion of radial nerve, left upper limb; D89.89 Other specified disorders involving the immune mechanism, not elsewhere classified
CPT/HCPCS: 36415; 36573; 71045; 74018; 74176; 76705; 78315; 80053; 81001; 82150; 82787; 83690; 84443; 84478; 84484; 85025; 85610; 85730; 86038; 86039; 86225; 87040; 87086; 87324; 93005; 93306; 96361; 96374; 96375; 99285

== ENCOUNTER → 2019-06-02 | Outpatient (CLI) | payer OTHER ==
--- NOTE | 2019-06-02 13:57 | US ---
EXAMINATION TYPE: US venous doppler duplex LE DATE OF EXAM: 06/02/2019 1:23 PM COMPARISON: NONE CLINICAL HISTORY: M86.671 Other chronic osteomyelitis, rt ankle сергей. Pt has non-healing wound right great toe on/off x 1 year SIDE PERFORMED: Bilateral LOWER EXTREMITY VENOUS INSUFFICIENCY 1) Color flow is present and patency is documented in the following vessels. No DVT or SVT is noted . EIV Common Femoral Vein Deep Femoral Vein Femoral Vein Popliteal Vein Proximal Calf Veins Greater Saph Vein Upper Small Saph Vein 2) There is venous reflux noted at the following venous levels: Right popliteal vein Lopez's Cyst left pop fossa= 6.6 x 1.2 x 2.9 cm IMPRESSION: 1. No sonographic evidence of superficial venous thrombosis nor venous thrombosis within either of th e bilateral lower extremities. 2. Venous reflux noted within the right popliteal vein. 3. Incidentally noted left popliteal fossa/Lopez's cyst measuring up to 6.6 cm.
== END | disposition home or self-care (01) ==
LOC: RADUSWWP 12:50
PROVIDERS: ATTEND Family Medicine
DX: I87.8 Other specified disorders of veins (principal); M86.671 Other chronic osteomyelitis, right ankle and foot; E11.621 Type 2 diabetes mellitus with foot ulcer; E11.610 Type 2 diabetes mellitus with diabetic neuropathic arthropathy; I48.0 Paroxysmal atrial fibrillation; Z88.5 Allergy status to narcotic agent; Z88.2 Allergy status to sulfonamides
CPT/HCPCS: 93922; 93970

== ENCOUNTER 2020-03-07 00:01 | Emergency (ER) | payer OTHER ==
--- NOTE | 2020-03-07 00:10 | ED ---
Alcohol HPI - General Stated Complaint: ETOH Time Seen by Provider: 03/07/20 00:04 Source: RN notes reviewed, old records reviewed Limitations: no limitations - History of Present Illness Initial Comments: There is a 60-year-old female DF for evaluation coming in today for evaluation of a fall on alcohol intoxication although he on presentation to ER with EMS patient refusing all testing patient refuses alcohol testing patient refuses injury. 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 -: hour(s) Previous Visits for Alcohol Intoxication?: Yes Recent Trauma: No Associated Symptoms: denies other symptoms Treatments Prior to Arrival: none Chronic Alcohol Use: Yes - Related Data Home Medications Medication Instructions Recorded Confirmed metFORMIN HCL 1,000 mg PO BID 02/15/15 04/22/19 Calcium Polycarbophil [Fibercon] 625 mg PO DAILY 04/22/19 04/22/19 Docusate Sodium [Dok] 100 mg PO DAILY PRN 04/22/19 04/22/19 Gabapentin [Neurontin] 800 mg PO BID 04/22/19 04/22/19 Ibuprofen [Motrin] 800 mg PO TID 04/22/19 04/22/19 Loratadine 10 mg PO DAILY 04/22/19 04/22/19 Montelukast Sodium [Singulair] 10 mg PO DAILY 04/22/19 04/22/19 glipiZIDE [Glucotrol] 5 mg PO DAILY PRN 04/22/19 04/22/19 lisinopriL [Lisinopril] 20 mg PO DAILY 04/22/19 04/22/19 tiZANidine [Zanaflex] 4 mg PO HS PRN 04/22/19 04/22/19 Previous Rx's Medication Instructions Recorded ceFAZolin [Kefzol] 2 gm IVP Q8HR #126 dose 05/02/19 Acetaminophen Tab [Tylenol] 650 mg PO Q6HR PRN tab 05/04/19 Atorvastatin [Lipitor] 40 mg PO DAILY tab 05/04/19 HYDROcodone/APAP 5-325MG [[place] 1 each PO Q4HR PRN #3 tab 05/04/19 5-325] Metoprolol Succinate (ER) [Toprol 50 mg PO DAILY tab.er.24h 05/04/19 XL] Ondansetron [Zofran] 4 mg PO Q8HR PRN #6 tab 05/04/19 Pantoprazole [Protonix] 40 mg PO AC-BRKFST tablet. 05/04/19 amLODIPine [Norvasc] 5 mg PO DAILY tab 05/04/19 Allergies Allergy/AdvReac Type Severity Reaction Status Date / Time codeine Allergy Rash/Hives Verified 03/07/20 00:15 Sulfa (Sulfonamide Allergy Unknown Verified 03/07/20 00:15 Antibiotics) Review of Systems ROS Statement: Those systems with pertinent positive or pertinent negative responses have been documented in the HPI. ROS Other: All systems not noted in ROS Statement are negative. Past Medical History Past Medical History: Atrial Fibrillation, Diabetes Mellitus, Hypertension Additional Past Medical History / Comment(s): radial nerve damage, back pain, History of Any Multi-Drug Resistant Organisms: MRSA Date of last positivie culture/infection: 02/15/2015 MDRO Source:: Face and foot Past Surgical History: Section, Orthopedic Surgery Additional Past Surgical History / Comment(s): left great toe, Past Psychological History: No Psychological Hx Reported Past Alcohol Use History: Occasional Additional Past Alcohol Use History / Comment(s): Patient states that she is a lifelong nonsmoker, no illicit drug use, no alcohol use. She is homeless and states that she is walking many miles each day. She sleeps at [facility] or [facility]. Past Drug Use History: None Reported General Exam General appearance: alert, in no apparent distress Head exam: Present: atraumatic, normocephalic, normal inspection Eye exam: Present: normal appearance, PERRL, EOMI. Absent: scleral icterus, conjunctival injection, periorbital swelling ENT exam: Present: normal exam, mucous membranes moist Neck exam: Present: normal inspection. Absent: tenderness, meningismus, lymphadenopathy Respiratory exam: Present: normal lung sounds bilaterally. Absent: respiratory distress, wheezes, rales, rhonchi, stridor Cardiovascular Exam: Present: regular rate, normal rhythm, normal heart sounds. Absent: systolic murmur, diastolic murmur, rubs, gallop, clicks GI/Abdominal exam: Present: soft, normal bowel sounds. Absent: distended, tenderness, guarding, rebound, rigid Extremities exam: Present: normal inspection, full ROM, normal capillary refill. Absent: tenderness, pedal edema, joint swelling, calf tenderness Back exam: Present: normal inspection Neurological exam: Present: alert, oriented X3, CN II-XII intact Psychiatric exam: Present: normal affect, normal mood Skin exam: Present: warm, dry, intact, normal color. Absent: rash Course Vital Signs 03/07/20 03/07/20 00:09 00:19 Temperature 97.6 F Pulse Rate 107 H Respiratory 16 Rate Blood Pressure 149/72 O2 Sat by Pulse 99 Oximetry - Reevaluation(s) Reevaluation #1: 03/07/20 01:23 Medical record is reviewed Patient refusing a test refusing ill-defined ride home Reevaluation #2: 03/07/20 04:23 Patient has no significant complaints refusing to have complaints refusing any testing Reevaluation #3: 03/07/20 04:23 Patient feeling much better Reevaluation #4: 03/07/20 04:23 Patient currently awake and alert able to ambulate without difficulty Medical Decision Making - Medical Decision Making 60 female date ER by EMS for fall and alcohol intoxication patient refused all imaging and testing here in the ER able to ambulate prior to discharge and discharged home - Lab Data Lab Results 03/07/20 Range/Units 01:32 POC Glucose (mg/dL) 85 (75-99) mg/dL POC Glu Litigation Legal Secretary ID Anderson Torres Disposition Clinical Impression: Alcoholic intoxication, Fall Disposition: HOME SELF-CARE Condition: Fair Instructions (If sedation given, give patient instructions): Alcohol Intoxication (ED) Is patient prescribed a controlled substance at d/c from ED?: No Referrals: Alisa Alfred MD [Primary Care Provider] - 1-2 days
[2020-03-07 00:17] VITALS: RESP 16
[2020-03-07 01:35] LABS: Glucose,Whole Blood 85 mg/dL (75-99)
[2020-03-07 06:02] VITALS: BP 137/83; PULSE 118; TEMP 97.5
== END 2020-03-07 06:11 | disposition home or self-care (01) ==
LOC: EC 00:01
DX: F10.129 Alcohol abuse with intoxication, unspecified (principal); E11.9 Type 2 diabetes mellitus without complications; I10 Essential (primary) hypertension; Z79.84 Long term (current) use of oral hypoglycemic drugs; Z79.899 Other long term (current) drug therapy; Z88.2 Allergy status to sulfonamides; Z88.5 Allergy status to narcotic agent; W19.XXXA Unspecified fall, initial encounter
CPT/HCPCS: 36415; 99284

== ENCOUNTER 2020-05-20 03:31 | Emergency (ER) | payer OTHER ==
[2020-05-20 03:38] VITALS: TEMP 97.5
[2020-05-20 05:46] VITALS: RESP 18
[2020-05-20] MEDS ORDERED: GABAPENTIN 400 MG CAP PO STA (06:53)
[2020-05-20] MEDS ORDERED: IBUPROFEN 800 MG TAB PO STA (06:53)
--- NOTE | 2020-05-20 06:54 | ED ---
Alcohol HPI - General Chief Complaint: Alcohol Stated Complaint: ETOH Time Seen by Provider: 05/20/20 04:06 Source: patient, EMS Mode of arrival: EMS Limitations: physical limitation - History of Present Illness Initial Comments: This patient's 60-year-old woman brought to have evaluation for suspected public intoxication. The patient hadn't reportedly fallen asleep on the sidewalk outside a restaurant. When I evaluate the patient, she denies any complaints. She denies fall or recent trauma. Patient does admit to drinking. MD Complaint: alcohol intoxication Last Drink: unknown Previous Visits for Alcohol Intoxication?: Yes Recent Trauma: No Associated Symptoms: denies other symptoms Treatments Prior to Arrival: none Chronic Alcohol Use: Yes - Related Data Home Medications Medication Instructions Recorded Confirmed metFORMIN HCL 1,000 mg PO BID 02/15/15 04/22/19 Calcium Polycarbophil [Fibercon] 625 mg PO DAILY 04/22/19 04/22/19 Docusate Sodium [Dok] 100 mg PO DAILY PRN 04/22/19 04/22/19 Gabapentin [Neurontin] 800 mg PO BID 04/22/19 04/22/19 Ibuprofen [Motrin] 800 mg PO TID 04/22/19 04/22/19 Loratadine 10 mg PO DAILY 04/22/19 04/22/19 Montelukast Sodium [Singulair] 10 mg PO DAILY 04/22/19 04/22/19 glipiZIDE [Glucotrol] 5 mg PO DAILY PRN 04/22/19 04/22/19 lisinopriL 20 mg PO DAILY 04/22/19 04/22/19 tiZANidine [Zanaflex] 4 mg PO HS PRN 04/22/19 04/22/19 Previous Rx's Medication Instructions Recorded ceFAZolin [Kefzol] 2 gm IVP Q8HR #126 dose 05/02/19 Acetaminophen Tab [Tylenol] 650 mg PO Q6HR PRN tab 05/04/19 Atorvastatin [Lipitor] 40 mg PO DAILY tab 05/04/19 HYDROcodone/APAP 5-325MG [[place] 1 each PO Q4HR PRN #3 tab 05/04/19 5-325] Metoprolol Succinate (ER) [Toprol 50 mg PO DAILY tab.er.24h 05/04/19 XL] Ondansetron [Zofran] 4 mg PO Q8HR PRN #6 tab 05/04/19 Pantoprazole [Protonix] 40 mg PO AC-BRKFST tablet. 05/04/19 amLODIPine [Norvasc] 5 mg PO DAILY tab 05/04/19 Allergies Allergy/AdvReac Type Severity Reaction Status Date / Time codeine Allergy Rash/Hives Verified 03/07/20 00:15 Sulfa (Sulfonamide Allergy Unknown Verified 03/07/20 00:15 Antibiotics) Review of Systems ROS Statement: Those systems with pertinent positive or pertinent negative responses have been documented in the HPI. ROS Other: All systems not noted in ROS Statement are negative. Constitutional: Denies: fever, chills Respiratory: Denies: cough, dyspnea Cardiovascular: Denies: chest pain, palpitations, edema, syncope Gastrointestinal: Denies: abdominal pain, nausea, vomiting Genitourinary: Denies: dysuria, hematuria Musculoskeletal: Denies: back pain Skin: Denies: rash Neurological: Denies: headache Past Medical History Past Medical History: Atrial Fibrillation, Diabetes Mellitus, Hypertension Additional Past Medical History / Comment(s): radial nerve damage, back pain, History of Any Multi-Drug Resistant Organisms: MRSA Date of last positivie culture/infection: 02/15/2015 MDRO Source:: Face and foot Past Surgical History: Section, Orthopedic Surgery Additional Past Surgical History / Comment(s): left great toe, Past Psychological History: No Psychological Hx Reported Past Alcohol Use History: Heavy Past Drug Use History: None Reported General Exam Limitations: physical limitation General appearance: alert, appears intoxicated Head exam: Present: atraumatic, normocephalic, normal inspection Eye exam: Present: normal appearance, nystagmus. Absent: scleral icterus, conjunctival injection ENT exam: Present: mucous membranes dry Neck exam: Present: normal inspection, full ROM. Absent: tenderness Respiratory exam: Present: normal lung sounds bilaterally. Absent: respiratory distress, wheezes, rales, rhonchi, stridor Cardiovascular Exam: Present: normal rhythm, tachycardia, normal heart sounds. Absent: systolic murmur, diastolic murmur, rubs, gallop GI/Abdominal exam: Present: soft. Absent: distended, tenderness, guarding, rebound, rigid, mass Extremities exam: Present: normal inspection, normal capillary refill Back exam: Present: normal inspection. Absent: vertebral tenderness Neurological exam: Present: alert, oriented X3. Absent: motor sensory deficit Skin exam: Present: warm, dry, intact, normal color. Absent: rash Course Vital Signs 05/20/20 05/20/20 03:32 05:45 Temperature 97.5 F L Pulse Rate 136 H 113 H Respiratory 16 18 Rate Blood Pressure 134/85 139/91 O2 Sat by Pulse 100 99 Oximetry Disposition Clinical Impression: Alcoholic intoxication Disposition: HOME SELF-CARE Condition: Fair Instructions (If sedation given, give patient instructions): Alcohol Intoxication (ED) Is patient prescribed a controlled substance at d/c from ED?: No Referrals: Alisa Alfred MD [Primary Care Provider] - 1-2 days
[2020-05-20 09:48] VITALS: BP 136/78; PULSE 100
== END 2020-05-20 09:48 | disposition home or self-care (01) ==
LOC: EC 03:31
DX: F10.129 Alcohol abuse with intoxication, unspecified (principal); I10 Essential (primary) hypertension; E11.9 Type 2 diabetes mellitus without complications; M54.9 Dorsalgia, unspecified; Y90.9 Presence of alcohol in blood, level not specified; Z79.84 Long term (current) use of oral hypoglycemic drugs; Z79.899 Other long term (current) drug therapy; Z79.1 Long term (current) use of non-steroidal anti-inflammatories (NSAID); Z88.5 Allergy status to narcotic agent; Z88.2 Allergy status to sulfonamides
CPT/HCPCS: 82075; 99284

== ENCOUNTER 2020-10-30 19:44 | Inpatient (IN) | payer OTHER ==
[2020-10-30] MEDS ORDERED: PIPERACILLIN-TAZOBACTAM 3.375 GM in SODIUM CHLORIDE 0.9% 100 ML IVPB STA (20:26)
[2020-10-30] MEDS ORDERED: VANCOMYCIN IV PER PHARMACY 1 EACH MISC MISCELLANE PRN (20:27)
[2020-10-30] MEDS ORDERED: VANCOMYCIN 1,250 MG in SODIUM CHLORIDE 0.9% 250 ML IVPB STA (20:30)
--- NOTE | 2020-10-30 20:37 | ED ---
General Adult HPI - General Chief complaint: Extremity Problem,Nontraumatic Stated complaint: Failure to Thrive Time Seen by Provider: 10/30/20 20:23 Source: patient, EMS, RN notes reviewed, old records reviewed Mode of arrival: EMS Limitations: no limitations - History of Present Illness Initial comments: 60-year-old female presenting for evaluation of alcohol intoxication and infection in the right foot. Patient is a poor historian. She states she has been walking on her foot but noted increased swelling and redness as well as discoloration of the skin. Patient herself denies fever. She does admit to alcohol consumption. No abdominal pain. No chest pain or dyspnea. - Related Data Home Medications Medication Instructions Recorded Confirmed Unable To Assess [Unable to Assess] 10/30/20 10/30/20 Allergies Allergy/AdvReac Type Severity Reaction Status Date / Time codeine Allergy Rash/Hives Verified 10/30/20 20:09 Sulfa (Sulfonamide Allergy Unknown Verified 10/30/20 20:09 Antibiotics) Review of Systems ROS Statement: Those systems with pertinent positive or pertinent negative responses have been documented in the HPI. ROS Other: All systems not noted in ROS Statement are negative. Past Medical History Past Medical History: Atrial Fibrillation, Diabetes Mellitus, Hypertension Additional Past Medical History / Comment(s): radial nerve damage, back pain, History of Any Multi-Drug Resistant Organisms: MRSA Date of last positivie culture/infection: 02/15/2015 MDRO Source:: Face and foot Past Surgical History: Section, Orthopedic Surgery Additional Past Surgical History / Comment(s): left great toe, Past Psychological History: No Psychological Hx Reported Smoking Status: Current every day smoker Past Alcohol Use History: Abuse, Daily, Heavy Past Drug Use History: None Reported General Exam Limitations: no limitations General appearance: alert, in no apparent distress, appears intoxicated Head exam: Present: atraumatic, normocephalic Eye exam: Present: normal appearance, PERRL ENT exam: Present: normal exam Neck exam: Present: normal inspection. Absent: tenderness, meningismus Respiratory exam: Present: wheezes, rhonchi. Absent: respiratory distress Cardiovascular Exam: Present: normal rhythm, tachycardia GI/Abdominal exam: Present: soft. Absent: distended, tenderness, guarding Extremities exam: Present: other (Significant soft tissue swelling, purulence, dry gangrene of the right foot. There is no crepitus. There is edema into the leg.) Neurological exam: Present: alert. Absent: motor sensory deficit Psychiatric exam: Present: normal affect, normal mood Skin exam: Present: warm, dry, intact. Absent: cyanosis, diaphoretic Course Vital Signs 10/30/20 10/30/20 20:06 21:58 Temperature 96.4 F L Pulse Rate 122 H 106 H Respiratory 20 16 Rate Blood Pressure 130/109 121/108 O2 Sat by Pulse 89 L 100 Oximetry EKG Findings - EKG Comments: EKG Findings:: EKG: Atrial fibrillation with RVR, incomplete right bundle-branch block, rate of 112, QRS duration 94, QTC 4:15, no ST segment elevation. Medical Decision Making - Medical Decision Making 60-year-old female presenting with right foot infection. There is gangrene of the plantar surface, lateral aspect of the foot with purulent drainage erythema and soft tissue swelling. Patient is afebrile. She is somewhat tachycardic with stable blood pressure. She has leukocytosis 12.5. Sodium of 1.5 which is likely pseudohyponatremia secondary to blood glucose is 698. She has a potas sium 3.0 which is replaced with both IV and oral potassium. Lactic is mildly elevated 2.5. She's given IV fluids, IV insulin, IV antibiotics including Zosyn and vancomycin. I did discuss case with Dr. Phillips who will admit. I did discuss with Dr. Braun covering for vascular surgery. - Lab Data Result diagrams: 10/30/20 20:29 10/30/20 20:27 Lab Results 10/30/20 10/30/20 10/30/20 Range/Units 20:27 20:27 20:29 WBC 12.5 H (3.8-10.6) k/uL RBC 4.38 (3.80-5.40) m/uL Hgb 14.6 (11.4-16.0) gm/dL Hct 45.2 (34.0-46.0) % MCV 103.1 H (80.0-100.0) fL MCH 33.4 (25.0-35.0) pg MCHC 32.4 (31.0-37.0) g/dL RDW 13.5 (11.5-15.5) % Plt Count 312 (150-450) k/uL MPV 8.9 Neutrophils % 91 % Lymphocytes % 6 % Monocytes % 2 % Eosinophils % 1 % Basophils % 0 % Neutrophils # 11.3 H (1.3-7.7) k/uL Lymphocytes # 0.7 L (1.0-4.8) k/uL Monocytes # 0.3 (0-1.0) k/uL Eosinophils # 0.1 (0-0.7) k/uL Basophils # 0.0 (0-0.2) k/uL Hypochromasia Slight Macrocytosis Slight PT (9.0-12.0) sec INR (<1.2) APTT (22.0-30.0) sec Sodium 125 L (137-145) mmol/L Potassium 3.0 L (3.5-5.1) mmol/L Chloride 92 L (98-107) mmol/L Carbon Dioxide 18 L (22-30) mmol/L Anion Gap 15 mmol/L BUN 26 H (7-17) mg/dL Creatinine 0.96 (0.52-1.04) mg/dL Est GFR (CKD-EPI)AfAm 75 (>60 ml/min/1.73 sqM) Est GFR (CKD-EPI)NonAf 65 (>60 ml/min/1.73 sqM) Glucose 698 H* (74-99) mg/dL Plasma Lactic Acid Piyush 2.5 H* (0.7-2.0) mmol/L Calcium 9.5 (8.4-10.2) mg/dL Magnesium 1.7 (1.6-2.3) mg/dL Total Bilirubin 1.0 (0.2-1.3) mg/dL AST 127 H (14-36) U/L ALT 38 H (4-34) U/L Alkaline Phosphatase 140 H (38-126) U/L Total Protein 8.4 H (6.3-8.2) g/dL Albumin 3.6 (3.5-5.0) g/dL Urine Color Urine Appearance (Clear) Urine pH (5.0-8.0) Ur Specific [place] (1.001-1.035) Urine Protein (Negative) Urine Glucose (UA) (Negative) Urine Ketones (Negative) Urine Blood (Negative) Urine Nitrite (Negative) Urine Bilirubin (Negative) Urine Urobilinogen (<2.0) mg/dL Ur Leukocyte Esterase (Negative) Urine RBC (0-5) /hpf Urine WBC (0-5) /hpf Ur Squamous Epith Cells (0-4) /hpf Urine Mucus (None) /hpf Serum Alcohol <10 mg/dL Coronavirus (PCR) (Not Detectd) 10/30/20 10/30/20 10/30/20 Range/Units 20:29 21:19 22:07 WBC (3.8-10.6) k/uL RBC (3.80-5.40) m/uL Hgb (11.4-16.0) gm/dL Hct (34.0-46.0) % MCV (80.0-100.0) fL MCH (25.0-35.0) pg MCHC (31.0-37.0) g/dL RDW (11.5-15.5) % Plt Count (150-450) k/uL MPV Neutrophils % % Lymphocytes % % Monocytes % % Eosinophils % % Basophils % % Neutrophils # (1.3-7.7) k/uL Lymphocytes # (1.0-4.8) k/uL Monocytes # (0-1.0) k/uL Eosinophils # (0-0.7) k/uL Basophils # (0-0.2) k/uL Hypochromasia Macrocytosis PT 10.8 (9.0-12.0) sec INR 1.0 (<1.2) APTT 19.0 L (22.0-30.0) sec Sodium (137-145) mmol/L Potassium (3.5-5.1) mmol/L Chloride (98-107) mmol/L Carbon Dioxide (22-30) mmol/L Anion Gap mmol/L BUN (7-17) mg/dL Creatinine (0.52-1.04) mg/dL Est GFR (CKD-EPI)AfAm (>60 ml/min/1.73 sqM) Est GFR (CKD-EPI)NonAf (>60 ml/min/1.73 sqM) Glucose (74-99) mg/dL Plasma Lactic Acid Piyush (0.7-2.0) mmol/L Calcium (8.4-10.2) mg/dL Magnesium (1.6-2.3) mg/dL Total Bilirubin (0.2-1.3) mg/dL AST (14-36) U/L ALT (4-34) U/L Alkaline Phosphatase (38-126) U/L Total Protein (6.3-8.2) g/dL Albumin (3.5-5.0) g/dL Urine Color Yellow Urine Appearance Clear (Clear) Urine pH 6.5 (5.0-8.0) Ur Specific [place] 1.026 (1.001-1.035) Urine Protein 1+ H (Negative) Urine Glucose (UA) 4+ H (Negative) Urine Ketones Negative (Negative) Urine Blood Large H (Negative) Urine Nitrite Negative (Negative) Urine Bilirubin Negative (Negative) Urine Urobilinogen <2.0 (<2.0) mg/dL Ur Leukocyte Esterase Negative (Negative) Urine RBC <1 (0-5) /hpf Urine WBC 1 (0-5) /hpf Ur Squamous Epith Cells <1 (0-4) /hpf Urine Mucus Rare H (None) /hpf Serum Alcohol mg/dL Coronavirus (PCR) Not Detected (Not Detectd) Critical Care Time Critical Care Time: Yes Total Critical Care Time: 35 Disposition Clinical Impression: Gangrene of right foot, Sepsis, Hypokalemia, Hyperglycemia Disposition: ADMITTED IP TO THIS [facility] Condition: Serious Is patient prescribed a controlled substance at d/c from ED?: No Referrals: Alisa Alfred MD [Primary Care Provider] - 1-2 days Decision to Admit Reason: Admit from EC Decision Date: 10/30/20 Decision Time: 22:51
[2020-10-30 20:38] LABS: Basophils % (A) 0 %; Eosinophils # (A) 0.1 k/uL (0-0.7); Eosinophils % (A) 1 %; HCT 45.2 % (34.0-46.0); HGB 14.6 gm/dL (11.4-16.0); Hypochromasia Slight; Lymphocytes # (A) 0.7 k/uL (1.0-4.8); Lymphocytes % (A) 6 %; MCH 33.4 pg (25.0-35.0); MCHC 32.4 g/dL (31.0-37.0); MCV 103.1 fL (80.0-100.0); Macrocytosis Slight; Mean Platelet Volume 8.9; Monocytes # (A) 0.3 k/uL (0-1.0); Monocytes % (A) 2 %; Neutrophils # (A) 11.3 k/uL (1.3-7.7); Neutrophils % (A) 91 %; Platelet Count 312 k/uL (150-450); RBC 4.38 m/uL (3.80-5.40); RDW 13.5 % (11.5-15.5); WBC 12.5 k/uL (3.8-10.6)
[2020-10-30 20:50] LABS: ALT 38 U/L (4-34); AST 127 U/L (14-36); African American GFR (CKD) 75 (>60 ml/min/1.73 sqM); Albumin 3.6 g/dL (3.5-5.0); Alcohol <10 mg/dL; Alkaline Phosphatase 140 U/L (38-126); Anion Gap 15 mmol/L; Blood Urea Nitrogen 26 mg/dL (7-17); Calcium 9.5 mg/dL (8.4-10.2); Carbon Dioxide 18 mmol/L (22-30); Chloride 92 mmol/L (98-107); Magnesium 1.7 mg/dL (1.6-2.3); Non-African American GFR(CKD) 65 (>60 ml/min/1.73 sqM); Sodium 125 mmol/L (137-145); Total Protein 8.4 g/dL (6.3-8.2)
[2020-10-30 20:56] LABS: Prothrombin Time 10.8 sec (9.0-12.0)
[2020-10-30 20:58] LABS: Glucose 698 mg/dL (74-99)
[2020-10-30 21:26] LABS: Appearance,Urine Clear (Clear); Bilirubin,Urine Negative (Negative); Blood,Urine Large (Negative); Color,Urine Yellow; Glucose,Urine (UA) 4+ (Negative); Ketones,Urine Negative (Negative); Leukocyte Esterase,Urine Negative (Negative); Mucus,Urine Rare /hpf; Nitrite,Urine Negative (Negative); PH, Urine 6.5 (5.0-8.0); Protein,Urine 1+ (Negative); RBC,Urine <1 /hpf (0-5); Specific Gravity,Urine 1.026 (1.001-1.035); Squamous Epithelial Cell,Urine <1 /hpf (0-4); Urobilinogen,Urine <2.0 mg/dL (<2.0); WBC,Urine 1 /hpf (0-5)
--- NOTE | 2020-10-30 21:28 | XR ---
EXAMINATION TYPE: XR foot complete RT DATE OF EXAM: 10/30/2020 COMPARISON: NONE HISTORY: Nonhealing wounds TECHNIQUE: 3 views FINDINGS: There is soft tissue air at the lateral aspect of the forefoot involving the metatarsal hea ds and the pelvis. This involves the third fourth and fifth toes. There are some destructive changes and apparent fracture of the third and fourth metatarsal heads. There is small soft tissue appearing densities that are probably foreign bodies. There is some lucency at the base of the proximal phalanx of the fourth toe. There is soft tissue swelling of the forefoot. IMPRESSION: Soft tissue air. Foreign bodies. Fractures of the head of the third and fourth metatarsal s with some deformity. There is lucency of the fourth toe proximal phalanx. These findings could rela te to some osteomyelitis.
[2020-10-30] MEDS ORDERED: SODIUM CHLORIDE 0.9% 500 ML 500 ML IV ONE (21:46)
[2020-10-30] MEDS ORDERED: LORazepam 2 MG/ML INJ IV STA (21:46)
[2020-10-30] MEDS ORDERED: INSULIN REGULAR 100 UNIT/ML VIAL IV ONE (21:59)
[2020-10-30] MEDS ORDERED: POTASSIUM CHLORIDE ER 20 MEQ TAB.ER PO STA (22:39)
[2020-10-30] MEDS ORDERED: NALOXONE 0.4 MG/ML 1 ML VIAL IV PRN (22:42)
[2020-10-30] MEDS: SODIUM CHLORIDE 0.9% 1,000 ML IV SCH (22:49)
[2020-10-30 23:18] LABS: Glucose,Whole Blood 559 mg/dL (75-99)
[2020-10-30] MEDS: POTASSIUM CHLORIDE 10 MEQ in WATER FOR INJECTION 1 100ML.BAG IVPB SCH (23:24)
[2020-10-30] MEDS ORDERED: LORazepam 2 MG/ML INJ IV PRN ×3 (23:29)
[2020-10-31] MEDS ORDERED: ACETAMINOPHEN TAB 325 MG TAB PO PRN
[2020-10-31] MEDS ORDERED: PIPERACILLIN-TAZOBACTAM 3.375 GM in SODIUM CHLORIDE 0.9% 100 ML IVPB SCH ×2
[2020-10-31 00:26] LABS: Potassium 2.8 mmol/L (3.5-5.1)
[2020-10-31] MEDS ORDERED: THIAMINE 100 MG/ML 2 ML VIAL IM ONE (00:30)
[2020-10-31] MEDS: POTASSIUM CHLORIDE 10 MEQ in WATER FOR INJECTION 1 100ML.BAG IVPB SCH ×7 (00:33→12:40)
[2020-10-31] MEDS: THIAMINE 100 MG TAB PO SCH ×2 (00:55→06:17)
[2020-10-31] MEDS: INSULIN REGULAR 100 UNIT in SODIUM CHLORIDE 0.9% 100 ML IV SCH ×2 (00:56→15:50)
[2020-10-31 02:03] LABS: Glucose,Whole Blood 445 mg/dL (75-99)
[2020-10-31 03:08] LABS: Glucose,Whole Blood 284 mg/dL (75-99)
[2020-10-31] MEDS: D5-0.45% NACL WITH KCL 20MEQ/L 1,000 ML IV SCH ×4 (03:27→22:23)
[2020-10-31 04:39] LABS: Glucose,Whole Blood 232 mg/dL (75-99)
[2020-10-31 05:43] LABS: Glucose,Whole Blood 129 mg/dL (75-99)
[2020-10-31 06:00] LABS: African American GFR (CKD) >90 (>60 ml/min/1.73 sqM); Anion Gap 8 mmol/L; Blood Urea Nitrogen 24 mg/dL (7-17); Calcium 8.7 mg/dL (8.4-10.2); Carbon Dioxide 20 mmol/L (22-30); Chloride 105 mmol/L (98-107); Glucose 91 mg/dL (74-99); Non-African American GFR(CKD) 79 (>60 ml/min/1.73 sqM); Phosphorus 2.1 mg/dL (2.5-4.5); Sodium 133 mmol/L (137-145)
[2020-10-31] MEDS: INSULIN ASPART (NovoLOG) 100 UNIT/ML VIAL SQ SCH ×5 (06:17→21:27)
[2020-10-31 06:22] LABS: Basophils # (A) 0.1 k/uL (0-0.2); Basophils % (A) 0 %; Eosinophils # (A) 0.1 k/uL (0-0.7); Eosinophils % (A) 1 %; HCT 35.9 % (34.0-46.0); Lymphocytes # (A) 1.1 k/uL (1.0-4.8); Lymphocytes % (A) 8 %; MCH 33.3 pg (25.0-35.0); MCHC 33.3 g/dL (31.0-37.0); MCV 99.8 fL (80.0-100.0); Mean Platelet Volume 8.3; Monocytes # (A) 0.5 k/uL (0-1.0); Monocytes % (A) 4 %; Neutrophils # (A) 11.8 k/uL (1.3-7.7); Neutrophils % (A) 86 %; Platelet Count 272 k/uL (150-450); RBC 3.59 m/uL (3.80-5.40); RDW 13.4 % (11.5-15.5); WBC 13.6 k/uL (3.8-10.6)
[2020-10-31 06:23] LABS: Glucose,Whole Blood 188 mg/dL (75-99)
[2020-10-31 06:25] LABS: Potassium 2.6 mmol/L (3.5-5.1)
[2020-10-31] MEDS ORDERED: Magnesium Replacement Protocol 1 EACH MISC MISCELLANE PRN (06:51)
[2020-10-31] MEDS ORDERED: Potassium Replacement Protocol 1 EACH MISC MISCELLANE PRN (06:51)
[2020-10-31 07:38] LABS: Glucose,Whole Blood 82 mg/dL (75-99)
[2020-10-31 07:40] LABS: Magnesium 1.6 mg/dL (1.6-2.3)
[2020-10-31 07:46] LABS: Potassium 2.2 mmol/L (3.5-5.1)
[2020-10-31] MEDS ORDERED: POTASSIUM CHLORIDE ER 20 MEQ TAB.ER PO STA (07:54)
[2020-10-31] MEDS ORDERED: POTASSIUM CHLORIDE 10 MEQ in WATER FOR INJECTION 1 100ML.BAG IVPB STA (07:57)
[2020-10-31] MEDS ORDERED: POTASSIUM CHLORIDE 20 MEQ in WATER FOR INJECTION 1 100ML.BAG IVPB STA ×2 (07:58→08:00)
[2020-10-31] MEDS: MAGNESIUM SULFATE-D5W PMX 1 GM in DEXTROSE/WATER 1 100ML.BAG IVPB SCH ×2 (08:28→09:50)
[2020-10-31 09:14] LABS: Lactic Acid, Venous 2.3 mmol/L (0.7-2.0)
--- NOTE | 2020-10-31 09:50 | P.HPIM ---
History of Present Illness This is a pleasant 60 years old female with past medical history of atrial fibrillation, diabetes mellitus, hypertension, alcohol abuse. Cigarette smoker She came to the hospital because of her alcohol problem, and with foot infection pt is somewhat drowsy and poor historian, she answers close end questions only with short sentences or 1-2 words, she knows she is in [facility] and the date and states she came because of her right foot infection . Also she complains from pain in her buttock area that she fell 2 days ago. Patient states she drinks alcohol about she could not specify or much and when was her last. She denies smoking cigarettes or illicit tracts to be Vitals 1 hypothermia was 96.4 currently 97.2. She was tachycardic 122 on admission currently at 91-96. Present rate at 16-18, blood pressure 1 or 3/64 and she is saturating 96% on 2 L oxygen On admission she has leukocytosis of 12.5. INR, she has low potassium and last was 2.2 despite replacement but also she was on insulin drip started by ED team. Her insulin drip is stopped now Sodium 133, creatinine 0.8, glucose was 600 up on admission. Urinalysis showing 1+ protein, 4+ glucose large blood but negative RBCs less than 1. Serum alcohol less than 10. Coronavirus not detected EKG showing atrial fibrillation with RVR at 112 Foot x-ray showing soft tissue air with foreign bodies, fracture of the head of the third and fourth metatarsals with some deformity and possible ostial myelitis Currently patient is on vancomycin, cefepime, no muscle and abdomen 30 mL/h, potassium and magnesium replaced Review of Systems CONSTITUTIONAL: No fever, no malaise, no fatigue. HEENT: No recent visual problems or hearing problems. Denied any sore throat. CARDIOVASCULAR: No orthopnea, PND, no palpitations, no syncope. PULMONARY: No shortness of breath, no cough, no hemoptysis. GASTROINTESTINAL: No diarrhea, no nausea, no vomiting, no abdominal pain. Normoactive bowel sounds. NEUROLOGICAL: No headaches, no weakness, no numbness. HEMATOLOGICAL: Denies any bleeding or petechiae. GENITOURINARY: Denies any burning micturition, frequency, or urgency. MUSCULOSKELETAL/RHEUMATOLOGICAL: Denies any joint pain, swelling, or any muscle pain. Except was mentioned above ENDOCRINE: Denies any polyuria or polydipsia. Past Medical History Past Medical History: Atrial Fibrillation, Diabetes Mellitus, Hypertension Additional Past Medical History / Comment(s): radial nerve damage, back pain, History of Any Multi-Drug Resistant Organisms: MRSA Date of last positivie culture/infection: 02/15/2015 MDRO Source:: Face and foot Past Surgical History: Section, Orthopedic Surgery Additional Past Surgical History / Comment(s): left great toe, Past Psychological History: No Psychological Hx Reported Smoking Status: Current every day smoker Past Alcohol Use History: Abuse, Daily, Heavy Past Drug Use History: None Reported Medications and Allergies Home Medications Medication Instructions Recorded Confirmed Type Ferrous Sulfate [Feosol] 325 mg PO BID 10/31/20 10/31/20 History Ibuprofen [Motrin] 800 mg PO Q8H PRN 10/31/20 10/31/20 History Loratadine [Claritin] 10 mg PO DAILY 10/31/20 10/31/20 History glipiZIDE [Glucotrol] 5 mg PO [id number]-[id number] 10/31/20 10/31/20 History Allergies Allergy/AdvReac Type Severity Reaction Status Date / Time codeine Allergy Rash/Hives Verified 10/30/20 20:09 Sulfa (Sulfonamide Allergy Unknown Verified 10/30/20 20:09 Antibiotics) Physical Exam Vitals: Vital Signs Temp Pulse Pulse Resp BP BP Pulse Ox 10/31/20 04:00 97.2 F L 96 18 103/64 96 10/31/20 00:39 97.5 F L 91 18 105/68 98 10/30/20 23:04 96.8 F L 97 16 105/56 97 10/30/20 21:58 96.4 F L 106 H 16 121/108 100 10/30/20 20:06 122 H 20 130/109 89 L Intake and Output 10/30/20 10/31/20 10/31/20 22:59 06:59 14:59 Intake Total 38.155 Balance 38.155 Intake: Intake, IV Titration 38.155 Amount Insulin Regular 100 unit 38.155 In Sodium Chloride 0.9% 100 ml @ 0.1 UNITS/KG/HR 6.872 mls/hr IV .[id number] [facility] Rx#:[id number] Other: Weight 68.039 kg -GENERAL: The patient is alert and oriented to time, place and person , she is drowsy not in any acute distress. Well developed, well nourished. HEENT: Pupils are round and equally reacting to light. EOMI. No scleral icterus. No conjunctival pallor. Normocephalic, atraumatic. No pharyngeal erythema. No thyromegaly. CARDIOVASCULAR: S1 and S2 present. No murmurs, rubs, or gallops. PULMONARY: Chest is clear to auscultation, no wheezing or crackles. ABDOMEN: Soft, nontender, nondistended, normoactive bowel sounds. No palpable organomegaly. MUSCULOSKELETAL: No joint swelling or deformity. -EXTREMITIES: No cyanosis, clubbing, or pedal edema. Right foot is infected and gangrenous with some black discoloration and purulent discharge on the distal lateral forefoot and toes with erythema and swelling; status post previous amputation of left foot toes NEUROLOGICAL: Gross neurological examination did not reveal any focal deficits. SKIN: No rashes. No petechiae Results CBC & Chem 7: 10/31/20 05:09 10/31/20 07:12 Labs: Abnormal Lab Results - Last 24 Hours (Table) 10/30/20 10/30/20 10/30/20 Range/Units 20:27 20:27 20:29 WBC 12.5 H (3.8-10.6) k/uL RBC (3.80-5.40) m/uL MCV 103.1 H (80.0-100.0) fL Neutrophils # 11.3 H (1.3-7.7) k/uL Lymphocytes # 0.7 L (1.0-4.8) k/uL APTT (22.0-30.0) sec Sodium 125 L (137-145) mmol/L Potassium 3.0 L (3.5-5.1) mmol/L Chloride 92 L (98-107) mmol/L Carbon Dioxide 18 L (22-30) mmol/L BUN 26 H (7-17) mg/dL Glucose 698 H* (74-99) mg/dL POC Glucose (mg/dL) (75-99) mg/dL Plasma Lactic Acid Piyush 2.5 H* (0.7-2.0) mmol/L Phosphorus (2.5-4.5) mg/dL AST 127 H (14-36) U/L ALT 38 H (4-34) U/L Alkaline Phosphatase 140 H (38-126) U/L Total Protein 8.4 H (6.3-8.2) g/dL Urine Protein (Negative) Urine Glucose (UA) (Negative) Urine Blood (Negative) Urine Mucus (None) /hpf 10/30/20 10/30/20 10/30/20 Range/Units 20:29 21:19 23:16 WBC (3.8-10.6) k/uL RBC (3.80-5.40) m/uL MCV (80.0-100.0) fL Neutrophils # (1.3-7.7) k/uL Lymphocytes # (1.0-4.8) k/uL APTT 19.0 L (22.0-30.0) sec Sodium (137-145) mmol/L Potassium (3.5-5.1) mmol/L Chloride (98-107) mmol/L Carbon Dioxide (22-30) mmol/L BUN (7-17) mg/dL Glucose (74-99) mg/dL POC Glucose (mg/dL) 559 H (75-99) mg/dL Plasma Lactic Acid Piyush (0.7-2.0) mmol/L Phosphorus (2.5-4.5) mg/dL AST (14-36) U/L ALT (4-34) U/L Alkaline Phosphatase (38-126) U/L Total Protein (6.3-8.2) g/dL Urine Protein 1+ H (Negative) Urine Glucose (UA) 4+ H (Negative) Urine Blood Large H (Negative) Urine Mucus Rare H (None) /hpf 10/30/20 10/30/20 10/31/20 Range/Units 23:52 23:52 02:02 WBC (3.8-10.6) k/uL RBC (3.80-5.40) m/uL MCV (80.0-100.0) fL Neutrophils # (1.3-7.7) k/uL Lymphocytes # (1.0-4.8) k/uL APTT (22.0-30.0) sec Sodium 127 L (137-145) mmol/L Potassium 2.8 L (3.5-5.1) mmol/L Chloride (98-107) mmol/L Carbon Dioxide 13 L (22-30) mmol/L BUN 25 H (7-17) mg/dL Glucose 600 H* (74-99) mg/dL POC Glucose (mg/dL) 445 H (75-99) mg/dL Plasma Lactic Acid Piyush 2.1 H* (0.7-2.0) mmol/L Phosphorus (2.5-4.5) mg/dL AST (14-36) U/L ALT (4-34) U/L Alkaline Phosphatase (38-126) U/L Total Protein (6.3-8.2) g/dL Urine Protein (Negative) Urine Glucose (UA) (Negative) Urine Blood (Negative) Urine Mucus (None) /hpf 10/31/20 10/31/20 10/31/20 Range/Units 03:05 04:35 05:09 WBC (3.8-10.6) k/uL RBC (3.80-5.40) m/uL MCV (80.0-100.0) fL Neutrophils # (1.3-7.7) k/uL Lymphocytes # (1.0-4.8) k/uL APTT (22.0-30.0) sec Sodium 133 L (137-145) mmol/L Potassium 2.6 L* (3.5-5.1) mmol/L Chloride (98-107) mmol/L Carbon Dioxide 20 L (22-30) mmol/L BUN 24 H (7-17) mg/dL Glucose (74-99) mg/dL POC Glucose (mg/dL) 284 H 232 H (75-99) mg/dL Plasma Lactic Acid Piyush (0.7-2.0) mmol/L Phosphorus 2.1 L (2.5-4.5) mg/dL AST (14-36) U/L ALT (4-34) U/L Alkaline Phosphatase (38-126) U/L Total Protein (6.3-8.2) g/dL Urine Protein (Negative) Urine Glucose (UA) (Negative) Urine Blood (Negative) Urine Mucus (None) /hpf 10/31/20 10/31/20 10/31/20 Range/Units 05:09 05:09 05:40 WBC 13.6 H (3.8-10.6) k/uL RBC 3.59 L (3.80-5.40) m/uL MCV (80.0-100.0) fL Neutrophils # 11.8 H (1.3-7.7) k/uL Lymphocytes # (1.0-4.8) k/uL APTT (22.0-30.0) sec Sodium (137-145) mmol/L Potassium (3.5-5.1) mmol/L Chloride (98-107) mmol/L Carbon Dioxide (22-30) mmol/L BUN (7-17) mg/dL Glucose (74-99) mg/dL POC Glucose (mg/dL) 129 H (75-99) mg/dL Plasma Lactic Acid Piyush 3.8 H* (0.7-2.0) mmol/L Phosphorus (2.5-4.5) mg/dL AST (14-36) U/L ALT (4-34) U/L Alkaline Phosphatase (38-126) U/L Total Protein (6.3-8.2) g/dL Urine Protein (Negative) Urine Glucose (UA) (Negative) Urine Blood (Negative) Urine Mucus (None) /hpf 10/31/20 10/31/20 10/31/20 Range/Units 06:19 07:12 07:12 WBC (3.8-10.6) k/uL RBC (3.80-5.40) m/uL MCV (80.0-100.0) fL Neutrophils # (1.3-7.7) k/uL Lymphocytes # (1.0-4.8) k/uL APTT (22.0-30.0) sec Sodium (137-145) mmol/L Potassium 2.2 L* (3.5-5.1) mmol/L Chloride (98-107) mmol/L Carbon Dioxide (22-30) mmol/L BUN (7-17) mg/dL Glucose (74-99) mg/dL POC Glucose (mg/dL) 188 H (75-99) mg/dL Plasma Lactic Acid Piyush 2.5 H* (0.7-2.0) mmol/L Phosphorus (2.5-4.5) mg/dL AST (14-36) U/L ALT (4-34) U/L Alkaline Phosphatase (38-126) U/L Total Protein (6.3-8.2) g/dL Urine Protein (Negative) Urine Glucose (UA) (Negative) Urine Blood (Negative) Urine Mucus (None) /hpf Assessment and Plan Assessment: Left foot infection with osteomyelitis and bone fracture, going for right foot amputation per recommendation of Dr. Johnson vascular surgeon Severe Sepsis secondary to above with hypothermia, leukocytosis and tachycardia metabolic/toxic encephalopathy Alcohol abuse at-risk of alcohol withdrawal and DVT Severe electrolyte abnormality of hypokalemia and mild hypomagnesemia Hyperosmolar hyperglycemic Nonketotic syndrome Associated with type 2 diabetes , versus mild DKA Diabetes mellitus type 2 with hyperglycemia Fall 2 days ago with pelvic pain Hypertension Possible Nicotine dependence but patient denies History of atrial fibrillation not on anticoagulation and currently rate is controlled Plan: This is a pleasant 70 years old female who presents with hyperglycemia, foot infection and electrolyte abnormality and alcohol abuse at-risk of withdrawal discussed the case with Dr. johnson, who is going to take the patient to our for her right foot infection this afternoon. Patient is at risk from surgery however surgical intervention is urgent per Vascular surgery team. She has severe sepsis and at-risk of septic shock. Dr. Johnson is going to contact the daughter and family I discussed the case with ICU team and they kindly accepted the patient for admission Replace potassium and magnesium with close monitoring and telemetry. Continue with broad-spectrum antibiotics of IV vancomycin and cefepime continue with normal saline Continue with Ativan as needed per LINDA, thiamin Labs and medication were reviewed.. Continue same treatment. Continue with symptomatic treatment. Resume home medication. Monitor lytes and vitals. DVT and GI prophylaxis. Further recommendations depends on the clinical course of the patient DVT prophylaxis: Subcutaneous heparin GI Prophylaxis: Pepcid PT/OT: Pending Prognosis is guarded
[2020-10-31] MEDS: FAMOTIDINE 20 MG/2 ML VIAL IV SCH ×2 (09:51→21:28)
[2020-10-31] MEDS: HEPARIN SODIUM,PORCINE 5,000 UNIT/ML 1 ML VIAL SQ SCH ×2 (09:59→21:27)
--- NOTE | 2020-10-31 10:31 | XR ---
EXAMINATION TYPE: XR Hip Bilateral and AP pelvis DATE OF EXAM: 10/31/2020 COMPARISON: NONE HISTORY: Pain TECHNIQUE: A single AP view of the pelvis is obtained. Two views of the bilateral hip are obtained. FINDINGS: There is no acute fracture/dislocation evident in the pelvis is mild concentric narrowing of the hip joints bilaterally. Calcifications the pelvis likely vascular. Mild hypertrophic change of the acetabulum can be associated with femoral acetabular impingement. No acute fracture or dislocati on. IMPRESSION: 1. No acute fracture or dislocation.
[2020-10-31] MEDS: CEFEPIME 2 GM in SODIUM CHLORIDE 0.9% 100 ML IVPB SCH ×2 (10:33→21:27)
[2020-10-31] MEDS: SODIUM CHLORIDE 0.9% 1,000 ML IV SCH ×3 (11:27→21:27)
[2020-10-31 11:56] LABS: Glucose,Whole Blood 122 mg/dL (75-99)
--- NOTE | 2020-10-31 12:11 | P.GSCN ---
History of Present Illness Consult date: 10/31/20 Reason for Consult: Gangrene right lower extremity, right lower extremity foot infection History of present illness: This is a 60-year-old female who presented to the emergency department for evaluation of possible alcohol intoxication and infection of the right foot. During this interview the patient was a poor historian. Reviewing the emergency department notes stated that she been walking on her foot and noticed increased swelling and redness as well as discoloration of the skin and came in for further evaluation. He has a long-standing history of alcohol abuse, diabetes mellitus, atrial fibrillation, and hypertension, and every day smoker. Patient reportedly takes her alto for her atrial fibrillation, however she is uncertain of her last dose taken. The patient is very drowsy, she does respond to stimulation answer short ended questions. She does report pain with palpation to the right lower extremity. She is unsure if she has had a fever at home. Does not report how long she has had the lower extremity wound. She has had a previous left great toe amputation. On admission her glucose was 600 when she was started on an insulin drip. Last glucose is 92. WBC 13.6, hemoglobin 12, hematocrit 35.9, platelet count 272, INR 1.0. Sodium 133, potassium 2.2, chloride 105, CO2 20, BUN 24, creatinine 0.82, current plasma lactic acid 2.3. X-ray of right foot show soft tissue air. Foreign bodies. Fractures of the head of the third and fourth metatarsals with some deformity. There is lucency of the fourth toe proximal phalanx. These findings could relate to some osteomyelitis. Review of Systems Limited review of systems due to patient being drowsy Past Medical History Past Medical History: Atrial Fibrillation, Diabetes Mellitus, Hypertension Additional Past Medical History / Comment(s): radial nerve damage, back pain, History of Any Multi-Drug Resistant Organisms: MRSA Year Discovered:: 02/15/2015 MDRO Source:: Face and foot Past Surgical History: Section, Orthopedic Surgery Additional Past Surgical History / Comment(s): left great toe, Past Psychological History: No Psychological Hx Reported Smoking Status: Current every day smoker Past Alcohol Use History: Abuse, Daily, Heavy Past Drug Use History: None Reported - Past Family History Father Family Medical History: Diabetes Mellitus Additional Family Medical History / Comment(s): Father had heart problems. Mother Family Medical History: No Reported History Medications and Allergies Home Medications Medication Instructions Recorded Confirmed Type Ferrous Sulfate [Feosol] 325 mg PO BID 10/31/20 10/31/20 History Ibuprofen [Motrin] 800 mg PO Q8H PRN 10/31/20 10/31/20 History Loratadine [Claritin] 10 mg PO DAILY 10/31/20 10/31/20 History Metoprolol Tartrate [Lopressor] 50 mg PO BID 10/31/20 10/31/20 History Rivaroxaban [Xarelto] 20 mg PO W/SUPPER 10/31/20 10/31/20 History glipiZIDE [Glucotrol] 5 mg PO AC-BRKFST 10/31/20 10/31/20 History lisinopriL [Zestril] 20 mg PO DAILY 10/31/20 10/31/20 History Allergies Allergy/AdvReac Type Severity Reaction Status Date / Time codeine Allergy Rash/Hives Verified 10/30/20 20:09 Sulfa (Sulfonamide Allergy Unknown Verified 10/30/20 20:09 Antibiotics) Surgical - Exam Vital Signs Pulse Resp BP Pulse Ox 122 H 20 130/109 89 L 10/30/20 20:06 10/30/20 20:06 10/30/20 20:06 10/30/20 20:06 General appearance: The patient is drowsy but arousable. HET: Head is normocephalic and atraumatic. Neck: Supple without lymphadenopathy. Trachea midline. Heart: S1 S2. Regular rate and rhythm. Lungs: Clear to auscultation. Abdomen: Soft, nontender, nondistended. Extremities: Bilateral palpable femoral, popliteal, and dorsalis pedis pulses. Right foot swelling and erythema, wet gangrene to second third and fourth toes. Wound on dorsal aspect of foot with purulent drainage, necrotic tissue with ulcer on lateral aspect plantar surface, wound to distal portion plantar aspect of foot. Malodorous. Left foot with swelling and erythema, previous right great toe amputation, deformity of other toes with dry gangrene. Neurological: Drowsy, but arousable and able to answer short ended questions appropriately. No focal deficits. Strength and sensation are grossly intact. Results - Labs 10/31/20 05:09 10/31/20 07:12 Abnormal Lab Results - Last 24 Hours (Table) 10/30/20 10/30/20 10/30/20 Range/Units 20:27 20:27 20:29 WBC 12.5 H (3.8-10.6) k/uL RBC (3.80-5.40) m/uL MCV 103.1 H (80.0-100.0) fL Neutrophils # 11.3 H (1.3-7.7) k/uL Lymphocytes # 0.7 L (1.0-4.8) k/uL APTT (22.0-30.0) sec Sodium 125 L (137-145) mmol/L Potassium 3.0 L (3.5-5.1) mmol/L Chloride 92 L (98-107) mmol/L Carbon Dioxide 18 L (22-30) mmol/L BUN 26 H (7-17) mg/dL Glucose 698 H* (74-99) mg/dL POC Glucose (mg/dL) (75-99) mg/dL Plasma Lactic Acid Piyush 2.5 H* (0.7-2.0) mmol/L Phosphorus (2.5-4.5) mg/dL AST 127 H (14-36) U/L ALT 38 H (4-34) U/L Alkaline Phosphatase 140 H (38-126) U/L Total Protein 8.4 H (6.3-8.2) g/dL Urine Protein (Negative) Urine Glucose (UA) (Negative) Urine Blood (Negative) Urine Mucus (None) /hpf 10/30/20 10/30/20 10/30/20 Range/Units 20:29 21:19 23:16 WBC (3.8-10.6) k/uL RBC (3.80-5.40) m/uL MCV (80.0-100.0) fL Neutrophils # (1.3-7.7) k/uL Lymphocytes # (1.0-4.8) k/uL APTT 19.0 L (22.0-30.0) sec Sodium (137-145) mmol/L Potassium (3.5-5.1) mmol/L Chloride (98-107) mmol/L Carbon Dioxide (22-30) mmol/L BUN (7-17) mg/dL Glucose (74-99) mg/dL POC Glucose (mg/dL) 559 H (75-99) mg/dL Plasma Lactic Acid Piyush (0.7-2.0) mmol/L Phosphorus (2.5-4.5) mg/dL AST (14-36) U/L ALT (4-34) U/L Alkaline Phosphatase (38-126) U/L Total Protein (6.3-8.2) g/dL Urine Protein 1+ H (Negative) Urine Glucose (UA) 4+ H (Negative) Urine Blood Large H (Negative) Urine Mucus Rare H (None) /hpf 10/30/20 10/30/20 10/31/20 Range/Units 23:52 23:52 02:02 WBC (3.8-10.6) k/uL RBC (3.80-5.40) m/uL MCV (80.0-100.0) fL Neutrophils # (1.3-7.7) k/uL Lymphocytes # (1.0-4.8) k/uL APTT (22.0-30.0) sec Sodium 127 L (137-145) mmol/L Potassium 2.8 L (3.5-5.1) mmol/L Chloride (98-107) mmol/L Carbon Dioxide 13 L (22-30) mmol/L BUN 25 H (7-17) mg/dL Glucose 600 H* (74-99) mg/dL POC Glucose (mg/dL) 445 H (75-99) mg/dL Plasma Lactic Acid Piyush 2.1 H* (0.7-2.0) mmol/L Phosphorus (2.5-4.5) mg/dL AST (14-36) U/L ALT (4-34) U/L Alkaline Phosphatase (38-126) U/L Total Protein (6.3-8.2) g/dL Urine Protein (Negative) Urine Glucose (UA) (Negative) Urine Blood (Negative) Urine Mucus (None) /hpf 10/31/20 10/31/20 10/31/20 Range/Units 03:05 04:35 05:09 WBC (3.8-10.6) k/uL RBC (3.80-5.40) m/uL MCV (80.0-100.0) fL Neutrophils # (1.3-7.7) k/uL Lymphocytes # (1.0-4.8) k/uL APTT (22.0-30.0) sec Sodium 133 L (137-145) mmol/L Potassium 2.6 L* (3.5-5.1) mmol/L Chloride (98-107) mmol/L Carbon Dioxide 20 L (22-30) mmol/L BUN 24 H (7-17) mg/dL Glucose (74-99) mg/dL POC Glucose (mg/dL) 284 H 232 H (75-99) mg/dL Plasma Lactic Acid Piyush (0.7-2.0) mmol/L Phosphorus 2.1 L (2.5-4.5) mg/dL AST (14-36) U/L ALT (4-34) U/L Alkaline Phosphatase (38-126) U/L Total Protein (6.3-8.2) g/dL Urine Protein (Negative) Urine Glucose (UA) (Negative) Urine Blood (Negative) Urine Mucus (None) /hpf 10/31/20 10/31/20 10/31/20 Range/Units 05:09 05:09 05:40 WBC 13.6 H (3.8-10.6) k/uL RBC 3.59 L (3.80-5.40) m/uL MCV (80.0-100.0) fL Neutrophils # 11.8 H (1.3-7.7) k/uL Lymphocytes # (1.0-4.8) k/uL APTT (22.0-30.0) sec Sodium (137-145) mmol/L Potassium (3.5-5.1) mmol/L Chloride (98-107) mmol/L Carbon Dioxide (22-30) mmol/L BUN (7-17) mg/dL Glucose (74-99) mg/dL POC Glucose (mg/dL) 129 H (75-99) mg/dL Plasma Lactic Acid Piyush 3.8 H* (0.7-2.0) mmol/L Phosphorus (2.5-4.5) mg/dL AST (14-36) U/L ALT (4-34) U/L Alkaline Phosphatase (38-126) U/L Total Protein (6.3-8.2) g/dL Urine Protein (Negative) Urine Glucose (UA) (Negative) Urine Blood (Negative) Urine Mucus (None) /hpf 10/31/20 10/31/20 10/31/20 Range/Units 06:19 07:12 07:12 WBC (3.8-10.6) k/uL RBC (3.80-5.40) m/uL MCV (80.0-100.0) fL Neutrophils # (1.3-7.7) k/uL Lymphocytes # (1.0-4.8) k/uL APTT (22.0-30.0) sec Sodium (137-145) mmol/L Potassium 2.2 L* (3.5-5.1) mmol/L Chloride (98-107) mmol/L Carbon Dioxide (22-30) mmol/L BUN (7-17) mg/dL Glucose (74-99) mg/dL POC Glucose (mg/dL) 188 H (75-99) mg/dL Plasma Lactic Acid Piyush 2.5 H* (0.7-2.0) mmol/L Phosphorus (2.5-4.5) mg/dL AST (14-36) U/L ALT (4-34) U/L Alkaline Phosphatase (38-126) U/L Total Protein (6.3-8.2) g/dL Urine Protein (Negative) Urine Glucose (UA) (Negative) Urine Blood (Negative) Urine Mucus (None) /hpf Diabetes panel 10/30/20 10/30/20 10/31/20 Range/Units 20:27 23:52 05:09 Sodium 125 L 127 L 133 L (137-145) mmol/L Potassium 3.0 L 2.8 L 2.6 L* (3.5-5.1) mmol/L Chloride 92 L 101 105 (98-107) mmol/L Carbon Dioxide 18 L 13 L 20 L (22-30) mmol/L BUN 26 H 25 H 24 H (7-17) mg/dL Creatinine 0.96 0.89 0.82 (0.52-1.04) mg/dL Glucose 698 H* 600 H* 91 (74-99) mg/dL Calcium 9.5 8.7 (8.4-10.2) mg/dL AST 127 H (14-36) U/L ALT 38 H (4-34) U/L Alkaline Phosphatase 140 H (38-126) U/L Total Protein 8.4 H (6.3-8.2) g/dL Albumin 3.6 (3.5-5.0) g/dL 10/31/20 Range/Units 07:12 Sodium (137-145) mmol/L Potassium 2.2 L* (3.5-5.1) mmol/L Chloride (98-107) mmol/L Carbon Dioxide (22-30) mmol/L BUN (7-17) mg/dL Creatinine (0.52-1.04) mg/dL Glucose (74-99) mg/dL Calcium (8.4-10.2) mg/dL AST (14-36) U/L ALT (4-34) U/L Alkaline Phosphatase (38-126) U/L Total Protein (6.3-8.2) g/dL Albumin (3.5-5.0) g/dL Calcium panel 10/30/20 10/30/20 10/31/20 Range/Units 20:27 23:52 05:09 Calcium 9.5 8.7 (8.4-10.2) mg/dL Phosphorus 3.2 2.1 L (2.5-4.5) mg/dL Albumin 3.6 (3.5-5.0) g/dL Pituitary panel 10/30/20 10/30/20 10/31/20 Range/Units 20:27 23:52 05:09 Sodium 125 L 127 L 133 L (137-145) mmol/L Potassium 3.0 L 2.8 L 2.6 L* (3.5-5.1) mmol/L Chloride 92 L 101 105 (98-107) mmol/L Carbon Dioxide 18 L 13 L 20 L (22-30) mmol/L BUN 26 H 25 H 24 H (7-17) mg/dL Creatinine 0.96 0.89 0.82 (0.52-1.04) mg/dL Glucose 698 H* 600 H* 91 (74-99) mg/dL Calcium 9.5 8.7 (8.4-10.2) mg/dL 10/31/20 Range/Units 07:12 Sodium (137-145) mmol/L Potassium 2.2 L* (3.5-5.1) mmol/L Chloride (98-107) mmol/L Carbon Dioxide (22-30) mmol/L BUN (7-17) mg/dL Creatinine (0.52-1.04) mg/dL Glucose (74-99) mg/dL Calcium (8.4-10.2) mg/dL Adrenal panel 10/30/20 10/30/20 10/31/20 Range/Units 20:27 23:52 05:09 Sodium 125 L 127 L 133 L (137-145) mmol/L Potassium 3.0 L 2.8 L 2.6 L* (3.5-5.1) mmol/L Chloride 92 L 101 105 (98-107) mmol/L Carbon Dioxide 18 L 13 L 20 L (22-30) mmol/L BUN 26 H 25 H 24 H (7-17) mg/dL Creatinine 0.96 0.89 0.82 (0.52-1.04) mg/dL Glucose 698 H* 600 H* 91 (74-99) mg/dL Calcium 9.5 8.7 (8.4-10.2) mg/dL Total Bilirubin 1.0 (0.2-1.3) mg/dL AST 127 H (14-36) U/L ALT 38 H (4-34) U/L Alkaline Phosphatase 140 H (38-126) U/L Total Protein 8.4 H (6.3-8.2) g/dL Albumin 3.6 (3.5-5.0) g/dL 10/31/20 Range/Units 07:12 Sodium (137-145) mmol/L Potassium 2.2 L* (3.5-5.1) mmol/L Chloride (98-107) mmol/L Carbon Dioxide (22-30) mmol/L BUN (7-17) mg/dL Creatinine (0.52-1.04) mg/dL Glucose (74-99) mg/dL Calcium (8.4-10.2) mg/dL Total Bilirubin (0.2-1.3) mg/dL AST (14-36) U/L ALT (4-34) U/L Alkaline Phosphatase (38-126) U/L Total Protein (6.3-8.2) g/dL Albumin (3.5-5.0) g/dL - Imaging Comments: Right foot x-ray: Soft tissue air. Foreign bodies. Fractures of the head of the third and fourth metatarsals with some deformity. There is lucency of the fourth toe proximal phalanx. These findings could relate to some osteomyelitis. Bilateral hip x-ray. No acute fracture or dislocation evident in the pelvis is mild concentric narrowing of the hip joints bilaterally. Calcifications in the pelvis likely vascular. Mild hypertrophic change of the acetabulum can be associated with acetabular impingement. No acute fracture or dislocation. Assessment and Plan Assessment: 1. Wet gangrene of right foot 2. Dry gangrene left toes with previous left great toe amputation 3. Sepsis 4. Hyperglycemia 5. Hypokalemia 6. History of diabetes mellitus 7. History of atrial fibrillation 8. History of hypertension 9. History of alcohol abuse 10. Tobacco abuse Plan: 1. Replace potassium per protocol 2. Repeat potassium 3. Continue antibiotics as ordered 4. Nothing by mouth 5. Patient scheduled for right guillotine amputation this afternoon with Dr. Lopez, please obtain consent 6. Hold anticoagulation 7. Ammonia level ordered 8. Recommend admission to ICU, discussed with Dr. Phillips Thank you for this consultation and allowing us take part in the plan of care of your patient during her hospital stay The impression and plan of care has been dictated as directed. Dr. Lopez I performed a history and examination of this patient, discussed the same with the dictator. I agree with the dictator's note ,documented as a scribe. Any additional findings or plans will be noted.
[2020-10-31] MEDS ORDERED: INSULIN ASPART (NovoLOG) 100 UNIT/ML VIAL SQ SCH (12:30)
[2020-10-31 12:40] LABS: Glucose,Whole Blood 158 mg/dL (75-99)
[2020-10-31] MEDS: POTASSIUM CHLORIDE 20 MEQ in WATER FOR INJECTION 1 100ML.BAG IVPB SCH ×3 (12:45→16:08)
[2020-10-31 13:47] LABS: Appearance,Urine Clear (Clear); Bilirubin,Urine Negative (Negative); Blood,Urine Moderate (Negative); Color,Urine Yellow; Glucose,Urine (UA) 4+ (Negative); Ketones,Urine Negative (Negative); Leukocyte Esterase,Urine Negative (Negative); Nitrite,Urine Negative (Negative); PH, Urine 6.5 (5.0-8.0); Protein,Urine 1+ (Negative); RBC,Urine <1 /hpf (0-5); Specific Gravity,Urine 1.016 (1.001-1.035); Squamous Epithelial Cell,Urine <1 /hpf (0-4); Urobilinogen,Urine <2.0 mg/dL (<2.0); WBC,Urine 1 /hpf (0-5)
[2020-10-31] MEDS ORDERED: VANCOMYCIN 1,250 MG in SODIUM CHLORIDE 0.9% 250 ML IVPB SCH (14:00)
[2020-10-31] MEDS ORDERED: PROPOFOL 10 MG/ML 20 ML VIAL IV ONE (14:36)
[2020-10-31] MEDS ORDERED: PHENYLEPHRINE-0.9% NACL SYG 1,000 MCG/10 ML SYRINGE ONE (14:36)
[2020-10-31] MEDS ORDERED: MIDAZOLAM 2 MG/2 ML VIAL ONE (14:36)
[2020-10-31] MEDS ORDERED: KETAMINE 10 MG/ML 20 ML VIAL ONE (14:36)
[2020-10-31] MEDS ORDERED: fentaNYL (PF) 50 MCG/ML 2 ML AMP ONE (14:36)
[2020-10-31] MEDS ORDERED: SODIUM CHLORIDE 0.9% 1,000 ML IV ONE (14:42)
--- NOTE | 2020-10-31 15:20 | P.OP ---
Date of Procedure: 10/31/20 Description of Procedure: Preoperative diagnosis: Severe right foot infection with gas formation on x-ray, uncontrolled diabetes, encephalopathy, alcohol abuse Postoperative diagnosis: Same Procedure: [right lower extremity guillotine amputation of the foot above the ankle] Surgeon: Susan Lopez D.O. EBL: [50cc] IV fluids: [See records] Urine output: [See nursing report] Drains: [None] Complications: [None immediately apparent] Condition: [Stable but critical] Operative indication and findings: [Prema is a 60-year-old female with a history of atrial fibrillation, diabetes, hypertension, alcohol abuse, tobacco use, history of toe amputations who presented to the hospital tachycardic requiring oxygen with a white count, critically low potassium and severe hyperglycemia of 698. She was found to have a severe right foot infection with foreign bodies, air in the soft tissue and evidence of osteomyelitis the bony destruction of multiple metatarsal heads. Given all these findings it was felt that she needed source control from her severe infection. Initially she was treated for her hypokalemia but without significant improvement on recheck. Given her overall clinical status it was decided this needed to be a more urgent manner for source control. Multiple attempts were made to call her daughter whose phone is often voicemail is full. There were a few points during the day where the patient was able to awaken enough, was alert and oriented 3, new she was in the hospital for a right foot infection that was severe and apparently understood the need for amputation.] Procedure in detail: [The patient was taken to the operative suite and placed in supine position. The right lower extremity was prepped and draped in usual sterile fashion. A preprocedure timeout was performed, all parties were in agreement. After appropriate anesthesia, circumferential incision was made to the subcutaneous tissues. A Gigli saw was utilized and the tibia and fibula were transected. The bleeding vessels were controlled with 2-0 silk sutures. Hemostasis was adequate. The area was irrigated. Wet-to-dry dressing was placed. The patient was awakened from anesthesia and transferred to recovery in stable condition having tolerated the procedure well]
--- NOTE | 2020-10-31 16:12 | P.CNPUL ---
History of Present Illness Consult date: 10/31/20 Reason for consult: dyspnea Chief complaint: Pain and swelling and redness in the right foot, failure to thrive History of present illness: 60-year-old white female patient with past medical history of A. fib, diabetes type II, peripheral vascular disease, chronic alcohol abuse, hypertension, chronic smoker who presented to the hospital on 10/30/2020 per EMS for evaluation of altered mental status, right foot infection, pain swelling and redness, and suspicion of right foot infection. Patient was echo cardiac on a dmission, hypotensive, she is requiring oxygen at 2 L. Work shows evidence of leukocytosis, low potassium, poor glycemia with glucose level of 600 on admission, urinalysis showed 4+ glucose, 1+ protein, large amount of blood, quit 19 PCR was negative, EKG showed A. fib with RVR and a rate of 112 BPM. X-ray of the right foot showed soft tissue air with foreign bodies, fracture of the head of the third and fourth metatarsals with some deformity and possible osteomyelitis. She was started on cefepime and vancomycin, was given IV fluids and her potassium and magnesium were replaced. Patient was evaluated by vascular surgery and below the knee amputation was recommended and performed today by Dr. Lopez for evidence of severe right foot infection with gas formation on the x-ray. Following her surgery patient is seen in the intensive care unit, she still sedated, but breathing spontaneously comfortably, she is currently on 6 L of oxygen and pulse ox is 99 100%, she has hypothermic, with a temp of 95.5F, blood pressure is 90/68, her IV fluids are infusing at a rate of 130 of point and was seen, and D5 half-normal saline is infusing at 150 ML per hour, patient is in atrial fibrillation, rate is currently controlled at 80 BPM, CIWA scale was initiated, when necessary lorazepam was ordered, thiamine replacements were ordered. Review of Systems All systems: negative Constitutional: Reports lethargy, Reports malaise, Denies chills, Denies fever Eyes: denies blurred vision, denies pain Ears, nose, mouth and throat: Denies headache, Denies sore throat Cardiovascular: Denies chest pain, Denies shortness of breath Respiratory: Reports dyspnea, Denies cough Gastrointestinal: Denies abdominal pain, Denies diarrhea, Denies nausea, Denies vomiting Genitourinary: Denies dysuria, Denies hematuria Musculoskeletal: Denies myalgias Integumentary: Denies pruritus, Denies rash Neurological: Reports change in mentation, Denies numbness, Denies weakness Psychiatric: Denies anxiety, Denies depression Endocrine: Denies fatigue, Denies weight change Past Medical History Past Medical History: Atrial Fibrillation, Diabetes Mellitus, Hypertension Additional Past Medical History / Comment(s): radial nerve damage, back pain, History of Any Multi-Drug Resistant Organisms: MRSA Date of last positivie culture/infection: 02/15/2015 MDRO Source:: Face and foot Past Surgical History: Section, Orthopedic Surgery Additional Past Surgical History / Comment(s): left great toe, Past Anesthesia/Blood Transfusion Reactions: No Reported Reaction Past Psychological History: No Psychological Hx Reported Smoking Status: Current every day smoker Past Alcohol Use History: Abuse, Daily, Heavy Past Drug Use History: None Reported - Past Family History Father Family Medical History: Diabetes Mellitus Additional Family Medical History / Comment(s): Father had heart problems. Mother Family Medical History: No Reported History Medications and Allergies Home Medications Medication Instructions Recorded Confirmed Type Ferrous Sulfate [Feosol] 325 mg PO BID 10/31/20 10/31/20 History Ibuprofen [Motrin] 800 mg PO Q8H PRN 10/31/20 10/31/20 History Loratadine [Claritin] 10 mg PO DAILY 10/31/20 10/31/20 History Metoprolol Tartrate [Lopressor] 50 mg PO BID 10/31/20 10/31/20 History Rivaroxaban [Xarelto] 20 mg PO W/SUPPER 10/31/20 10/31/20 History glipiZIDE [Glucotrol] 5 mg PO AC-BRKFST 10/31/20 10/31/20 History lisinopriL [Zestril] 20 mg PO DAILY 10/31/20 10/31/20 History Allergies Allergy/AdvReac Type Severity Reaction Status Date / Time codeine Allergy Rash/Hives Verified 10/30/20 20:09 Sulfa (Sulfonamide Allergy Unknown Verified 10/30/20 20:09 Antibiotics) Physical Exam Vitals: Vital Signs Temp Pulse Pulse Resp BP BP Pulse Ox 10/31/20 14:00 93 14 90/68 100 10/31/20 13:00 96.6 F L 93 15 111/74 99 10/31/20 12:51 95.7 F L 14 111/74 10/31/20 12:39 19 10/31/20 11:38 87 18 90/63 96 10/31/20 10:32 109 H 18 117/89 96 10/31/20 04:00 97.2 F L 96 18 103/64 96 10/31/20 00:39 97.5 F L 91 18 105/68 98 10/30/20 23:04 96.8 F L 97 16 105/56 97 10/30/20 21:58 96.4 F L 106 H 16 121/108 100 10/30/20 20:06 122 H 20 130/109 89 L Intake and Output 10/31/20 10/31/20 10/31/20 06:59 14:59 22:59 Intake Total 38.155 860 280 Output Total 380 170 Balance 38.155 480 110 Intake: IV 100 Intake, IV Titration 38.155 760 280 Amount D5-0.45% NaCl with KCl 300 150 20Meq/l 1,000 ml @ 150 mls/hr IV .Q6H40M [facility] Rx# :[id number] Insulin Regular 100 unit 38.155 In Sodium Chloride 0.9% 100 ml @ 0.1 UNITS/KG/HR 6.872 mls/hr IV .[id number] [facility] Rx#:[id number] Potassium Chloride 20 meq 200 In Water For Injection 1 100ml.bag @ 50 mls/hr IVPB Q2H [facility] Rx#: [id number] Sodium Chloride 0.9% 1, 260 130 000 ml @ 130 mls/hr IV . Q7H42M [facility] Rx#:[id number] Output: Urine 380 70 Estimated Blood Loss 100 Other: Voiding Method Indwelling Catheter Weight 68.039 kg GENERAL EXAM: Sedated, 60-year-old white female, resting comfortably in bed, in the ICU, following her surgery creatinine 6 L of oxygen, comfortable in no apparent distress. HEAD: Normocephalic/atraumatic. EYES: Normal reaction of pupils, equal size. Conjunctiva pink, sclera white. NOSE: Clear with pink turbinates. THROAT: No erythema or exudates. NECK: No masses, no JVD, no thyroid enlargement, no adenopathy. CHEST: No chest wall deformity. Symmetrical expansion. LUNGS: Equal air entry with no crackles, wheeze, rhonchi or dullness. CVS: irregular rate and rhythm, normal S1 and S2, no gallops, no murmurs, no rubs ABDOMEN: Soft, nontender. No hepatosplenomegaly, normal bowel sounds, no guardi ng or rigidity. EXTREMITIES: No clubbing, no edema, no cyanosis, 2+ pulses and upper and lower extremities. MUSCULOSKELETAL: Muscle strength and tone normal. Right [id number] amputation. Patient has a left great toe amputation, and some redness of the left foot SPINE: No scoliosis or deformity SKIN: No rashes CENTRAL NERVOUS SYSTEM: Sedated No focal deficits, tone is normal in all 4 extremities. Results - Laboratory Findings CBC and BMP: 10/31/20 05:09 10/31/20 11:26 PT/INR, D-dimer PT 10.8 sec (9.0-12.0) 10/30/20 20:29 INR 1.0 (<1.2) 10/30/20 20:29 Abnormal lab findings: Abnormal Labs 10/30/20 10/30/20 10/30/20 20:27 20:27 20:29 WBC 12.5 H RBC MCV 103.1 H Neutrophils # 11.3 H Lymphocytes # 0.7 L APTT Sodium 125 L Potassium 3.0 L Chloride 92 L Carbon Dioxide 18 L BUN 26 H Glucose 698 H* POC Glucose (mg/dL) Plasma Lactic Acid Piyush 2.5 H* Phosphorus AST 127 H ALT 38 H Alkaline Phosphatase 140 H Total Protein 8.4 H Urine Protein Urine Glucose (UA) Urine Blood Urine Mucus 10/30/20 10/30/20 10/30/20 20:29 21:19 23:16 WBC RBC MCV Neutrophils # Lymphocytes # APTT 19.0 L Sodium Potassium Chloride Carbon Dioxide BUN Glucose POC Glucose (mg/dL) 559 H Plasma Lactic Acid Piyush Phosphorus AST ALT Alkaline Phosphatase Total Protein Urine Protein 1+ H Urine Glucose (UA) 4+ H Urine Blood Large H Urine Mucus Rare H 10/30/20 10/30/20 10/31/20 23:52 23:52 02:02 WBC RBC MCV Neutrophils # Lymphocytes # APTT Sodium 127 L Potassium 2.8 L Chloride Carbon Dioxide 13 L BUN 25 H Glucose 600 H* POC Glucose (mg/dL) 445 H Plasma Lactic Acid Piyush 2.1 H* Phosphorus AST ALT Alkaline Phosphatase Total Protein Urine Protein Urine Glucose (UA) Urine Blood Urine Mucus 10/31/20 10/31/20 10/31/20 03:05 04:35 05:09 WBC RBC MCV Neutrophils # Lymphocytes # APTT Sodium 133 L Potassium 2.6 L* Chloride Carbon Dioxide 20 L BUN 24 H Glucose POC Glucose (mg/dL) 284 H 232 H Plasma Lactic Acid Piyush Phosphorus 2.1 L AST ALT Alkaline Phosphatase Total Protein Urine Protein Urine Glucose (UA) Urine Blood Urine Mucus 10/31/20 10/31/20 10/31/20 05:09 05:09 05:40 WBC 13.6 H RBC 3.59 L MCV Neutrophils # 11.8 H Lymphocytes # APTT Sodium Potassium Chloride Carbon Dioxide BUN Glucose POC Glucose (mg/dL) 129 H Plasma Lactic Acid Piyush 3.8 H* Phosphorus AST ALT Alkaline Phosphatase Total Protein Urine Protein Urine Glucose (UA) Urine Blood Urine Mucus 10/31/20 10/31/20 10/31/20 06:19 07:12 07:12 WBC RBC MCV Neutrophils # Lymphocytes # APTT Sodium Potassium 2.2 L* Chloride Carbon Dioxide BUN Glucose POC Glucose (mg/dL) 188 H Plasma Lactic Acid Piyush 2.5 H* Phosphorus AST ALT Alkaline Phosphatase Total Protein Urine Protein Urine Glucose (UA) Urine Blood Urine Mucus 10/31/20 10/31/20 10/31/20 08:47 11:26 11:55 WBC RBC MCV Neutrophils # Lymphocytes # APTT Sodium Potassium 2.7 L* Chloride Carbon Dioxide BUN Glucose POC Glucose (mg/dL) 122 H Plasma Lactic Acid Piyush 2.3 H* Phosphorus AST ALT Alkaline Phosphatase Total Protein Urine Protein Urine Glucose (UA) Urine Blood Urine Mucus 10/31/20 10/31/20 12:38 13:10 WBC RBC MCV Neutrophils # Lymphocytes # APTT Sodium Potassium Chloride Carbon Dioxide BUN Glucose POC Glucose (mg/dL) 158 H Plasma Lactic Acid Piyush Phosphorus AST ALT Alkaline Phosphatase Total Protein Urine Protein 1+ H Urine Glucose (UA) 4+ H Urine Blood Moderate H Urine Mucus - Diagnostic Findings Additional studies: EKG, results of the foot x-ray, and hip and pelvis x-ray results were reviewed Assessment and Plan Plan: Assessment: #1. Right foot infection with gangrene, and gas formation on the x-ray, that is post right lower extremity amputation of the foot above the ankle, postoperative day #0 #2. Uncontrolled diabetes mellitus type 2 #3. Acute encephalopathy, likely toxic metabolic #4. Chronic alcohol abuse #5. Previous history of left great toe amputation #6. Chronic and ongoing history of smoking #7. Chronic A. fib #8. Hypertension #9. History of peripheral vascular disease #10. Hyponatremia, likely hypovolemic #11. Hypokalemia and hypomagnesemia #12. Hypoglycemia related to severe right foot infection Plan: We'll continue with IV fluids at current rate, continue antibiotics, will await results of the cultures, patient is seen in the intensive care unit, though sedated, breathing comfortably, maintain aspiration precautions, monitor CIWA scale, and administer Ativan according to scale, GI and DVT prophylaxis, follow- up blood work, a chest x-ray in the morning, will continue close monitoring in the intensive care unit. I performed a history & physical examination of the patient and discussed their management with my nurse practitioner, Suzette Pretty. I reviewed the nurse practitioner's note and agree with the documented findings and plan of care. Lung sounds are positive for diminished breath sounds The findings and the impression was discussed with the patient. I attest to the documentation by the nurse practitioner. Time with Patient: Greater than 30
[2020-10-31 16:56] LABS: Glucose,Whole Blood 232 mg/dL (75-99)
[2020-10-31] MEDS: THIAMINE 100 MG/ML 2 ML VIAL IVP SCH (17:53)
[2020-10-31 19:40] LABS: Magnesium 1.9 mg/dL (1.6-2.3); Potassium 3.7 mmol/L (3.5-5.1)
[2020-10-31 21:23] LABS: Glucose,Whole Blood 190 mg/dL (75-99)
[2020-10-31] MEDS: HYDROmorphone 0.5 MG/0.5 ML SYRINGE IVP PRN (23:24)
[2020-11-01 01:05] LABS: Glucose,Whole Blood 215 mg/dL (75-99)
[2020-11-01] MEDS ORDERED: VANCOMYCIN 1,250 MG in SODIUM CHLORIDE 0.9% 250 ML IVPB SCH (02:00)
[2020-11-01] MEDS: VANCOMYCIN 1,250 MG in SODIUM CHLORIDE 0.9% 250 ML IVPB SCH ×2 (02:48→17:02)
[2020-11-01] MEDS: D5-0.45% NACL WITH KCL 20MEQ/L 1,000 ML IV SCH ×3 (04:52→20:17)
[2020-11-01] MEDS: SODIUM CHLORIDE 0.9% 1,000 ML IV SCH ×3 (04:52→20:18)
[2020-11-01 05:18] LABS: ALT 22 U/L (4-34); AST 53 U/L (14-36); African American GFR (CKD) >90 (>60 ml/min/1.73 sqM); Albumin 1.8 g/dL (3.5-5.0); Alkaline Phosphatase 65 U/L (38-126); Anion Gap 4 mmol/L; Blood Urea Nitrogen 17 mg/dL (7-17); Calcium 7.3 mg/dL (8.4-10.2); Carbon Dioxide 13 mmol/L (22-30); Chloride 112 mmol/L (98-107); Glucose 204 mg/dL (74-99); Non-African American GFR(CKD) >90 (>60 ml/min/1.73 sqM); Potassium 3.7 mmol/L (3.5-5.1); Sodium 129 mmol/L (137-145); Total Bilirubin 0.4 mg/dL (0.2-1.3); Total Protein 5.1 g/dL (6.3-8.2)
[2020-11-01] MEDS: POTASSIUM CHLORIDE 10 MEQ in WATER FOR INJECTION 1 100ML.BAG IVPB SCH ×2 (05:36→06:37)
[2020-11-01 05:40] LABS: HCT 31.9 % (34.0-46.0); HGB 10.2 gm/dL (11.4-16.0); Hypochromasia Slight; MCH 32.9 pg (25.0-35.0); MCV 102.8 fL (80.0-100.0); Macrocytosis Slight; Platelet Count 210 k/uL (150-450); RDW 13.6 % (11.5-15.5); WBC 8.2 k/uL (3.8-10.6)
[2020-11-01 06:28] LABS: Anisocytosis (M) Present; Eosinophils # (M) 0.08 k/uL (0-0.7); Lymphocytes # (M) 2.05 k/uL (1.0-4.8); Neutrophils # (M) 6.07 k/uL (1.3-7.7); Neutrophils % (M) 74 %; Nucleated Red Blood Cells 0 /100 WBC (0-0); Ovalocytes Present; Total Cells Counted 100
[2020-11-01 06:29] LABS: Crenated RBC Present
[2020-11-01 06:35] LABS: Glucose,Whole Blood 262 mg/dL (75-99)
[2020-11-01] MEDS: HYDROmorphone 0.5 MG/0.5 ML SYRINGE IVP PRN ×4 (06:35→22:19)
[2020-11-01] MEDS: INSULIN ASPART (NovoLOG) 100 UNIT/ML VIAL SQ SCH ×4 (06:36→20:18)
--- NOTE | 2020-11-01 08:18 | XR ---
EXAMINATION TYPE: XR chest 1V portable DATE OF EXAM: 11/01/2020 COMPARISON: 04/22/2019 HISTORY: COPD TECHNIQUE: Single frontal view of the chest is obtained. FINDINGS: Heart is enlarged and there is left lower lobe infiltrate. There is chronic deformity of t he right humerus correlate clinically. The thorax. No sizable pleural effusion. IMPRESSION: 1. Cardiomegaly with left lower lobe infiltrate which appears to be osseous abnormality of the right humerus which may be on the basis of remote trauma. Consider correlation with humeral series if there is been no trauma to exclude intraosseous lesion.
[2020-11-01] MEDS: THIAMINE 100 MG/ML 2 ML VIAL IVP SCH (08:54)
[2020-11-01] MEDS: CEFEPIME 2 GM in SODIUM CHLORIDE 0.9% 100 ML IVPB SCH ×2 (08:55→20:17)
[2020-11-01] MEDS: HEPARIN SODIUM,PORCINE 5,000 UNIT/ML 1 ML VIAL SQ SCH ×2 (08:55→20:18)
[2020-11-01] MEDS: FAMOTIDINE 20 MG/2 ML VIAL IV SCH ×2 (08:55→20:18)
--- NOTE | 2020-11-01 09:30 | P.PN ---
Subjective Progress Note Date: 11/01/20 Principal diagnosis: Right foot infection Patient was seen and examined in the ICU. She is postop day #1 for right above the ankle guillotine amputation. Patient is denying any pain. She is alert and oriented to self and place. She states that she had been going to wound care, she states she has a daily drinker but not elaborate on how much she drinks daily. She was unable to state how long she had the wound to her foot. No acute changes through the night. Objective - Vital Signs Vital signs: Vital Signs Temp 97.7 F 11/01/20 06:00 Pulse 81 11/01/20 07:00 Resp 10 L 11/01/20 07:00 BP 114/69 11/01/20 07:00 Pulse Ox 100 11/01/20 07:00 Intake & Output 10/31/20 11/01/20 11/01/20 18:59 06:59 18:59 Intake Total 2080 3710 280 Output Total 1020 655 40 Balance 1060 3055 240 Weight 68.039 kg 77.4 kg Intake: IV 100 3430 280 Cefepime 2 gm In Sodium 100 Chloride 0.9% 100 ml @ 200 mls/hr IVPB BID [facility] Rx#:[id number] D5-0.45% NaCl with KCl 1650 150 20Meq/l 1,000 ml @ 150 mls/hr IV .Q6H40M [facility] Rx# :[id number] Sodium Chloride 0.9% 1, 1430 130 000 ml @ 130 mls/hr IV . Q7H42M [facility] Rx#:[id number] Vancomycin 1,250 mg In 250 Sodium Chloride 0.9% 250 ml @ 125 mls/hr IVPB Q12H [facility] Rx#:[id number] Intake, IV Titration 1980 280 Amount D5-0.45% NaCl with KCl 900 150 20Meq/l 1,000 ml @ 150 mls/hr IV .Q6H40M [facility] Rx# :[id number] Potassium Chloride 20 meq 300 In Water For Injection 1 100ml.bag @ 50 mls/hr IVPB Q2H [facility] Rx#: [id number] Sodium Chloride 0.9% 1, 780 130 000 ml @ 130 mls/hr IV . Q7H42M [facility] Rx#:[id number] Output: Urine 920 655 40 Estimated Blood Loss 100 Other: Voiding Method Indwelling Catheter Indwelling Catheter - Exam General appearance: The patient is drowsy but alert, orientedto self and place, appears in no acute distress. HET: Head is normocephalic and atraumatic. Neck: Supple without lymphadenopathy. Trachea midline. Heart: S1 S2. Regular rate and rhythm. Lungs: Clear to auscultation. Abdomen: Soft, nontender, nondistended. Extremities: Right lower extremity with dressing clean dry and intact. Palpable femoral and popliteal pulses. Left lower extremity with palpable femoral popliteal and dorsalis pedis pulses. Previous history of left great toe amputation, the rest of toes with deformity. Neurological: Drowsy, easily arousable. Alert to self and place. - Labs CBC & Chem 7: 11/01/20 03:56 11/01/20 03:56 Labs: Abnormal Lab Results - Last 24 Hours (Table) 10/31/20 10/31/20 10/31/20 Range/Units 08:47 11:26 11:55 RBC (3.80-5.40) m/uL Hgb (11.4-16.0) gm/dL Hct (34.0-46.0) % MCV (80.0-100.0) fL Sodium (137-145) mmol/L Potassium 2.7 L* (3.5-5.1) mmol/L Chloride (98-107) mmol/L Carbon Dioxide (22-30) mmol/L Glucose (74-99) mg/dL POC Glucose (mg/dL) 122 H (75-99) mg/dL Plasma Lactic Acid Piyush 2.3 H* (0.7-2.0) mmol/L Calcium (8.4-10.2) mg/dL AST (14-36) U/L Total Protein (6.3-8.2) g/dL Albumin (3.5-5.0) g/dL Urine Protein (Negative) Urine Glucose (UA) (Negative) Urine Blood (Negative) 10/31/20 10/31/20 10/31/20 Range/Units 12:38 13:10 16:54 RBC (3.80-5.40) m/uL Hgb (11.4-16.0) gm/dL Hct (34.0-46.0) % MCV (80.0-100.0) fL Sodium (137-145) mmol/L Potassium (3.5-5.1) mmol/L Chloride (98-107) mmol/L Carbon Dioxide (22-30) mmol/L Glucose (74-99) mg/dL POC Glucose (mg/dL) 158 H 232 H (75-99) mg/dL Plasma Lactic Acid Piyush (0.7-2.0) mmol/L Calcium (8.4-10.2) mg/dL AST (14-36) U/L Total Protein (6.3-8.2) g/dL Albumin (3.5-5.0) g/dL Urine Protein 1+ H (Negative) Urine Glucose (UA) 4+ H (Negative) Urine Blood Moderate H (Negative) 10/31/20 11/01/20 11/01/20 Range/Units 21:21 00:52 03:56 RBC (3.80-5.40) m/uL Hgb (11.4-16.0) gm/dL Hct (34.0-46.0) % MCV (80.0-100.0) fL Sodium 129 L (137-145) mmol/L Potassium (3.5-5.1) mmol/L Chloride 112 H (98-107) mmol/L Carbon Dioxide 13 L (22-30) mmol/L Glucose 204 H (74-99) mg/dL POC Glucose (mg/dL) 190 H 215 H (75-99) mg/dL Plasma Lactic Acid Piyush (0.7-2.0) mmol/L Calcium 7.3 L (8.4-10.2) mg/dL AST 53 H (14-36) U/L Total Protein 5.1 L (6.3-8.2) g/dL Albumin 1.8 L (3.5-5.0) g/dL Urine Protein (Negative) Urine Glucose (UA) (Negative) Urine Blood (Negative) 11/01/20 11/01/20 Range/Units 03:56 06:33 RBC 3.10 L (3.80-5.40) m/uL Hgb 10.2 L (11.4-16.0) gm/dL Hct 31.9 L (34.0-46.0) % MCV 102.8 H (80.0-100.0) fL Sodium (137-145) mmol/L Potassium (3.5-5.1) mmol/L Chloride (98-107) mmol/L Carbon Dioxide (22-30) mmol/L Glucose (74-99) mg/dL POC Glucose (mg/dL) 262 H (75-99) mg/dL Plasma Lactic Acid Piyush (0.7-2.0) mmol/L Calcium (8.4-10.2) mg/dL AST (14-36) U/L Total Protein (6.3-8.2) g/dL Albumin (3.5-5.0) g/dL Urine Protein (Negative) Urine Glucose (UA) (Negative) Urine Blood (Negative) Microbiology - Last 24 Hours (Table) 10/30/20 21:09 Blood Culture - Preliminary Blood No Growth after 24 hours 10/30/20 20:34 Blood Culture - Preliminary Blood No Growth after 24 hours 10/30/20 21:09 Blood Culture Gram Stain - Preliminary Blood Blood Culture - Preliminary Proteus spec Assessment and Plan Assessment: 1. Postop day #1 for right foot guillotine above the ankle 2. Severe right foot infection with gas formation on x-ray 3. Dry gangrene left toes with previous left great toe amputation 4. Sepsis 5. Hyperglycemia 6. Hypokalemia 7. History of diabetes mellitus 8. History of atrial fibrillation 9. History of hypertension 10. History of alcohol abuse 11. Tobacco abuse Plan: 1. Supportive care 2. Continue IV antibiotics as ordered 3. Medical management per ICU team 4. Diet As tolerated 5. Repeat daily labs 6. Daily wet-to-dry dressing change, beginning tomorrow 7. Further recommendations to follow on timing of right below the knee amputation Thank you for this consultation, we will continue to follow The impression and plan of care has been dictated as directed. Dr. Lopez I performed a history and examination of this patient, discussed the same with the dictator. I agree with the dictator's note ,documented as a scribe. Any additional findings or plans will be noted.
--- NOTE | 2020-11-01 10:55 | P.PN ---
Subjective This is a pleasant 60 years old female with past medical history of atrial fibrillation, diabetes mellitus, hypertension, alcohol abuse. Cigarette smoker She came to the hospital because of her alcohol problem, and with foot infection pt is somewhat drowsy and poor historian, she answers close end questions only with short sentences or 1-2 words, she knows she is in [facility] and the date and states she came because of her right foot infection . Also she complains from pain in her buttock area that she fell 2 days ago. Patient states she drinks alcohol about she could not specify or much and when was her last. She denies smoking cigarettes or illicit tracts to be Vitals 1 hypothermia was 96.4 currently 97.2. She was tachycardic 122 on admission currently at 91-96. Present rate at 16-18, blood pressure 1 or 3/64 and she is saturating 96% on 2 L oxygen On admission she has leukocytosis of 12.5. INR, she has low potassium and last was 2.2 despite replacement but also she was on insulin drip started by ED team. Her insulin drip is stopped now Sodium 133, creatinine 0.8, glucose was 600 up on admission. Urinalysis showing 1+ protein, 4+ glucose large blood but negative RBCs less than 1. Serum alcohol less than 10. Coronavirus not detected EKG showing atrial fibrillation with RVR at 112 Foot x-ray showing soft tissue air with foreign bodies, fracture of the head of the third and fourth metatarsals with some deformity and possible ostial myelitis Currently patient is on vancomycin, cefepime, no muscle and abdomen 30 mL/h, potassium and magnesium replaced 11/01/2020 Patient is seen and examined today in the ICU, is lethargic, little confused. She was hypotensive 83/54, last blood pressure around 10 AM was 112/83. She is status post amputation of the right foot today is postoperative day #1 due to severe infection, osteomyelitis, bone destruction and gangrene. She is also with severe sepsis and his been covered with cefepime and IV vancomycin, her blood culture is positive for Proteus so far final results are pending. CBC showing WBC 8.2K, hemoglobin 10.2. Sodium 149, creatinine normal 0.7. Glucose 1 9262. Cortisol is 9. chest x-ray: Cardiomegaly with left lower lobe infiltrate She remains on IV vancomycin and cefepime. Review of Systems CONSTITUTIONAL: No fever, no malaise, no fatigue. HEENT: No recent visual problems or hearing problems. Denied any sore throat. CARDIOVASCULAR: No orthopnea, PND, no palpitations, no syncope. PULMONARY: No shortness of breath, no cough, no hemoptysis. GASTROINTESTINAL: No diarrhea, no nausea, no vomiting, no abdominal pain. Normoactive bowel sounds. NEUROLOGICAL: No headaches, no weakness, no numbness. Active Medications Generic Name Dose Route Start Last Admin Trade Name Freq PRN Reason Stop Dose Admin Acetaminophen 650 mg 10/31/20 00:00 Acetaminophen Tab 325 Mg Tab PO Q6HR PRN Mild Pain or Fever > 100.5 Famotidine 20 mg 10/31/20 09:00 11/01/20 08:55 Famotidine 20 Mg/2 Ml Vial IV 20 mg Q12HR [facility] Administration Heparin Sodium (Porcine) 5,000 unit 10/31/20 09:00 11/01/20 08:55 Heparin Sodium,Porcine 5,000 Unit/Ml 1 Ml Vial SQ 5,000 unit Q12HR [facility] Administration Hydrocortisone Sodium Succinate 50 mg 11/01/20 12:00 Hydrocortisone Succinate 100 Mg/2 Ml Vial IV Q6HR [facility] Hydromorphone HCl 0.5 mg 10/30/20 22:42 11/01/20 06:35 Hydromorphone 0.5 Mg/0.5 Ml Syringe IVP 0.5 mg Q3HR PRN Administration Moderate Pain Sodium Chloride 1,000 mls @ 130 mls/hr 10/30/20 22:00 11/01/20 04:52 Saline 0.9% IV 130 mls/hr .Q7H42M [facility] Administration Cefepime HCl 2 gm/ Sodium 100 mls @ 200 mls/hr 10/31/20 09:00 11/01/20 08:55 Chloride IVPB 200 mls/hr BID [facility] Administration Potassium Chloride/Dextrose/Sod Cl 1,000 mls @ 150 mls/hr 10/31/20 03:30 11/01/20 04:52 D5%-1/2ns-Kcl 20 Meq/L Iv Solution IV 150 mls/hr .Q6H40M [facility] Administration Vancomycin HCl 1,250 mg/ 250 mls @ 125 mls/hr 11/01/20 02:00 11/01/20 02:48 Sodium Chloride IVPB 125 mls/hr Q12H [facility] Administration Insulin Aspart 0 unit 10/31/20 17:30 11/01/20 06:36 Insulin Aspart (Novolog) 100 Unit/Ml Vial SQ 4 unit ACHS [facility] Administration Protocol Miscellaneous Information 1 each 10/31/20 06:51 Magnesium Replacement Protocol 1 [place] [facility] [place] PRN Per Protocol Protocol Miscellaneous Information 1 each 10/31/20 06:51 Potassium Replacement Protocol 1 [place] [facility] [place] PRN Per Protocol Protocol Miscellaneous Information 0 each 11/02/20 13:00 Vancomycin Trough Due 1 Each [facility] [place] 11/02/20 13:01 DIRECTED ONE Naloxone HCl 0.2 mg 10/30/20 22:42 Naloxone 0.4 Mg/Ml 1 Ml Vial IV Q2M PRN Opioid Reversal Thiamine HCl 100 mg 10/31/20 17:00 11/01/20 08:54 Thiamine 100 Mg/Ml 2 Ml Vial IVP 100 mg DAILY [facility] Administration Objective - Vital Signs Vital signs: Vital Signs Temp 98.1 F 11/01/20 08:00 Pulse 90 11/01/20 10:00 Resp 11 L 11/01/20 10:00 BP 112/83 11/01/20 10:00 Pulse Ox 100 11/01/20 10:00 Intake & Output 10/31/20 11/01/20 11/01/20 18:59 06:59 18:59 Intake Total 2080 3710 1120 Output Total 1020 655 140 Balance 1060 3055 980 Weight 68.039 kg 77.4 kg Intake: IV 100 3430 1120 Cefepime 2 gm In Sodium 100 Chloride 0.9% 100 ml @ 200 mls/hr IVPB BID [facility] Rx#:[id number] D5-0.45% NaCl with KCl 1650 600 20Meq/l 1,000 ml @ 150 mls/hr IV .Q6H40M [facility] Rx# :[id number] Sodium Chloride 0.9% 1, 1430 520 000 ml @ 130 mls/hr IV . Q7H42M [facility] Rx#:[id number] Vancomycin 1,250 mg In 250 Sodium Chloride 0.9% 250 ml @ 125 mls/hr IVPB Q12H [facility] Rx#:[id number] Intake, IV Titration 1979 280 Amount D5-0.45% NaCl with KCl 900 150 20Meq/l 1,000 ml @ 150 mls/hr IV .Q6H40M [facility] Rx# :[id number] Potassium Chloride 20 meq 300 In Water For Injection 1 100ml.bag @ 50 mls/hr IVPB Q2H [facility] Rx#: [id number] Sodium Chloride 0.9% 1, 780 130 000 ml @ 130 mls/hr IV . Q7H42M [facility] Rx#:[id number] Output: Urine 920 655 140 Estimated Blood Loss 100 Other: Voiding Method Indwelling Catheter Indwelling Catheter Indwelling Catheter - Exam -GENERAL: The patient is alert and oriented to 2-3 , she is drowsy and lethargic, not in any acute distress. Well developed, well nourished. HEENT: Pupils are round and equally reacting to light. EOMI. No scleral icterus. No conjunctival pallor. Normocephalic, atraumatic. No pharyngeal erythema. No thyromegaly. CARDIOVASCULAR: S1 and S2 present. No murmurs, rubs, or gallops. PULMONARY: Chest is clear to auscultation, no wheezing or crackles. ABDOMEN: Soft, nontender, nondistended, normoactive bowel sounds. No palpable organomegaly. MUSCULOSKELETAL: No joint swelling or deformity. -EXTREMITIES: No cyanosis, clubbing, or pedal edema. Post right above ankle foot amputation ; status post previous amputation of left foot toes NEUROLOGICAL: Gross neurological examination did not reveal any focal deficits. SKIN: No rashes. No petechiae - Labs CBC & Chem 7: 11/01/20 03:56 11/01/20 03:56 Labs: Abnormal Lab Results - Last 24 Hours (Table) 10/31/20 10/31/20 10/31/20 Range/Units 11:26 11:55 12:38 RBC (3.80-5.40) m/uL Hgb (11.4-16.0) gm/dL Hct (34.0-46.0) % MCV (80.0-100.0) fL Sodium (137-145) mmol/L Potassium 2.7 L* (3.5-5.1) mmol/L Chloride (98-107) mmol/L Carbon Dioxide (22-30) mmol/L Glucose (74-99) mg/dL POC Glucose (mg/dL) 122 H 158 H (75-99) mg/dL Calcium (8.4-10.2) mg/dL AST (14-36) U/L Total Protein (6.3-8.2) g/dL Albumin (3.5-5.0) g/dL Urine Protein (Negative) Urine Glucose (UA) (Negative) Urine Blood (Negative) 10/31/20 10/31/20 10/31/20 Range/Units 13:10 16:54 21:21 RBC (3.80-5.40) m/uL Hgb (11.4-16.0) gm/dL Hct (34.0-46.0) % MCV (80.0-100.0) fL Sodium (137-145) mmol/L Potassium (3.5-5.1) mmol/L Chloride (98-107) mmol/L Carbon Dioxide (22-30) mmol/L Glucose (74-99) mg/dL POC Glucose (mg/dL) 232 H 190 H (75-99) mg/dL Calcium (8.4-10.2) mg/dL AST (14-36) U/L Total Protein (6.3-8.2) g/dL Albumin (3.5-5.0) g/dL Urine Protein 1+ H (Negative) Urine Glucose (UA) 4+ H (Negative) Urine Blood Moderate H (Negative) 11/01/20 11/01/20 11/01/20 Range/Units 00:52 03:56 03:56 RBC 3.10 L (3.80-5.40) m/uL Hgb 10.2 L (11.4-16.0) gm/dL Hct 31.9 L (34.0-46.0) % MCV 102.8 H (80.0-100.0) fL Sodium 129 L (137-145) mmol/L Potassium (3.5-5.1) mmol/L Chloride 112 H (98-107) mmol/L Carbon Dioxide 13 L (22-30) mmol/L Glucose 204 H (74-99) mg/dL POC Glucose (mg/dL) 215 H (75-99) mg/dL Calcium 7.3 L (8.4-10.2) mg/dL AST 53 H (14-36) U/L Total Protein 5.1 L (6.3-8.2) g/dL Albumin 1.8 L (3.5-5.0) g/dL Urine Protein (Negative) Urine Glucose (UA) (Negative) Urine Blood (Negative) 11/01/20 Range/Units 06:33 RBC (3.80-5.40) m/uL Hgb (11.4-16.0) gm/dL Hct (34.0-46.0) % MCV (80.0-100.0) fL Sodium (137-145) mmol/L Potassium (3.5-5.1) mmol/L Chloride (98-107) mmol/L Carbon Dioxide (22-30) mmol/L Glucose (74-99) mg/dL POC Glucose (mg/dL) 262 H (75-99) mg/dL Calcium (8.4-10.2) mg/dL AST (14-36) U/L Total Protein (6.3-8.2) g/dL Albumin (3.5-5.0) g/dL Urine Protein (Negative) Urine Glucose (UA) (Negative) Urine Blood (Negative) Microbiology - Last 24 Hours (Table) 10/30/20 21:09 Blood Culture Gram Stain - Preliminary Blood Blood Culture - Preliminary Proteus spec 10/30/20 21:09 Blood Culture - Preliminary Blood No Growth after 24 hours 10/30/20 20:34 Blood Culture - Preliminary Blood No Growth after 24 hours Assessment and Plan Assessment: Left foot infection with osteomyelitis and bone fracture, with gas gangrene, status post right foot amputation postop day #1 left lower lobe pneumonia sever sepsis and septicemia secondary to proteus metabolic/toxic encephalopathy Alcohol abuse at-risk of alcohol withdrawal and DVT Severe electrolyte abnormality of hypokalemia and mild hypomagnesemia Hyperosmolar hyperglycemic Nonketotic syndrome Associated with type 2 diabetes , versus mild DKA Diabetes mellitus type 2 with hyperglycemia Fall 2 days ago with pelvic pain Hypertension Possible Nicotine dependence but patient denies History of atrial fibrillation not on anticoagulation and currently rate is controlled Plan: This is a pleasant 70 years old female who presents with hyperglycemia, foot infection and electrolyte abnormality and alcohol abuse at-risk of withdrawal vascular surgery team on the case as well as pulomonary/critical care team I discussed the case with ICU team and they kindly accepted the patient for adm ission Replace potassium and magnesium with close monitoring and telemetry. Continue with broad-spectrum antibiotics of IV vancomycin and cefepime continue with normal saline Continue with Ativan as needed per CIWA, thiamin Labs and medication were reviewed.. Continue same treatment. Continue with symptomatic treatment. Resume home medication. Monitor lytes and vitals. DVT and GI prophylaxis. Further recommendations depends on the clinical course of the patient DVT prophylaxis: Subcutaneous heparin GI Prophylaxis: Pepcid Prognosis is guarded
--- NOTE | 2020-11-01 11:17 | P.PN ---
Subjective Progress Note Date: 11/01/20 Principal diagnosis: Pain and swelling and redness in the right foot, gangrene 60-year-old white female patient with past medical history of A. fib, diabetes type II, peripheral vascular disease, chronic alcohol abuse, hypertension, chronic smoker who presented to the hospital on 10/30/2020 per EMS for evaluation of altered mental status, right foot infection, pain swelling and redness, and suspicion of right foot infection. Patient was echo cardiac on admission, hypotensive, she is requiring oxygen at 2 L. Work shows evidence of leukocytosis, low potassium, poor glycemia with glucose level of 600 on admission, urinalysis showed 4+ glucose, 1+ protein, large amount of blood, quit 19 PCR was negative, EKG showed A. fib with RVR and a rate of 112 BPM. X-ray of the right foot showed soft tissue air with foreign bodies, fracture of the head of the third and fourth metatarsals with some deformity and possible osteomyelitis. She was started on cefepime and vancomycin, was given IV fluids and her potassium and magnesium were replaced. Patient was evaluated by ly lar surgery and below the knee amputation was recommended and performed today by Dr. Lopez for evidence of severe right foot infection with gas formation on the x-ray. Following her surgery patient is seen in the intensive care unit, she still sedated, but breathing spontaneously comfortably, she is currently on 6 L of oxygen and pulse ox is 99 100%, she has hypothermic, with a temp of 95.5F, blood pressure is 90/68, her IV fluids are infusing at a rate of 130 of point and was seen, and D5 half-normal saline is infusing at 150 ML per hour, patient is in atrial fibrillation, rate is currently controlled at 80 BPM, CIWA scale was initiated, when necessary lorazepam was ordered, thiamine replacements were ordered. On 11/01/2020 patient seen in follow-up in intensive care unit, today is po stoperative day 1, status post above the ankle guillotine amputation for gangrenous infection of the right foot. Patient is drowsy, more awake compared to yesterday's exam, she is moaning, but does not appear to be in any respiratory distress, she is currently on 2 L of oxygen her pulse ox the 100%, she's been afebrile, blood pressures continue to be low, 83/54, despite the IV fluid resuscitation, patient remains on D5W with 20 of potassium at a rate of 150 ML per hour, and 0.9 normal saline at rate of 1:30 ML per hour, urine output has been marginal as well, lung sounds are clear, no rhonchi or wheezing. She is in A. fib which is chronic for her, with the rate of 95 BPM. She is on antibiotics in the form of cefepime and vancomycin, her blood cultures came back positive for Proteus species, final culture is pending. Today's chest x-ray shows cardiomegaly with left lower lobe infiltrate which appears to be osseous abnormality of the right humerus related to an old trauma. His labs have been reviewed, showing white blood cell count of 8.2, hemoglobin of 10.2, serum sodium is 129, potassium 3.7, chloride is 112, CO2 is 13, BUN 17 creatinine 0.73, AST ALT and alkaline phosphatase have improved today's labs down to 53, 22, and 65 respectively, ammonia level less than 9. Right lower extremity above the ankle stump is wrapped with a surgical dressing. It is clean dry and intact , vascular surgery is following. Objective - Vital Signs Vital signs: Vital Signs Temp 98.1 F 11/01/20 08:00 Pulse 90 11/01/20 10:00 Resp 11 L 11/01/20 10:00 BP 112/83 11/01/20 10:00 Pulse Ox 100 11/01/20 10:00 Intake & Output 10/31/20 11/01/20 11/01/20 18:59 06:59 18:59 Intake Total 2080 3710 1120 Output Total 1020 655 140 Balance 1060 3055 980 Weight 68.039 kg 77.4 kg Intake: IV 100 3430 1120 Cefepime 2 gm In Sodium 100 Chloride 0.9% 100 ml @ 200 mls/hr IVPB BID [facility] Rx#:[id number] D5-0.45% NaCl with KCl 1650 600 20Meq/l 1,000 ml @ 150 mls/hr IV .Q6H40M [facility] Rx# :[id number] Sodium Chloride 0.9% 1, 1430 520 000 ml @ 130 mls/hr IV . Q7H42M [facility] Rx#:[id number] Vancomycin 1,250 mg In 250 Sodium Chloride 0.9% 250 ml @ 125 mls/hr IVPB Q12H [facility] Rx#:[id number] Intake, IV Titration 1980 280 Amount D5-0.45% NaCl with KCl 900 150 20Meq/l 1,000 ml @ 150 mls/hr IV .Q6H40M [facility] Rx# :[id number] Potassium Chloride 20 meq 300 In Water For Injection 1 100ml.bag @ 50 mls/hr IVPB Q2H [facility] Rx#: [id number] Sodium Chloride 0.9% 1, 780 130 000 ml @ 130 mls/hr IV . Q7H42M [facility] Rx#:[id number] Output: Urine 920 655 140 Estimated Blood Loss 100 Other: Voiding Method Indwelling Catheter Indwelling Catheter Indwelling Catheter - Exam GENERAL EXAM: Sedated, 60-year-old white female, drowsy, moaning on 4 L of oxygen and a pulse ox of 100% comfortable in no apparent distress. HEAD: Normocephalic/atraumatic. EYES: Normal reaction of pupils, equal size. Conjunctiva pink, sclera white. NOSE: Clear with pink turbinates. THROAT: No erythema or exudates. NECK: No masses, no JVD, no thyroid enlargement, no adenopathy. CHEST: No chest wall deformity. Symmetrical expansion. LUNGS: Equal air entry with no crackles, wheeze, rhonchi or dullness. CVS: irregular rate and rhythm, normal S1 and S2, no gallops, no murmurs, no rub s ABDOMEN: Soft, nontender. No hepatosplenomegaly, normal bowel sounds, no guarding or rigidity. EXTREMITIES: No clubbing, no edema, no cyanosis, 2+ pulses and upper and lower extremities. MUSCULOSKELETAL: Muscle strength and tone normal. Right above the ankle amputation. Patient has a left great toe amputation, and some redness of the left foot SPINE: No scoliosis or deformity SKIN: No rashes CENTRAL NERVOUS SYSTEM: Sedated No focal deficits, tone is normal in all 4 extremities. - Labs CBC & Chem 7: 11/01/20 03:56 11/01/20 03:56 Labs: Abnormal Lab Results - Last 24 Hours (Table) 10/31/20 10/31/20 10/31/20 Range/Units 11:26 11:55 12:38 RBC (3.80-5.40) m/uL Hgb (11.4-16.0) gm/dL Hct (34.0-46.0) % MCV (80.0-100.0) fL Sodium (137-145) mmol/L Potassium 2.7 L* (3.5-5.1) mmol/L Chloride (98-107) mmol/L Carbon Dioxide (22-30) mmol/L Glucose (74-99) mg/dL POC Glucose (mg/dL) 122 H 158 H (75-99) mg/dL Calcium (8.4-10.2) mg/dL AST (14-36) U/L Total Protein (6.3-8.2) g/dL Albumin (3.5-5.0) g/dL Urine Protein (Negative) Urine Glucose (UA) (Negative) Urine Blood (Negative) 10/31/20 10/31/20 10/31/20 Range/Units 13:10 16:54 21:21 RBC (3.80-5.40) m/uL Hgb (11.4-16.0) gm/dL Hct (34.0-46.0) % MCV (80.0-100.0) fL Sodium (137-145) mmol/L Potassium (3.5-5.1) mmol/L Chloride (98-107) mmol/L Carbon Dioxide (22-30) mmol/L Glucose (74-99) mg/dL POC Glucose (mg/dL) 232 H 190 H (75-99) mg/dL Calcium (8.4-10.2) mg/dL AST (14-36) U/L Total Protein (6.3-8.2) g/dL Albumin (3.5-5.0) g/dL Urine Protein 1+ H (Negative) Urine Glucose (UA) 4+ H (Negative) Urine Blood Moderate H (Negative) 11/01/20 11/01/20 11/01/20 Range/Units 00:52 03:56 03:56 RBC 3.10 L (3.80-5.40) m/uL Hgb 10.2 L (11.4-16.0) gm/dL Hct 31.9 L (34.0-46.0) % MCV 102.8 H (80.0-100.0) fL Sodium 129 L (137-145) mmol/L Potassium (3.5-5.1) mmol/L Chloride 112 H (98-107) mmol/L Carbon Dioxide 13 L (22-30) mmol/L Glucose 204 H (74-99) mg/dL POC Glucose (mg/dL) 215 H (75-99) mg/dL Calcium 7.3 L (8.4-10.2) mg/dL AST 53 H (14-36) U/L Total Protein 5.1 L (6.3-8.2) g/dL Albumin 1.8 L (3.5-5.0) g/dL Urine Protein (Negative) Urine Glucose (UA) (Negative) Urine Blood (Negative) 11/01/20 Range/Units 06:33 RBC (3.80-5.40) m/uL Hgb (11.4-16.0) gm/dL Hct (34.0-46.0) % MCV (80.0-100.0) fL Sodium (137-145) mmol/L Potassium (3.5-5.1) mmol/L Chloride (98-107) mmol/L Carbon Dioxide (22-30) mmol/L Glucose (74-99) mg/dL POC Glucose (mg/dL) 262 H (75-99) mg/dL Calcium (8.4-10.2) mg/dL AST (14-36) U/L Total Protein (6.3-8.2) g/dL Albumin (3.5-5.0) g/dL Urine Protein (Negative) Urine Glucose (UA) (Negative) Urine Blood (Negative) Microbiology - Last 24 Hours (Table) 10/30/20 21:09 Blood Culture Gram Stain - Preliminary Blood Blood Culture - Preliminary Proteus spec 10/30/20 21:09 Blood Culture - Preliminary Blood No Growth after 24 hours 10/30/20 20:34 Blood Culture - Preliminary Blood No Growth after 24 hours Assessment and Plan Plan: Assessment: #1. Right foot infection with gangrene, and gas formation on the x-ray, that is post right above the ankle guillotine amputation of the foot above the ankle, postoperative day #1 #2. Hypotension related to sepsis, and adrenal insufficiency, she has been fluid resuscitated, she is on antibiotics, we will add hydrocortisone #3. Uncontrolled diabetes mellitus type 2 #4. Acute encephalopathy, likely toxic metabolic #5. Chronic alcohol abuse #6. Previous history of left great toe amputation #7. Chronic and ongoing history of smoking #8. Chronic A. fib #9. Hypertension #10. History of peripheral vascular disease #11. Hyponatremia, likely hypovolemic #12. Hypokalemia and hypomagnesemia #13. Hypoglycemia related to severe right foot infection Plan: Continue current antibiotics, continue IV fluids, will add IV hydrocortisone 50 mg every 6 hours, continue CIWA monitoring, however patient appears to be sedated, we'll stop the Ativan right now, and will add it back on if patient requires. Continue Dilaudid for pain control. GI and DVT prophylaxis. We'll continue to follow closely in the intensive care unit. I performed a history & physical examination of the patient and discussed their management with my nurse practitioner, Suzette Pretty. I reviewed the nurse practitioner's note and agree with the documented findings and plan of care. Lung sounds are positive for diminished breath sounds The findings and the impression was discussed with the patient. I attest to the documentation by the nurse practitioner. Time with Patient: Less than 30
[2020-11-01] MEDS: HYDROCORTISONE SUCCINATE 100 MG/2 ML VIAL IV SCH ×2 (11:40→17:03)
[2020-11-01 11:42] LABS: Glucose,Whole Blood 220 mg/dL (75-99)
[2020-11-01 17:11] LABS: Glucose,Whole Blood 97 mg/dL (75-99)
[2020-11-01 20:07] LABS: Glucose,Whole Blood 269 mg/dL (75-99)
[2020-11-01] MEDS ORDERED: INSULIN DETEMIR (LEVEMIR) 100 UNIT/ML SYR SQ SCH (21:00)
[2020-11-02] MEDS: HYDROCORTISONE SUCCINATE 100 MG/2 ML VIAL IV SCH ×5 (00:27→23:22)
[2020-11-02] MEDS: VANCOMYCIN 1,250 MG in SODIUM CHLORIDE 0.9% 250 ML IVPB SCH (02:01)
[2020-11-02] MEDS: HYDROmorphone 0.5 MG/0.5 ML SYRINGE IVP PRN ×4 (03:31→20:01)
[2020-11-02] MEDS: D5-0.45% NACL WITH KCL 20MEQ/L 1,000 ML IV SCH ×3 (03:31→15:34)
[2020-11-02 05:49] LABS: Glucose,Whole Blood 457 mg/dL (75-99)
[2020-11-02] MEDS: SODIUM CHLORIDE 0.9% 1,000 ML IV SCH ×3 (05:52→15:33)
[2020-11-02 06:03] LABS: Basophils % (A) 0 %; Eosinophils % (A) 0 %; HCT 35.3 % (34.0-46.0); Hypochromasia Marked; Lymphocytes # (A) 0.5 k/uL (1.0-4.8); Lymphocytes % (A) 7 %; MCH 33.1 pg (25.0-35.0); MCHC 31.1 g/dL (31.0-37.0); MCV 106.4 fL (80.0-100.0); Macrocytosis Moderate; Mean Platelet Volume 8.8; Monocytes # (A) 0.2 k/uL (0-1.0); Monocytes % (A) 2 %; Neutrophils # (A) 6.5 k/uL (1.3-7.7); Neutrophils % (A) 90 %; Platelet Count 205 k/uL (150-450); RBC 3.31 m/uL (3.80-5.40); RDW 13.6 % (11.5-15.5); WBC 7.3 k/uL (3.8-10.6)
[2020-11-02 06:12] LABS: African American GFR (CKD) >90 (>60 ml/min/1.73 sqM); Anion Gap 6 mmol/L; Blood Urea Nitrogen 17 mg/dL (7-17); Calcium 7.3 mg/dL (8.4-10.2); Carbon Dioxide 12 mmol/L (22-30); Chloride 111 mmol/L (98-107); Glucose 449 mg/dL (74-99); Non-African American GFR(CKD) >90 (>60 ml/min/1.73 sqM); Potassium 4.8 mmol/L (3.5-5.1); Sodium 129 mmol/L (137-145)
[2020-11-02 06:41] LABS: Glucose,Whole Blood 440 mg/dL (75-99)
[2020-11-02] MEDS: INSULIN ASPART (NovoLOG) 100 UNIT/ML VIAL SQ SCH ×4 (06:42→20:00)
[2020-11-02] MEDS ORDERED: INSULIN ASPART (NovoLOG) 100 UNIT/ML VIAL SQ ONE ×2 (07:15→12:00)
[2020-11-02] MEDS: THIAMINE 100 MG/ML 2 ML VIAL IVP SCH (08:32)
[2020-11-02] MEDS: HEPARIN SODIUM,PORCINE 5,000 UNIT/ML 1 ML VIAL SQ SCH ×2 (08:32→20:00)
[2020-11-02] MEDS: FAMOTIDINE 20 MG/2 ML VIAL IV SCH (08:32)
[2020-11-02] MEDS: CEFEPIME 2 GM in SODIUM CHLORIDE 0.9% 100 ML IVPB SCH ×2 (08:33→20:01)
--- NOTE | 2020-11-02 11:16 | P.PN ---
Subjective Progress Note Date: 11/02/20 Principal diagnosis: ICU management. 60-year-old white female patient with past medical history of A. fib, diabetes type II, peripheral vascular disease, chronic alcohol abuse, hypertension, chronic smoker who presented to the hospital on 10/30/2020 per EMS for evaluation of altered mental status, right foot infection, pain swelling and redness, and suspicion of right foot infection. Patient was echo cardiac on admission, hypotensive, she is requiring oxygen at 2 L. Work shows evidence of leukocytosis, low potassium, poor glycemia with glucose level of 600 on admission, urinalysis showed 4+ glucose, 1+ protein, large amount of blood, quit 19 PCR was negative, EKG showed A. fib with RVR and a rate of 112 BPM. X-ray of the right foot showed soft tissue air with foreign bodies, fracture of the head of the third and fourth metatarsals with some deformity and possible osteomyelitis. She was started on cefepime and vancomycin, was given IV fluids and her potassium and magnesium were replaced. Patient was evaluated by vascular surgery and below the knee amputation was recommended and performed today by Dr. Lopez for evidence of severe right foot infection with gas formation on the x-ray. Following her surgery patient is seen in the intensive care unit, she still sedated, but breathing spontaneously comfortably, she is currently on 6 L of oxygen and pulse ox is 99 100%, she has hypothermic, with a temp of 95.5F, blood pressure is 90/68, her IV fluids are infusing at a rate of 130 of point and was seen, and D5 half-normal saline is infusing at 150 ML per hour, patient is in atrial fibrillation, rate is currently controlled at 80 BPM, CIWA scale was initiated, when necessary lorazepam was ordered, thiamine replacements were ordered. On 11/01/2020 patient seen in follow-up in intensive care unit, today is postoperative day 1, status post above the ankle guillotine amputation for gangrenous infection of the right foot. Patient is drowsy, more awake compared to yesterday's exam, she is moaning, but does not appear to be in any respiratory distress, she is currently on 2 L of oxygen her pulse ox the 100%, she's been afebrile, blood pressures continue to be low, 83/54, despite the IV fluid resuscitation, patient remains on D5W with 20 of potassium at a rate of 150 ML per hour, and 0.9 normal saline at rate of 1:30 ML per hour, urine output has been marginal as well, lung sounds are clear, no rhonchi or wheezing. She is in A. fib which is chronic for her, with the rate of 95 BPM. She is on antibiotics in the form of cefepime and vancomycin, her blood cultures came back positive for Proteus species, final culture is pending. Today's chest x-ray shows cardiomegaly with left lower lobe infiltrate which appears to be osseous abnormality of the right humerus related to an old trauma. His labs have been reviewed, showing white blood cell count of 8.2, hemoglobin of 10.2, serum sodium is 129, potassium 3.7, chloride is 112, CO2 is 13, BUN 17 creatinine 0.73, AST ALT and alkaline phosphatase have improved today's labs down to 53, 22, and 65 respectively, ammonia level less than 9. Right lower extremity above the ankle stump is wrapped with a surgical dressing. It is clean dry and intact, vascular surgery is following. Progress note dated 11/02/2020. 60-year-old female, seen in the intensive care unit, in room 259. The patient is postop day #2, status post above the ankle amputation for gangrenous infection of the right foot. The patient is much more awake today. She is on O2 at 2 L, saline at 75 mL an hour. Yesterday, we thought she had adrenal insufficiency based on a cortisol level that was low, and we added hyd rocortisone, 50 mg IV push every 6 hours. I'm happy to report that her blood pressure is much improved. She has no particular complaints today. Blood cultures did show evidence of Proteus species. She is on cefepime and vancomycin. She is much more awake and alert today compared to yesterday. In my opinion, the patient could potentially move out of the intensive care unit today. White count is 7.3, hemoglobin 11, hematocrit 35.3, platelet count 205,000. Sodium is 129, potassium 4.8, chloride 111, CO2 12, anion gap 6, BUN 17, and creatinine 0.73. Blood cultures are positive for Proteus penneri. It is sensitive to cefepime, and the vancomycin will be discontinued. Objective - Vital Signs Vital signs: Vital Signs Temp 98.2 F 11/02/20 08:00 Pulse 87 11/02/20 10:00 Resp 8 L 11/02/20 10:00 BP 92/59 11/02/20 10:00 Pulse Ox 99 11/02/20 10:00 Intake & Output 11/01/20 11/02/20 11/02/20 18:59 06:59 18:59 Intake Total 3330 3140 225 Output Total 1330 670 175 Balance 1999 2470 50 Weight 86.6 kg 86.6 kg Intake: IV 3330 3140 225 D5-0.45% NaCl with KCl 1800 1800 20Meq/l 1,000 ml @ 150 mls/hr IV .Q6H40M [facility] Rx# :[id number] Sodium Chloride 0.9% 1, 1530 1340 225 000 ml @ 130 mls/hr IV . Q7H42M [facility] Rx#:[id number] Output: Urine 1330 670 175 Other: Voiding Method Indwelling Catheter Indwelling Catheter Indwelling Catheter - Exam No acute distress, oriented 3. Nasal O2 is at 2 L/m. The patient is a bit sad and tearful. HEENT examination is grossly unremarkable. Mucous membranes are moist. Neck supple. Full range of motion. No adenopathy thyromegaly or neck vein distention. Cardiovascular examination reveals an irregular rhythm and rate. S1-S2 normal. No S3 or S4. No discernible murmur noted. Heart rate is 87 bpm. Lungs reveal clear breath sounds. Her sounds are equal bilaterally. No adventitious lung sounds including wheezes rhonchi or crackles. Abdomen soft bowel sounds are heard. No masses or tenderness. Extremities are intact. No cyanosis clubbing or edema. Right above the ankle amputation. Skin is without rash or lesion. Multiple areas of ecchymoses noted. Neurologic examination is brief but nonfocal. - Labs CBC & Chem 7: 11/02/20 04:44 11/02/20 04:44 Labs: Abnormal Lab Results - Last 24 Hours (Table) 11/01/20 11/01/20 11/02/20 Range/Units 11:41 20:06 04:44 RBC (3.80-5.40) m/uL Hgb (11.4-16.0) gm/dL MCV (80.0-100.0) fL Lymphocytes # (1.0-4.8) k/uL Sodium 129 L (137-145) mmol/L Chloride 111 H (98-107) mmol/L Carbon Dioxide 12 L (22-30) mmol/L Glucose 449 H (74-99) mg/dL POC Glucose (mg/dL) 220 H 269 H (75-99) mg/dL Calcium 7.3 L (8.4-10.2) mg/dL 11/02/20 11/02/20 11/02/20 Range/Units 04:44 05:47 06:40 RBC 3.31 L (3.80-5.40) m/uL Hgb 11.0 L (11.4-16.0) gm/dL MCV 106.4 H (80.0-100.0) fL Lymphocytes # 0.5 L (1.0-4.8) k/uL Sodium (137-145) mmol/L Chloride (98-107) mmol/L Carbon Dioxide (22-30) mmol/L Glucose (74-99) mg/dL POC Glucose (mg/dL) 457 H 440 H (75-99) mg/dL Calcium (8.4-10.2) mg/dL Microbiology - Last 24 Hours (Table) 10/30/20 21:09 Blood Culture Gram Stain - Final Blood Blood Culture - Final Proteus penneri 10/30/20 21:09 Blood Culture - Preliminary Blood No Growth after 48 hours 10/30/20 20:34 Blood Culture - Preliminary Blood No Growth after 48 hours Assessment and Plan Assessment: Postop day #2, status post right above the ankle amputation, for gangrenous right foot. Hypotension, likely related to underlying sepsis, and adrenal insufficiency, better on hydrocortisone replacement. Uncontrolled diabetes mellitus, type II. Acute encephalopathy, likely secondary to sepsis. Chronic alcohol abuse. Previous history of left great toe amputation. Chronic and ongoing tobacco use. History of chronic atrial fibrillation. History of essential hypertension. History of peripheral vascular occlusive disease. Hypovolemic hyponatremia, improved. Hypokalemia and hypomagnesemia. Hypoglycemia, related to underlying sepsis. Plan: Plan dated 11/02/2020. The patient will remain on hydrocortisone, 50 mg every 6 hours. Currently, she is on 2 L nasal cannula. The Proteus species in her blood, is sensitive to Maxipime. The patient's vancomycin be discontinued. The patient could be considered for possible transfer out of the intensive care unit. Additional recommendations and suggestions are forthcoming. We will continue to follow. Prognosis is guarded. Left foot looks almost as bad as her right foot. Time with Patient: Less than 30
[2020-11-02 11:40] LABS: Glucose,Whole Blood 337 mg/dL (75-99)
--- NOTE | 2020-11-02 12:51 | P.PN ---
Subjective Progress Note Date: 11/02/20 Principal diagnosis: Right foot infection Patient was seen and examined in the ICU. She is postop day #2 for right above the ankle guillotine amputation. She has had no acute changes through the night. She is hemodynamically stable. Objective - Vital Signs Vital signs: Vital Signs Temp 98.1 F 11/02/20 04:00 Pulse 112 H 11/02/20 07:00 Resp 19 11/02/20 07:00 BP 104/74 11/02/20 07:00 Pulse Ox 97 11/02/20 07:00 Intake & Output 11/01/20 11/02/20 11/02/20 18:59 06:59 18:59 Intake Total 3330 3140 75 Output Total 1330 670 60 Balance 2000 2470 15 Weight 86.6 kg Intake: IV 3330 3140 75 D5-0.45% NaCl with KCl 1800 1800 20Meq/l 1,000 ml @ 150 mls/hr IV .Q6H40M [facility] Rx# :[id number] Sodium Chloride 0.9% 1, 1530 1340 75 000 ml @ 130 mls/hr IV . Q7H42M [facility] Rx#:[id number] Output: Urine 1330 670 60 Other: Voiding Method Indwelling Catheter Indwelling Catheter - Exam General appearance: Alert and orientated. Appears in no acute distress. HET: Head is normocephalic and atraumatic. Neck: Supple without lymphadenopathy. Trachea midline. Heart: S1 S2. Regular rate and rhythm. Lungs: Clear to auscultation. Abdomen: Soft, nontender, nondistended. Extremities: Right lower extremity dressing change. Amputation site with visible bone and minimal bleeding. Redressed with wet-to-dry dressing. Palpable femoral and popliteal pulses. Left lower extremity with palpable femoral popliteal and dorsalis pedis pulses. Previous history of left great toe amputation, the rest of toes with deformity. Neurological: Drowsy, easily arousable. Oriented 3. - Labs CBC & Chem 7: 11/02/20 04:44 11/02/20 04:44 Labs: Abnormal Lab Results - Last 24 Hours (Table) 11/01/20 11/01/20 11/02/20 Range/Units 11:41 20:06 04:44 RBC (3.80-5.40) m/uL Hgb (11.4-16.0) gm/dL MCV (80.0-100.0) fL Lymphocytes # (1.0-4.8) k/uL Sodium 129 L (137-145) mmol/L Chloride 111 H (98-107) mmol/L Carbon Dioxide 12 L (22-30) mmol/L Glucose 449 H (74-99) mg/dL POC Glucose (mg/dL) 220 H 269 H (75-99) mg/dL Calcium 7.3 L (8.4-10.2) mg/dL 11/02/20 11/02/20 11/02/20 Range/Units 04:44 05:47 06:40 RBC 3.31 L (3.80-5.40) m/uL Hgb 11.0 L (11.4-16.0) gm/dL MCV 106.4 H (80.0-100.0) fL Lymphocytes # 0.5 L (1.0-4.8) k/uL Sodium (137-145) mmol/L Chloride (98-107) mmol/L Carbon Dioxide (22-30) mmol/L Glucose (74-99) mg/dL POC Glucose (mg/dL) 457 H 440 H (75-99) mg/dL Calcium (8.4-10.2) mg/dL Microbiology - Last 24 Hours (Table) 10/30/20 21:09 Blood Culture - Preliminary Blood No Growth after 48 hours 10/30/20 20:34 Blood Culture - Preliminary Blood No Growth after 48 hours 10/30/20 21:09 Blood Culture Gram Stain - Preliminary Blood Blood Culture - Preliminary Proteus spec Assessment and Plan Assessment: 1. Postop day #1 for right foot guillotine above the ankle 2. Severe right foot infection with gas formation on x-ray 3. Dry gangrene left toes with previous left great toe amputation 4. Sepsis 5. Hyperglycemia 6. Hypokalemia 7. History of diabetes mellitus 8. History of atrial fibrillation 9. History of hypertension 10. History of alcohol abuse 11. Tobacco abuse Plan: 1. Supportive care 2. Continue IV antibiotics as ordered 3. Agree with transfer to medical floor 4. Diet As tolerated 5. Repeat daily labs 6. Daily wet-to-dry dressing change 7. Further recommendations to follow on timing of right below the knee amputation Thank you for this consultation, we will continue to follow The above dictated assessment and findings were discussed with Dr. Braun. The impression and plan of care have been directed as dictated.
[2020-11-02] MEDS ORDERED: VANCOMYCIN TROUGH DUE 1 EACH MISC MISCELLANE ONE (13:00)
[2020-11-02 16:52] LABS: Glucose,Whole Blood 294 mg/dL (75-99)
--- NOTE | 2020-11-02 17:13 | P.PN ---
Subjective Progress Note Date: 11/02/20 Principal diagnosis: Postop day #2, status post right above the ankle amputation, for gangrenous right foot. Hypotension, likely related to underlying sepsis, and adrenal insufficiency, better on hydrocortisone replacement. Uncontrolled diabetes mellitus, type II. Acute encephalopathy, likely secondary to sepsis. 60-year-old female, seen in the intensive care unit. The patient is postop day #2, status post above the ankle amputation for gangrenous infection of the right foot. 11/02/2020 The patient is much more awake today. She is on O2 at 2 L, saline at 75 mL an hour. Yesterday, we thought she had adrenal insufficiency based on a cortisol level that was low, and we added hydrocortisone, 50 mg IV push every 6 hours. I'm happy to report that her blood pressure is much improved. She has no particular complaints today. Blood cultures did show evidence of Proteus species. She is on cefepime and vancomycin. She is much more awake and alert today compared to yesterday. In my opinion, the patient could potentially move out of the intensive care unit today. White count is 7.3, hemoglobin 11, hematocrit 35.3, platelet count 205,000. Sodium is 129, potassium 4.8, chloride 111, CO2 12, anion gap 6, BUN 17, and creatinine 0.73. Blood cultures are positive for Proteus penneri. It is sensitive to cefepime, and the vancomycin will be discontinued. Objective - Vital Signs Vital signs: Vital Signs Temp 98.1 F 11/02/20 04:00 Pulse 112 H 11/02/20 07:00 Resp 19 11/02/20 07:00 BP 104/74 11/02/20 07:00 Pulse Ox 97 11/02/20 07:00 Intake & Output 11/01/20 11/02/20 11/02/20 18:59 06:59 18:59 Intake Total 3330 3140 75 Output Total 1330 670 60 Balance 1999 2470 15 Weight 86.6 kg Intake: IV 3330 3140 75 D5-0.45% NaCl with KCl 1800 1800 20Meq/l 1,000 ml @ 150 mls/hr IV .Q6H40M [facility] Rx# :[id number] Sodium Chloride 0.9% 1, 1530 1340 75 000 ml @ 130 mls/hr IV . Q7H42M [facility] Rx#:[id number] Output: Urine 1330 670 60 Other: Voiding Method Indwelling Catheter Indwelling Catheter - Exam -GENERAL: The patient is alert and oriented to 2-3 , she is drowsy and lethargic, not in any acute distress. Well developed, well nourished. HEENT: Pupils are round and equally reacting to light. EOMI. No scleral icterus. No conjunctival pallor. Normocephalic, atraumatic. No pharyngeal erythema. No thyromegaly. CARDIOVASCULAR: S1 and S2 present. No murmurs, rubs, or gallops. PULMONARY: Chest is clear to auscultation, no wheezing or crackles. ABDOMEN: Soft, nontender, nondistended, normoactive bowel sounds. No palpable organomegaly. MUSCULOSKELETAL: No joint swelling or deformity. -EXTREMITIES: No cyanosis, clubbing, or pedal edema. Post right above ankle foot amputation ; status post previous amputation of left foot toes NEUROLOGICAL: Gross neurological examination did not reveal any focal deficits. SKIN: No rashes. No petechiae - Labs CBC & Chem 7: 11/02/20 04:44 11/02/20 04:44 Labs: Abnormal Lab Results - Last 24 Hours (Table) 11/01/20 11/01/20 11/02/20 Range/Units 11:41 20:06 04:44 RBC (3.80-5.40) m/uL Hgb (11.4-16.0) gm/dL MCV (80.0-100.0) fL Lymphocytes # (1.0-4.8) k/uL Sodium 129 L (137-145) mmol/L Chloride 111 H (98-107) mmol/L Carbon Dioxide 12 L (22-30) mmol/L Glucose 449 H (74-99) mg/dL POC Glucose (mg/dL) 220 H 269 H (75-99) mg/dL Calcium 7.3 L (8.4-10.2) mg/dL 11/02/20 11/02/20 11/02/20 Range/Units 04:44 05:47 06:40 RBC 3.31 L (3.80-5.40) m/uL Hgb 11.0 L (11.4-16.0) gm/dL MCV 106.4 H (80.0-100.0) fL Lymphocytes # 0.5 L (1.0-4.8) k/uL Sodium (137-145) mmol/L Chloride (98-107) mmol/L Carbon Dioxide (22-30) mmol/L Glucose (74-99) mg/dL POC Glucose (mg/dL) 457 H 440 H (75-99) mg/dL Calcium (8.4-10.2) mg/dL Microbiology - Last 24 Hours (Table) 10/30/20 21:09 Blood Culture - Preliminary Blood No Growth after 48 hours 10/30/20 20:34 Blood Culture - Preliminary Blood No Growth after 48 hours 10/30/20 21:09 Blood Culture Gram Stain - Preliminary Blood Blood Culture - Preliminary Proteus spec Assessment and Plan Assessment: Left foot infection with osteomyelitis and bone fracture, with gas gangrene, status post right foot amputation postop day #1 left lower lobe pneumonia sever sepsis and septicemia secondary to proteus metabolic/toxic encephalopathy Alcohol abuse at-risk of alcohol withdrawal and DVT Severe electrolyte abnormality of hypokalemia and mild hypomagnesemia Hyperosmolar hyperglycemic Nonketotic syndrome Associated with type 2 diabetes , versus mild DKA Diabetes mellitus type 2 with hyperglycemia Fall 2 days ago with pelvic pain Hypertension Possible Nicotine dependence but patient denies History of atrial fibrillation not on anticoagulation and currently rate is controlled Plan: This is a pleasant 70 years old female who presents with hyperglycemia, foot infection and electrolyte abnormality and alcohol abuse at-risk of withdrawal vascular surgery team on the case as well as pulomonary/critical care team I discussed the case with ICU team and they kindly accepted the patient for admission Replace potassium and magnesium with close monitoring and telemetry. Continue with broad-spectrum antibiotics of IV vancomycin and cefepime continue with normal saline Continue with Ativan as needed per CIWA, thiamin Labs and medication were reviewed.. Continue same treatment. Continue with symptomatic treatment. Resume home medication. Monitor lytes and vitals. DVT and GI prophylaxis. Further recommendations depends on the clinical course of the patient DVT prophylaxis: Subcutaneous heparin GI Prophylaxis: Pepcid Prognosis is guarded
[2020-11-02] MEDS: FAMOTIDINE 20 MG TAB PO SCH (20:01)
[2020-11-02 20:06] LABS: Glucose,Whole Blood 330 mg/dL (75-99)
[2020-11-02] MEDS: INSULIN DETEMIR (LEVEMIR) 100 UNIT/ML SYR SQ SCH (20:54)
[2020-11-02] MEDS: POTASSIUM CHLORIDE 10 MEQ in WATER FOR INJECTION 1 100ML.BAG IVPB SCH (23:50)
[2020-11-03] MEDS: HYDROmorphone 0.5 MG/0.5 ML SYRINGE IVP PRN ×6 (02:27→23:39)
[2020-11-03] MEDS: SODIUM CHLORIDE 0.9% 1,000 ML IV SCH ×2 (03:49→17:31)
[2020-11-03] MEDS: HYDROCORTISONE SUCCINATE 100 MG/2 ML VIAL IV SCH ×4 (06:25→23:37)
[2020-11-03 07:17] LABS: Glucose,Whole Blood 126 mg/dL (75-99)
[2020-11-03] MEDS: INSULIN ASPART (NovoLOG) 100 UNIT/ML VIAL SQ SCH ×4 (07:54→21:06)
[2020-11-03] MEDS: THIAMINE 100 MG/ML 2 ML VIAL IVP SCH (08:50)
[2020-11-03] MEDS: FAMOTIDINE 20 MG TAB PO SCH ×2 (08:50→19:59)
[2020-11-03] MEDS: HEPARIN SODIUM,PORCINE 5,000 UNIT/ML 1 ML VIAL SQ SCH ×2 (08:51→19:59)
[2020-11-03] MEDS: CEFEPIME 2 GM in SODIUM CHLORIDE 0.9% 100 ML IVPB SCH ×2 (08:51→20:00)
[2020-11-03 11:58] LABS: Glucose,Whole Blood 213 mg/dL (75-99)
[2020-11-03 12:06] LABS: African American GFR (CKD) >90 (>60 ml/min/1.73 sqM); Anion Gap 7 mmol/L; Basophils % (A) 0 %; Blood Urea Nitrogen 21 mg/dL (7-17); Calcium 7.8 mg/dL (8.4-10.2); Carbon Dioxide 11 mmol/L (22-30); Chloride 119 mmol/L (98-107); Eosinophils % (A) 0 %; Glucose 244 mg/dL (74-99); HCT 36.5 % (34.0-46.0); HGB 11.3 gm/dL (11.4-16.0); Hypochromasia Moderate; Lymphocytes # (A) 0.7 k/uL (1.0-4.8); Lymphocytes % (A) 7 %; MCH 31.8 pg (25.0-35.0); MCHC 30.8 g/dL (31.0-37.0); MCV 103.2 fL (80.0-100.0); Macrocytosis Slight; Mean Platelet Volume 7.8; Monocytes # (A) 0.2 k/uL (0-1.0); Monocytes % (A) 2 %; Neutrophils # (A) 8.9 k/uL (1.3-7.7); Neutrophils % (A) 89 %; Non-African American GFR(CKD) >90 (>60 ml/min/1.73 sqM); Platelet Count 238 k/uL (150-450); Potassium 3.4 mmol/L (3.5-5.1); RBC 3.54 m/uL (3.80-5.40); RDW 14.1 % (11.5-15.5); Sodium 137 mmol/L (137-145)
--- NOTE | 2020-11-03 15:06 | P.PN ---
Subjective Progress Note Date: 11/03/20 Principal diagnosis: Gangrene of the right foot status post amputation 60-year-old white female patient with past medical history of A. fib, diabetes type II, peripheral vascular disease, chronic alcohol abuse, hypertension, chronic smoker who presented to the hospital on 10/30/2020 per EMS for evaluation of altered mental status, right foot infection, pain swelling and redness, and suspicion of right foot infection. Patient was echo cardiac on admission, hypotensive, she is requiring oxygen at 2 L. Work shows evidence of leukocytosis, low potassium, poor glycemia with glucose level of 600 on admission, urinalysis showed 4+ glucose, 1+ protein, large amount of blood, quit 19 PCR was negative, EKG showed A. fib with RVR and a rate of 112 BPM. X-ray of the right foot showed soft tissue air with foreign bodies, fracture of the head of the third and fourth metatarsals with some deformity and possible osteomyelitis. She was started on cefepime and vancomycin, was given IV fluids and her potassium and magnesium were replaced. Patient was evaluated by vascular surgery and below the knee amputation was recommended and performed today by Dr. Lopez for evidence of severe right foot infection with gas formation on the x-ray. Following her surgery patient is seen in the intensive care unit, she still sedated, but breathing spontaneously comfortably, she is currently on 6 L of oxygen and pulse ox is 99 100%, she has hypothermic, with a temp of 95.5F, blood pressure is 90/68, her IV fluids are infusing at a rate of 130 of point and was seen, and D5 half-normal saline is infusing at 150 ML per hour, patient is in atrial fibrillation, rate is currently controlled at 80 BPM, CIWA scale was initiated, when necessary lorazepam was ordered, thiamine replacements were ordered. On 11/01/2020 patient seen in follow-up in intensive care unit, today is postoperative day 1, status post above the ankle guillotine amputation for gangrenous infection of the right foot. Patient is drowsy, more awake compared to yesterday's exam, she is moaning, but does not appear to be in any respiratory distress, she is currently on 2 L of oxygen her pulse ox the 100%, she's been afebrile, blood pressures continue to be low, 83/54, despite the IV fluid resuscitation, patient remains on D5W with 20 of potassium at a rate of 150 ML per hour, and 0.9 normal saline at rate of 1:30 ML per hour, urine output has been marginal as well, lung sounds are clear, no rhonchi or wheezing. She is in A. fib which is chronic for her, with the rate of 95 BPM. She is on antibiotics in the form of cefepime and vancomycin, her blood cultures came back positive for Proteus species, final culture is pending. Today's chest x-ray shows cardiomegaly with left lower lobe infiltrate which appears to be osseous abnormality of the right humerus related to an old trauma. His labs have been reviewed, showing white blood cell count of 8.2, hemoglobin of 10.2, serum sodium is 129, potassium 3.7, chloride is 112, CO2 is 13, BUN 17 creatinine 0.73, AST ALT and alkaline phosphatase have improved today's labs down to 53, 22, and 65 respectively, ammonia level less than 9. Right lower extremity above the ankle stump is wrapped with a surgical dressing. It is clean dry and intact, vascular surgery is following. Progress note dated 11/02/2020. 60-year-old female, seen in the intensive care unit, in room 259. The patient is postop day #2, status post above the ankle amputation for gangrenous infection of the right foot. The patient is much more awake today. She is on O2 at 2 L, saline at 75 mL an hour. Yesterday, we thought she had adrenal insufficiency based on a cortisol level that was low, and we added hydrocortisone, 50 mg IV push every 6 hours. I'm happy to report that her blood pressure is much improved. She has no particular complaints today. Blood cultures did show evidence of Proteus species. She is on cefepime and vancomycin. She is much more awake and alert today compared to yesterday. In my opinion, the patient could potentially move out of the intensive care unit today. White count is 7.3, hemoglobin 11, hematocrit 35.3, platelet count 205,000. Sodium is 129, potassium 4.8, chloride 111, CO2 12, anion gap 6, BUN 17, and creatinine 0.73. Blood cultures are positive for Proteus penneri. It is sensitive to cefepime, and the vancomycin will be discontinued. The patient is seen today 11/03/2020 in follow-up on the regular medical floor. Postoperative day #3 of the above the ankle amputation of the right foot. She is currently sitting up in bed. Awake and alert in no acute distress. Maintaining O2 saturations up to 100% on 3 L/m per nasal cannula. She's been afebrile. Hemodynamically stable. The cultures were positive for Proteus penneri. White count 10.0. Hemoglobin 11.3. Sodium 17. Potassium 3.4. Creatinine 0.69. She is continued on cefepime. Objective - Vital Signs Vital signs: Vital Signs Temp 97.9 F 11/03/20 08:00 Pulse 101 H 11/03/20 08:00 Resp 16 11/03/20 08:00 BP 127/73 11/03/20 08:00 Pulse Ox 100 11/03/20 08:00 Intake & Output 11/02/20 11/03/20 11/03/20 18:59 06:59 18:59 Intake Total 975 Output Total 820 950 Balance 155 -950 Weight 86.6 kg Intake: IV 975 Sodium Chloride 0.9% 1, 975 000 ml @ 75 mls/hr IV . [id number] [facility] Rx#:[id number] Output: Urine 820 950 Other: Voiding Method Indwelling Catheter Indwelling Catheter Indwelling Catheter - Exam 60-year-old female patient. No acute distress, oriented 3. Nasal O2 is at 3 L/m. The patient is a bit sad and tearful. HEENT examination is grossly unremarkable. Mucous membranes are moist. Neck supple. Full range of motion. No adenopathy thyromegaly or neck vein distention. Cardiovascular examination reveals an irregular rhythm and rate. S1-S2 normal. No S3 or S4. No discernible murmur noted. Heart rate is 87 bpm. Lungs reveal crackles in the left lung base. Abdomen soft bowel sounds are heard. No masses or tenderness. Extremities are intact. No cyanosis clubbing or edema. Right above the ankle amputation. Skin is without rash or lesion. Multiple areas of ecchymoses noted. Neurologic examination is brief but nonfocal. - Labs CBC & Chem 7: 11/03/20 11:41 11/03/20 11:41 Labs: Abnormal Lab Results - Last 24 Hours (Table) 11/02/20 11/02/20 11/03/20 Range/Units 16:50 19:54 07:16 RBC (3.80-5.40) m/uL Hgb (11.4-16.0) gm/dL MCV (80.0-100.0) fL MCHC (31.0-37.0) g/dL Neutrophils # (1.3-7.7) k/uL Lymphocytes # (1.0-4.8) k/uL Potassium (3.5-5.1) mmol/L Chloride (98-107) mmol/L Carbon Dioxide (22-30) mmol/L BUN (7-17) mg/dL Glucose (74-99) mg/dL POC Glucose (mg/dL) 294 H 330 H 126 H (75-99) mg/dL Calcium (8.4-10.2) mg/dL 11/03/20 11/03/20 11/03/20 Range/Units 11:41 11:41 11:56 RBC 3.54 L (3.80-5.40) m/uL Hgb 11.3 L (11.4-16.0) gm/dL MCV 103.2 H (80.0-100.0) fL MCHC 30.8 L (31.0-37.0) g/dL Neutrophils # 8.9 H (1.3-7.7) k/uL Lymphocytes # 0.7 L (1.0-4.8) k/uL Potassium 3.4 L (3.5-5.1) mmol/L Chloride 119 H (98-107) mmol/L Carbon Dioxide 11 L (22-30) mmol/L BUN 21 H (7-17) mg/dL Glucose 244 H (74-99) mg/dL POC Glucose (mg/dL) 213 H (75-99) mg/dL Calcium 7.8 L (8.4-10.2) mg/dL Microbiology - Last 24 Hours (Table) 10/30/20 21:09 Blood Culture - Final Blood 10/30/20 20:34 Blood Culture - Preliminary Blood No Growth after 72 hours Assessment and Plan Assessment: 1 Postop day #3, status post right above the ankle amputation, for gangrenous ri ght foot. 2 Hypotension, likely related to underlying sepsis, and adrenal insufficiency, better on hydrocortisone replacement. 3 Uncontrolled diabetes mellitus, type II. 4 Acute encephalopathy, likely secondary to sepsis. 5 Chronic alcohol abuse. 6 Previous history of left great toe amputation. 7 Chronic and ongoing tobacco use. 8 History of chronic atrial fibrillation. 9 History of essential hypertension. 10 History of peripheral vascular occlusive disease. 11 Hypovolemic hyponatremia, improved. 12 Hypokalemia and hypomagnesemia. 13 Hypoglycemia, related to underlying sepsis. Plan: The patient was seen and evaluated by Dr. Gardner She is currently stable from the pulmonary and critical care standpoint Titrate down and off the FiO2 is tolerate We will see as needed I, the cosigning physician, performed a history & physical examination of the patient. Lungs sounds with crackles in the left lung base. Maintaining good O2 saturations in the 90s on 3 L/m per nasal cannula. I discussed the assessment and plan of care with my nurse practitioner, Deandra Juan. I attest to the above note as dictated by her.
--- NOTE | 2020-11-03 16:30 | P.PN ---
Subjective Progress Note Date: 11/03/20 Principal diagnosis: Postop day #2, status post right above the ankle amputation, for gangrenous right foot. Hypotension, likely related to underlying sepsis, and adrenal insufficiency, better on hydrocortisone replacement. Uncontrolled diabetes mellitus, type II. Acute encephalopathy, likely secondary to sepsis. 60-year-old female, seen in the intensive care unit. The patient is postop day #2, status post above the ankle amputation for gangrenous infection of the right foot. 11/02/2020 The patient is much more awake today. She is on O2 at 2 L, saline at 75 mL an hour. Yesterday, we thought she had adrenal insufficiency based on a cortisol level that was low, and we added hydrocortisone, 50 mg IV push every 6 hours. I'm happy to report that her blood pressure is much improved. She has no particular complaints today. Blood cultures did show evidence of Proteus species. She is on cefepime and vancomycin. She is much more awake and alert today compared to yesterday. In my opinion, the patient could potentially move out of the intensive care unit today. White count is 7.3, hemoglobin 11, hematocrit 35.3, platelet count 205,000. Sodium is 129, potassium 4.8, chloride 111, CO2 12, anion gap 6, BUN 17, and creatinine 0.73. Blood cultures are positive for Proteus penneri. It is sensitive to cefepime, and the vancomycin will be discontinued. 11/03/2020 Patient is seen and evaluated in follow-up on the regular medical floor. Postoperative day #3 of the above the ankle amputation of the right foot. She is currently sitting up in bed. Awake and alert in no acute distress. He continues to complain of uncontrolled pain; reports she takes 1800 mg of Neurontin at home Maintaining O2 saturations up to 100% on 3 L/m per nasal cannula. She's been afebrile. Hemodynamically stable. The cultures were positive for Proteus penneri. White count 10.0. Hemoglobin 11.3. Sodium 17. Potassium 3.4. Creatinine 0.69. She is continued on cefepime. We will restart patient on Neurontin at a lower dose and gradually titrated up as needed Objective - Vital Signs Vital signs: Vital Signs Temp 97.9 F 11/03/20 08:00 Pulse 101 H 11/03/20 08:00 Resp 16 11/03/20 08:00 BP 127/73 11/03/20 08:00 Pulse Ox 100 11/03/20 08:00 Intake & Output 11/02/20 11/03/20 11/03/20 18:59 06:59 18:59 Intake Total 975 Output Total 820 950 Balance 155 -950 Weight 86.6 kg Intake: IV 975 Sodium Chloride 0.9% 1, 975 000 ml @ 75 mls/hr IV . [id number] [facility] Rx#:[id number] Output: Urine 820 950 Other: Voiding Method Indwelling Catheter Indwelling Catheter - Exam -GENERAL: The patient is alert and oriented to 2-3 , she is drowsy and lethargic, not in any acute distress. Well developed, well nourished. HEENT: Pupils are round and equally reacting to light. EOMI. No scleral icterus. No conjunctival pallor. Normocephalic, atraumatic. No pharyngeal erythema. No thyromegaly. CARDIOVASCULAR: S1 and S2 present. No murmurs, rubs, or gallops. PULMONARY: Chest is clear to auscultation, no wheezing or crackles. ABDOMEN: Soft, nontender, nondistended, normoactive bowel sounds. No palpable organomegaly. MUSCULOSKELETAL: No joint swelling or deformity. -EXTREMITIES: No cyanosis, clubbing, or pedal edema. Post right above ankle foot amputation ; status post previous amputation of left foot toes NEUROLOGICAL: Gross neurological examination did not reveal any focal deficits. SKIN: No rashes. No petechiae - Labs CBC & Chem 7: 11/03/20 11:41 11/03/20 11:41 Labs: Abnormal Lab Results - Last 24 Hours (Table) 11/02/20 11/02/20 11/02/20 Range/Units 11:38 16:50 19:54 POC Glucose (mg/dL) 337 H 294 H 330 H (75-99) mg/dL 11/03/20 Range/Units 07:16 POC Glucose (mg/dL) 126 H (75-99) mg/dL Microbiology - Last 24 Hours (Table) 10/30/20 21:09 Blood Culture - Final Blood 10/30/20 20:34 Blood Culture - Preliminary Blood No Growth after 72 hours 10/30/20 21:09 Blood Culture Gram Stain - Final Blood Blood Culture - Final Proteus penneri Assessment and Plan Assessment: Left foot infection with osteomyelitis and bone fracture, with gas gangrene, status post right foot amputation postop day #1 left lower lobe pneumonia sever sepsis and septicemia secondary to proteus metabolic/toxic encephalopathy Alcohol abuse at-risk of alcohol withdrawal and DVT Severe electrolyte abnormality of hypokalemia and mild hypomagnesemia Hyperosmolar hyperglycemic Nonketotic syndrome Associated with type 2 diabetes , versus mild DKA Diabetes mellitus type 2 with hyperglycemia Fall 2 days ago with pelvic pain Hypertension Possible Nicotine dependence but patient denies History of atrial fibrillation not on anticoagulation and currently rate is controlled Plan: This is a pleasant 70 years old female who presents with hyperglycemia, foot infection and electrolyte abnormality and alcohol abuse at-risk of withdrawal vascular surgery team on the case as well as pulomonary/critical care team I discussed the case with ICU team and they kindly accepted the patient for admission Replace potassium and magnesium with close monitoring and telemetry. Continue with broad-spectrum antibiotics of IV vancomycin and cefepime continue with normal saline Continue with Ativan as needed per LINDA, thiamin Labs and medication were reviewed.. Continue same treatment. Continue with symptomatic treatment. Resume home medication. Monitor lytes and vitals. DVT and GI prophylaxis. Further recommendations depends on the clinical course of the patient DVT prophylaxis: Subcutaneous heparin GI Prophylaxis: Pepcid Prognosis is guarded
[2020-11-03 16:32] LABS: Glucose,Whole Blood 190 mg/dL (75-99)
[2020-11-03] MEDS ORDERED: Potassium Replacement Protocol 1 EACH MISC MISCELLANE PRN (16:55)
[2020-11-03] MEDS: GABAPENTIN 100 MG CAP PO SCH ×2 (17:30→20:14)
[2020-11-03] MEDS: POTASSIUM CHLORIDE ER 20 MEQ TAB.ER PO SCH ×2 (17:30→18:30)
[2020-11-03] MEDS: INSULIN DETEMIR (LEVEMIR) 100 UNIT/ML SYR SQ SCH (20:02)
[2020-11-03 21:03] LABS: Glucose,Whole Blood 312 mg/dL (75-99)
[2020-11-04 03:50] LABS: Glucose,Whole Blood 225 mg/dL (75-99)
[2020-11-04] MEDS: HYDROmorphone 0.5 MG/0.5 ML SYRINGE IVP PRN ×4 (03:53→21:32)
[2020-11-04] MEDS: SODIUM CHLORIDE 0.9% 1,000 ML IV SCH ×2 (06:04→21:02)
[2020-11-04] MEDS: HYDROCORTISONE SUCCINATE 100 MG/2 ML VIAL IV SCH ×3 (06:08→16:51)
[2020-11-04 07:05] LABS: Glucose,Whole Blood 177 mg/dL (75-99)
[2020-11-04] MEDS: INSULIN ASPART (NovoLOG) 100 UNIT/ML VIAL SQ SCH ×4 (08:43→21:16)
[2020-11-04] MEDS: THIAMINE 100 MG/ML 2 ML VIAL IVP SCH (08:43)
[2020-11-04] MEDS: HEPARIN SODIUM,PORCINE 5,000 UNIT/ML 1 ML VIAL SQ SCH ×2 (08:43→21:16)
[2020-11-04] MEDS: FAMOTIDINE 20 MG TAB PO SCH ×2 (08:43→21:17)
[2020-11-04] MEDS: CEFEPIME 2 GM in SODIUM CHLORIDE 0.9% 100 ML IVPB SCH ×2 (08:43→21:17)
[2020-11-04] MEDS: GABAPENTIN 100 MG CAP PO SCH ×3 (08:44→21:17)
[2020-11-04 09:15] LABS: Basophils # (A) 0.01 X 10*3/uL (0.00-0.10); Basophils % (A) 0.1 %; Eosinophils # (A) 0 X 10*3/uL (0.04-0.35); Eosinophils % (A) 0 %; HCT 32.9 % (37.2-46.3); HGB 10.6 g/dL (12.0-15.0); Lymphocytes # (A) 0.94 X 10*3/uL (0.90-5.00); Lymphocytes % (A) 13.3 %; MCH 31.8 pg (27.0-32.0); MCHC 32.2 g/dL (32.0-37.0); MCV 98.8 fL (80.0-97.0); Monocytes # (A) 0.31 X 10*3/uL (0.20-1.00); Monocytes % (A) 4.4 %; Neutrophils # (A) 5.72 X 10*3/uL (1.80-7.70); Neutrophils % (A) 80.9 %; Platelet Count 225 X 10*3/uL (140-440); RBC 3.33 X 10*6/uL (4.10-5.20); RDW 13.4 % (11.5-14.5); WBC 7.07 X 10*3/uL (4.50-10.00)
[2020-11-04 09:54] LABS: African American GFR (CKD) 109.9 (60.0-200.0); Anion Gap 4.3 mmol/L (4.00-12.00); BUN/Creat Ratio 37.14 Ratio (12.00-20.00); Calcium 7.8 mg/dL (8.7-10.3); Carbon Dioxide 13.7 mmol/L (21.6-31.8); Non-African American GFR(CKD) 94.8 (60.0-200.0); Potassium 3.8 mmol/L (3.5-5.5)
[2020-11-04 11:32] LABS: Glucose,Whole Blood 260 mg/dL (75-99)
--- NOTE | 2020-11-04 15:36 | P.PN ---
Subjective Progress Note Date: 11/04/20 Principal diagnosis: Postop day #2, status post right above the ankle amputation, for gangrenous right foot. Hypotension, likely related to underlying sepsis, and adrenal insufficiency, better on hydrocortisone replacement. Uncontrolled diabetes mellitus, type II. Acute encephalopathy, likely secondary to sepsis. 60-year-old female, seen in the intensive care unit. The patient is postop day #2, status post above the ankle amputation for gangrenous infection of the right foot. 11/02/2020 The patient is much more awake today. She is on O2 at 2 L, saline at 75 mL an hour. Yesterday, we thought she had adrenal insufficiency based on a cortisol level that was low, and we added hydrocortisone, 50 mg IV push every 6 hours. I'm happy to report that her blood pressure is much improved. She has no particular complaints today. Blood cultures did show evidence of Proteus species. She is on cefepime and vancomycin. She is much more awake and alert today compared to yesterday. In my opinion, the patient could potentially move out of the intensive care unit today. White count is 7.3, hemoglobin 11, hematocrit 35.3, platelet count 205,000. Sodium is 129, potassium 4.8, chloride 111, CO2 12, anion gap 6, BUN 17, and creatinine 0.73. Blood cultures are positive for Proteus penneri. It is sensitive to cefepime, and the vancomycin will be discontinued. 11/03/2020 Patient is seen and evaluated in follow-up on the regular medical floor. Postoperative day #3 of the above the ankle amputation of the right foot. She is currently sitting up in bed. Awake and alert in no acute distress. He continues to complain of uncontrolled pain; reports she takes 1800 mg of Neurontin at home Maintaining O2 saturations up to 100% on 3 L/m per nasal cannula. She's been afebrile. Hemodynamically stable. The cultures were positive for Proteus penneri. White count 10.0. Hemoglobin 11.3. Sodium 17. Potassium 3.4. Creatinine 0.69. She is continued on cefepime. We will restart patient on Neurontin at a lower dose and gradually titrated up as needed 11/04/2020 Patient is seen and evaluated sitting up in bed; reports improvement in pain with Neurontin Vital signs are reviewed, patient remains afebrile temp of 97.9, blood pressure of 127 with SpO2 of 95% on room Labs are reviewed and hemoglobin remained stable at 10.6 with hematocrit of 32.9 Patient remains on IV cefepime for positive blood cultures; we will consult ID for IV antibiotic therapy final recommendations Objective - Vital Signs Vital signs: Vital Signs Temp 97.9 F 11/04/20 08:00 Pulse 64 11/04/20 08:00 Resp 18 11/04/20 08:00 BP 136/95 11/04/20 08:00 Pulse Ox 100 11/04/20 08:00 Intake & Output 11/03/20 11/04/20 11/04/20 18:59 06:59 18:59 Intake Total 540 Output Total 450 Balance 540 -450 Weight 88 kg Intake: Oral 540 Output: Urine 450 Other: Voiding Method Indwelling Catheter Indwelling Catheter - Exam -GENERAL: The patient is alert and oriented to 2-3 , she is drowsy and lethargic, not in any acute distress. Well developed, well nourished. HEENT: Pupils are round and equally reacting to light. EOMI. No scleral icterus. No conjunctival pallor. Normocephalic, atraumatic. No pharyngeal erythema. No thyromegaly. CARDIOVASCULAR: S1 and S2 present. No murmurs, rubs, or gallops. PULMONARY: Chest is clear to auscultation, no wheezing or crackles. ABDOMEN: Soft, nontender, nondistended, normoactive bowel sounds. No palpable organomegaly. MUSCULOSKELETAL: No joint swelling or deformity. -EXTREMITIES: No cyanosis, clubbing, or pedal edema. Post right above ankle foot amputation ; status post previous amputation of left foot toes NEUROLOGICAL: Gross neurological examination did not reveal any focal deficits. SKIN: No rashes. No petechiae - Labs CBC & Chem 7: 11/04/20 05:54 11/04/20 05:54 Labs: Abnormal Lab Results - Last 24 Hours (Table) 11/03/20 11/03/20 11/03/20 Range/Units 11:41 11:41 11:56 RBC 3.54 L (3.80-5.40) m/uL Hgb 11.3 L (11.4-16.0) gm/dL Hct (37.2-46.3) % MCV 103.2 H (80.0-100.0) fL MCHC 30.8 L (31.0-37.0) g/dL Immature Gran # (0.00-0.04) X 10*3/uL Neutrophils # 8.9 H (1.3-7.7) k/uL Lymphocytes # 0.7 L (1.0-4.8) k/uL Eosinophils # (0.04-0.35) X 10*3/uL Potassium 3.4 L (3.5-5.1) mmol/L Chloride 119 H (98-107) mmol/L Carbon Dioxide 11 L (22-30) mmol/L BUN 21 H (7-17) mg/dL BUN/Creatinine Ratio (12.00-20.00) Ratio Glucose 244 H (74-99) mg/dL POC Glucose (mg/dL) 213 H (75-99) mg/dL Calcium 7.8 L (8.4-10.2) mg/dL 11/03/20 11/03/20 11/04/20 Range/Units 16:30 20:54 03:45 RBC (3.80-5.40) m/uL Hgb (11.4-16.0) gm/dL Hct (37.2-46.3) % MCV (80.0-100.0) fL MCHC (31.0-37.0) g/dL Immature Gran # (0.00-0.04) X 10*3/uL Neutrophils # (1.3-7.7) k/uL Lymphocytes # (1.0-4.8) k/uL Eosinophils # (0.04-0.35) X 10*3/uL Potassium (3.5-5.1) mmol/L Chloride (98-107) mmol/L Carbon Dioxide (22-30) mmol/L BUN (7-17) mg/dL BUN/Creatinine Ratio (12.00-20.00) Ratio Glucose (74-99) mg/dL POC Glucose (mg/dL) 190 H 312 H 225 H (75-99) mg/dL Calcium (8.4-10.2) mg/dL 11/04/20 11/04/20 11/04/20 Range/Units 05:54 05:54 07:04 RBC 3.33 L (3.80-5.40) m/uL Hgb 10.6 L (11.4-16.0) gm/dL Hct 32.9 L (37.2-46.3) % MCV 98.8 H (80.0-100.0) fL MCHC (31.0-37.0) g/dL Immature Gran # 0.09 H (0.00-0.04) X 10*3/uL Neutrophils # (1.3-7.7) k/uL Lymphocytes # (1.0-4.8) k/uL Eosinophils # 0 L (0.04-0.35) X 10*3/uL Potassium (3.5-5.1) mmol/L Chloride 120 H (98-107) mmol/L Carbon Dioxide 13.7 L (22-30) mmol/L BUN (7-17) mg/dL BUN/Creatinine Ratio 37.14 H (12.00-20.00) Ratio Glucose 210 H (74-99) mg/dL POC Glucose (mg/dL) 177 H (75-99) mg/dL Calcium 7.8 L (8.4-10.2) mg/dL Microbiology - Last 24 Hours (Table) 10/30/20 20:34 Blood Culture - Preliminary Blood No Growth after 96 hours 10/30/20 21:09 Blood Culture - Final Blood Assessment and Plan Assessment: Left foot infection with osteomyelitis and bone fracture, with gas gangrene, status post right foot amputation postop day #1 left lower lobe pneumonia sever sepsis and septicemia secondary to proteus metabolic/toxic encephalopathy Alcohol abuse at-risk of alcohol withdrawal and DVT Severe electrolyte abnormality of hypokalemia and mild hypomagnesemia Hyperosmolar hyperglycemic Nonketotic syndrome Associated with type 2 diabetes , versus mild DKA Diabetes mellitus type 2 with hyperglycemia Fall 2 days ago with pelvic pain Hypertension Possible Nicotine dependence but patient denies History of atrial fibrillation not on anticoagulation and currently rate is controlled Plan: This is a pleasant 70 years old female who presents with hyperglycemia, foot infection and electrolyte abnormality and alcohol abuse at-risk of withdrawal vascular surgery team on the case as well as pulomonary/critical care team I discussed the case with ICU team and they kindly accepted the patient for admission Replace potassium and magnesium with close monitoring and telemetry. Continue with broad-spectrum antibiotics of IV vancomycin and cefepime continue with normal saline Continue with Ativan as needed per CIWA, thiamin Labs and medication were reviewed.. Continue same treatment. Continue with symptomatic treatment. Resume home medication. Monitor lytes and vitals. DVT and GI prophylaxis. Further recommendations depends on the clinical course of the patient DVT prophylaxis: Subcutaneous heparin GI Prophylaxis: Pepcid Prognosis is guarded
[2020-11-04 16:22] LABS: Glucose,Whole Blood 239 mg/dL (75-99)
--- NOTE | 2020-11-04 18:04 | P.PN ---
Subjective Progress Note Date: 11/04/20 Principal diagnosis: right foot gangrene Patient seen and examined. Doing well and no complaints of pain. Denies any fevers, chills, nausea, vomiting, chest pain or shortness of breath. Objective - Vital Signs Vital signs: Vital Signs Temp 97.9 F 11/04/20 14:00 Pulse 95 11/04/20 14:00 Resp 19 11/04/20 14:00 BP 127/81 11/04/20 14:00 Pulse Ox 95 11/04/20 14:00 Intake & Output 11/03/20 11/04/20 11/04/20 18:59 06:59 18:59 Intake Total 540 1080 Output Total 450 300 Balance 540 -450 780 Weight 88 kg Intake: Oral 540 1080 Output: Urine 450 300 Other: Voiding Method Indwelling Catheter Indwelling Catheter Indwelling Catheter - Exam NAD, Slight confusion No retractions RRR Abdomen soft non tender right amputation dressing intact. No tenderness to palpation. - Labs CBC & Chem 7: 11/04/20 05:54 11/04/20 05:54 Labs: Abnormal Lab Results - Last 24 Hours (Table) 11/03/20 11/04/20 11/04/20 Range/Units 20:54 03:45 05:54 RBC 3.33 L (4.10-5.20) X 10*6/uL Hgb 10.6 L (12.0-15.0) g/dL Hct 32.9 L (37.2-46.3) % MCV 98.8 H (80.0-97.0) fL Immature Gran # 0.09 H (0.00-0.04) X 10*3/uL Eosinophils # 0 L (0.04-0.35) X 10*3/uL Chloride (96-109) mmol/L Carbon Dioxide (21.6-31.8) mmol/L BUN/Creatinine Ratio (12.00-20.00) Ratio Glucose (70-110) mg/dL POC Glucose (mg/dL) 312 H 225 H (75-99) mg/dL Calcium (8.7-10.3) mg/dL 11/04/20 11/04/20 11/04/20 Range/Units 05:54 07:04 11:31 RBC (4.10-5.20) X 10*6/uL Hgb (12.0-15.0) g/dL Hct (37.2-46.3) % MCV (80.0-97.0) fL Immature Gran # (0.00-0.04) X 10*3/uL Eosinophils # (0.04-0.35) X 10*3/uL Chloride 120 H (96-109) mmol/L Carbon Dioxide 13.7 L (21.6-31.8) mmol/L BUN/Creatinine Ratio 37.14 H (12.00-20.00) Ratio Glucose 210 H (70-110) mg/dL POC Glucose (mg/dL) 177 H 260 H (75-99) mg/dL Calcium 7.8 L (8.7-10.3) mg/dL 11/04/20 Range/Units 16:12 RBC (4.10-5.20) X 10*6/uL Hgb (12.0-15.0) g/dL Hct (37.2-46.3) % MCV (80.0-97.0) fL Immature Gran # (0.00-0.04) X 10*3/uL Eosinophils # (0.04-0.35) X 10*3/uL Chloride (96-109) mmol/L Carbon Dioxide (21.6-31.8) mmol/L BUN/Creatinine Ratio (12.00-20.00) Ratio Glucose (70-110) mg/dL POC Glucose (mg/dL) 239 H (75-99) mg/dL Calcium (8.7-10.3) mg/dL Microbiology - Last 24 Hours (Table) 10/30/20 20:34 Blood Culture - Preliminary Blood No Growth after 96 hours Assessment and Plan Assessment: 1. S/P right foot guillotine amputation for gas gangrene 2. Right foot gangrene 3. DM, Etoh abuse, tobacco abuse Plan: To OR tomorrow for completion right BKA
[2020-11-04 20:27] LABS: Glucose,Whole Blood 320 mg/dL (75-99)
[2020-11-04] MEDS: INSULIN DETEMIR (LEVEMIR) 100 UNIT/ML SYR SQ SCH (21:16)
[2020-11-05 02:24] LABS: Glucose,Whole Blood 169 mg/dL (75-99)
[2020-11-05] MEDS: HYDROCORTISONE SUCCINATE 100 MG/2 ML VIAL IV SCH ×4 (02:43→17:28)
[2020-11-05] MEDS: HYDROmorphone 0.5 MG/0.5 ML SYRINGE IVP PRN ×2 (02:46→21:23)
[2020-11-05 07:06] LABS: Glucose,Whole Blood 214 mg/dL (75-99)
[2020-11-05] MEDS: INSULIN ASPART (NovoLOG) 100 UNIT/ML VIAL SQ SCH ×4 (08:15→21:23)
[2020-11-05] MEDS: THIAMINE 100 MG/ML 2 ML VIAL IVP SCH (08:16)
[2020-11-05] MEDS: FAMOTIDINE 20 MG TAB PO SCH ×2 (08:16→21:23)
[2020-11-05] MEDS: HEPARIN SODIUM,PORCINE 5,000 UNIT/ML 1 ML VIAL SQ SCH ×2 (08:16→21:23)
[2020-11-05] MEDS: GABAPENTIN 100 MG CAP PO SCH ×3 (08:23→21:26)
[2020-11-05] MEDS: CEFEPIME 2 GM in SODIUM CHLORIDE 0.9% 100 ML IVPB SCH ×2 (08:24→21:24)
[2020-11-05 09:20] LABS: African American GFR (CKD) 93.5 (60.0-200.0); BUN/Creat Ratio 33.75 Ratio (12.00-20.00); Calcium 7.9 mg/dL (8.7-10.3); Non-African American GFR(CKD) 80.7 (60.0-200.0); Potassium 3.5 mmol/L (3.5-5.5)
[2020-11-05 09:25] LABS: Basophils # (A) 0.02 X 10*3/uL (0.00-0.10); Basophils % (A) 0.2 %; Eosinophils # (A) 0 X 10*3/uL (0.04-0.35); Eosinophils % (A) 0 %; HCT 36.4 % (37.2-46.3); HGB 11.5 g/dL (12.0-15.0); Lymphocytes # (A) 1.13 X 10*3/uL (0.90-5.00); Lymphocytes % (A) 12.9 %; MCH 32.1 pg (27.0-32.0); MCHC 31.6 g/dL (32.0-37.0); MCV 101.7 fL (80.0-97.0); Mean Platelet Volume 10.7 fL (9.5-12.2); Monocytes # (A) 0.49 X 10*3/uL (0.20-1.00); Monocytes % (A) 5.6 %; Neutrophils # (A) 6.95 X 10*3/uL (1.80-7.70); Neutrophils % (A) 79.4 %; Platelet Count 201 X 10*3/uL (140-440); RBC 3.58 X 10*6/uL (4.10-5.20); RDW 13.5 % (11.5-14.5); WBC 8.76 X 10*3/uL (4.50-10.00)
[2020-11-05] MEDS: SODIUM CHLORIDE 0.9% 1,000 ML IV SCH (11:39)
[2020-11-05 12:01] LABS: Glucose,Whole Blood 201 mg/dL (75-99)
[2020-11-05] MEDS ORDERED: IV FLUID CONTINUATION 700 ML IV ONE (15:19)
[2020-11-05] MEDS ORDERED: ONDANSETRON 4 MG/2 ML VIAL ONE (15:30)
[2020-11-05] MEDS ORDERED: DEXAMETHASONE SOD PHOSPHATE 4 MG/ML 1 ML VIAL IVP ONE (15:35)
[2020-11-05] MEDS ORDERED: ONDANSETRON 4 MG/2 ML VIAL IVP ONE (15:35)
[2020-11-05 15:43] LABS: Glucose,Whole Blood 151 mg/dL (75-99)
[2020-11-05] MEDS ORDERED: fentaNYL (PF) 50 MCG/ML 2 ML AMP ONE (16:06)
[2020-11-05] MEDS ORDERED: MIDAZOLAM 2 MG/2 ML VIAL ONE (16:06)
[2020-11-05] MEDS ORDERED: PROPOFOL 10 MG/ML 20 ML VIAL IV ONE (16:06)
[2020-11-05] MEDS ORDERED: PHENYLEPHRINE-0.9% NACL SYG 1,000 MCG/10 ML SYRINGE ONE (16:06)
[2020-11-05] MEDS ORDERED: LIDOCAINE 1% INJ 10MG/ML (20 ML MDV) ONE (16:06)
[2020-11-05] MEDS ORDERED: LACTATED RINGERS 1,000 ML IV ONE (17:51)
--- NOTE | 2020-11-05 18:11 | P.OP ---
Date of Procedure: 11/05/20 Description of Procedure: PREOPERATIVE DIAGNOSIS: Right below knee gas gangrene, previous guillotine amputation. POSTOPERATIVE DIAGNOSIS: [Same]. OPERATION: [Right] below knee amputation. SURGEON: Susan Lopez DO MEDICAL TECHNOLOGIST PRN: [None]. ANESTHESIA: [[facility] block] ESTIMATED BLOOD LOSS: [100 mL] SPECIMENS REMOVED: [Right lower extremity] COMPLICATIONS: [None immediately apparent] CONDITION: Stable to recovery FINDINGS AND INDICATIONS: [The patient is a 60-year-old diabetic female who was found to have a gas forming infection of her right lower extremity therefore a few days previously she underwent a guillotine amputation. She is here today for finalization of her below-knee of dictation. Risks and benefits were discussed. The patient seemingly understood and was willing to proceed as such] PROCEDURE IN DETAIL: The patient was brought to the operating room, the operative leg was prepped and draped in the usual sterile manner. 10 cm below the tibial plateau was marked. The calf circumference was measured. Two thirds was utilized for the anterior incision, one third was utilized to create the flap. The incision was marked. The incision was deepened through the subcutaneous tissue and fascia to the level of the bone. The fascia was transected around the level of the incision. Anterior compartment muscles were divided and visualized to the tibial vessels which were suture ligated with 2-0 silk. Then the lateral compartment muscles were divided. Dissection was c arried down to the level of the bone. The periosteal elevator was used and the tibia was freed from its periosteal tissues. The tibia was divided with an oscillating saw. The same was done of the fibula, approximately 1-1/2-2 cm more proximal to the tibia itself. The posterior flap was created with an amputation knife. Bleeding was controlled with suture ligation of the vessels. Electrocautery was also used for hemostasis. The specimen was removed. The wound was copiously irrigated. The tibia and fibula were smoothed with a rasp. 2-0 and 3-0 Vicryl was utilized to approximate the fascia. The skin was reapproximated with pelon. The incsion was cleansed and a dressing was placed. The patient was extubated and transferred to PACU in stable condition having tolerated the procedure well
[2020-11-05 18:45] LABS: Glucose,Whole Blood 160 mg/dL (75-99)
[2020-11-05 20:27] LABS: Glucose,Whole Blood 199 mg/dL (75-99)
[2020-11-05] MEDS: INSULIN DETEMIR (LEVEMIR) 100 UNIT/ML SYR SQ SCH (21:23)
--- NOTE | 2020-11-05 23:21 | P.PN ---
Subjective Progress Note Date: 11/05/20 Principal diagnosis: Postop day #3, status post right above the ankle amputation, for gangrenous right foot. Hypotension, likely related to underlying sepsis, and adrenal insufficiency, better on hydrocortisone replacement. Uncontrolled diabetes mellitus, type II. Acute encephalopathy, likely secondary to sepsis. 60-year-old female, seen in the intensive care unit. The patient is postop day #2, status post above the ankle amputation for gangrenous infection of the right foot. 11/02/2020 The patient is much more awake today. She is on O2 at 2 L, saline at 75 mL an hour. Yesterday, we thought she had adrenal insufficiency based on a cortisol level that was low, and we added hydrocortisone, 50 mg IV push every 6 hours. I'm happy to report that her blood pressure is much improved. She has no particular complaints today. Blood cultures did show evidence of Proteus species. She is on cefepime and vancomycin. She is much more awake and alert today compared to yesterday. In my opinion, the patient could potentially move out of the intensive care unit today. White count is 7.3, hemoglobin 11, hematocrit 35.3, platelet count 205,000. Sodium is 129, potassium 4.8, chloride 111, CO2 12, anion gap 6, BUN 17, and creatinine 0.73. Blood cultures are positive for Proteus penneri. It is sensitive to cefepime, and the vancomycin will be discontinued. 11/03/2020 Patient is seen and evaluated in follow-up on the regular medical floor. Postoperative day #3 of the above the ankle amputation of the right foot. She is currently sitting up in bed. Awake and alert in no acute distress. He continues to complain of uncontrolled pain; reports she takes 1800 mg of Neurontin at home Maintaining O2 saturations up to 100% on 3 L/m per nasal cannula. She's been afebrile. Hemodynamically stable. The cultures were positive for Proteus penneri. White count 10.0. Hemoglobin 11.3. Sodium 17. Potassium 3.4. Creatinine 0.69. She is continued on cefepime. We will restart patient on Neurontin at a lower dose and gradually titrated up as needed 11/04/2020 Patient is seen and evaluated sitting up in bed; reports improvement in pain with Neurontin Vital signs are reviewed, patient remains afebrile temp of 97.9, blood pressure of 127 with SpO2 of 95% on room Labs are reviewed and hemoglobin remained stable at 10.6 with hematocrit of 32.9 Patient remains on IV cefepime for positive blood cultures; we will consult ID for IV antibiotic therapy final recommendations 11/05/2020 Patient is sitting in the bed. No acute distress.. Pain is controlled with medications. Scheduled for right below-knee amputation today. Patient has been afebrile. Currently being continued on antibiotics to hold off cefepime and also being continued on IV hydration. Laboratory data showed WBC 8.76, hemoglobin 11.5 and platelets 201 sodium 140 potassium 3.5 chloride 119 bicarb is 14 and BUN 27 and creatinine 0.8 and calcium level is 7.9 Follow-up CBC and BMP tomorrow. Patient is being continued on Levemir and insulin sliding scale and adjust dose as needed. Current medications reviewed. Objective - Vital Signs Vital signs: Vital Signs Temp 96.8 F L 11/05/20 19:24 Pulse 116 H 11/05/20 22:09 Resp 19 11/05/20 19:24 BP 153/96 11/05/20 22:09 Pulse Ox 92 L 11/05/20 22:09 Intake & Output 11/05/20 11/05/20 11/06/20 06:59 18:59 06:59 Intake Total 900 Output Total 1000 1190 Balance -1000 -290 Intake: IV 900 Output: Urine 1000 1090 Estimated Blood Loss 100 Other: Voiding Method Indwelling Catheter # Bowel Movements 2 1 - Exam - Exam -GENERAL: The patient is alert and oriented to 2-3 , she is drowsy and lethargic, not in any acute distress. Well developed, well nourished. HEENT: Pupils are round and equally reacting to light. EOMI. No scleral icterus. No conjunctival pallor. Normocephalic, atraumatic. No pharyngeal erythema. No thyromegaly. CARDIOVASCULAR: S1 and S2 present. No murmurs, rubs, or gallops. PULMONARY: Chest is clear to auscultation, no wheezing or crackles. ABDOMEN: Soft, nontender, nondistended, normoactive bowel sounds. No palpable organomegaly. MUSCULOSKELETAL: No joint swelling or deformity. -EXTREMITIES: No cyanosis, clubbing, or pedal edema. Post right above ankle foot amputation ; status post previous amputation of left foot toes NEUROLOGICAL: Gross neurological examination did not reveal any focal deficits. SKIN: No rashes. No petechiae - Labs CBC & Chem 7: 11/05/20 06:00 11/05/20 06:00 Labs: Abnormal Lab Results - Last 24 Hours (Table) 11/05/20 11/05/20 11/05/20 Range/Units 02:23 06:00 06:00 RBC 3.58 L (4.10-5.20) X 10*6/uL Hgb 11.5 L (12.0-15.0) g/dL Hct 36.4 L (37.2-46.3) % MCV 101.7 H (80.0-97.0) fL MCH 32.1 H (27.0-32.0) pg MCHC 31.6 L (32.0-37.0) g/dL Immature Gran # 0.17 H (0.00-0.04) X 10*3/uL Eosinophils # 0 L (0.04-0.35) X 10*3/uL Chloride 119 H (96-109) mmol/L Carbon Dioxide 14.0 L (21.6-31.8) mmol/L BUN/Creatinine Ratio 33.75 H (12.00-20.00) Ratio Glucose 169 H (70-110) mg/dL POC Glucose (mg/dL) 169 H (75-99) mg/dL Calcium 7.9 L (8.7-10.3) mg/dL 11/05/20 11/05/20 11/05/20 Range/Units 07:05 11:59 15:41 RBC (4.10-5.20) X 10*6/uL Hgb (12.0-15.0) g/dL Hct (37.2-46.3) % MCV (80.0-97.0) fL MCH (27.0-32.0) pg MCHC (32.0-37.0) g/dL Immature Gran # (0.00-0.04) X 10*3/uL Eosinophils # (0.04-0.35) X 10*3/uL Chloride (96-109) mmol/L Carbon Dioxide (21.6-31.8) mmol/L BUN/Creatinine Ratio (12.00-20.00) Ratio Glucose (70-110) mg/dL POC Glucose (mg/dL) 214 H 201 H 151 H (75-99) mg/dL Calcium (8.7-10.3) mg/dL 11/05/20 11/05/20 Range/Units 18:43 20:25 RBC (4.10-5.20) X 10*6/uL Hgb (12.0-15.0) g/dL Hct (37.2-46.3) % MCV (80.0-97.0) fL MCH (27.0-32.0) pg MCHC (32.0-37.0) g/dL Immature Gran # (0.00-0.04) X 10*3/uL Eosinophils # (0.04-0.35) X 10*3/uL Chloride (96-109) mmol/L Carbon Dioxide (21.6-31.8) mmol/L BUN/Creatinine Ratio (12.00-20.00) Ratio Glucose (70-110) mg/dL POC Glucose (mg/dL) 160 H 199 H (75-99) mg/dL Calcium (8.7-10.3) mg/dL Microbiology - Last 24 Hours (Table) 10/30/20 20:34 Blood Culture - Final Blood No Growth after 144 hours Assessment and Plan Assessment: Left foot infection with osteomyelitis and bone fracture, with gas gangrene, status post right foot amputation left lower lobe pneumonia sever sepsis and septicemia secondary to proteus Penneri metabolic/toxic encephalopathy Alcohol abuse at-risk of alcohol withdrawal and DVT Severe electrolyte abnormality of hypokalemia and mild hypomagnesemia Hyperosmolar hyperglycemic Nonketotic syndrome Associated with type 2 diabetes , versus mild DKA Diabetes mellitus type 2 with hyperglycemia Fall 2 days ago with pelvic pain Hypertension Possible Nicotine dependence but patient denies History of atrial fibrillation not on anticoagulation and currently rate is controlled Plan: This is a pleasant 70 years old female who presents with hyperglycemia, foot infection and electrolyte abnormality and alcohol abuse at-risk of withdrawal vascular surgery team on the case as well as pulomonary/critical care team I discussed the case with ICU team and they kindly accepted the patient for admission Replace potassium and magnesium with close monitoring and telemetry. Continue with broad-spectrum antibiotics of IV vancomycin and cefepime continue with normal saline Continue with Ativan as needed per CIWA, thiamin Labs and medication were reviewed.. Continue same treatment. Continue with symptomatic treatment. Resume home medication. Monitor lytes and vitals. DVT and GI prophylaxis. Further recommendations depends on the clinical course of the patient DVT prophylaxis: Subcutaneous heparin GI Prophylaxis: Pepcid Prognosis is guarded Time with Patient: Greater than 30
[2020-11-06] MEDS: SODIUM CHLORIDE 0.9% 1,000 ML IV SCH ×2 (00:29→06:10)
[2020-11-06] MEDS: HYDROCORTISONE SUCCINATE 100 MG/2 ML VIAL IV SCH ×4 (00:38→17:38)
[2020-11-06] MEDS: HYDROcodone/APAP 5-325MG 1 EACH TAB PO PRN ×2 (00:38→06:08)
--- NOTE | 2020-11-06 01:06 | PN ---
PROGRESS NOTE DATE OF SERVICE: 11/05/2020 REASON FOR FOLLOWUP: Bacteremia. INTERVAL HISTORY: The patient is seen on rounds this morning. The patient has been afebrile. She is breathing comfortably. Denies having any chest pain, shortness of breath, cough. No abdominal pain or any diarrhea. PHYSICAL EXAMINATION: Blood pressure is 123/61, pulse of 91, temperature 97.2. She is 99% on room air. General description is a middle-aged female lying in bed in no distress. Respiratory system: Unlabored breathing, clear to auscultation anteriorly. Heart S1, S2. Regular rate and rhythm. Abdomen soft, no tenderness. Right BKA stump is currently dressed up. No obvious drainage on the dressing. LABS: Hemoglobin 11.5, white count 8.76. DIAGNOSTIC IMPRESSION AND PLAN: Patient with Proteus bacteremia secondary to right diabetic foot infection with patient currently covered with cefepime to continue. Blood cultures repeat to document clearance of bacteremia and monitor clinical course closely. MMODL / IJN: [id number] /
[2020-11-06 06:47] LABS: Glucose,Whole Blood 203 mg/dL (75-99)
[2020-11-06] MEDS: INSULIN ASPART (NovoLOG) 100 UNIT/ML VIAL SQ SCH ×4 (07:20→22:32)
[2020-11-06 08:35] LABS: Basophils # (A) 0.01 X 10*3/uL (0.00-0.10); Basophils % (A) 0.1 %; Eosinophils # (A) 0 X 10*3/uL (0.04-0.35); Eosinophils % (A) 0 %; HCT 33.5 % (37.2-46.3); HGB 10.7 g/dL (12.0-15.0); Lymphocytes # (A) 1.14 X 10*3/uL (0.90-5.00); Lymphocytes % (A) 11.4 %; MCH 31.8 pg (27.0-32.0); MCHC 31.9 g/dL (32.0-37.0); MCV 99.4 fL (80.0-97.0); Mean Platelet Volume 10.8 fL (9.5-12.2); Neutrophils # (A) 8.06 X 10*3/uL (1.80-7.70); Neutrophils % (A) 80.6 %; Platelet Count 180 X 10*3/uL (140-440); RBC 3.37 X 10*6/uL (4.10-5.20); RDW 13.8 % (11.5-14.5)
[2020-11-06] MEDS: GABAPENTIN 100 MG CAP PO SCH ×3 (08:40→21:57)
[2020-11-06] MEDS: FAMOTIDINE 20 MG TAB PO SCH ×2 (08:40→21:58)
[2020-11-06] MEDS: HEPARIN SODIUM,PORCINE 5,000 UNIT/ML 1 ML VIAL SQ SCH ×2 (08:58→21:58)
[2020-11-06] MEDS: THIAMINE 100 MG/ML 2 ML VIAL IVP SCH (08:58)
[2020-11-06] MEDS: CEFEPIME 2 GM in SODIUM CHLORIDE 0.9% 100 ML IVPB SCH ×2 (09:05→21:57)
[2020-11-06 09:29] LABS: African American GFR (CKD) 109.9 (60.0-200.0); Anion Gap 8.6 mmol/L (4.00-12.00); BUN/Creat Ratio 38.57 Ratio (12.00-20.00); C Reactive Protein 0.4 mg/dL (0.0-0.8); Calcium 7.5 mg/dL (8.7-10.3); Carbon Dioxide 12.4 mmol/L (21.6-31.8); Non-African American GFR(CKD) 94.8 (60.0-200.0)
[2020-11-06 11:31] LABS: Glucose,Whole Blood 265 mg/dL (75-99)
--- NOTE | 2020-11-06 11:39 | P.PN ---
Subjective Progress Note Date: 11/06/20 Principal diagnosis: Right foot infection Patient is seen and examined lying in bed. She has status postop day #1 for a right [id number]-[id number] amputation. Dressing is clean dry and intact. Patient states physical therapy was in her room this morning and had transferred her to the chair. She states her pain is well controlled. No acute changes through the night. Objective - Vital Signs Vital signs: Vital Signs Temp 97.8 F 11/06/20 01:50 Pulse 103 H 11/06/20 01:50 Resp 19 11/05/20 19:24 BP 134/82 11/06/20 01:50 Pulse Ox 100 11/06/20 01:50 Intake & Output 11/05/20 11/06/20 11/06/20 18:59 06:59 18:59 Intake Total 900 Output Total 1190 250 Balance -290 -250 Intake: IV 900 Output: Urine 1090 250 Estimated Blood Loss 100 Other: Voiding Method Indwelling Catheter # Bowel Movements 1 - Exam General appearance: Alert and orientated. Appears in no acute distress. HET: Head is normocephalic and atraumatic. Neck: Supple without lymphadenopathy. Trachea midline. Abdomen: Soft, nontender, nondistended. Extremities: Right below the knee amputation with dressing clean dry and intact. Right palpable femoral pulse. Left lower extremity with palpable femoral popliteal and dorsalis pedis pulses. Previous history of left great toe amputation, the rest of toes with deformity. Neurological: Alert and Oriented 3. - Labs CBC & Chem 7: 11/06/20 05:37 11/06/20 05:22 Labs: Abnormal Lab Results - Last 24 Hours (Table) 11/05/20 11/05/20 11/05/20 Range/Units 06:00 06:00 11:59 RBC 3.58 L (4.10-5.20) X 10*6/uL Hgb 11.5 L (12.0-15.0) g/dL Hct 36.4 L (37.2-46.3) % MCV 101.7 H (80.0-97.0) fL MCH 32.1 H (27.0-32.0) pg MCHC 31.6 L (32.0-37.0) g/dL Immature Gran # 0.17 H (0.00-0.04) X 10*3/uL Neutrophils # (1.80-7.70) X 10*3/uL Eosinophils # 0 L (0.04-0.35) X 10*3/uL Chloride 119 H (96-109) mmol/L Carbon Dioxide 14.0 L (21.6-31.8) mmol/L BUN/Creatinine Ratio 33.75 H (12.00-20.00) Ratio Glucose 169 H (70-110) mg/dL POC Glucose (mg/dL) 201 H (75-99) mg/dL Calcium 7.9 L (8.7-10.3) mg/dL 11/05/20 11/05/20 11/05/20 Range/Units 15:41 18:43 20:25 RBC (4.10-5.20) X 10*6/uL Hgb (12.0-15.0) g/dL Hct (37.2-46.3) % MCV (80.0-97.0) fL MCH (27.0-32.0) pg MCHC (32.0-37.0) g/dL Immature Gran # (0.00-0.04) X 10*3/uL Neutrophils # (1.80-7.70) X 10*3/uL Eosinophils # (0.04-0.35) X 10*3/uL Chloride (96-109) mmol/L Carbon Dioxide (21.6-31.8) mmol/L BUN/Creatinine Ratio (12.00-20.00) Ratio Glucose (70-110) mg/dL POC Glucose (mg/dL) 151 H 160 H 199 H (75-99) mg/dL Calcium (8.7-10.3) mg/dL 11/06/20 11/06/20 Range/Units 05:37 06:45 RBC 3.37 L (4.10-5.20) X 10*6/uL Hgb 10.7 L (12.0-15.0) g/dL Hct 33.5 L (37.2-46.3) % MCV 99.4 H (80.0-97.0) fL MCH (27.0-32.0) pg MCHC 31.9 L (32.0-37.0) g/dL Immature Gran # 0.09 H (0.00-0.04) X 10*3/uL Neutrophils # 8.06 H (1.80-7.70) X 10*3/uL Eosinophils # 0 L (0.04-0.35) X 10*3/uL Chloride (96-109) mmol/L Carbon Dioxide (21.6-31.8) mmol/L BUN/Creatinine Ratio (12.00-20.00) Ratio Glucose (70-110) mg/dL POC Glucose (mg/dL) 203 H (75-99) mg/dL Calcium (8.7-10.3) mg/dL Microbiology - Last 24 Hours (Table) 10/30/20 20:34 Blood Culture - Final Blood No Growth after 144 hours Assessment and Plan Assessment: 1. Postop day #1 for right [id number]-btmc amputation 2. Severe right foot infection with gas formation on x-ray 3. Dry gangrene left toes with previous left great toe amputation 4. Sepsis 5. Hyperglycemia 6. Hypokalemia 7. History of diabetes mellitus 8. History of atrial fibrillation 9. History of hypertension 10. History of alcohol abuse 11. Tobacco abuse Plan: 1. Supportive care 2. Continue IV antibiotics as ordered 3. Physical therapy 4. Please contact [facility] for stump bacteriologist pharmaceutical and rigid dressing Thank you for this consultation, we will continue to follow The impression and plan of care has been dictated as directed. I performed a history and examination of this patient, discussed the same with the dictator. I agree with the dictator's note ,documented as a scribe. Any additional findings or plans will be noted.
[2020-11-06 14:22] LABS: Erythrocyte Sedimentation Rate 18 mm/Hr (0-30)
[2020-11-06 16:41] LABS: Glucose,Whole Blood 321 mg/dL (75-99)
[2020-11-06] MEDS ORDERED: INSULIN ASPART (NovoLOG) 100 UNIT/ML VIAL SQ ONE (17:03)
[2020-11-06] MEDS: HYDROmorphone 0.5 MG/0.5 ML SYRINGE IVP PRN (18:31)
[2020-11-06] MEDS ORDERED: Potassium Replacement Protocol 1 EACH MISC MISCELLANE PRN (18:58)
[2020-11-06] MEDS: POTASSIUM CHLORIDE ER 20 MEQ TAB.ER PO SCH ×2 (19:55→21:57)
[2020-11-06 20:05] LABS: Glucose,Whole Blood 293 mg/dL (75-99)
[2020-11-06] MEDS: INSULIN DETEMIR (LEVEMIR) 100 UNIT/ML SYR SQ SCH (21:58)
[2020-11-06 22:39] LABS: Glucose,Whole Blood 248 mg/dL (75-99)
[2020-11-07] MEDS: HYDROCORTISONE SUCCINATE 100 MG/2 ML VIAL IV SCH ×3 (00:21→12:40)
--- NOTE | 2020-11-07 01:15 | PN ---
PROGRESS NOTE DATE OF SERVICE: 11/06/2020. REASON FOR FOLLOWUP: Proteus bacteremia right foot gangrene. INTERVAL HISTORY: The patient is currently afebrile. Patient is breathing slightly comfortably. Denies having any chest pain, shortness of breath, cough. Complaining of pain in the right BKA stump area. PHYSICAL EXAMINATION: Blood pressure is 150/90, pulse 100. Temperature 98.2. She is 100% on 2 L nasal cannula. General description is a middle-aged female lying in bed in no distress. Respiratory system: Unlabored breathing, clear to auscultation anteriorly. Heart S1, S2. Regular rate and rhythm. Abdomen: Soft, no tenderness. LABS: No new labs have been obtained today. 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 The patient will not need to be on long-term antibiotic therapy especially if repeat blood culture negative. Continue cefepime while inpatient and monitor clinical course closely. MMODL / IJN: [id number] /
[2020-11-07] MEDS: SODIUM CHLORIDE 0.9% 1,000 ML IV SCH ×2 (03:00→17:01)
[2020-11-07] MEDS: HYDROcodone/APAP 5-325MG 1 EACH TAB PO PRN ×3 (05:36→14:40)
[2020-11-07 06:47] LABS: Glucose,Whole Blood 162 mg/dL (75-99)
[2020-11-07] MEDS: INSULIN ASPART (NovoLOG) 100 UNIT/ML VIAL SQ SCH ×4 (07:24→20:31)
[2020-11-07 08:49] LABS: Basophils # (A) 0.01 X 10*3/uL (0.00-0.10); Basophils % (A) 0.1 %; Eosinophils # (A) 0 X 10*3/uL (0.04-0.35); Eosinophils % (A) 0 %; HCT 27.5 % (37.2-46.3); HGB 9.2 g/dL (12.0-15.0); Lymphocytes # (A) 1.31 X 10*3/uL (0.90-5.00); Lymphocytes % (A) 10.5 %; MCH 32.5 pg (27.0-32.0); MCHC 33.5 g/dL (32.0-37.0); MCV 97.2 fL (80.0-97.0); Mean Platelet Volume 10.7 fL (9.5-12.2); Monocytes # (A) 0.69 X 10*3/uL (0.20-1.00); Monocytes % (A) 5.5 %; Neutrophils # (A) 10.19 X 10*3/uL (1.80-7.70); Neutrophils % (A) 81.6 %; Platelet Count 164 X 10*3/uL (140-440); RBC 2.83 X 10*6/uL (4.10-5.20); RDW 13.2 % (11.5-14.5); WBC 12.49 X 10*3/uL (4.50-10.00)
--- NOTE | 2020-11-07 09:09 | P.PN ---
Subjective Progress Note Date: 11/07/20 Principal diagnosis: Right foot infection The patient was seen and examined lying in bed. No acute changes through the night. She has status postop day #2 for a right below the knee amputation. She denies any pain at this time. Physical therapy is working with patient. Order was sent to [facility] for stump duplicate maker and rigid dressing. Objective - Vital Signs Vital signs: Vital Signs Temp 97.6 F 11/07/20 08:03 Pulse 117 H 11/07/20 08:03 Resp 15 11/07/20 08:03 BP 152/98 11/07/20 08:03 Pulse Ox 98 11/07/20 08:09 Intake & Output 11/06/20 11/07/20 11/07/20 18:59 06:59 18:59 Intake Total 750 Output Total 1570 Balance -820 Intake: IV 750 Sodium Chloride 0.9% 1, 750 000 ml @ 75 mls/hr IV . [id number] [facility] Rx#:[id number] Output: Urine 1570 Other: Voiding Method Indwelling Catheter # Bowel Movements 1 - Exam General appearance: Alert and orientated. Appears in no acute distress. HET: Head is normocephalic and atraumatic. Neck: Supple without lymphadenopathy. Trachea midline. Abdomen: Soft, nontender, nondistended. Extremities: Right below the knee amputation with dressing clean dry and intact. Right palpable femoral pulse. Left lower extremity with palpable femoral popliteal and dorsalis pedis pulses. Previous history of left great toe amputation, the rest of toes with deformity. Neurological: Alert and Oriented 3. - Labs CBC & Chem 7: 11/07/20 05:34 11/07/20 05:34 Labs: Abnormal Lab Results - Last 24 Hours (Table) 11/06/20 11/06/20 11/06/20 Range/Units 05:22 11:25 16:34 WBC (4.50-10.00) X 10*3/uL RBC (4.10-5.20) X 10*6/uL Hgb (12.0-15.0) g/dL Hct (37.2-46.3) % MCV (80.0-97.0) fL MCH (27.0-32.0) pg Immature Gran # (0.00-0.04) X 10*3/uL Neutrophils # (1.80-7.70) X 10*3/uL Eosinophils # (0.04-0.35) X 10*3/uL Potassium 3.0 L (3.5-5.5) mmol/L Chloride 117 H (96-109) mmol/L Carbon Dioxide 12.4 L (21.6-31.8) mmol/L BUN/Creatinine Ratio 38.57 H (12.00-20.00) Ratio Glucose 266 H (70-110) mg/dL POC Glucose (mg/dL) 265 H 321 H (75-99) mg/dL Calcium 7.5 L (8.7-10.3) mg/dL 11/06/20 11/06/20 11/07/20 Range/Units 20:02 22:27 05:34 WBC 12.49 H (4.50-10.00) X 10*3/uL RBC 2.83 L (4.10-5.20) X 10*6/uL Hgb 9.2 L (12.0-15.0) g/dL Hct 27.5 L (37.2-46.3) % MCV 97.2 H (80.0-97.0) fL MCH 32.5 H (27.0-32.0) pg Immature Gran # 0.29 H (0.00-0.04) X 10*3/uL Neutrophils # 10.19 H (1.80-7.70) X 10*3/uL Eosinophils # 0 L (0.04-0.35) X 10*3/uL Potassium (3.5-5.5) mmol/L Chloride (96-109) mmol/L Carbon Dioxide (21.6-31.8) mmol/L BUN/Creatinine Ratio (12.00-20.00) Ratio Glucose (70-110) mg/dL POC Glucose (mg/dL) 293 H 248 H (75-99) mg/dL Calcium (8.7-10.3) mg/dL 11/07/20 Range/Units 06:44 WBC (4.50-10.00) X 10*3/uL RBC (4.10-5.20) X 10*6/uL Hgb (12.0-15.0) g/dL Hct (37.2-46.3) % MCV (80.0-97.0) fL MCH (27.0-32.0) pg Immature Gran # (0.00-0.04) X 10*3/uL Neutrophils # (1.80-7.70) X 10*3/uL Eosinophils # (0.04-0.35) X 10*3/uL Potassium (3.5-5.5) mmol/L Chloride (96-109) mmol/L Carbon Dioxide (21.6-31.8) mmol/L BUN/Creatinine Ratio (12.00-20.00) Ratio Glucose (70-110) mg/dL POC Glucose (mg/dL) 162 H (75-99) mg/dL Calcium (8.7-10.3) mg/dL Microbiology - Last 24 Hours (Table) 11/06/20 05:22 Blood Culture - Preliminary Blood No Growth after 24 hours Assessment and Plan Assessment: 1. Postop day #2 for right bsgkw-uxw-[id number] amputation 2. Severe right foot infection with gas formation on x-ray 3. Dry gangrene left toes with previous left great toe amputation 4. Sepsis 5. Hyperglycemia 6. Hypokalemia 7. History of diabetes mellitus 8. History of atrial fibrillation 9. History of hypertension 10. History of alcohol abuse 11. Tobacco abuse Plan: 1. Supportive care 2. Continue IV antibiotics as ordered 3. Physical therapy 4. Please contact [facility] for stump duplicate maker and rigid dressing Thank you for this consultation, we will continue to follow The impression and plan of care has been dictated as directed. Dr. Lopez I performed a history and examination of this patient, discussed the same with the dictator. I agree with the dictator's note ,documented as a scribe. Any ad ditional findings or plans will be noted.
[2020-11-07] MEDS: CEFEPIME 2 GM in SODIUM CHLORIDE 0.9% 100 ML IVPB SCH ×2 (09:39→20:32)
[2020-11-07] MEDS: FAMOTIDINE 20 MG TAB PO SCH ×2 (09:55→20:32)
[2020-11-07] MEDS: GABAPENTIN 100 MG CAP PO SCH ×3 (09:55→20:32)
[2020-11-07] MEDS: HEPARIN SODIUM,PORCINE 5,000 UNIT/ML 1 ML VIAL SQ SCH ×2 (09:56→20:32)
[2020-11-07] MEDS: THIAMINE 100 MG/ML 2 ML VIAL IVP SCH (10:56)
[2020-11-07 11:25] LABS: African American GFR (CKD) 109.9 (60.0-200.0); BUN/Creat Ratio 37.14 Ratio (12.00-20.00); Calcium 7.3 mg/dL (8.7-10.3); Carbon Dioxide <10.0 mmol/L (21.6-31.8); Chloride 118 mmol/L (96-109); Glucose 173 mg/dL (70-110); Magnesium 1.3 mg/dL (1.5-2.4); Non-African American GFR(CKD) 94.8 (60.0-200.0); Potassium 2.7 mmol/L (3.5-5.5); Sodium 138 mmol/L (135-145)
[2020-11-07 11:34] LABS: Glucose,Whole Blood 275 mg/dL (75-99)
[2020-11-07] MEDS ORDERED: Potassium Replacement Protocol 1 EACH MISC MISCELLANE PRN ×2 (11:35→17:51)
[2020-11-07] MEDS: POTASSIUM CHLORIDE ER 20 MEQ TAB.ER PO SCH ×5 (11:54→20:36)
[2020-11-07 14:42] VITALS: BMI 26.3
[2020-11-07 16:28] LABS: Glucose,Whole Blood 402 mg/dL (75-99)
--- NOTE | 2020-11-07 17:07 | P.PN ---
Subjective Progress Note Date: 11/06/20 Principal diagnosis: Postop day #3, status post right above the ankle amputation, for gangrenous right foot. Hypotension, likely related to underlying sepsis, and adrenal insufficiency, better on hydrocortisone replacement. Uncontrolled diabetes mellitus, type II. Acute encephalopathy, likely secondary to sepsis. 60-year-old female, seen in the intensive care unit. The patient is postop day #2, status post above the ankle amputation for gangrenous infection of the right foot. 11/02/2020 The patient is much more awake today. She is on O2 at 2 L, saline at 75 mL an hour. Yesterday, we thought she had adrenal insufficiency based on a cortisol level that was low, and we added hydrocortisone, 50 mg IV push every 6 hours. I'm happy to report that her blood pressure is much improved. She has no particular complaints today. Blood cultures did show evidence of Proteus species. She is on cefepime and vancomycin. She is much more awake and alert today compared to yesterday. In my opinion, the patient could potentially move out of the intensive care unit today. White count is 7.3, hemoglobin 11, hematocrit 35.3, platelet count 205,000. Sodium is 129, potassium 4.8, chloride 111, CO2 12, anion gap 6, BUN 17, and creatinine 0.73. Blood cultures are positive for Proteus penneri. It is sensitive to cefepime, and the vancomycin will be discontinued. 11/03/2020 Patient is seen and evaluated in follow-up on the regular medical floor. Postoperative day #3 of the above the ankle amputation of the right foot. She is currently sitting up in bed. Awake and alert in no acute distress. He continues to complain of uncontrolled pain; reports she takes 1800 mg of Neurontin at home Maintaining O2 saturations up to 100% on 3 L/m per nasal cannula. She's been afebrile. Hemodynamically stable. The cultures were positive for Proteus penneri. White count 10.0. Hemoglobin 11.3. Sodium 17. Potassium 3.4. Creatinine 0.69. She is continued on cefepime. We will restart patient on Neurontin at a lower dose and gradually titrated up as needed 11/04/2020 Patient is seen and evaluated sitting up in bed; reports improvement in pain with Neurontin Vital signs are reviewed, patient remains afebrile temp of 97.9, blood pressure of 127 with SpO2 of 95% on room Labs are reviewed and hemoglobin remained stable at 10.6 with hematocrit of 32.9 Patient remains on IV cefepime for positive blood cultures; we will consult ID for IV antibiotic therapy final recommendations 11/05/2020 Patient is sitting in the bed. No acute distress.. Pain is controlled with medications. Scheduled for right below-knee amputation today. Patient has been afebrile. Currently being continued on antibiotics to hold off cefepime and also being continued on IV hydration. Laboratory data showed WBC 8.76, hemoglobin 11.5 and platelets 201 sodium 140 potassium 3.5 chloride 119 bicarb is 14 and BUN 27 and creatinine 0.8 and calcium level is 7.9 Follow-up CBC and BMP tomorrow. Patient is being continued on Levemir and insulin sliding scale and adjust dose as needed. 11/06/2020 Patient is status post right BKA postoperative day 1 Currently patient is lying in the bed comfortably. No complains of chest pain or shortness of breath. Patient is somewhat confused and disoriented this morning. Not eating very well. Patient does have nausea as of vomiting. Patient has been afebrile. PTOT was consulted. Laboratory data showed WBC 10.0, hemoglobin 10.7 and platelets 180 Sodium 138 potassium 3.0 chloride 117 bicarb is 12.4 Patient is being continued on antibiotics in the form of cefepime due to Proteus bacteremia. Patient is also on stress dose steroids. Current medications reviewed. Objective - Vital Signs Vital signs: Vital Signs Temp 97.4 F L 11/06/20 08:00 Pulse 107 H 11/06/20 13:46 Resp 12 11/06/20 13:46 BP 144/87 11/06/20 08:00 Pulse Ox 100 11/06/20 01:50 Intake & Output 11/05/20 11/06/20 11/06/20 18:59 06:59 18:59 Intake Total 900 Output Total 1190 250 Balance -290 -250 Intake: IV 900 Output: Urine 1090 250 Estimated Blood Loss 100 Other: Voiding Method Indwelling Catheter # Bowel Movements 1 - Exam - Exam -GENERAL: The patient is alert and oriented to 2-3 , she is drowsy and lethargic, not in any acute distress. Well developed, well nourished. HEENT: Pupils are round and equally reacting to light. EOMI. No scleral icterus. No conjunctival pallor. Normocephalic, atraumatic. No pharyngeal erythema. No thyromegaly. CARDIOVASCULAR: S1 and S2 present. No murmurs, rubs, or gallops. PULMONARY: Chest is clear to auscultation, no wheezing or crackles. ABDOMEN: Soft, nontender, nondistended, normoactive bowel sounds. No palpable organomegaly. MUSCULOSKELETAL: No joint swelling or deformity. -EXTREMITIES: No cyanosis, clubbing, or pedal edema. Right BKA. Stump is clean and intact. NEUROLOGICAL: Gross neurological examination did not reveal any focal deficits. SKIN: No rashes. No petechiae - Labs CBC & Chem 7: 11/07/20 05:34 11/07/20 05:34 Labs: Abnormal Lab Results - Last 24 Hours (Table) 11/05/20 11/05/20 11/06/20 Range/Units 18:43 20:25 05:22 RBC (4.10-5.20) X 10*6/uL Hgb (12.0-15.0) g/dL Hct (37.2-46.3) % MCV (80.0-97.0) fL MCHC (32.0-37.0) g/dL Immature Gran # (0.00-0.04) X 10*3/uL Neutrophils # (1.80-7.70) X 10*3/uL Eosinophils # (0.04-0.35) X 10*3/uL Potassium 3.0 L (3.5-5.5) mmol/L Chloride 117 H (96-109) mmol/L Carbon Dioxide 12.4 L (21.6-31.8) mmol/L BUN/Creatinine Ratio 38.57 H (12.00-20.00) Ratio Glucose 266 H (70-110) mg/dL POC Glucose (mg/dL) 160 H 199 H (75-99) mg/dL Calcium 7.5 L (8.7-10.3) mg/dL 11/06/20 11/06/20 11/06/20 Range/Units 05:37 06:45 11:25 RBC 3.37 L (4.10-5.20) X 10*6/uL Hgb 10.7 L (12.0-15.0) g/dL Hct 33.5 L (37.2-46.3) % MCV 99.4 H (80.0-97.0) fL MCHC 31.9 L (32.0-37.0) g/dL Immature Gran # 0.09 H (0.00-0.04) X 10*3/uL Neutrophils # 8.06 H (1.80-7.70) X 10*3/uL Eosinophils # 0 L (0.04-0.35) X 10*3/uL Potassium (3.5-5.5) mmol/L Chloride (96-109) mmol/L Carbon Dioxide (21.6-31.8) mmol/L BUN/Creatinine Ratio (12.00-20.00) Ratio Glucose (70-110) mg/dL POC Glucose (mg/dL) 203 H 265 H (75-99) mg/dL Calcium (8.7-10.3) mg/dL Microbiology - Last 24 Hours (Table) 10/30/20 20:34 Blood Culture - Final Blood No Growth after 144 hours Assessment and Plan Assessment: Left foot infection with osteomyelitis and bone fracture, with gas gangrene, status post right foot below knee amputation. Postoperative day 1 left lower lobe pneumonia sever sepsis and septicemia secondary to proteus Penneri metabolic/toxic encephalopathy Alcohol abuse at-risk of alcohol withdrawal and DVT Severe electrolyte abnormality of hypokalemia and mild hypomagnesemia Hyperosmolar hyperglycemic Nonketotic syndrome Associated with type 2 diabetes , versus mild DKA Diabetes mellitus type 2 with hyperglycemia Fall 2 days ago with pelvic pain Hypertension Possible Nicotine dependence but patient denies Paroxysmal atrial fibrillation not on anticoagulation and currently. rate is controlled Plan: This is a pleasant 70 years old female who presents with hyperglycemia, foot infection and electrolyte abnormality and alcohol abuse at-risk of withdrawal vascular surgery team on the case as well as pulomonary/critical care team Replace potassium and magnesium with close monitoring and telemetry. Continue with antibiotics the form of cefepime and continue with IV hydration. Replace lites. Continue with Ativan as needed per CIWA, thiamin Labs and medication were reviewed.. DVT and GI prophylaxis. DVT prophylaxis: Subcutaneous heparin GI Prophylaxis: Pepcid Prognosis is guarded Time with Patient: Greater than 30
[2020-11-07] MEDS: MAGNESIUM SULFATE-D5W PMX 1 GM in DEXTROSE/WATER 1 100ML.BAG IVPB SCH ×2 (17:11→20:33)
--- NOTE | 2020-11-07 17:14 | P.PN ---
Subjective Progress Note Date: 11/07/20 Principal diagnosis: Postop day #3, status post right above the ankle amputation, for gangrenous right foot. Hypotension, likely related to underlying sepsis, and adrenal insufficiency, better on hydrocortisone replacement. Uncontrolled diabetes mellitus, type II. Acute encephalopathy, likely secondary to sepsis. 60-year-old female, seen in the intensive care unit. The patient is postop day #2, status post above the ankle amputation for gangrenous infection of the right foot. 11/02/2020 The patient is much more awake today. She is on O2 at 2 L, saline at 75 mL an hour. Yesterday, we thought she had adrenal insufficiency based on a cortisol level that was low, and we added hydrocortisone, 50 mg IV push every 6 hours. I'm happy to report that her blood pressure is much improved. She has no particular complaints today. Blood cultures did show evidence of Proteus species. She is on cefepime and vancomycin. She is much more awake and alert today compared to yesterday. In my opinion, the patient could potentially move out of the intensive care unit today. White count is 7.3, hemoglobin 11, hematocrit 35.3, platelet count 205,000. Sodium is 129, potassium 4.8, chloride 111, CO2 12, anion gap 6, BUN 17, and creatinine 0.73. Blood cultures are positive for Proteus penneri. It is sensitive to cefepime, and the vancomycin will be discontinued. 11/03/2020 Patient is seen and evaluated in follow-up on the regular medical floor. Postoperative day #3 of the above the ankle amputation of the right foot. She is currently sitting up in bed. Awake and alert in no acute distress. He continues to complain of uncontrolled pain; reports she takes 1800 mg of Neurontin at home Maintaining O2 saturations up to 100% on 3 L/m per nasal cannula. She's been afebrile. Hemodynamically stable. The cultures were positive for Proteus penneri. White count 10.0. Hemoglobin 11.3. Sodium 17. Potassium 3.4. Creatinine 0.69. She is continued on cefepime. We will restart patient on Neurontin at a lower dose and gradually titrated up as needed 11/04/2020 Patient is seen and evaluated sitting up in bed; reports improvement in pain with Neurontin Vital signs are reviewed, patient remains afebrile temp of 97.9, blood pressure of 127 with SpO2 of 95% on room Labs are reviewed and hemoglobin remained stable at 10.6 with hematocrit of 32.9 Patient remains on IV cefepime for positive blood cultures; we will consult ID for IV antibiotic therapy final recommendations 11/05/2020 Patient is sitting in the bed. No acute distress.. Pain is controlled with medications. Scheduled for right below-knee amputation today. Patient has been afebrile. Currently being continued on antibiotics to hold off cefepime and also being continued on IV hydration. Laboratory data showed WBC 8.76, hemoglobin 11.5 and platelets 201 sodium 140 potassium 3.5 chloride 119 bicarb is 14 and BUN 27 and creatinine 0.8 and calcium level is 7.9 Follow-up CBC and BMP tomorrow. Patient is being continued on Levemir and insulin sliding scale and adjust dose as needed. 11/06/2020 Patient is status post right BKA postoperative day 1 Currently patient is lying in the bed comfortably. No complains of chest pain or shortness of breath. Patient is somewhat confused and disoriented this morning. Not eating very well. Patient does have nausea as of vomiting. Patient has been afebrile. PTOT was consulted. Laboratory data showed WBC 10.0, hemoglobin 10.7 and platelets 180 Sodium 138 potassium 3.0 chloride 117 bicarb is 12.4 Patient is being continued on antibiotics in the form of cefepime due to Proteus bacteremia. Patient is also on stress dose steroids. 11/07/2020 Patient is status post right BKA day 2 Patient is currently sitting the chair comfortably. Awake alert and mentation is better compared to yesterday. Otherwise patient is severely hypokalemic and also has hypomagnesemia. Pain is controlled otherwise level today showed WBC 12.4 hemoglobin 9.2 and platelets 164, potassium 2.7, chloride 118 and bicarb is for less than 10, AG 26 and magnesium 1.3 Patient is being continued on IV hydration and antibiotics in the form of cefepime. Blood pressure is stable and we will change IV hydrocortisone to every 8 and gradually tapered off PT OT is following. Vascular surgery is on board. will start back on xarelto Once cleared by vascular surgery Current medications reviewed. Objective - Vital Signs Vital signs: Vital Signs Temp 97.6 F 11/07/20 12:00 Pulse 97 11/07/20 12:00 Resp 16 11/07/20 12:00 BP 148/80 11/07/20 12:00 Pulse Ox 98 11/07/20 08:09 Intake & Output 11/06/20 11/07/20 11/07/20 18:59 06:59 18:59 Intake Total 750 Output Total 1570 200 Balance -820 -200 Weight 88 kg Intake: IV 750 Sodium Chloride 0.9% 1, 750 000 ml @ 75 mls/hr IV . [id number] [facility] Rx#:[id number] Output: Urine 1570 200 Other: Voiding Method Indwelling Catheter Indwelling Catheter # Bowel Movements 1 - Exam - Exam -GENERAL: The patient is alert and oriented to 2-3 , she is drowsy and lethargic, not in any acute distress. Well developed, well nourished. HEENT: Pupils are round and equally reacting to light. EOMI. No scleral icterus. No conjunctival pallor. Normocephalic, atraumatic. No pharyngeal erythema. No thyromegaly. CARDIOVASCULAR: S1 and S2 present. No murmurs, rubs, or gallops. PULMONARY: Chest is clear to auscultation, no wheezing or crackles. ABDOMEN: Soft, nontender, nondistended, normoactive bowel sounds. No palpable organomegaly. MUSCULOSKELETAL: No joint swelling or deformity. -EXTREMITIES: No cyanosis, clubbing, or pedal edema. Right BKA. Stump is clean and intact. NEUROLOGICAL: Gross neurological examination did not reveal any focal deficits. SKIN: No rashes. No petechiae - Labs CBC & Chem 7: 11/07/20 05:34 11/07/20 05:34 Labs: Abnormal Lab Results - Last 24 Hours (Table) 11/06/20 11/06/20 11/07/20 Range/Units 20:02 22:27 05:34 WBC (4.50-10.00) X 10*3/uL RBC (4.10-5.20) X 10*6/uL Hgb (12.0-15.0) g/dL Hct (37.2-46.3) % MCV (80.0-97.0) fL MCH (27.0-32.0) pg Immature Gran # (0.00-0.04) X 10*3/uL Neutrophils # (1.80-7.70) X 10*3/uL Eosinophils # (0.04-0.35) X 10*3/uL Potassium 2.7 L* (3.5-5.5) mmol/L Chloride 118 H (96-109) mmol/L Carbon Dioxide <10.0 L* (21.6-31.8) mmol/L BUN/Creatinine Ratio 37.14 H (12.00-20.00) Ratio Glucose 173 H (70-110) mg/dL POC Glucose (mg/dL) 293 H 248 H (75-99) mg/dL Calcium 7.3 L (8.7-10.3) mg/dL Magnesium 1.3 L (1.5-2.4) mg/dL 11/07/20 11/07/20 11/07/20 Range/Units 05:34 06:44 11:32 WBC 12.49 H (4.50-10.00) X 10*3/uL RBC 2.83 L (4.10-5.20) X 10*6/uL Hgb 9.2 L (12.0-15.0) g/dL Hct 27.5 L (37.2-46.3) % MCV 97.2 H (80.0-97.0) fL MCH 32.5 H (27.0-32.0) pg Immature Gran # 0.29 H (0.00-0.04) X 10*3/uL Neutrophils # 10.19 H (1.80-7.70) X 10*3/uL Eosinophils # 0 L (0.04-0.35) X 10*3/uL Potassium (3.5-5.5) mmol/L Chloride (96-109) mmol/L Carbon Dioxide (21.6-31.8) mmol/L BUN/Creatinine Ratio (12.00-20.00) Ratio Glucose (70-110) mg/dL POC Glucose (mg/dL) 162 H 275 H (75-99) mg/dL Calcium (8.7-10.3) mg/dL Magnesium (1.5-2.4) mg/dL 11/07/20 Range/Units 16:27 WBC (4.50-10.00) X 10*3/uL RBC (4.10-5.20) X 10*6/uL Hgb (12.0-15.0) g/dL Hct (37.2-46.3) % MCV (80.0-97.0) fL MCH (27.0-32.0) pg Immature Gran # (0.00-0.04) X 10*3/uL Neutrophils # (1.80-7.70) X 10*3/uL Eosinophils # (0.04-0.35) X 10*3/uL Potassium (3.5-5.5) mmol/L Chloride (96-109) mmol/L Carbon Dioxide (21.6-31.8) mmol/L BUN/Creatinine Ratio (12.00-20.00) Ratio Glucose (70-110) mg/dL POC Glucose (mg/dL) 402 H (75-99) mg/dL Calcium (8.7-10.3) mg/dL Magnesium (1.5-2.4) mg/dL Microbiology - Last 24 Hours (Table) 11/06/20 05:22 Blood Culture - Preliminary Blood No Growth after 24 hours Assessment and Plan Assessment: Left foot infection with osteomyelitis and bone fracture, with gas gangrene, status post right foot below knee amputation. Postoperative day 1 left lower lobe pneumonia sever sepsis and septicemia secondary to proteus Penneri metabolic/toxic encephalopathy Alcohol abuse at-risk of alcohol withdrawal and DVT Severe electrolyte abnormality of hypokalemia and mild hypomagnesemia Hyperosmolar hyperglycemic Nonketotic syndrome Associated with type 2 diabetes , versus mild DKA Anion gap metabolic acidosis. Diabetes mellitus type 2 with hyperglycemia Fall 2 days ago with pelvic pain Hypertension Possible Nicotine dependence but patient denies Paroxysmal atrial fibrillation not on anticoagulation and currently. rate is controlled Plan: This is a pleasant 70 years old female who presents with hyperglycemia, foot infection and electrolyte abnormality and alcohol abuse at-risk of withdrawal vascular surgery team on the case as well as pulomonary/critical care team Replace potassium and magnesium with close monitoring and telemetry. Continue with antibiotics the form of cefepime and continue with IV hydration. Replace lites. Will check lactic acid level. Continue with insulin regimen and sliding scale. Continue with Ativan as needed per CIWA, thiamin Labs and medication were reviewed.. DVT and GI prophylaxis. DVT prophylaxis: Subcutaneous heparin GI Prophylaxis: Pepcid Prognosis is guarded Time with Patient: Greater than 30
[2020-11-07] MEDS ORDERED: SODIUM BICARBONATE TAB 650 MG TAB PO SCH (18:00)
[2020-11-07] MEDS: SODIUM BICARBONATE TAB 650 MG TAB PO SCH ×2 (18:01→20:36)
[2020-11-07 20:17] LABS: Glucose,Whole Blood 524 mg/dL (75-99)
[2020-11-07 20:17] LABS: Glucose,Whole Blood 512 mg/dL (75-99)
[2020-11-07] MEDS: INSULIN DETEMIR (LEVEMIR) 100 UNIT/ML SYR SQ SCH (20:31)
[2020-11-07] MEDS: glipiZIDE 5 MG TAB PO SCH (20:38)
[2020-11-08] MEDS: HYDROCORTISONE SUCCINATE 100 MG/2 ML VIAL IV SCH ×3 (00:46→17:46)
--- NOTE | 2020-11-08 01:04 | PN ---
PROGRESS NOTE DATE OF SERVICE: 11/07/2020 REASON FOR FOLLOW UP: Proteus mirabilis bacteremia. INTERVAL HISTORY: Patient is currently afebrile. Patient is breathing comfortably. Denies any chest pain. No shortness of breath. No cough. No abdominal pain or pain to the right BKA stump area. PHYSICAL EXAMINATION: Blood pressure is 132/89. Pulse 103. Temperature 98.5. She is 100% on room air. General description is a middle-aged female lying in bed in no distress. Respiratory system: Unlabored breathing, clear to auscultation anteriorly. Heart S1, S2. Regular rate and rhythm. Abdomen soft, no tenderness. Right BKA stump is currently dressed. No obvious drainage on the dressing. LABS: Repeat blood culture has been negative so far. DIAGNOSTIC IMPRESSION AND PLAN: Patient with Proteus bacteremia source likely right foot gangrene, status post right [id number] amputation with infected part removed and the patient is not bacteremic. Will be able to transition to oral Cipro on discharge to finish therapy. Continue supportive care. MMODL / IJN: [id number] /
[2020-11-08] MEDS: HYDROcodone/APAP 5-325MG 1 EACH TAB PO PRN ×4 (02:38→18:23)
[2020-11-08] MEDS: SODIUM CHLORIDE 0.9% 1,000 ML IV SCH ×2 (04:38→17:46)
[2020-11-08 07:04] LABS: Glucose,Whole Blood 138 mg/dL (75-99)
[2020-11-08] MEDS: glipiZIDE 5 MG TAB PO SCH (07:48)
[2020-11-08] MEDS: INSULIN ASPART (NovoLOG) 100 UNIT/ML VIAL SQ SCH ×4 (07:49→21:21)
[2020-11-08] MEDS: GABAPENTIN 100 MG CAP PO SCH ×3 (08:29→21:19)
[2020-11-08] MEDS: FAMOTIDINE 20 MG TAB PO SCH ×2 (08:29→21:20)
[2020-11-08] MEDS: SODIUM BICARBONATE TAB 650 MG TAB PO SCH ×3 (08:29→21:21)
[2020-11-08] MEDS: HEPARIN SODIUM,PORCINE 5,000 UNIT/ML 1 ML VIAL SQ SCH ×2 (08:33→21:20)
[2020-11-08] MEDS: THIAMINE 100 MG/ML 2 ML VIAL IVP SCH (08:38)
[2020-11-08] MEDS: CEFEPIME 2 GM in SODIUM CHLORIDE 0.9% 100 ML IVPB SCH ×2 (08:55→21:19)
[2020-11-08 09:09] LABS: Basophils # (A) 0.02 X 10*3/uL (0.00-0.10); Basophils % (A) 0.1 %; Eosinophils # (A) 0.02 X 10*3/uL (0.04-0.35); Eosinophils % (A) 0.1 %; HCT 26.9 % (37.2-46.3); HGB 8.9 g/dL (12.0-15.0); Lymphocytes # (A) 1.31 X 10*3/uL (0.90-5.00); Lymphocytes % (A) 8.8 %; MCH 32.1 pg (27.0-32.0); MCHC 33.1 g/dL (32.0-37.0); MCV 97.1 fL (80.0-97.0); Mean Platelet Volume 11.1 fL (9.5-12.2); Monocytes # (A) 0.73 X 10*3/uL (0.20-1.00); Monocytes % (A) 4.9 %; Neutrophils # (A) 12.53 X 10*3/uL (1.80-7.70); Platelet Count 167 X 10*3/uL (140-440); RBC 2.77 X 10*6/uL (4.10-5.20); RDW 13.5 % (11.5-14.5); WBC 14.92 X 10*3/uL (4.50-10.00)
[2020-11-08 09:52] LABS: African American GFR (CKD) 115.6 (60.0-200.0); Anion Gap 2.8 mmol/L (4.00-12.00); BUN/Creat Ratio 38.33 Ratio (12.00-20.00); Calcium 7.2 mg/dL (8.7-10.3); Carbon Dioxide 13.2 mmol/L (21.6-31.8); Non-African American GFR(CKD) 99.8 (60.0-200.0); Potassium 3.1 mmol/L (3.5-5.5)
--- NOTE | 2020-11-08 10:10 | P.PN ---
Subjective Progress Note Date: 11/08/20 Principal diagnosis: Right foot infection The patient is seen and examined lying in bed. She is without any acute changes through the night. She denies any fevers or chills. Denies any acute pain at this time. She'll dressing was changed yesterday, [employer] prost[employer] came and left a stump upper marker however did not apply it. Objective - Vital Signs Vital signs: Vital Signs Temp 97.7 F 11/08/20 07:28 Pulse 108 H 11/08/20 07:28 Resp 18 11/08/20 07:28 BP 135/89 11/08/20 07:28 Pulse Ox 98 11/08/20 07:28 Intake & Output 11/07/20 11/08/20 11/08/20 18:59 06:59 18:59 Output Total 200 825 Balance -200 -825 Weight 88 kg Output: Urine 200 825 Other: Voiding Method Indwelling Catheter Diaper Indwelling Catheter - Exam General appearance: Alert and orientated. Appears in no acute distress. HET: Head is normocephalic and atraumatic. Neck: Supple without lymphadenopathy. Trachea midline. Abdomen: Soft, nontender, nondistended. Extremities: Right below the knee amputation with dressing clean dry and intact. Right amputation site will approximated with pelon. Dressing reapplied along with stump upper marker history of left great toe amputation, the rest of toes with deformity. Neurological: Alert and Oriented 3. - Labs CBC & Chem 7: 11/08/20 06:28 11/08/20 06:28 Labs: Abnormal Lab Results - Last 24 Hours (Table) 11/07/20 11/07/20 11/07/20 Range/Units 05:34 11:32 16:27 WBC (4.50-10.00) X 10*3/uL RBC (4.10-5.20) X 10*6/uL Hgb (12.0-15.0) g/dL Hct (37.2-46.3) % MCV (80.0-97.0) fL MCH (27.0-32.0) pg Absolute Nucleated RBC (0.00-0.00) X 10*3/uL Immature Gran # (0.00-0.04) X 10*3/uL Neutrophils # (1.80-7.70) X 10*3/uL Eosinophils # (0.04-0.35) X 10*3/uL NRBC/100 WBC Diff (0.0-0.0) /100 WBCS Potassium 2.7 L* (3.5-5.5) mmol/L Chloride 118 H (96-109) mmol/L Carbon Dioxide <10.0 L* (21.6-31.8) mmol/L Anion Gap (4.00-12.00) mmol/L BUN/Creatinine Ratio 37.14 H (12.00-20.00) Ratio Glucose 173 H (70-110) mg/dL POC Glucose (mg/dL) 275 H 402 H (75-99) mg/dL Calcium 7.3 L (8.7-10.3) mg/dL Magnesium 1.3 L (1.5-2.4) mg/dL 11/07/20 11/07/20 11/07/20 Range/Units 16:37 20:14 20:16 WBC (4.50-10.00) X 10*3/uL RBC (4.10-5.20) X 10*6/uL Hgb (12.0-15.0) g/dL Hct (37.2-46.3) % MCV (80.0-97.0) fL MCH (27.0-32.0) pg Absolute Nucleated RBC (0.00-0.00) X 10*3/uL Immature Gran # (0.00-0.04) X 10*3/uL Neutrophils # (1.80-7.70) X 10*3/uL Eosinophils # (0.04-0.35) X 10*3/uL NRBC/100 WBC Diff (0.0-0.0) /100 WBCS Potassium 3.4 L (3.5-5.5) mmol/L Chloride (96-109) mmol/L Carbon Dioxide (21.6-31.8) mmol/L Anion Gap (4.00-12.00) mmol/L BUN/Creatinine Ratio (12.00-20.00) Ratio Glucose (70-110) mg/dL POC Glucose (mg/dL) 512 H 524 H (75-99) mg/dL Calcium (8.7-10.3) mg/dL Magnesium (1.5-2.4) mg/dL 11/08/20 11/08/20 11/08/20 Range/Units 06:28 06:28 07:02 WBC 14.92 H (4.50-10.00) X 10*3/uL RBC 2.77 L (4.10-5.20) X 10*6/uL Hgb 8.9 L (12.0-15.0) g/dL Hct 26.9 L (37.2-46.3) % MCV 97.1 H (80.0-97.0) fL MCH 32.1 H (27.0-32.0) pg Absolute Nucleated RBC 0.02 H (0.00-0.00) X 10*3/uL Immature Gran # 0.31 H (0.00-0.04) X 10*3/uL Neutrophils # 12.53 H (1.80-7.70) X 10*3/uL Eosinophils # 0.02 L (0.04-0.35) X 10*3/uL NRBC/100 WBC Diff 0.1 H (0.0-0.0) /100 WBCS Potassium 3.1 L (3.5-5.5) mmol/L Chloride 123 H (96-109) mmol/L Carbon Dioxide 13.2 L (21.6-31.8) mmol/L Anion Gap 2.80 L (4.00-12.00) mmol/L BUN/Creatinine Ratio 38.33 H (12.00-20.00) Ratio Glucose 158 H (70-110) mg/dL POC Glucose (mg/dL) 138 H (75-99) mg/dL Calcium 7.2 L (8.7-10.3) mg/dL Magnesium (1.5-2.4) mg/dL Microbiology - Last 24 Hours (Table) 11/06/20 05:22 Blood Culture - Preliminary Blood No Growth after 48 hours Assessment and Plan Assessment: 1. Postop day #3 for right [id number] amputation 2. Severe right foot infection with gas formation on x-ray 3. Dry gangrene left toes with previous left great toe amputation 4. Sepsis 5. Hyperglycemia 6. Hypokalemia 7. History of diabetes mellitus 8. History of atrial fibrillation 9. History of hypertension 10. History of alcohol abuse 11. Tobacco abuse Plan: 1. Supportive care 2. Continue IV antibiotics as ordered 3. Physical therapy 4. Dressing change as needed with stump upper marker to right lower extremity The patient may be discharged home on May vascular surgical standpoint, once otherwise medically stable and cleared Thank you for this consultation, we will continue to follow The impression and plan of care has been dictated as directed. Dr. Walls I performed a history and examination of this patient, discussed the same with the dictator. I agree with the dictator's note ,documented as a scribe. Any additional findings or plans will be noted.
[2020-11-08] MEDS ORDERED: POTASSIUM CHLORIDE 20 MEQ in WATER FOR INJECTION 1 100ML.BAG IVPB STA (10:37)
[2020-11-08 11:41] LABS: Glucose,Whole Blood 216 mg/dL (75-99)
[2020-11-08] MEDS ORDERED: Potassium Replacement Protocol 1 EACH MISC MISCELLANE PRN (12:40)
[2020-11-08] MEDS: POTASSIUM CHLORIDE ER 20 MEQ TAB.ER PO SCH ×2 (13:06→14:38)
[2020-11-08] MEDS: MAGNESIUM SULFATE-D5W PMX 1 GM in DEXTROSE/WATER 1 100ML.BAG IVPB SCH ×2 (13:07→13:18)
--- NOTE | 2020-11-08 15:45 | PN ---
PROGRESS NOTE DATE OF SERVICE: 11/08/2020 REASON FOR FOLLOWUP: Proteus bacteremia secondary to the right foot gangrene. INTERVAL HISTORY: The patient is currently afebrile. The patient is breathing comfortably. The patient denies having any chest pain or shortness of breath or cough. No abdominal pain or pain to the right leg wound. PHYSICAL EXAMINATION: Blood pressure 151/89 with a pulse of 83, temperature 97.5. She is 100% on room air. General description is a middle-aged female lying in bed in no distress. RESPIRATORY SYSTEM: Unlabored breathing. Clear to auscultation anteriorly. HEART: S1, S2. Regular rate and rhythm. ABDOMEN: Soft. No tenderness. Right BKA stump is currently dressed. No obvious drainage on the dressing. LABS: BUN of 23, creatinine 0.6. White count is up to 14.92 today. DIAGNOSTIC IMPRESSION AND PLAN: Patient with proteus bacteremia, for which the patient is currently covered with cefepime. The patient is status post right above-knee amputation. This patient has slight worsening of the right stump, more likely related to the steroid the patient has been put on. Will be monitored closely. Continue supportive care. MMODL / IJN: [id number] /
[2020-11-08 16:36] LABS: Glucose,Whole Blood 356 mg/dL (75-99)
[2020-11-08 20:20] LABS: Glucose,Whole Blood 319 mg/dL (75-99)
[2020-11-08] MEDS: INSULIN DETEMIR (LEVEMIR) 100 UNIT/ML SYR SQ SCH (21:20)
[2020-11-09] MEDS: HYDROCORTISONE SUCCINATE 100 MG/2 ML VIAL IV SCH ×3 (06:05→21:43)
[2020-11-09 07:24] LABS: Glucose,Whole Blood 232 mg/dL (75-99)
[2020-11-09 07:41] LABS: Basophils % (A) 0 %; Eosinophils % (A) 0 %; HCT 29.5 % (34.0-46.0); Hypochromasia Slight; Lymphocytes # (A) 1.2 k/uL (1.0-4.8); Lymphocytes % (A) 9 %; MCH 32.2 pg (25.0-35.0); MCHC 31.8 g/dL (31.0-37.0); MCV 101.3 fL (80.0-100.0); Macrocytosis Slight; Mean Platelet Volume 8.7; Monocytes # (A) 0.4 k/uL (0-1.0); Monocytes % (A) 3 %; Neutrophils # (A) 11.5 k/uL (1.3-7.7); Neutrophils % (A) 88 %; Platelet Count 173 k/uL (150-450); RBC 2.92 m/uL (3.80-5.40); RDW 14.9 % (11.5-15.5); WBC 13.2 k/uL (3.8-10.6)
[2020-11-09 07:42] LABS: HGB 9.4 gm/dL (11.4-16.0)
[2020-11-09] MEDS: INSULIN ASPART (NovoLOG) 100 UNIT/ML VIAL SQ SCH ×4 (07:56→21:43)
[2020-11-09] MEDS: glipiZIDE 5 MG TAB PO SCH (07:59)
--- NOTE | 2020-11-09 09:19 | P.PN ---
Subjective Progress Note Date: 11/09/20 Principal diagnosis: Right foot infection She was seen and examined lying in bed. Is postop day #3 for right below the knee amputation. She's had no acute changes through the night, no fevers or chills. Physical therapy has been working with her. She continues on IV antibiotics per infectious disease recommendations. Patient has stump res counselor in place. Plan is for discharge to rehab today. Objective - Vital Signs Vital signs: Vital Signs Temp 97.4 F L 11/09/20 07:33 Pulse 110 H 11/09/20 07:33 Resp 17 11/09/20 07:33 BP 133/87 11/09/20 07:33 Pulse Ox 98 11/09/20 07:33 Intake & Output 11/08/20 11/09/20 11/09/20 18:59 06:59 18:59 Intake Total 825 Output Total 1400 200 550 Balance -575 -200 -550 Intake: IV 825 Sodium Chloride 0.9% 1, 825 000 ml @ 75 mls/hr IV . [id number] [facility] Rx#:[id number] Output: Urine 1400 200 550 Uretheral (Lopez) 700 Other: Voiding Method Indwelling Catheter Bedpan # Bowel Movements 1 - Exam General appearance: Alert and orientated. Appears in no acute distress. HET: Head is normocephalic and atraumatic. Neck: Supple without lymphadenopathy. Trachea midline. Abdomen: Soft, nontender, nondistended. Extremities: Right below the knee amputation with stump res counselor and dressing CDI. He should has previous left great toe amputation. Neurological: Alert and Oriented 3. - Labs CBC & Chem 7: 11/09/20 06:00 11/08/20 16:15 Labs: Abnormal Lab Results - Last 24 Hours (Table) 11/08/20 11/08/20 11/08/20 Range/Units 06:28 11:40 16:34 WBC (3.8-10.6) k/uL RBC (3.80-5.40) m/uL Hgb (11.4-16.0) gm/dL Hct (34.0-46.0) % MCV (80.0-100.0) fL Neutrophils # (1.3-7.7) k/uL Potassium 3.1 L (3.5-5.5) mmol/L Chloride 123 H (96-109) mmol/L Carbon Dioxide 13.2 L (21.6-31.8) mmol/L Anion Gap 2.80 L (4.00-12.00) mmol/L BUN/Creatinine Ratio 38.33 H (12.00-20.00) Ratio Glucose 158 H (70-110) mg/dL POC Glucose (mg/dL) 216 H 356 H (75-99) mg/dL Calcium 7.2 L (8.7-10.3) mg/dL 11/08/20 11/09/20 11/09/20 Range/Units 20:18 06:00 07:13 WBC 13.2 H (3.8-10.6) k/uL RBC 2.92 L (3.80-5.40) m/uL Hgb 9.4 L D (11.4-16.0) gm/dL Hct 29.5 L (34.0-46.0) % MCV 101.3 H (80.0-100.0) fL Neutrophils # 11.5 H (1.3-7.7) k/uL Potassium (3.5-5.5) mmol/L Chloride (96-109) mmol/L Carbon Dioxide (21.6-31.8) mmol/L Anion Gap (4.00-12.00) mmol/L BUN/Creatinine Ratio (12.00-20.00) Ratio Glucose (70-110) mg/dL POC Glucose (mg/dL) 319 H 232 H (75-99) mg/dL Calcium (8.7-10.3) mg/dL Microbiology - Last 24 Hours (Table) 11/06/20 05:22 Blood Culture - Preliminary Blood No Growth after 72 hours Assessment and Plan Assessment: 1. Postop day #3 for right [id number] amputation 2. Severe right foot infection with gas formation on x-ray 3. Dry gangrene left toes with previous left great toe amputation 4. Sepsis 5. Hyperglycemia 6. Hypokalemia 7. History of diabetes mellitus 8. History of atrial fibrillation 9. History of hypertension 10. History of alcohol abuse 11. Tobacco abuse Plan: 1. Supportive care 2. Continue IV antibiotics as ordered 3. Physical therapy 4. Dressing change as needed with stump res counselor to right lower extremity The patient may be discharged from a vascular surgical standpoint, once otherwise medically stable and cleared Up with Dr. Lopez in 1-2 weeks Thank you for this consultation, we will continue to follow The impression and plan of care has been dictated as directed. Dr. Walls I performed a history and examination of this patient, discussed the same with the dictator. I agree with the dictator's note ,documented as a scribe. Any additional findings or plans will be noted.
[2020-11-09 09:33] LABS: African American GFR (CKD) 115.6 (60.0-200.0); Calcium 7.2 mg/dL (8.7-10.3); Non-African American GFR(CKD) 99.8 (60.0-200.0); Potassium 3.1 mmol/L (3.5-5.5)
[2020-11-09] MEDS ORDERED: POTASSIUM CHLORIDE 20 MEQ in WATER FOR INJECTION 1 100ML.BAG IVPB STA (10:11)
[2020-11-09] MEDS: CEFEPIME 2 GM in SODIUM CHLORIDE 0.9% 100 ML IVPB SCH ×2 (10:22→21:42)
[2020-11-09] MEDS: FAMOTIDINE 20 MG TAB PO SCH ×2 (10:22→21:42)
[2020-11-09] MEDS: HEPARIN SODIUM,PORCINE 5,000 UNIT/ML 1 ML VIAL SQ SCH ×2 (10:23→21:42)
[2020-11-09] MEDS: HYDROcodone/APAP 5-325MG 1 EACH TAB PO PRN ×2 (10:24→19:28)
[2020-11-09] MEDS: GABAPENTIN 100 MG CAP PO SCH ×3 (10:27→21:42)
[2020-11-09] MEDS: SODIUM BICARBONATE TAB 650 MG TAB PO SCH ×3 (10:27→21:43)
[2020-11-09] MEDS: THIAMINE 100 MG/ML 2 ML VIAL IVP SCH (10:29)
[2020-11-09] MEDS: POTASSIUM CHLORIDE ER 20 MEQ TAB.ER PO SCH ×2 (10:35→21:43)
[2020-11-09] MEDS: SODIUM CHLORIDE 0.9% 1,000 ML IV SCH ×2 (10:38→16:17)
[2020-11-09 13:01] LABS: Glucose,Whole Blood 224 mg/dL (75-99)
--- NOTE | 2020-11-09 15:21 | PN ---
PROGRESS NOTE DATE OF SERVICE: 11/09/2020 REASON FOR FOLLOWUP: Proteus bacteremia secondary to right diabetic foot infection. INTERVAL HISTORY: The patient is currently afebrile. The patient is feeling better, breathing comfortably. Denies having any chest pain, shortness of breath or cough. No abdominal pain or any worsening pain to the right leg. PHYSICAL EXAMINATION: Blood pressure 159/100 with a pulse of 111, temperature 97.5. She is 99% on room air. General description is a middle-aged female up in the bed in no distress. RESPIRATORY SYSTEM: Unlabored breathing. Clear to auscultation anteriorly. HEART: S1, S2. Regular rate and rhythm. ABDOMEN: Soft. No tenderness. Right BKA stump is currently dressed. LABS: Hemoglobin is 9.4, white count 13.2. Creatinine 0.6. DIAGNOSTIC IMPRESSION AND PLAN: Patient with proteus bacteremia. Repeat blood culture negative. Patient did have amputation and infected part has been removed. Repeat blood culture negative. Finishing therapy with oral Cipro. Discussed with the admitting team working on discharge. MMODL / IJN: [id number] /
[2020-11-09 17:01] LABS: Glucose,Whole Blood 229 mg/dL (75-99)
[2020-11-09 20:26] LABS: Glucose,Whole Blood 279 mg/dL (75-99)
[2020-11-09] MEDS: INSULIN DETEMIR (LEVEMIR) 100 UNIT/ML SYR SQ SCH (21:44)
[2020-11-10 01:48] VITALS: RESP 16
[2020-11-10 06:48] LABS: Glucose,Whole Blood 260 mg/dL (75-99)
[2020-11-10] MEDS: THIAMINE 100 MG/ML 2 ML VIAL IVP SCH (08:07)
[2020-11-10] MEDS: SODIUM CHLORIDE 0.9% 1,000 ML IV SCH (08:07)
[2020-11-10] MEDS: HYDROCORTISONE SUCCINATE 100 MG/2 ML VIAL IV SCH (08:08)
[2020-11-10 08:11] VITALS: BP 155/89; PULSE 104; TEMP 98.4
[2020-11-10] MEDS: SODIUM BICARBONATE TAB 650 MG TAB PO SCH (08:11)
[2020-11-10] MEDS: FAMOTIDINE 20 MG TAB PO SCH (08:11)
[2020-11-10] MEDS: glipiZIDE 5 MG TAB PO SCH (08:11)
[2020-11-10] MEDS: POTASSIUM CHLORIDE ER 20 MEQ TAB.ER PO SCH (08:12)
[2020-11-10] MEDS: GABAPENTIN 100 MG CAP PO SCH (08:14)
[2020-11-10] MEDS: INSULIN ASPART (NovoLOG) 100 UNIT/ML VIAL SQ SCH ×2 (08:14→12:54)
[2020-11-10] MEDS: HEPARIN SODIUM,PORCINE 5,000 UNIT/ML 1 ML VIAL SQ SCH (08:15)
[2020-11-10] MEDS: CEFEPIME 2 GM in SODIUM CHLORIDE 0.9% 100 ML IVPB SCH (08:15)
[2020-11-10] MEDS: HYDROcodone/APAP 5-325MG 1 EACH TAB PO PRN ×2 (08:16→12:55)
[2020-11-10 10:35] LABS: African American GFR (CKD) >90 (>60 ml/min/1.73 sqM); Anion Gap 5 mmol/L; Blood Urea Nitrogen 25 mg/dL (7-17); Calcium 7.5 mg/dL (8.4-10.2); Carbon Dioxide 13 mmol/L (22-30); Chloride 119 mmol/L (98-107); Glucose 316 mg/dL (74-99); Non-African American GFR(CKD) >90 (>60 ml/min/1.73 sqM); Potassium 3.4 mmol/L (3.5-5.1); Sodium 137 mmol/L (137-145)
[2020-11-10 10:48] LABS: Basophils % (A) 0 %; Eosinophils # (A) 0.1 k/uL (0-0.7); Eosinophils % (A) 0 %; HCT 32.9 % (34.0-46.0); HGB 10.1 gm/dL (11.4-16.0); Hypochromasia Marked; Lymphocytes # (A) 1.2 k/uL (1.0-4.8); Lymphocytes % (A) 9 %; MCHC 30.5 g/dL (31.0-37.0); Macrocytosis Moderate; Mean Platelet Volume 8.3; Monocytes # (A) 0.4 k/uL (0-1.0); Monocytes % (A) 3 %; Neutrophils # (A) 11.5 k/uL (1.3-7.7); Neutrophils % (A) 87 %; Platelet Count 197 k/uL (150-450); RBC 3.14 m/uL (3.80-5.40); RDW 15.4 % (11.5-15.5); WBC 13.2 k/uL (3.8-10.6)
[2020-11-10] MEDS ORDERED: POTASSIUM CHLORIDE 20 MEQ in WATER FOR INJECTION 1 100ML.BAG IVPB STA (10:56)
[2020-11-10] MEDS ORDERED: METOPROLOL TARTRATE 50 MG TAB PO SCH (11:00)
--- NOTE | 2020-11-10 11:51 | P.PN ---
Subjective Progress Note Date: 11/08/20 Principal diagnosis: Postop day #3, status post right above the ankle amputation, for gangrenous right foot. Hypotension, likely related to underlying sepsis, and adrenal insufficiency, better on hydrocortisone replacement. Uncontrolled diabetes mellitus, type II. Acute encephalopathy, likely secondary to sepsis. 60-year-old female, seen in the intensive care unit. The patient is postop day #2, status post above the ankle amputation for gangrenous infection of the right foot. 11/02/2020 The patient is much more awake today. She is on O2 at 2 L, saline at 75 mL an hour. Yesterday, we thought she had adrenal insufficiency based on a cortisol level that was low, and we added hydrocortisone, 50 mg IV push every 6 hours. I'm happy to report that her blood pressure is much improved. She has no particular complaints today. Blood cultures did show evidence of Proteus species. She is on cefepime and vancomycin. She is much more awake and alert today compared to yesterday. In my opinion, the patient could potentially move out of the intensive care unit today. White count is 7.3, hemoglobin 11, hematocrit 35.3, platelet count 205,000. Sodium is 129, potassium 4.8, chloride 111, CO2 12, anion gap 6, BUN 17, and creatinine 0.73. Blood cultures are positive for Proteus penneri. It is sensitive to cefepime, and the vancomycin will be discontinued. 11/03/2020 Patient is seen and evaluated in follow-up on the regular medical floor. Postoperative day #3 of the above the ankle amputation of the right foot. She is currently sitting up in bed. Awake and alert in no acute distress. He continues to complain of uncontrolled pain; reports she takes 1800 mg of Neurontin at home Maintaining O2 saturations up to 100% on 3 L/m per nasal cannula. She's been afebrile. Hemodynamically stable. The cultures were positive for Proteus penneri. White count 10.0. Hemoglobin 11.3. Sodium 17. Potassium 3.4. Creatinine 0.69. She is continued on cefepime. We will restart patient on Neurontin at a lower dose and gradually titrated up as needed 11/04/2020 Patient is seen and evaluated sitting up in bed; reports improvement in pain with Neurontin Vital signs are reviewed, patient remains afebrile temp of 97.9, blood pressure of 127 with SpO2 of 95% on room Labs are reviewed and hemoglobin remained stable at 10.6 with hematocrit of 32.9 Patient remains on IV cefepime for positive blood cultures; we will consult ID for IV antibiotic therapy final recommendations 11/05/2020 Patient is sitting in the bed. No acute distress.. Pain is controlled with medications. Scheduled for right below-knee amputation today. Patient has been afebrile. Currently being continued on antibiotics to hold off cefepime and also being continued on IV hydration. Laboratory data showed WBC 8.76, hemoglobin 11.5 and platelets 201 sodium 140 potassium 3.5 chloride 119 bicarb is 14 and BUN 27 and creatinine 0.8 and calcium level is 7.9 Follow-up CBC and BMP tomorrow. Patient is being continued on Levemir and insulin sliding scale and adjust dose as needed. 11/06/2020 Patient is status post right BKA postoperative day 1 Currently patient is lying in the bed comfortably. No complains of chest pain or shortness of breath. Patient is somewhat confused and disoriented this morning. Not eating very well. Patient does have nausea as of vomiting. Patient has been afebrile. PTOT was consulted. Laboratory data showed WBC 10.0, hemoglobin 10.7 and platelets 180 Sodium 138 potassium 3.0 chloride 117 bicarb is 12.4 Patient is being continued on antibiotics in the form of cefepime due to Proteus bacteremia. Patient is also on stress dose steroids. 11/07/2020 Patient is status post right BKA day 2 Patient is currently sitting the chair comfortably. Awake alert and mentation is better compared to yesterday. Otherwise patient is severely hypokalemic and also has hypomagnesemia. Pain is controlled otherwise level today showed WBC 12.4 hemoglobin 9.2 and platelets 164, potassium 2.7, chloride 118 and bicarb is for less than 10, AG 26 and magnesium 1.3 Patient is being continued on IV hydration and antibiotics in the form of cefepime. Blood pressure is stable and we will change IV hydrocortisone to every 8 and gradually tapered off PT OT is following. Vascular surgery is on board. will start back on xarelto Once cleared by vascular surgery 11/08/2020 Patient is currently lying in the bed. Complaints of pain and mentation is better today. Patient has been afebrile. Right BKA dressing change was done today. Patient is being continued on antibiotics in the form of cefepime. Blood pressure is stable and we will reduce hydrocortisone dose to every every 2 hours the gradually. PTOT is following. Laboratory data showed WBC 14.92, hemoglobin 8.9, potassium 3.1 and chloride 123 bicarb 13.2 and BUN 23 creatinine 0.6 and blood sugar is 158 this morning. Patient does not want to take xarelto. States that it created her leg problems. Continue with insulin regimen and sliding scale. Current medications reviewed. Objective - Vital Signs Vital signs: Vital Signs Temp 97.7 F 11/08/20 19:32 Pulse 113 H 11/08/20 19:32 Resp 16 11/08/20 19:32 BP 141/88 11/08/20 19:32 Pulse Ox 99 11/08/20 19:32 Intake & Output 11/08/20 11/08/20 11/09/20 06:59 18:59 06:59 Intake Total 825 Output Total 825 1400 200 Balance -825 -575 -200 Intake: IV 825 Sodium Chloride 0.9% 1, 825 000 ml @ 75 mls/hr IV . [id number] [facility] Rx#:[id number] Output: Urine 825 1400 200 Uretheral (Lopez) 700 Other: Voiding Method Diaper Indwelling Catheter Bedpan Indwelling Catheter - Exam - Exam -GENERAL: The patient is alert and oriented to 2-3 , she is drowsy and lethargic, not in any acute distress. Well developed, well nourished. HEENT: Pupils are round and equally reacting to light. EOMI. No scleral icterus. No conjunctival pallor. Normocephalic, atraumatic. No pharyngeal erythema. No thyromegaly. CARDIOVASCULAR: S1 and S2 present. No murmurs, rubs, or gallops. PULMONARY: Chest is clear to auscultation, no wheezing or crackles. ABDOMEN: Soft, nontender, nondistended, normoactive bowel sounds. No palpable organomegaly. MUSCULOSKELETAL: No joint swelling or deformity. -EXTREMITIES: No cyanosis, clubbing, or pedal edema. Right BKA. Stump is clean and intact. NEUROLOGICAL: Gross neurological examination did not reveal any focal deficits. SKIN: No rashes. No petechiae - Labs CBC & Chem 7: 11/10/20 09:53 11/10/20 09:53 Labs: Abnormal Lab Results - Last 24 Hours (Table) 11/08/20 11/08/20 11/08/20 Range/Units 06:28 06:28 07:02 WBC 14.92 H (4.50-10.00) X 10*3/uL RBC 2.77 L (4.10-5.20) X 10*6/uL Hgb 8.9 L (12.0-15.0) g/dL Hct 26.9 L (37.2-46.3) % MCV 97.1 H (80.0-97.0) fL MCH 32.1 H (27.0-32.0) pg Absolute Nucleated RBC 0.02 H (0.00-0.00) X 10*3/uL Immature Gran # 0.31 H (0.00-0.04) X 10*3/uL Neutrophils # 12.53 H (1.80-7.70) X 10*3/uL Eosinophils # 0.02 L (0.04-0.35) X 10*3/uL NRBC/100 WBC Diff 0.1 H (0.0-0.0) /100 WBCS Potassium 3.1 L (3.5-5.5) mmol/L Chloride 123 H (96-109) mmol/L Carbon Dioxide 13.2 L (21.6-31.8) mmol/L Anion Gap 2.80 L (4.00-12.00) mmol/L BUN/Creatinine Ratio 38.33 H (12.00-20.00) Ratio Glucose 158 H (70-110) mg/dL POC Glucose (mg/dL) 138 H (75-99) mg/dL Calcium 7.2 L (8.7-10.3) mg/dL 11/08/20 11/08/20 11/08/20 Range/Units 11:40 16:34 20:18 WBC (4.50-10.00) X 10*3/uL RBC (4.10-5.20) X 10*6/uL Hgb (12.0-15.0) g/dL Hct (37.2-46.3) % MCV (80.0-97.0) fL MCH (27.0-32.0) pg Absolute Nucleated RBC (0.00-0.00) X 10*3/uL Immature Gran # (0.00-0.04) X 10*3/uL Neutrophils # (1.80-7.70) X 10*3/uL Eosinophils # (0.04-0.35) X 10*3/uL NRBC/100 WBC Diff (0.0-0.0) /100 WBCS Potassium (3.5-5.5) mmol/L Chloride (96-109) mmol/L Carbon Dioxide (21.6-31.8) mmol/L Anion Gap (4.00-12.00) mmol/L BUN/Creatinine Ratio (12.00-20.00) Ratio Glucose (70-110) mg/dL POC Glucose (mg/dL) 216 H 356 H 319 H (75-99) mg/dL Calcium (8.7-10.3) mg/dL Microbiology - Last 24 Hours (Table) 11/06/20 05:22 Blood Culture - Preliminary Blood No Growth after 48 hours Assessment and Plan Assessment: Left foot infection with osteomyelitis and bone fracture, with gas gangrene, status post right foot below knee amputation. Postoperative day 3 left lower lobe pneumonia sever sepsis and septicemia secondary to proteus Penneri metabolic/toxic encephalopathy Alcohol abuse at-risk of alcohol withdrawal and DVT Severe electrolyte abnormality of hypokalemia and mild hypomagnesemia Hyperosmolar hyperglycemic Nonketotic syndrome Associated with type 2 diabetes , versus mild DKA Anion gap metabolic acidosis. Diabetes mellitus type 2 with hyperglycemia Fall 2 days ago with pelvic pain Hypertension Possible Nicotine dependence but patient denies Paroxysmal atrial fibrillation not on anticoagulation and currently. rate is controlled and patient does not wish to take that until xarelto Plan: This is a pleasant 70 years old female who presents with hyperglycemia, foot infection and electrolyte abnormality and alcohol abuse at-risk of withdrawal vascular surgery team on the case as well as pulomonary/critical care team Replace potassium and magnesium with close monitoring and telemetry. Continue with antibiotics the form of cefepime and continue with IV hydration. Replace lites. Will check lactic acid level. Continue with insulin regimen and sliding scale. Continue with Ativan as needed per CIWA, thiamin Labs and medication were reviewed.. DVT and GI prophylaxis. DVT prophylaxis: Subcutaneous heparin GI Prophylaxis: Pepcid Prognosis is guarded Time with Patient: Greater than 30
--- NOTE | 2020-11-10 11:56 | P.PN ---
Subjective Progress Note Date: 11/09/20 Principal diagnosis: Postop day #3, status post right above the ankle amputation, for gangrenous right foot. Hypotension, likely related to underlying sepsis, and adrenal insufficiency, better on hydrocortisone replacement. Uncontrolled diabetes mellitus, type II. Acute encephalopathy, likely secondary to sepsis. 60-year-old female, seen in the intensive care unit. The patient is postop day #2, status post above the ankle amputation for gangrenous infection of the right foot. 11/02/2020 The patient is much more awake today. She is on O2 at 2 L, saline at 75 mL an hour. Yesterday, we thought she had adrenal insufficiency based on a cortisol level that was low, and we added hydrocortisone, 50 mg IV push every 6 hours. I'm happy to report that her blood pressure is much improved. She has no particular complaints today. Blood cultures did show evidence of Proteus species. She is on cefepime and vancomycin. She is much more awake and alert today compared to yesterday. In my opinion, the patient could potentially move out of the intensive care unit today. White count is 7.3, hemoglobin 11, hematocrit 35.3, platelet count 205,000. Sodium is 129, potassium 4.8, chloride 111, CO2 12, anion gap 6, BUN 17, and creatinine 0.73. Blood cultures are positive for Proteus penneri. It is sensitive to cefepime, and the vancomycin will be discontinued. 11/03/2020 Patient is seen and evaluated in follow-up on the regular medical floor. Postoperative day #3 of the above the ankle amputation of the right foot. She is currently sitting up in bed. Awake and alert in no acute distress. He continues to complain of uncontrolled pain; reports she takes 1800 mg of Neurontin at home Maintaining O2 saturations up to 100% on 3 L/m per nasal cannula. She's been afebrile. Hemodynamically stable. The cultures were positive for Proteus penneri. White count 10.0. Hemoglobin 11.3. Sodium 17. Potassium 3.4. Creatinine 0.69. She is continued on cefepime. We will restart patient on Neurontin at a lower dose and gradually titrated up as needed 11/04/2020 Patient is seen and evaluated sitting up in bed; reports improvement in pain with Neurontin Vital signs are reviewed, patient remains afebrile temp of 97.9, blood pressure of 127 with SpO2 of 95% on room Labs are reviewed and hemoglobin remained stable at 10.6 with hematocrit of 32.9 Patient remains on IV cefepime for positive blood cultures; we will consult ID for IV antibiotic therapy final recommendations 11/05/2020 Patient is sitting in the bed. No acute distress.. Pain is controlled with medications. Scheduled for right below-knee amputation today. Patient has been afebrile. Currently being continued on antibiotics to hold off cefepime and also being continued on IV hydration. Laboratory data showed WBC 8.76, hemoglobin 11.5 and platelets 201 sodium 140 potassium 3.5 chloride 119 bicarb is 14 and BUN 27 and creatinine 0.8 and calcium level is 7.9 Follow-up CBC and BMP tomorrow. Patient is being continued on Levemir and insulin sliding scale and adjust dose as needed. 11/06/2020 Patient is status post right BKA postoperative day 1 Currently patient is lying in the bed comfortably. No complains of chest pain or shortness of breath. Patient is somewhat confused and disoriented this morning. Not eating very well. Patient does have nausea as of vomiting. Patient has been afebrile. PTOT was consulted. Laboratory data showed WBC 10.0, hemoglobin 10.7 and platelets 180 Sodium 138 potassium 3.0 chloride 117 bicarb is 12.4 Patient is being continued on antibiotics in the form of cefepime due to Proteus bacteremia. Patient is also on stress dose steroids. 11/07/2020 Patient is status post right BKA day 2 Patient is currently sitting the chair comfortably. Awake alert and mentation is better compared to yesterday. Otherwise patient is severely hypokalemic and also has hypomagnesemia. Pain is controlled otherwise level today showed WBC 12.4 hemoglobin 9.2 and platelets 164, potassium 2.7, chloride 118 and bicarb is for less than 10, AG 26 and magnesium 1.3 Patient is being continued on IV hydration and antibiotics in the form of cefepime. Blood pressure is stable and we will change IV hydrocortisone to every 8 and gradually tapered off PT OT is following. Vascular surgery is on board. will start back on xarelto Once cleared by vascular surgery 11/08/2020 Patient is currently lying in the bed. Complaints of pain and mentation is better today. Patient has been afebrile. Right BKA dressing change was done today. Patient is being continued on antibiotics in the form of cefepime. Blood pressure is stable and we will reduce hydrocortisone dose to every every 2 hours the gradually. PTOT is following. Laboratory data showed WBC 14.92, hemoglobin 8.9, potassium 3.1 and chloride 123 bicarb 13.2 and BUN 23 creatinine 0.6 and blood sugar is 158 this morning. Patient does not want to take xarelto. States that it created her leg problems. Continue with insulin regimen and sliding scale. 11/09/2020 Patient is more awake and oriented today. Pain is better. No complaints of chest pain or shortness of breath. Antibiotics will be changed to by mouth ciprofloxacin. Patient's potassium level is still low which is being replaced aggressively. PTOT is following. Laboratory data showed CBC 13.2, hemoglobin 9.4 Blood sugar is 262. Hydrocortisone was changed to daily and will discontinue tomorrow. Patient was encouraged to take xarelto for paroxysmal atrial fibrillation. Anticipate discharge in next 24 hours to rehab. Current medications reviewed. Objective - Vital Signs Vital signs: Vital Signs Temp 97.5 F L 11/09/20 13:23 Pulse 111 H 11/09/20 13:23 Resp 22 11/09/20 19:51 BP 159/102 11/09/20 13:23 Pulse Ox 99 11/09/20 13:23 Intake & Output 11/09/20 11/09/20 11/10/20 06:59 18:59 06:59 Intake Total 100 Output Total 200 1450 Balance -200 -1350 Weight 88 kg Intake: IV 100 Cefepime 2 gm In Sodium 100 Chloride 0.9% 100 ml @ 200 mls/hr IVPB BID [facility] Rx#:[id number] Output: Urine 200 1450 Other: Voiding Method Bedpan Bedpan # Bowel Movements 1 - Exam - Exam -GENERAL: The patient is alert and oriented to 2-3 , she is drowsy and lethargic, not in any acute distress. Well developed, well nourished. HEENT: Pupils are round and equally reacting to light. EOMI. No scleral icterus. No conjunctival pallor. Normocephalic, atraumatic. No pharyngeal erythema. No thyromegaly. CARDIOVASCULAR: S1 and S2 present. No murmurs, rubs, or gallops. PULMONARY: Chest is clear to auscultation, no wheezing or crackles. ABDOMEN: Soft, nontender, nondistended, normoactive bowel sounds. No palpable organomegaly. MUSCULOSKELETAL: No joint swelling or deformity. -EXTREMITIES: No cyanosis, clubbing, or pedal edema. Right BKA. Stump is clean and intact. NEUROLOGICAL: Gross neurological examination did not reveal any focal deficits. SKIN: No rashes. No petechiae - Labs CBC & Chem 7: 11/10/20 09:53 11/10/20 09:53 Labs: Abnormal Lab Results - Last 24 Hours (Table) 11/09/20 11/09/20 11/09/20 Range/Units 06:00 06:00 07:13 WBC 13.2 H (3.8-10.6) k/uL RBC 2.92 L (3.80-5.40) m/uL Hgb 9.4 L D (11.4-16.0) gm/dL Hct 29.5 L (34.0-46.0) % MCV 101.3 H (80.0-100.0) fL Neutrophils # 11.5 H (1.3-7.7) k/uL Potassium 3.1 L (3.5-5.5) mmol/L Chloride 118 H (96-109) mmol/L Carbon Dioxide 13.0 L (21.6-31.8) mmol/L BUN 30.0 H (9.0-27.0) mg/dL BUN/Creatinine Ratio 50.00 H (12.00-20.00) Ratio Glucose 262 H (70-110) mg/dL POC Glucose (mg/dL) 232 H (75-99) mg/dL Calcium 7.2 L (8.7-10.3) mg/dL 11/09/20 11/09/20 11/09/20 Range/Units 12:58 16:54 20:22 WBC (3.8-10.6) k/uL RBC (3.80-5.40) m/uL Hgb (11.4-16.0) gm/dL Hct (34.0-46.0) % MCV (80.0-100.0) fL Neutrophils # (1.3-7.7) k/uL Potassium (3.5-5.5) mmol/L Chloride (96-109) mmol/L Carbon Dioxide (21.6-31.8) mmol/L BUN (9.0-27.0) mg/dL BUN/Creatinine Ratio (12.00-20.00) Ratio Glucose (70-110) mg/dL POC Glucose (mg/dL) 224 H 229 H 279 H (75-99) mg/dL Calcium (8.7-10.3) mg/dL Microbiology - Last 24 Hours (Table) 11/06/20 05:22 Blood Culture - Preliminary Blood No Growth after 72 hours Assessment and Plan Assessment: Left foot infection with osteomyelitis and bone fracture, with gas gangrene, st atus post right foot below knee amputation. Patient has stump [facility]. Postoperative day 4 left lower lobe pneumonia sever sepsis and septicemia secondary to proteus Penneri metabolic/toxic encephalopathy Alcohol abuse at-risk of alcohol withdrawal and DVT Severe electrolyte abnormality of hypokalemia and mild hypomagnesemia Hyperosmolar hyperglycemic Nonketotic syndrome Associated with type 2 diabetes , versus mild DKA Anion gap metabolic acidosis. Diabetes mellitus type 2 with hyperglycemia Fall 2 days ago with pelvic pain Hypertension Possible Nicotine dependence but patient denies Paroxysmal atrial fibrillation not on anticoagulation and currently. rate is controlled and patient does not wish to take that until xarelto Plan: This is a pleasant 70 years old female who presents with hyperglycemia, foot infection and electrolyte abnormality and alcohol abuse at-risk of withdrawal vascular surgery team on the case as well as pulomonary/critical care team Replace potassium and magnesium with close monitoring and telemetry. Continue with antibiotics the form of cefepime and continue with IV hydration. Replace lites. Will check lactic acid level. Continue with insulin regimen and sliding scale. Continue with Ativan as needed per CIWA, thiamin Labs and medication were reviewed.. DVT and GI prophylaxis. DVT prophylaxis: Subcutaneous heparin GI Prophylaxis: Pepcid Prognosis is guarded Time with Patient: Greater than 30
--- NOTE | 2020-11-10 12:02 | P.DS ---
Providers Date of admission: 10/30/20 22:42 Expected date of discharge: 11/10/20 Attending physician: Shabbir Phillips MD Consults: 10/30/20 22:43 Consult Physician Routine Consulting Provider: Alek Braun Consult Reason/Comments: Gangrene of the right foot Do you want consulting provider notified?: Yes 10/31/20 09:34 Consult Physician Stat Consulting Provider: Corbin Gardner Consult Reason/Comments: need close monitoring, high lactic, low K , going for right foot amputation Do you want consulting provider notified?: Already Contacted 11/04/20 15:36 Consult Physician Routine Consulting Provider: Irene Comer Consult Reason/Comments: Bacteremia/recommendations on antibiotic therapy Do you want consulting provider notified?: Yes Primary care physician: Alisa Alfred Hospital Course: Discharge diagnosis Left foot infection with osteomyelitis and bone fracture, with gas gangrene, status post right foot below knee amputation. 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 Postoperative day 5 left lower lobe pneumonia sever sepsis and septicemia secondary to proteus Penneri metabolic/toxic encephalopathy . improved now Alcohol abuse at-risk of alcohol withdrawal and DVT Severe electrolyte abnormality of hypokalemia and mild hypomagnesemia Hyperosmolar hyperglycemic Nonketotic syndrome Associated with type 2 diabetes , versus mild DKA non Anion gap metabolic acidosis. Diabetes mellitus type 2 with hyperglycemia Fall 2 days ago with pelvic pain Hypertension Possible Nicotine dependence but patient denies Paroxysmal atrial fibrillation not on anticoagulation and currently. rate is controlled and patient does not wish to take that until [facility] Hospital course 60-year-old female, seen in the intensive care unit. The patient is postop day #2, status post above the ankle amputation for gangrenous infection of the right foot. 11/02/2020 The patient is much more awake today. She is on O2 at 2 L, saline at 75 mL an hour. Yesterday, we thought she had adrenal insufficiency based on a cortisol level that was low, and we added hydrocortisone, 50 mg IV push every 6 hours. I'm happy to report that her blood pressure is much improved. She has no particular complaints today. Blood cultures did show evidence of Proteus species. She is on cefepime and vancomycin. She is much more awake and alert today compared to yesterday. In my opinion, the patient could potentially move out of the intensive care unit today. White count is 7.3, hemoglobin 11, hematocrit 35.3, platelet count 205,000. Sodium is 129, potassium 4.8, chloride 111, CO2 12, anion gap 6, BUN 17, and creatinine 0.73. Blood cultures are positive for Proteus penneri. It is sensitive to cefepime, and the vancomycin will be discontinued. 11/03/2020 Patient is seen and evaluated in follow-up on the regular medical floor. Postoperative day #3 of the above the ankle amputation of the right foot. She is currently sitting up in bed. Awake and alert in no acute distress. He continues to complain of uncontrolled pain; reports she takes 1800 mg of Neurontin at home Maintaining O2 saturations up to 100% on 3 L/m per nasal cannula. She's been afebrile. Hemodynamically stable. The cultures were positive for Proteus penneri. White count 10.0. Hemoglobin 11.3. Sodium 17. Potassium 3.4. Creatinine 0.69. She is continued on cefepime. We will restart patient on Neurontin at a lower dose and gradually titrated up as needed 11/04/2020 Patient is seen and evaluated sitting up in bed; reports improvement in pain with Neurontin Vital signs are reviewed, patient remains afebrile temp of 97.9, blood pressure of 127 with SpO2 of 95% on room Labs are reviewed and hemoglobin remained stable at 10.6 with hematocrit of 32.9 Patient remains on IV cefepime for positive blood cultures; we will consult ID for IV antibiotic therapy final recommendations 11/05/2020 Patient is sitting in the bed. No acute distress.. Pain is controlled with medications. Scheduled for right below-knee amputation today. Patient has been afebrile. Currently being continued on antibiotics to hold off cefepime and also being continued on IV hydration. Laboratory data showed WBC 8.76, hemoglobin 11.5 and platelets 201 sodium 140 potassium 3.5 chloride 119 bicarb is 14 and BUN 27 and creatinine 0.8 and calcium level is 7.9 Follow-up CBC and BMP tomorrow. Patient is being continued on Levemir and insulin sliding scale and adjust dose as needed. 11/06/2020 Patient is status post right BKA postoperative day 1 Currently patient is lying in the bed comfortably. No complains of chest pain or shortness of breath. Patient is somewhat confused and disoriented this morning. Not eating very well. Patient does have nausea as of vomiting. Patient has been afebrile. PTOT was consulted. Laboratory data showed WBC 10.0, hemoglobin 10.7 and platelets 180 Sodium 138 potassium 3.0 chloride 117 bicarb is 12.4 Patient is being continued on antibiotics in the form of cefepime due to Proteus bacteremia. Patient is also on stress dose steroids. 11/07/2020 Patient is status post right BKA day 2 Patient is currently sitting the chair comfortably. Awake alert and mentation is better compared to yesterday. Otherwise patient is severely hypokalemic and also has hypomagnesemia. Pain is controlled otherwise level today showed WBC 12.4 hemoglobin 9.2 and platelets 164, potassium 2.7, chloride 118 and bicarb is for less than 10, AG 26 and magnesium 1.3 Patient is being continued on IV hydration and antibiotics in the form of cefepime. Blood pressure is stable and we will change IV hydrocortisone to every 8 and gradually tapered off PT OT is following. Vascular surgery is on board. will start back on xarelto Once cleared by vascular surgery 11/08/2020 Patient is currently lying in the bed. Complaints of pain and mentation is better today. Patient has been afebrile. Right BKA dressing change was done today. Patient is being continued on antibiotics in the form of cefepime. Blood pressure is stable and we will reduce hydrocortisone dose to every every 2 hours the gradually. PTOT is following. Laboratory data showed WBC 14.92, hemoglobin 8.9, potassium 3.1 and chloride 123 bicarb 13.2 and BUN 23 creatinine 0.6 and blood sugar is 158 this morning. Patient does not want to take xarelto. States that it created her leg problems. Continue with insulin regimen and sliding scale. 11/09/2020 Patient is more awake and oriented today. Pain is better. No complaints of chest pain or shortness of breath. Antibiotics will be changed to by mouth ciprofloxacin. Patient's potassium level is still low which is being replaced aggressively. PTOT is following. Laboratory data showed CBC 13.2, hemoglobin 9.4 Blood sugar is 262. Hydrocortisone was changed to daily and will discontinue tomorrow. Patient was encouraged to take xarelto for paroxysmal atrial fibrillation. Anticipate discharge in next 24 hours to rehab. 11/10/20 Patient is currently comfortably. No complaints of chest pain or shortness of breath. No nausea vomiting. Patient did have one episode diarrhea. Potassium level is being replaced. Laboratory data showed WBC 13.2 hemoglobin 10.1 and platelets 197. Potassium 3.4, chloride 109, BUN 25 and creatinine 0.53 Patient will be continued on glipizide and Levemir 15 units along with sliding scale. Hydrocortisone has been discontinued and blood pressure is stable. Patient will be started back on home blood pressure medications. Hematologically stable and continue with oral antibiotic course. Patient also continued on sodium bicarbonate and potassium pills upon discharge. Patient is stable to be discharged to rehab. -GENERAL: The patient is alert and oriented x3 , not in any acute distress. Well developed, well nourished. HEENT: Pupils are round and equally reacting to light. EOMI. No scleral icterus. No conjunctival pallor. Normocephalic, atraumatic. No pharyngeal erythema. No thyromegaly. CARDIOVASCULAR: S1 and S2 present. No murmurs, rubs, or gallops. PULMONARY: Chest is clear to auscultation, no wheezing or crackles. ABDOMEN: Soft, nontender, nondistended, normoactive bowel sounds. No palpable organomegaly. MUSCULOSKELETAL: No joint swelling or deformity. -EXTREMITIES: No cyanosis, clubbing, or pedal edema. Right BKA. Stump is clean and intact. NEUROLOGICAL: Gross neurological examination did not reveal any focal deficits. SKIN: No rashes. No petechiae Vital Signs 11/10/20 08:00 Temperature 98.4 F Pulse Rate [ 104 H Pulse Oximetery ] Respiratory 16 Rate Blood Pressure 155/89 [Left Arm] O2 Sat by Pulse 97 Oximetry Total time taken greater than 35 minutes including 18 minutes for counseling and coordination of care. Patient Condition at Discharge: Fair Plan - Discharge Summary Discharge Rx Participant: No New Discharge Prescriptions: New Gabapentin [Neurontin] 200 mg PO TID #21 cap HYDROcodone/APAP 5-325MG [[place] 5-325] 1 each PO Q6HR PRN 3 Days #12 tab PRN Reason: Pain Ciprofloxacin HCl [Cipro] 500 mg PO BID 7 Days #14 tab Potassium Chloride ER [K-Dur 20] 20 meq PO DAILY #7 tab.er.prt Insulin Detemir (Levemir) [Levemir] 15 unit SQ HS #1 syr Sodium Bicarbonate Tab 650 mg PO TID 14 Days #42 tab Continue glipiZIDE [Glucotrol] 5 mg PO AC-BRKFST Ferrous Sulfate [Iron (65 MG Elemental)] 325 mg PO BID Loratadine [Claritin] 10 mg PO DAILY lisinopriL [Zestril] 20 mg PO DAILY Metoprolol Tartrate [Lopressor] 50 mg PO BID Rivaroxaban [Xarelto] 20 mg PO W/SUPPER Discontinued Ibuprofen [Motrin] 800 mg PO Q8H PRN PRN Reason: Pain Discharge Medication List Ferrous Sulfate [Iron (65 MG Elemental)] 325 mg PO BID 10/31/20 [History] Loratadine [Claritin] 10 mg PO DAILY 10/31/20 [History] Metoprolol Tartrate [Lopressor] 50 mg PO BID 10/31/20 [History] Rivaroxaban [Xarelto] 20 mg PO W/SUPPER 10/31/20 [History] glipiZIDE [Glucotrol] 5 mg PO AC-BRKFST 10/31/20 [History] lisinopriL [Zestril] 20 mg PO DAILY 10/31/20 [History] Ciprofloxacin HCl [Cipro] 500 mg PO BID 7 Days #14 tab 11/09/20 [Rx] Gabapentin [Neurontin] 200 mg PO TID #21 cap 11/10/20 [Rx] HYDROcodone/APAP 5-325MG [[place] 5-325] 1 each PO Q6HR PRN 3 Days #12 tab 11/10/20 [Rx] Insulin Detemir (Levemir) [Levemir] 15 unit SQ HS #1 syr 11/10/20 [Rx] Potassium Chloride ER [K-Dur 20] 20 meq PO DAILY #7 tab.er.prt 11/10/20 [Rx] Sodium Bicarbonate Tab 650 mg PO TID 14 Days #42 tab 11/10/20 [Rx] Follow up Appointment(s)/Referral(s): Susan Lopez DO [STAFF PHYSICIAN] - 2 Weeks Alisa Alfred MD [Primary Care Provider] - 1-2 days Activity/Diet/Wound Care/Special Instructions: Upon discharge Mike Tucker from [facility] needs to be called to be informed of Patient discharge for follow up care and prosthetic placement. Discharge Disposition: TRANSFER TO SNF/ECF
[2020-11-10 12:15] LABS: Glucose,Whole Blood 271 mg/dL (75-99)
[2020-11-11] MEDS ORDERED: HYDROCORTISONE SUCCINATE 100 MG/2 ML VIAL IV SCH (09:00)
== END 2020-11-10 15:35 | DRG 853 ==
LOC: EC 19:44 → 3SCARD 22:42 → 2SICU 10-31 10:42 → 4SSUR 11-03 00:10
PROVIDERS: ADMIT Internal Medicine; ATTEND Internal Medicine
PROC: 0Y6H0Z3 Detachment at Right Lower Leg, Low, Open Approach (ICD-10-PCS; principal; 2020-10-31 10:55)
PROC: 0Y6H0Z1 Detachment at Right Lower Leg, High, Open Approach (ICD-10-PCS; 2020-11-05)
DX: A41.59 Other Gram-negative sepsis (principal); E11.00 Type 2 diabetes mellitus with hyperosmolarity without nonketotic hyperglycemic-hyperosmolar coma (NKHHC); A48.0 Gas gangrene; G92 Toxic encephalopathy; J18.9 Pneumonia, unspecified organism; E11.52 Type 2 diabetes mellitus with diabetic peripheral angiopathy with gangrene; E27.40 Unspecified adrenocortical insufficiency; E87.1 Hypo-osmolality and hyponatremia; E87.2 Acidosis; I48.20 Chronic atrial fibrillation, unspecified; M86.9 Osteomyelitis, unspecified; F10.139 Alcohol abuse with withdrawal, unspecified; R65.20 Severe sepsis without septic shock; B96.4 Proteus (mirabilis) (morganii) as the cause of diseases classified elsewhere; E11.51 Type 2 diabetes mellitus with diabetic peripheral angiopathy without gangrene; E11.628 Type 2 diabetes mellitus with other skin complications; E11.69 Type 2 diabetes mellitus with other specified complication; E83.42 Hypomagnesemia; E86.1 Hypovolemia; E87.6 Hypokalemia; F10.129 Alcohol abuse with intoxication, unspecified; F17.210 Nicotine dependence, cigarettes, uncomplicated; I11.9 Hypertensive heart disease without heart failure; I48.0 Paroxysmal atrial fibrillation; Z79.84 Long term (current) use of oral hypoglycemic drugs; R62.7 Adult failure to thrive; S92.343A Displaced fracture of fourth metatarsal bone, unspecified foot, initial encounter for closed fracture; W19.XXXA Unspecified fall, initial encounter; R10.2 Pelvic and perineal pain; Z79.01 Long term (current) use of anticoagulants; Z79.899 Other long term (current) drug therapy; Z83.3 Family history of diabetes mellitus; Z89.412 Acquired absence of left great toe; Z86.14 Personal history of Methicillin resistant Staphylococcus aureus infection; Z88.5 Allergy status to narcotic agent; Z88.2 Allergy status to sulfonamides
CPT/HCPCS: 36415; 71045; 73521; 80048; 80051; 80053; 80202; 80320; 81001; 82140; 82533; 82565; 82947; 83605; 83735; 84100; 84132; 84520; 85025; 85610; 85652; 85730; 86140; 87040; 87077; 87186; 87635; 93005; 94760; 96365; 96367; 96375; 99291

== ENCOUNTER 2020-12-19 16:57 | Emergency (ER) | payer OTHER ==
[2020-12-19 17:05] VITALS: BP 166/120; PULSE 116; RESP 18; TEMP 97.6
--- NOTE | 2020-12-19 17:11 | ED ---
General Adult HPI - General Stated complaint: GI Bleed Time Seen by Provider: 12/19/20 17:00 Source: patient, EMS, RN notes reviewed Mode of arrival: EMS - History of Present Illness Initial comments: This is a 59-year-old female history diabetes history of GI bleeding history of recent left below knee amputation was brought in initially by ambulance for concerns of GI bleeding she probably does have multiple stool tests and did have evidence of blood in her stool today she was transported here for further evaluation upon arrival the patient stated she did not want any care given she was awake alert oriented 3 demonstrating good decision-making capacity though she was somewhat hyperverbal. She did allow me to do a clinical examination but did not want EKG her lab work done. She said wants to go home she has family that apparently will come and get her. She has follow-ups scheduled she states will keep them and states she will come back if any problems. She does states she has a hemorrhoid as well as a bedsore that she believes is actually source for any blood was found. Her last hemoglobin level was 7.7 the last week of November. - Related Data Home Medications Medication Instructions Recorded Confirmed Ferrous Sulfate [Iron (65 MG 325 mg PO BID 10/31/20 10/31/20 Elemental)] Loratadine [Claritin] 10 mg PO DAILY 10/31/20 10/31/20 Metoprolol Tartrate [Lopressor] 50 mg PO BID 10/31/20 10/31/20 Rivaroxaban [Xarelto] 20 mg PO W/SUPPER 10/31/20 10/31/20 glipiZIDE [Glucotrol] 5 mg PO AC-BRKFST 10/31/20 10/31/20 lisinopriL [Zestril] 20 mg PO DAILY 10/31/20 10/31/20 Previous Rx's Medication Instructions Recorded Ciprofloxacin HCl [Cipro] 500 mg PO BID 7 Days #14 tab 11/09/20 Gabapentin [Neurontin] 200 mg PO TID #21 cap 11/10/20 HYDROcodone/APAP 5-325MG [[place] 1 each PO Q6HR PRN 3 Days #12 tab 11/10/20 5-325] Insulin Detemir (Levemir) [Levemir] 15 unit SQ HS #1 syr 11/10/20 Potassium Chloride ER [K-Dur 20] 20 meq PO DAILY #7 tab.er.prt 11/10/20 Sodium Bicarbonate Tab 650 mg PO TID 14 Days #42 tab 11/10/20 Allergies Allergy/AdvReac Type Severity Reaction Status Date / Time codeine Allergy Rash/Hives Verified 10/30/20 20:09 Sulfa (Sulfonamide Allergy Unknown Verified 10/30/20 20:09 Antibiotics) Review of Systems ROS Statement: Those systems with pertinent positive or pertinent negative responses have been documented in the HPI. ROS Other: All systems not noted in ROS Statement are negative. Past Medical History Past Medical History: Atrial Fibrillation, Diabetes Mellitus, Hypertension Additional Past Medical History / Comment(s): radial nerve damage, back pain, History of Any Multi-Drug Resistant Organisms: MRSA Date of last positivie culture/infection: 02/15/2015 MDRO Source:: Face and foot Past Surgical History: Section, Orthopedic Surgery Additional Past Surgical History / Comment(s): left great toe, Past Anesthesia/Blood Transfusion Reactions: No Reported Reaction Past Psychological History: No Psychological Hx Reported Smoking Status: Current every day smoker Past Alcohol Use History: Abuse, Daily, Heavy Past Drug Use History: None Reported - Past Family History Father Family Medical History: Diabetes Mellitus Additional Family Medical History / Comment(s): Father had heart problems. Mother Family Medical History: No Reported History General Exam - General Exam Comments Initial Comments: Is a well-developed well-nourished awake alert oriented 3 female who is anxious and also frustrated per her General appearance: alert, anxious Head exam: Present: atraumatic, normocephalic, normal inspection Eye exam: Present: normal appearance, PERRL, EOMI. Absent: scleral icterus, conjunctival injection, periorbital swelling ENT exam: Present: normal exam, mucous membranes moist Neck exam: Present: normal inspection. Absent: tenderness, meningismus, lymphadenopathy Respiratory exam: Present: normal lung sounds bilaterally. Absent: respiratory distress, wheezes, rales, rhonchi, stridor Cardiovascular Exam: Present: tachycardia, irregular rhythm, normal heart sounds. Absent: systolic murmur, diastolic murmur, rubs, gallop, clicks GI/Abdominal exam: Present: soft, normal bowel sounds. Absent: distended, tenderness, guarding, rebound, rigid Extremities exam: Present: full ROM, normal capillary refill, other ((Below the knee amputation dressing was not removed). Absent: tenderness, pedal edema, joint swelling, calf tenderness Back exam: Present: normal inspection Neurological exam: Present: alert, oriented X3, CN II-XII intact Psychiatric exam: Present: normal affect, anxious Skin exam: Present: warm, dry, intact, normal color. Absent: rash Course Vital Signs 12/19/20 16:59 Temperature 97.6 F Pulse Rate 116 H Respiratory 18 Rate Blood Pressure 166/120 O2 Sat by Pulse 97 Oximetry Medical Decision Making - Medical Decision Making The patient did not wish any care in this facility at this time. She does states she very [facility] The patient will be discharged AGAINST MEDICAL ADVICE. Disposition Clinical Impression: Anemia, History of atrial fibrillation Disposition: Left Against Medical Advice Condition: Stable Referrals: Handy Montgomery MD [Primary Care Provider] - 1-2 days
== END 2020-12-19 17:48 | disposition left against medical advice (07) ==
LOC: EC 16:57
DX: D64.9 Anemia, unspecified (principal); I48.91 Unspecified atrial fibrillation; E11.9 Type 2 diabetes mellitus without complications; I10 Essential (primary) hypertension; F17.200 Nicotine dependence, unspecified, uncomplicated; Z53.29 Procedure and treatment not carried out because of patient's decision for other reasons; Z79.4 Long term (current) use of insulin
CPT/HCPCS: 99284

== ENCOUNTER 2020-12-22 16:14 | Observation (INO) | payer OTHER ==
[2020-12-22 16:28] LABS: Glucose,Whole Blood 83 mg/dL (75-99)
[2020-12-22 17:24] LABS: Anisocytosis Slight; Basophils # (A) 0.1 k/uL (0-0.2); Basophils % (A) 1 %; Eosinophils # (A) 0.3 k/uL (0-0.7); Eosinophils % (A) 6 %; HCT 29.3 % (34.0-46.0); Hypochromasia Moderate; Lymphocytes # (A) 0.9 k/uL (1.0-4.8); Lymphocytes % (A) 19 %; MCH 31.6 pg (25.0-35.0); MCHC 32.7 g/dL (31.0-37.0); Mean Platelet Volume 7.2; Monocytes # (A) 0.3 k/uL (0-1.0); Monocytes % (A) 7 %; Neutrophils % (A) 64 %; Platelet Count 367 k/uL (150-450); RBC 3.04 m/uL (3.80-5.40); RDW 16.1 % (11.5-15.5); WBC 4.7 k/uL (3.8-10.6)
[2020-12-22 17:33] LABS: HGB 9.6 gm/dL (11.4-16.0); MCV 96.5 fL (80.0-100.0)
[2020-12-22 17:36] LABS: INR 1.2 (<1.2); Partial Thromboplastin Time 24.2 sec (22.0-30.0); Prothrombin Time 12.1 sec (9.0-12.0)
[2020-12-22 17:39] LABS: ALT 9 U/L (4-34); AST 24 U/L (14-36); African American GFR (CKD) >90 (>60 ml/min/1.73 sqM); Albumin 3.2 g/dL (3.5-5.0); Alkaline Phosphatase 78 U/L (38-126); Anion Gap 11 mmol/L; Blood Urea Nitrogen 5 mg/dL (7-17); Calcium 9.3 mg/dL (8.4-10.2); Carbon Dioxide 20 mmol/L (22-30); Chloride 108 mmol/L (98-107); Creatine Kinase 58 U/L (30-135); Glucose 81 mg/dL (74-99); Non-African American GFR(CKD) >90 (>60 ml/min/1.73 sqM); Potassium 3.7 mmol/L (3.5-5.1); Sodium 139 mmol/L (137-145); Total Bilirubin 0.6 mg/dL (0.2-1.3); Total Protein 6.9 g/dL (6.3-8.2)
--- NOTE | 2020-12-22 17:43 | ED ---
Weakness HPI - General Chief complaint: Weakness Stated complaint: weakness Time Seen by Provider: 12/22/20 16:30 Source: patient Mode of arrival: EMS Limitations: no limitations - History of Present Illness Initial comments: Patient is a 60-year-old female past medical history of A. fib, diabetes who presents emergency Department with reported failed to thrive. Patient was recently hospitalized in October for a gangrenous right foot. She did have a BKA performed and was discharged to [facility]. Patient reports that she recently left [facility] AGAINST MEDICAL ADVICE on Thursday. Patient thought that she could care for herself and did not like the treatment that she was receiving at her facility. Since the patient's been home she has been unable to take her medications. States that she can't ambulate without a prosthesis. Patient has been unable to bathe or cook for herself. Patient presents for generalized weakness and requesting nursing facility. She last took her medication 2 days ago. This includes her Xarelto. No other alleviating, precipitating or modifying factors - Related Data Home Medications Medication Instructions Recorded Confirmed Ferrous Sulfate [Iron (65 MG 325 mg PO BID@0900,2100 10/31/20 12/23/20 Elemental)] Loratadine [Claritin] 10 mg PO HS 10/31/20 12/23/20 Metoprolol Tartrate [Lopressor] 50 mg PO BID@0900,2100 10/31/20 12/23/20 Rivaroxaban [Xarelto] 20 mg PO DAILY@1700 10/31/20 12/23/20 Mag Hydrox/Aluminum Hyd/Simeth 1 dose PO DIRECTED PRN 12/23/20 12/23/20 [Mylanta Maximum Strength Liq] Ondansetron [Zofran] 4 mg PO QID PRN 12/23/20 12/23/20 Sertraline [Zoloft] 25 mg PO DAILY 12/23/20 12/23/20 Sodium Bicarbonate Tab 650 mg PO Q8H 12/23/20 12/23/20 lisinopriL [Zestril] 10 mg PO HS 12/23/20 12/23/20 Previous Rx's Medication Instructions Recorded Folic Acid 1 mg PO DAILY@1200 tab 12/28/20 Gabapentin [Neurontin] 200 mg PO TID #12 cap 12/28/20 HYDROcodone/APAP 5-325MG [[place] 1 tab PO Q6HR PRN #12 tab 12/28/20 5-325] INSULIN ASPART (NovoLOG) [NovoLOG 0 unit SQ AC-TID vial 12/28/20 (formulary)] Insulin Detemir (Levemir) [Levemir] 10 unit SQ HS syr 12/28/20 Multivitamins, Thera [Multivitamin 1 each PO DAILY@1200 tab 12/28/20 (formulary)] Thiamine [Vitamin B-1] 100 mg PO DAILY@1200 tab 12/28/20 Allergies Allergy/AdvReac Type Severity Reaction Status Date / Time codeine Allergy Rash/Hives Verified 10/30/20 20:09 Sulfa (Sulfonamide Allergy Unknown Verified 10/30/20 20:09 Antibiotics) Review of Systems ROS Statement: Those systems with pertinent positive or pertinent negative responses have been documented in the HPI. ROS Other: All systems not noted in ROS Statement are negative. Past Medical History Past Medical History: Atrial Fibrillation, Diabetes Mellitus, Hypertension Additional Past Medical History / Comment(s): radial nerve damage, back pain, History of Any Multi-Drug Resistant Organisms: MRSA Date of last positivie culture/infection: 02/15/2015 MDRO Source:: Face and foot Past Surgical History: Section, Orthopedic Surgery Additional Past Surgical History / Comment(s): left great toe, Past Anesthesia/Blood Transfusion Reactions: No Reported Reaction Past Psychological History: No Psychological Hx Reported Smoking Status: Current every day smoker Past Alcohol Use History: Abuse, Daily, Heavy Past Drug Use History: None Reported - Past Family History Father Family Medical History: Diabetes Mellitus Additional Family Medical History / Comment(s): Father had heart problems. Mother Family Medical History: No Reported History General Exam Limitations: no limitations General appearance: alert ENT exam: Present: mucous membranes dry Neck exam: Present: normal inspection. Absent: tenderness, meningismus, lymphadenopathy Respiratory exam: Present: normal lung sounds bilaterally. Absent: respiratory distress, wheezes, rales, rhonchi, stridor Cardiovascular Exam: Present: tachycardia, irregular rhythm GI/Abdominal exam: Present: soft, normal bowel sounds. Absent: distended, tenderness, guarding, rebound, rigid Extremities exam: Present: other (right bka) Neurological exam: Present: alert Skin exam: Present: warm, dry, intact, normal color. Absent: rash Course Vital Signs 12/22/20 12/22/20 12/22/20 16:28 16:38 19:14 Temperature 97.7 F Pulse Rate 123 H 128 H Pulse Rate [ 123 H Newscast Director ] Respiratory 20 20 Rate Blood Pressure 148/105 145/115 O2 Sat by Pulse 98 98 Oximetry 12/22/20 20:36 Temperature Pulse Rate 117 H Pulse Rate [ Newscast Director ] Respiratory 18 Rate Blood Pressure 150/102 O2 Sat by Pulse 97 Oximetry EKG Findings - EKG Comments: EKG Findings:: EKG demonstrates A. fib with a rapid ventricular rate of 127. QRS 80. QTC of 511. Mild ST depression. No acute ST segment elevation Medical Decision Making - Medical Decision Making Upon arrival patient is placed in room 2. Thorough history and physical exam was performed. Patient placed on continuous pulse ox and cardiac monitoring. She is in A. fib with rapid ventricular rate and therefore I do order the patient's home medications. Laboratory studies were conducted. I spoke with Aida from [facility] who agreed to admit the patient. We'll consult case management. Patient agreed to the treatment plan and is awaiting on the floor - Lab Data Result diagrams: 12/27/20 05:48 12/27/20 05:48 Lab Results 12/22/20 12/22/20 12/22/20 Range/Units 16:15 16:15 16:15 WBC 4.7 (3.8-10.6) k/uL RBC 3.04 L (3.80-5.40) m/uL Hgb 9.6 L D (11.4-16.0) gm/dL Hct 29.3 L (34.0-46.0) % MCV 96.5 D (80.0-100.0) fL MCH 31.6 (25.0-35.0) pg MCHC 32.7 (31.0-37.0) g/dL RDW 16.1 H (11.5-15.5) % Plt Count 367 (150-450) k/uL MPV 7.2 Neutrophils % 64 % Lymphocytes % 19 % Monocytes % 7 % Eosinophils % 6 % Basophils % 1 % Neutrophils # 3.0 (1.3-7.7) k/uL Lymphocytes # 0.9 L (1.0-4.8) k/uL Monocytes # 0.3 (0-1.0) k/uL Eosinophils # 0.3 (0-0.7) k/uL Basophils # 0.1 (0-0.2) k/uL Hypochromasia Moderate Anisocytosis Slight PT 12.1 H (9.0-12.0) sec INR 1.2 H (<1.2) APTT 24.2 (22.0-30.0) sec Sodium 139 (137-145) mmol/L Potassium 3.7 (3.5-5.1) mmol/L Chloride 108 H (98-107) mmol/L Carbon Dioxide 20 L (22-30) mmol/L Anion Gap 11 mmol/L BUN 5 L (7-17) mg/dL Creatinine 0.46 L (0.52-1.04) mg/dL Est GFR (CKD-EPI)AfAm >90 (>60 ml/min/1.73 sqM) Est GFR (CKD-EPI)NonAf >90 (>60 ml/min/1.73 sqM) Glucose 81 (74-99) mg/dL POC Glucose (mg/dL) (75-99) mg/dL POC Glu Corporate Legal Secretary ID Plasma Lactic Acid Piyush (0.7-2.0) mmol/L Calcium 9.3 (8.4-10.2) mg/dL Total Bilirubin 0.6 (0.2-1.3) mg/dL AST 24 (14-36) U/L ALT 9 (4-34) U/L Alkaline Phosphatase 78 (38-126) U/L Creatine Kinase 58 (30-135) U/L Total Protein 6.9 (6.3-8.2) g/dL Albumin 3.2 L (3.5-5.0) g/dL Urine Color Urine Appearance (Clear) Urine pH (5.0-8.0) Ur Specific [place] (1.001-1.035) Urine Protein (Negative) Urine Glucose (UA) (Negative) Urine Ketones (Negative) Urine Blood (Negative) Urine Nitrite (Negative) Urine Bilirubin (Negative) Urine Urobilinogen (<2.0) mg/dL Ur Leukocyte Esterase (Negative) Coronavirus (PCR) (Not Detectd) 12/22/20 12/22/20 12/22/20 Range/Units 16:15 16:23 17:03 WBC (3.8-10.6) k/uL RBC (3.80-5.40) m/uL Hgb (11.4-16.0) gm/dL Hct (34.0-46.0) % MCV (80.0-100.0) fL MCH (25.0-35.0) pg MCHC (31.0-37.0) g/dL RDW (11.5-15.5) % Plt Count (150-450) k/uL MPV Neutrophils % % Lymphocytes % % Monocytes % % Eosinophils % % Basophils % % Neutrophils # (1.3-7.7) k/uL Lymphocytes # (1.0-4.8) k/uL Monocytes # (0-1.0) k/uL Eosinophils # (0-0.7) k/uL Basophils # (0-0.2) k/uL Hypochromasia Anisocytosis PT (9.0-12.0) sec INR (<1.2) APTT (22.0-30.0) sec Sodium (137-145) mmol/L Potassium (3.5-5.1) mmol/L Chloride (98-107) mmol/L Carbon Dioxide (22-30) mmol/L Anion Gap mmol/L BUN (7-17) mg/dL Creatinine (0.52-1.04) mg/dL Est GFR (CKD-EPI)AfAm (>60 ml/min/1.73 sqM) Est GFR (CKD-EPI)NonAf (>60 ml/min/1.73 sqM) Glucose (74-99) mg/dL POC Glucose (mg/dL) 83 (75-99) mg/dL POC Glu Corporate Legal Secretary ID Fetterhoff, Steven Plasma Lactic Acid Piyush 0.9 (0.7-2.0) mmol/L Calcium (8.4-10.2) mg/dL Total Bilirubin (0.2-1.3) mg/dL AST (14-36) U/L ALT (4-34) U/L Alkaline Phosphatase (38-126) U/L Creatine Kinase (30-135) U/L Total Protein (6.3-8.2) g/dL Albumin (3.5-5.0) g/dL Urine Color Light Yellow Urine Appearance Clear (Clear) Urine pH 7.5 (5.0-8.0) Ur Specific [place] 1.007 (1.001-1.035) Urine Protein Negative (Negative) Urine Glucose (UA) Negative (Negative) Urine Ketones 1+ H (Negative) Urine Blood Negative (Negative) Urine Nitrite Negative (Negative) Urine Bilirubin Negative (Negative) Urine Urobilinogen <2.0 (<2.0) mg/dL Ur Leukocyte Esterase Negative (Negative) Coronavirus (PCR) (Not Detectd) 12/22/20 Range/Units 19:11 WBC (3.8-10.6) k/uL RBC (3.80-5.40) m/uL Hgb (11.4-16.0) gm/dL Hct (34.0-46.0) % MCV (80.0-100.0) fL MCH (25.0-35.0) pg MCHC (31.0-37.0) g/dL RDW (11.5-15.5) % Plt Count (150-450) k/uL MPV Neutrophils % % Lymphocytes % % Monocytes % % Eosinophils % % Basophils % % Neutrophils # (1.3-7.7) k/uL Lymphocytes # (1.0-4.8) k/uL Monocytes # (0-1.0) k/uL Eosinophils # (0-0.7) k/uL Basophils # (0-0.2) k/uL Hypochromasia Anisocytosis PT (9.0-12.0) sec INR (<1.2) APTT (22.0-30.0) sec Sodium (137-145) mmol/L Potassium (3.5-5.1) mmol/L Chloride (98-107) mmol/L Carbon Dioxide (22-30) mmol/L Anion Gap mmol/L BUN (7-17) mg/dL Creatinine (0.52-1.04) mg/dL Est GFR (CKD-EPI)AfAm (>60 ml/min/1.73 sqM) Est GFR (CKD-EPI)NonAf (>60 ml/min/1.73 sqM) Glucose (74-99) mg/dL POC Glucose (mg/dL) (75-99) mg/dL POC Glu Corporate Legal Secretary ID Plasma Lactic Acid Piyush (0.7-2.0) mmol/L Calcium (8.4-10.2) mg/dL Total Bilirubin (0.2-1.3) mg/dL AST (14-36) U/L ALT (4-34) U/L Alkaline Phosphatase (38-126) U/L Creatine Kinase (30-135) U/L Total Protein (6.3-8.2) g/dL Albumin (3.5-5.0) g/dL Urine Color Urine Appearance (Clear) Urine pH (5.0-8.0) Ur Specific [place] (1.001-1.035) Urine Protein (Negative) Urine Glucose (UA) (Negative) Urine Ketones (Negative) Urine Blood (Negative) Urine Nitrite (Negative) Urine Bilirubin (Negative) Urine Urobilinogen (<2.0) mg/dL Ur Leukocyte Esterase (Negative) Coronavirus (PCR) Not Detected (Not Detectd) Disposition Clinical Impression: Atrial fibrillation with RVR, Weakness, Status post below knee amputation of right lower extremity, History of atrial fibrillation Disposition: ADMITTED IP TO THIS [facility] Condition: Stable Is patient prescribed a controlled substance at d/c from ED?: No Decision Date: 12/22/20 Decision Time: 19:12
[2020-12-22] MEDS ORDERED: NALOXONE 0.4 MG/ML 1 ML VIAL IV PRN (19:12)
[2020-12-22] MEDS: METOPROLOL TARTRATE 50 MG TAB PO SCH (19:30)
[2020-12-22] MEDS: RIVAROXABAN 20 MG TAB PO SCH (19:34)
[2020-12-22 19:51] LABS: Appearance,Urine Clear (Clear); Bilirubin,Urine Negative (Negative); Blood,Urine Negative (Negative); Color,Urine Light Yellow; Glucose,Urine (UA) Negative (Negative); Ketones,Urine 1+ (Negative); Leukocyte Esterase,Urine Negative (Negative); Nitrite,Urine Negative (Negative); PH, Urine 7.5 (5.0-8.0); Protein,Urine Negative (Negative); Specific Gravity,Urine 1.007 (1.001-1.035); Urobilinogen,Urine <2.0 mg/dL (<2.0)
[2020-12-23] MEDS: GABAPENTIN 100 MG CAP PO SCH ×4 (01:45→20:41)
[2020-12-23 06:16] LABS: Glucose,Whole Blood 119 mg/dL (75-99)
[2020-12-23 07:52] LABS: Anisocytosis Slight; Basophils % (A) 1 %; Eosinophils # (A) 0.6 k/uL (0-0.7); Eosinophils % (A) 13 %; HCT 26.8 % (34.0-46.0); HGB 8.3 gm/dL (11.4-16.0); Hypochromasia Marked; Lymphocytes # (A) 1.4 k/uL (1.0-4.8); Lymphocytes % (A) 29 %; MCH 30.2 pg (25.0-35.0); MCHC 31.1 g/dL (31.0-37.0); MCV 97.2 fL (80.0-100.0); Mean Platelet Volume 7.6; Monocytes # (A) 0.4 k/uL (0-1.0); Monocytes % (A) 9 %; Neutrophils # (A) 2.1 k/uL (1.3-7.7); Neutrophils % (A) 46 %; Platelet Count 363 k/uL (150-450); RBC 2.76 m/uL (3.80-5.40); RDW 16.3 % (11.5-15.5); WBC 4.6 k/uL (3.8-10.6)
[2020-12-23 08:09] LABS: African American GFR (CKD) >90 (>60 ml/min/1.73 sqM); Anion Gap 5 mmol/L; Blood Urea Nitrogen 5 mg/dL (7-17); Carbon Dioxide 24 mmol/L (22-30); Chloride 110 mmol/L (98-107); Glucose 112 mg/dL (74-99); Non-African American GFR(CKD) >90 (>60 ml/min/1.73 sqM); Potassium 3.3 mmol/L (3.5-5.1); Sodium 139 mmol/L (137-145)
[2020-12-23] MEDS ORDERED: Potassium Replacement Protocol 1 EACH MISC MISCELLANE PRN (08:11)
[2020-12-23] MEDS ORDERED: lisinopriL 20 MG TAB PO SCH (09:00)
[2020-12-23] MEDS: METOPROLOL TARTRATE 50 MG TAB PO SCH ×2 (09:01→20:42)
[2020-12-23] MEDS: POTASSIUM CHLORIDE ER 20 MEQ TAB.ER PO SCH ×2 (09:01→11:57)
--- NOTE | 2020-12-23 10:14 | P.HPIM ---
History of Present Illness 60-year-old female had a recent below-knee amputation on the right side, was discharged to subacute rehabilitation left against medical advise there on Thursday and unable to take care of herself and came back to ER. Patient denied any fever chills nausea vomiting abdominal pain dysuria. Patient had the gangrene of the right foot underwent a below-knee amputation. Patient can't ambulate without a prosthesis am not sure patient was fitted for prosthesis yet. Patient has a history of alcohol abuse in the past patient is also on anticoagulation with xarelto for atrial fibrillation. Review of Systems REVIEW OF SYSTEMS: CONSTITUTIONAL: No fever, no malaise, no fatigue. HEENT: No recent visual problems or hearing problems. Denied any sore throat. CARDIOVASCULAR: No chest pain, orthopnea, PND, no palpitations, no syncope. PULMONARY: No shortness of breath, no cough, no hemoptysis. GASTROINTESTINAL: No diarrhea, no nausea, no vomiting, no abdominal pain. NEUROLOGICAL: No headaches, no weakness, no numbness. HEMATOLOGICAL: Denies any bleeding or petechiae. GENITOURINARY: Denies any burning micturition, frequency, or urgency. MUSCULOSKELETAL/RHEUMATOLOGICAL: Denies any joint pain, swelling, or any muscle pain. ENDOCRINE: Denies any polyuria or polydipsia. The rest of the 14-point review of systems is negative. Past Medical History Past Medical History: Atrial Fibrillation, Diabetes Mellitus, Hypertension Additional Past Medical History / Comment(s): radial nerve damage, back pain, History of Any Multi-Drug Resistant Organisms: MRSA Date of last positivie culture/infection: 02/15/2015 MDRO Source:: Face and foot Past Surgical History: Section, Orthopedic Surgery Additional Past Surgical History / Comment(s): left great toe, Past Anesthesia/Blood Transfusion Reactions: No Reported Reaction Past Psychological History: No Psychological Hx Reported Smoking Status: Current every day smoker Past Alcohol Use History: Abuse, Daily, Heavy Past Drug Use History: None Reported - Past Family History Father Family Medical History: Diabetes Mellitus Additional Family Medical History / Comment(s): Father had heart problems. Mother Family Medical History: No Reported History Medications and Allergies Home Medications Medication Instructions Recorded Confirmed Type Ferrous Sulfate [Iron (65 MG 325 mg PO BID 10/31/20 10/31/20 History Elemental)] Loratadine [Claritin] 10 mg PO DAILY 10/31/20 10/31/20 History Metoprolol Tartrate [Lopressor] 50 mg PO BID 10/31/20 10/31/20 History Rivaroxaban [Xarelto] 20 mg PO W/SUPPER 10/31/20 10/31/20 History glipiZIDE [Glucotrol] 5 mg PO AC-BRKFST 10/31/20 10/31/20 History lisinopriL [Zestril] 20 mg PO DAILY 10/31/20 10/31/20 History Ciprofloxacin HCl [Cipro] 500 mg PO BID 7 Days #14 tab 11/09/20 Rx Gabapentin [Neurontin] 200 mg PO TID #21 cap 11/10/20 Rx HYDROcodone/APAP 5-325MG [[place] 1 each PO Q6HR PRN 3 Days #12 tab 11/10/20 Rx 5-325] Insulin Detemir (Levemir) [Levemir] 15 unit SQ HS #1 syr 11/10/20 Rx Potassium Chloride ER [K-Dur 20] 20 meq PO DAILY #7 tab.er.prt 11/10/20 Rx Sodium Bicarbonate Tab 650 mg PO TID 14 Days #42 tab 11/10/20 Rx Allergies Allergy/AdvReac Type Severity Reaction Status Date / Time codeine Allergy Rash/Hives Verified 10/30/20 20:09 Sulfa (Sulfonamide Allergy Unknown Verified 10/30/20 20:09 Antibiotics) Physical Exam Vitals: Vital Signs Temp Pulse Pulse Resp BP BP Pulse Ox 12/23/20 08:00 98 F 97 16 103/56 98 12/23/20 03:46 97.9 F 97 17 121/71 97 12/23/20 01:31 107 H 17 12/23/20 00:00 97.7 F 107 H 17 142/77 98 12/22/20 22:00 97.7 F 113 H 17 155/73 100 12/22/20 20:36 117 H 18 150/102 97 12/22/20 19:14 128 H 20 145/115 98 12/22/20 16:38 123 H 12/22/20 16:28 97.7 F 123 H 20 148/105 98 Intake and Output 12/22/20 12/23/20 12/23/20 22:59 06:59 14:59 Intake Total 100 200 Output Total 300 600 Balance -200 -400 Intake: Oral 100 200 Output: Urine 300 600 Other: Voiding Method Bedpan # Voids 1 1 Weight 81.647 kg 76.5 kg PHYSICAL EXAMINATION: GENERAL: The patient is alert and oriented x3, not in any acute distress. Well developed, well nourished. HEENT: Pupils are round and equally reacting to light. EOMI. No scleral icterus. No conjunctival pallor. Normocephalic, atraumatic. No pharyngeal erythema. No thyromegaly. CARDIOVASCULAR: S1 and S2 present. No murmurs, rubs, or gallops. PULMONARY: Chest is clear to auscultation, no wheezing or crackles. ABDOMEN: Soft, nontender, nondistended, normoactive bowel sounds. No palpable organomegaly. MUSCULOSKELETAL: No joint swelling or deformity. Right below-knee amputation EXTREMITIES: No cyanosis, clubbing, or pedal edema. NEUROLOGICAL: Gross neurological examination did not reveal any focal deficits. SKIN: No rashes. Results CBC & Chem 7: 12/23/20 07:29 12/23/20 07:29 Labs: Abnormal Lab Results - Last 24 Hours (Table) 12/22/20 12/22/20 12/22/20 Range/Units 16:15 16:15 16:15 RBC 3.04 L (3.80-5.40) m/uL Hgb 9.6 L D (11.4-16.0) gm/dL Hct 29.3 L (34.0-46.0) % RDW 16.1 H (11.5-15.5) % Lymphocytes # 0.9 L (1.0-4.8) k/uL PT 12.1 H (9.0-12.0) sec INR 1.2 H (<1.2) Potassium (3.5-5.1) mmol/L Chloride 108 H (98-107) mmol/L Carbon Dioxide 20 L (22-30) mmol/L BUN 5 L (7-17) mg/dL Creatinine 0.46 L (0.52-1.04) mg/dL Glucose (74-99) mg/dL POC Glucose (mg/dL) (75-99) mg/dL Calcium (8.4-10.2) mg/dL Albumin 3.2 L (3.5-5.0) g/dL Urine Ketones (Negative) 12/22/20 12/23/20 12/23/20 Range/Units 17:03 06:15 07:29 RBC 2.76 L (3.80-5.40) m/uL Hgb 8.3 L (11.4-16.0) gm/dL Hct 26.8 L (34.0-46.0) % RDW 16.3 H (11.5-15.5) % Lymphocytes # (1.0-4.8) k/uL PT (9.0-12.0) sec INR (<1.2) Potassium (3.5-5.1) mmol/L Chloride (98-107) mmol/L Carbon Dioxide (22-30) mmol/L BUN (7-17) mg/dL Creatinine (0.52-1.04) mg/dL Glucose (74-99) mg/dL POC Glucose (mg/dL) 119 H (75-99) mg/dL Calcium (8.4-10.2) mg/dL Albumin (3.5-5.0) g/dL Urine Ketones 1+ H (Negative) 12/23/20 Range/Units 07:29 RBC (3.80-5.40) m/uL Hgb (11.4-16.0) gm/dL Hct (34.0-46.0) % RDW (11.5-15.5) % Lymphocytes # (1.0-4.8) k/uL PT (9.0-12.0) sec INR (<1.2) Potassium 3.3 L (3.5-5.1) mmol/L Chloride 110 H (98-107) mmol/L Carbon Dioxide (22-30) mmol/L BUN 5 L (7-17) mg/dL Creatinine 0.48 L (0.52-1.04) mg/dL Glucose 112 H (74-99) mg/dL POC Glucose (mg/dL) (75-99) mg/dL Calcium 8.0 L (8.4-10.2) mg/dL Albumin (3.5-5.0) g/dL Urine Ketones (Negative) Thrombosis Risk Factor Assmnt - Choose All That Apply Any of the Below Risk Factors Present?: Yes Each Factor Represents 1 point: Age 41-60 years Each Risk Factor Represents 2 Points: Patient confined to bed Thrombosis Risk Factor Assessment Total Risk Factor Score: 3 Thrombosis Risk Factor Assessment Level: Moderate Risk Assessment and Plan Plan: -Right below-knee and patient: Patient the cannot take care of herself as she doesn't have any prosthesis. Patient will be discharged back to subacute rehabilitation patient will need physical therapy patient does have generalized weakness from prolonged hospitalization and the right below-knee amputation. Physical therapy and occupational therapy will be consulted -Alcohol abuse history patient quit drinking alcohol from August 2020 -Nicotine use: Counseling was provided Hyponatremia and fibrillation proximal A. fib presently sinus rhythm patient is on anticoagulation which will be be continued -Hypertension -Type 2 diabetes mellitus For above-mentioned chronic medical problems patient will be resumed on appropriate home medications once these are verified
[2020-12-23 11:52] LABS: Glucose,Whole Blood 155 mg/dL (75-99)
[2020-12-23 14:49] LABS: Hemoglobin A1C 6.9 % (4.0-6.0)
[2020-12-23] MEDS: RIVAROXABAN 20 MG TAB PO SCH (16:18)
[2020-12-23 16:47] LABS: Glucose,Whole Blood 237 mg/dL (75-99)
[2020-12-23] MEDS: INSULIN ASPART (NovoLOG) 100 UNIT/ML VIAL SQ SCH (17:21)
[2020-12-24 07:13] LABS: Glucose,Whole Blood 210 mg/dL (75-99)
[2020-12-24] MEDS: METOPROLOL TARTRATE 50 MG TAB PO SCH ×2 (08:09→21:50)
[2020-12-24] MEDS: INSULIN ASPART (NovoLOG) 100 UNIT/ML VIAL SQ SCH ×3 (08:09→17:20)
[2020-12-24] MEDS: lisinopriL 10 MG TAB PO SCH (08:09)
[2020-12-24] MEDS: GABAPENTIN 100 MG CAP PO SCH ×3 (08:10→21:50)
[2020-12-24 12:08] LABS: Glucose,Whole Blood 106 mg/dL (75-99)
[2020-12-24 15:22] VITALS: BMI 21.7
[2020-12-24] MEDS: HYDROcodone/APAP 5-325MG 1 EACH TAB PO PRN ×2 (15:36→23:53)
[2020-12-24 16:42] LABS: Glucose,Whole Blood 204 mg/dL (75-99)
[2020-12-24] MEDS ORDERED: MAG HYDROX PO PRN (16:47)
[2020-12-24] MEDS ORDERED: ONDANSETRON 4 MG TAB PO PRN (16:47)
[2020-12-24] MEDS ORDERED: ALUMINUM HYD PO PRN (16:47)
[2020-12-24] MEDS ORDERED: [UNRECOGNIZED DRUG - OTHER] PO PRN (16:47)
[2020-12-24] MEDS: RIVAROXABAN 20 MG TAB PO SCH (17:20)
[2020-12-24] MEDS: SODIUM BICARBONATE TAB 650 MG TAB PO SCH ×2 (17:20→23:54)
--- NOTE | 2020-12-24 18:35 | PN ---
PROGRESS NOTE DATE OF SERVICE: 12/24/2020 This 60-year-old woman with a past medical history of multiple medical problems was recently admitted for right below-knee amputation or gangrene. The patient subsequently went to [facility] on the [place], but apparently at [facility] on the [place] the patient signed herself out AGAINST MEDICAL ADVICE and the patient has been admitted for further evaluation and treatment at this time. The patient does not have any prosthesis. The patient is unable to manage herself at home, according to the staff. The blood sugar is also fluctuating at this time. The hemoglobin is 8.3. Baseline hemoglobin was normal a few months ago. Potassium was 3.3, which is being corrected. Past medical history reviewed. REVIEW OF SYSTEMS: CARDIOVASCULAR SYSTEM: No angina, palpitations. RESPIRATORY SYSTEM: As mentioned earlier. GI: As mentioned earlier. : No dysuria or retention. NERVOUS SYSTEM: As mentioned earlier. CURRENT MEDICATIONS: Reviewed. They include [place], Neurontin, NovoLog, Zestril, Lopressor, Narcan, Xarelto. PHYSICAL EXAMINATION: Patient alert and oriented x3. Pulse 93, blood pressure 110/70, respiration 18, temperature 98.2, pulse ox 99% on room air. HEENT: Conjunctivae normal. NECK: No jugular venous distention. CARDIOVASCULAR SYSTEM: S1, S2 muffled. RESPIRATORY SYSTEM: Breath sounds diminished at the bases. A few scattered rhonchi. ABDOMEN: Soft, non-tender. LEGS: Status post right below-knee amputation. NERVOUS SYSTEM: Diffusely weak. LABS: WBC 4.5, hemoglobin 8.3, sodium 139, potassium 3.3. ASSESSMENT: 1. Right below-knee amputation. 2. Severe gait dysfunction. 3. History of alcohol abuse. 4. History of nicotine dependence. 5. Anemia, normocytic, possibly gradual blood loss anemia. 6. Hypokalemia. 7. Diabetes mellitus, type 2, with elevated blood glucose and hypoglycemia. 8. History of atrial fibrillation. 9. History of hypertension. 10.History of radial nerve damage. 11.History of methicillin-resistant Staphylococcus aeruginosa. 12.History of alcohol abuse. 13.Gait dysfunction. 14.Poor social support. 15.FULL CODE. RECOMMENDATIONS AND DISCUSSION: In this 60-year-old woman who presented with multiple complex medical issues, at this time I recommend to continue current medications, continue symptomatic treatment, pain medications, and monitor and replace electrolytes. Continue with the beta blockers. PT/OT evaluation. The patient has an extremely poor social support system. I would recommend pain medications. Also the possibility of ECF rehab. See orders for further details. Xaanderson to be continued. MMANUPAMAL / IJN: [id number] /
[2020-12-24 20:10] LABS: Glucose,Whole Blood 201 mg/dL (75-99)
[2020-12-24] MEDS ORDERED: INSULIN DETEMIR (LEVEMIR) 100 UNIT/ML SYR SQ SCH (21:00)
[2020-12-24] MEDS: FERROUS SULFATE 325 MG TAB PO SCH (21:50)
[2020-12-25 07:39] LABS: Glucose,Whole Blood 70 mg/dL (75-99)
[2020-12-25] MEDS: HYDROcodone/APAP 5-325MG 1 EACH TAB PO PRN ×3 (07:43→22:48)
[2020-12-25] MEDS: INSULIN ASPART (NovoLOG) 100 UNIT/ML VIAL SQ SCH ×3 (07:43→16:56)
[2020-12-25] MEDS: GABAPENTIN 100 MG CAP PO SCH ×3 (07:44→22:48)
[2020-12-25] MEDS: SODIUM BICARBONATE TAB 650 MG TAB PO SCH ×2 (07:44→16:55)
[2020-12-25] MEDS: METOPROLOL TARTRATE 50 MG TAB PO SCH ×2 (07:44→22:49)
[2020-12-25] MEDS: FERROUS SULFATE 325 MG TAB PO SCH ×2 (07:44→22:49)
[2020-12-25] MEDS: lisinopriL 10 MG TAB PO SCH (07:45)
[2020-12-25] MEDS: SERTRALINE 25 MG TAB PO SCH (07:45)
[2020-12-25 11:23] LABS: Glucose,Whole Blood 204 mg/dL (75-99)
[2020-12-25] MEDS: FOLIC ACID 1 MG TAB PO SCH (11:37)
[2020-12-25] MEDS: MULTIVITAMINS, THERA 1 EACH TAB PO SCH (11:37)
[2020-12-25] MEDS: THIAMINE 100 MG TAB PO SCH (11:37)
[2020-12-25 11:39] LABS: Basophils # (A) 0.05 X 10*3/uL (0.00-0.10); Basophils % (A) 0.9 %; Eosinophils # (A) 0.74 X 10*3/uL (0.04-0.35); HCT 29.1 % (37.2-46.3); HGB 8.5 g/dL (12.0-15.0); Lymphocytes # (A) 2.16 X 10*3/uL (0.90-5.00); MCH 29.5 pg (27.0-32.0); MCHC 29.2 g/dL (32.0-37.0); Mean Platelet Volume 10.7 fL (9.5-12.2); Monocytes # (A) 0.74 X 10*3/uL (0.20-1.00); Neutrophils # (A) 1.99 X 10*3/uL (1.80-7.70); Neutrophils % (A) 34.9 %; Platelet Count 369 X 10*3/uL (140-440); RBC 2.88 X 10*6/uL (4.10-5.20); RDW 15.9 % (11.5-14.5); WBC 5.69 X 10*3/uL (4.50-10.00)
[2020-12-25 12:44] LABS: African American GFR (CKD) 122.8 (60.0-200.0); Anion Gap 7.2 mmol/L (4.00-12.00); Carbon Dioxide 16.8 mmol/L (21.6-31.8); Non-African American GFR(CKD) 105.9 (60.0-200.0); Potassium 3.9 mmol/L (3.5-5.5)
[2020-12-25 16:23] LABS: Glucose,Whole Blood 202 mg/dL (75-99)
[2020-12-25] MEDS: RIVAROXABAN 20 MG TAB PO SCH (16:55)
--- NOTE | 2020-12-25 18:09 | PN ---
PROGRESS NOTE DATE OF SERVICE: 12/25/2020 This 60-year-old woman who was admitted with right below-knee amputation is being monitored closely. No chest pain. No palpitations. No fever. ECF rehab is being planned. PHYSICAL EXAMINATION: Alert and oriented x3. Pulse 88, blood pressure 102/61, respirations 16, temperature 98 degrees, pulse ox 100% on room air. HEENT: Conjunctivae normal. NECK: No jugular venous distention. CARDIOVASCULAR SYSTEM: S1, S2 muffled. RESPIRATORY SYSTEM: Breath sounds diminished at the bases. ABDOMEN: Soft, non-tender. LEGS: Status post right below-knee amputation. LABS: Hemoglobin 8.5. Glucose was 41. ASSESSMENT: 1. Status post right below-knee amputation. 2. Severe gait dysfunction. 3. History of ETOH abuse. 4. History of nicotine dependence. 5. Anemia, normocytic, possibly gradual blood-loss anemia. 6. Hypokalemia. 7. Diabetes mellitus, type 2; elevated blood glucose and hypoglycemia. 8. History of atrial fibrillation. 9. History of hypertension. 10.History of radial nerve damage. 11.History of methicillin-resistant Staphylococcus aeruginosa. 12.History of alcohol abuse. 13.Gait dysfunction. 14.Poor social support. 15.FULL CODE. RECOMMENDATIONS AND DISCUSSION: I recommend to continue current medications, continue with the monitoring, symptomatic treatment. Reduce the dose of Lantus to 10 units at bedtime and hold if the blood sugars are low. Continue the rest of the medications. Accu-Cheks before meals and at bedtime. Guarded prognosis because of multiple complex medical issues. Further recommendations to follow. MMODL / IJN: [id number] /
[2020-12-25 20:20] LABS: Glucose,Whole Blood 263 mg/dL (75-99)
[2020-12-25] MEDS: INSULIN DETEMIR (LEVEMIR) 100 UNIT/ML SYR SQ SCH (22:49)
[2020-12-26] MEDS: SODIUM BICARBONATE TAB 650 MG TAB PO SCH ×3 (01:12→16:58)
[2020-12-26 07:38] LABS: Glucose,Whole Blood 112 mg/dL (75-99)
[2020-12-26 07:39] LABS: Basophils % (A) 1 %; Eosinophils # (A) 0.7 k/uL (0-0.7); Eosinophils % (A) 13 %; HCT 29.5 % (34.0-46.0); HGB 8.6 gm/dL (11.4-16.0); Hypochromasia Marked; Lymphocytes # (A) 1.7 k/uL (1.0-4.8); Lymphocytes % (A) 31 %; MCH 29.4 pg (25.0-35.0); MCHC 29.3 g/dL (31.0-37.0); MCV 100.1 fL (80.0-100.0); Macrocytosis Slight; Mean Platelet Volume 7.9; Monocytes # (A) 0.5 k/uL (0-1.0); Monocytes % (A) 8 %; Neutrophils # (A) 2.5 k/uL (1.3-7.7); Neutrophils % (A) 45 %; Platelet Count 371 k/uL (150-450); RBC 2.95 m/uL (3.80-5.40); RDW 15.8 % (11.5-15.5); WBC 5.6 k/uL (3.8-10.6)
[2020-12-26] MEDS: INSULIN ASPART (NovoLOG) 100 UNIT/ML VIAL SQ SCH ×3 (07:43→16:58)
[2020-12-26] MEDS: GABAPENTIN 100 MG CAP PO SCH ×3 (07:57→20:43)
[2020-12-26] MEDS: METOPROLOL TARTRATE 50 MG TAB PO SCH ×2 (07:57→20:42)
[2020-12-26] MEDS: SERTRALINE 25 MG TAB PO SCH (07:57)
[2020-12-26] MEDS: lisinopriL 10 MG TAB PO SCH (07:57)
[2020-12-26] MEDS: FERROUS SULFATE 325 MG TAB PO SCH ×2 (07:57→20:43)
[2020-12-26] MEDS: HYDROcodone/APAP 5-325MG 1 EACH TAB PO PRN ×3 (07:57→22:27)
[2020-12-26 08:00] LABS: African American GFR (CKD) >90 (>60 ml/min/1.73 sqM); Anion Gap 7 mmol/L; Blood Urea Nitrogen 17 mg/dL (7-17); Calcium 8.6 mg/dL (8.4-10.2); Carbon Dioxide 18 mmol/L (22-30); Chloride 114 mmol/L (98-107); Glucose 114 mg/dL (74-99); Non-African American GFR(CKD) >90 (>60 ml/min/1.73 sqM); Potassium 4.7 mmol/L (3.5-5.1); Sodium 139 mmol/L (137-145)
[2020-12-26 11:58] LABS: Glucose,Whole Blood 253 mg/dL (75-99)
[2020-12-26] MEDS: MULTIVITAMINS, THERA 1 EACH TAB PO SCH (12:24)
[2020-12-26] MEDS: THIAMINE 100 MG TAB PO SCH (12:24)
[2020-12-26] MEDS: FOLIC ACID 1 MG TAB PO SCH (12:24)
[2020-12-26 16:28] LABS: Glucose,Whole Blood 132 mg/dL (75-99)
[2020-12-26] MEDS: RIVAROXABAN 20 MG TAB PO SCH (16:58)
--- NOTE | 2020-12-26 19:46 | PN ---
PROGRESS NOTE DATE OF SERVICE: 12/26/2020 This 60-year-old woman who was admitted after right below-knee amputation is being closely monitored. No chest pain. No palpitations. No fever. ECF rehab is being planned at this time. PHYSICAL EXAMINATION: Alert and oriented x3. Pulse 97, blood pressure 103/60, respirations 16, temperature 97.9, pulse ox 98% on room air. HEENT: Conjunctivae normal. NECK: No jugular venous distention. CARDIOVASCULAR SYSTEM: S1, S2 muffled. RESPIRATORY SYSTEM: Breath sounds diminished at the bases. ABDOMEN: Soft, non-tender. LEGS: Status post right below-knee amputation. NERVOUS SYSTEM: No focal deficit. LABS: Hemoglobin 8.6, glucose 252, 134. CO2 is 18. ASSESSMENT: 1. Status post right below-knee amputation. 2. Severe gait dysfunction. 3. History of ETOH abuse. 4. History of nicotine dependence. 5. Anemia, normocytic, possibly chronic blood-loss anemia. 6. Hypokalemia. 7. Diabetes mellitus type 2, elevated blood glucose and hyperglycemia. 8. History of atrial fibrillation. 9. History of hypertension. 10.History of radial nerve damage. 11.History of methicillin-resistant Staphylococcus aeruginosa. 12.History of alcohol abuse. 13.Gait dysfunction. 14.Poor social support. 15.FULL CODE. RECOMMENDATIONS AND DISCUSSION: I recommend to continue current medications, continue with the monitoring, symptomatic treatment. Repeat labs will be ordered. PT/OT evaluation. ECF rehab. Guarded prognosis. Further recommendations to follow. MMODL / IJN: [id number] /
[2020-12-26 20:26] LABS: Glucose,Whole Blood 252 mg/dL (75-99)
[2020-12-26] MEDS: INSULIN DETEMIR (LEVEMIR) 100 UNIT/ML SYR SQ SCH (20:43)
[2020-12-27] MEDS: SODIUM BICARBONATE TAB 650 MG TAB PO SCH ×3 (04:48→17:07)
[2020-12-27 07:14] LABS: Glucose,Whole Blood 85 mg/dL (75-99)
[2020-12-27] MEDS: INSULIN ASPART (NovoLOG) 100 UNIT/ML VIAL SQ SCH ×3 (08:05→17:05)
[2020-12-27] MEDS: THIAMINE 100 MG TAB PO SCH (09:09)
[2020-12-27] MEDS: HYDROcodone/APAP 5-325MG 1 EACH TAB PO PRN ×3 (09:09→22:07)
[2020-12-27] MEDS: MULTIVITAMINS, THERA 1 EACH TAB PO SCH (09:10)
[2020-12-27] MEDS: METOPROLOL TARTRATE 50 MG TAB PO SCH ×3 (09:10→20:39)
[2020-12-27] MEDS: lisinopriL 10 MG TAB PO SCH ×2 (09:10→09:16)
[2020-12-27] MEDS: GABAPENTIN 100 MG CAP PO SCH ×3 (09:10→22:06)
[2020-12-27] MEDS: FERROUS SULFATE 325 MG TAB PO SCH ×2 (09:11→20:40)
[2020-12-27] MEDS: SERTRALINE 25 MG TAB PO SCH (09:11)
[2020-12-27 10:07] LABS: Basophils # (A) 0.06 X 10*3/uL (0.00-0.10); Basophils % (A) 1.1 %; Eosinophils # (A) 0.57 X 10*3/uL (0.04-0.35); Eosinophils % (A) 10.1 %; HCT 27.7 % (37.2-46.3); HGB 8.2 g/dL (12.0-15.0); Lymphocytes # (A) 1.97 X 10*3/uL (0.90-5.00); Lymphocytes % (A) 34.8 %; MCHC 29.6 g/dL (32.0-37.0); MCV 101.5 fL (80.0-97.0); Mean Platelet Volume 10.2 fL (9.5-12.2); Monocytes # (A) 0.62 X 10*3/uL (0.20-1.00); Neutrophils # (A) 2.43 X 10*3/uL (1.80-7.70); Neutrophils % (A) 42.8 %; Platelet Count 357 X 10*3/uL (140-440); RBC 2.73 X 10*6/uL (4.10-5.20); RDW 15.6 % (11.5-14.5); WBC 5.66 X 10*3/uL (4.50-10.00)
[2020-12-27 11:50] LABS: Glucose,Whole Blood 218 mg/dL (75-99)
[2020-12-27] MEDS: FOLIC ACID 1 MG TAB PO SCH (12:18)
[2020-12-27 15:13] LABS: African American GFR (CKD) 115.6 (60.0-200.0); Anion Gap 11.3 mmol/L (4.00-12.00); BUN/Creat Ratio 31.67 Ratio (12.00-20.00); Calcium 8.3 mg/dL (8.7-10.3); Carbon Dioxide 13.7 mmol/L (21.6-31.8); Non-African American GFR(CKD) 99.8 (60.0-200.0); Potassium 4.6 mmol/L (3.5-5.5)
[2020-12-27 16:31] LABS: Glucose,Whole Blood 156 mg/dL (75-99)
[2020-12-27] MEDS: RIVAROXABAN 20 MG TAB PO SCH (17:07)
[2020-12-27 20:22] LABS: Glucose,Whole Blood 282 mg/dL (75-99)
[2020-12-27] MEDS: INSULIN DETEMIR (LEVEMIR) 100 UNIT/ML SYR SQ SCH (20:40)
--- NOTE | 2020-12-27 21:53 | PN ---
PROGRESS NOTE DATE OF SERVICE: 12/27/2020 This 60-year-old woman who was admitted after right below-knee amputation as well as gait dysfunction is being closely monitored. No chest pain. No palpitations. No fever. PHYSICAL EXAMINATION: Alert and oriented x3. Pulse 107, blood pressure 118/77, respiration 14, temperature 98.2, pulse ox 97% on room air. HEENT: Conjunctivae normal. NECK: No jugular venous distention. CARDIOVASCULAR SYSTEM: S1, S2 muffled. RESPIRATORY SYSTEM: Breath sounds diminished at the bases. No rhonchi. No crackles. ABDOMEN: Soft, non-tender. LEGS: Status post right below-knee amputation. LABS: Hemoglobin 8.2. Glucose 218. ASSESSMENT: 1. Status post right below-knee amputation. 2. History of gait dysfunction. 3. History of EtOH abuse. 4. History of nicotine dependence. 5. Anemia, normocytic; possibly chronic blood-loss anemia. 6. Hypokalemia. 7. Diabetes mellitus, type 2, with elevated blood glucose and hyperglycemia. 8. History of atrial fibrillation. 9. History of hypertension. 10.History of radial nerve damage. 11.History of methicillin-resistant Staphylococcus aeruginosa. 12.History of alcohol abuse. 13.Gait dysfunction. 14.Poor social support. 15.FULL CODE. RECOMMENDATIONS AND DISCUSSION: I recommend to continue current medications, continue with the monitoring, symptomatic treatment. I will also order the iron studies. Continue to monitor. MMODL / IJN: [id number] /
[2020-12-28] MEDS: SODIUM BICARBONATE TAB 650 MG TAB PO SCH ×3 (00:53→14:17)
[2020-12-28 06:53] LABS: Glucose,Whole Blood 126 mg/dL (75-99)
[2020-12-28] MEDS: INSULIN ASPART (NovoLOG) 100 UNIT/ML VIAL SQ SCH ×2 (07:27→12:01)
[2020-12-28 08:22] LABS: % Iron Saturation 16.55 (12.00-45.00)
[2020-12-28] MEDS: THIAMINE 100 MG TAB PO SCH (08:38)
[2020-12-28] MEDS: lisinopriL 10 MG TAB PO SCH (08:38)
[2020-12-28] MEDS: GABAPENTIN 100 MG CAP PO SCH ×2 (08:38→14:17)
[2020-12-28] MEDS: MULTIVITAMINS, THERA 1 EACH TAB PO SCH (08:38)
[2020-12-28] MEDS: HYDROcodone/APAP 5-325MG 1 EACH TAB PO PRN ×2 (08:38→14:17)
[2020-12-28] MEDS: FERROUS SULFATE 325 MG TAB PO SCH (08:38)
[2020-12-28] MEDS: FOLIC ACID 1 MG TAB PO SCH (08:38)
[2020-12-28] MEDS: METOPROLOL TARTRATE 50 MG TAB PO SCH (08:38)
[2020-12-28 09:17] LABS: Ferritin 31.9 ng/mL (10.0-291.0)
[2020-12-28] MEDS: SERTRALINE 25 MG TAB PO SCH (10:56)
[2020-12-28 11:17] LABS: Glucose,Whole Blood 283 mg/dL (75-99)
--- NOTE | 2020-12-28 12:36 | P.DS ---
Providers Date of admission: 12/22/20 19:12 Expected date of discharge: 12/28/20 Attending physician: Maddie Duke Primary care physician: Alisa Alfred Hospital Course: Final diagnosis Status post right below the knee amputation History of gait dysfunction History of EtOH abuse history of nicotine dependence Anemia, normocytic, possibly chronic blood loss anemia Hypokalemia Diabetes mellitus type 2 with elevated blood glucose and hyperglycemia History of atrial fibrillation History of hypertension History of radial nerve damage History of MRSA history of alcohol abuse Poor social support Full code Discharge disposition Patient is being discharged in a stable condition with guarded prognosis to [facility]. Patient will follow-up with Dr. Alfred upon discharge. Total time taken is greater than 35 minutes. Hospital course This is a 60-year-old female who was recently admitted after right below the knee amputation as well as gait dysfunction and is being closely monitored. Patient continues to be weak and unable to care for herself in the home and will need placement for physical therapy and strengthen mobility. Patient instructed to follow-up with her provider Dr. Alfred in the outpatient setting once discharged from the facility. Currently no reports of chest pain, shortness of breath, or palpitations. Patient is afebrile. No reports of nausea or vomiting and patient is tolerating diet. Patient will be going to [facility]. Guarded prognosis. On exam vital signs are stable. Cardio S1, S2 are muffled. Respiratory shows diminished breath sounds at the bases with no wheezing or rhonchi noted. Abdomen is soft and nontender. Nervous system shows mild diffuse weakness. Please refer to medication reconciliation sheet for a list of medications. Patient Condition at Discharge: Stable Plan - Discharge Summary Discharge Rx Participant: Yes New Discharge Prescriptions: New Folic Acid 1 mg PO DAILY@1200 tab Multivitamins, Thera [Multivitamin (formulary)] 1 each PO DAILY@1200 tab Gabapentin [Neurontin] 200 mg PO TID #12 cap INSULIN ASPART (NovoLOG) [NovoLOG (formulary)] 0 unit SQ AC-TID vial Insulin Detemir (Levemir) [Levemir] 10 unit SQ HS syr Thiamine [Vitamin B-1] 100 mg PO DAILY@1200 tab Continue Ferrous Sulfate [Iron (65 MG Elemental)] 325 mg PO BID@0900,2100 Loratadine [Claritin] 10 mg PO HS Metoprolol Tartrate [Lopressor] 50 mg PO BID@0900,2100 Rivaroxaban [Xarelto] 20 mg PO DAILY@1700 Ondansetron [Zofran] 4 mg PO QID PRN PRN Reason: Nausea lisinopriL [Zestril] 10 mg PO HS Sertraline [Zoloft] 25 mg PO DAILY Sodium Bicarbonate Tab 650 mg PO Q8H Mag Hydrox/Aluminum Hyd/Simeth [Mylanta Maximum Strength Liq] 1 dose PO DIRECTED PRN PRN Reason: Gi Upset Changed HYDROcodone/APAP 5-325MG [[place] 5-325] 1 tab PO Q6HR PRN #12 tab PRN Reason: Pain Discontinued glipiZIDE [Glucotrol] 5 mg PO AC-BRKFST Gabapentin 300 mg PO Q8H Potassium Chloride ER [K-Dur 20] 20 meq PO BID@0900,2100 Insulin Detemir (Levemir) [Levemir] 15 unit SQ HS #1 syr Discharge Medication List Ferrous Sulfate [Iron (65 MG Elemental)] 325 mg PO BID@0900,209910/31/20 [History] Loratadine [Claritin] 10 mg PO HS 10/31/20 [History] Metoprolol Tartrate [Lopressor] 50 mg PO BID@0900,209910/31/20 [History] Rivaroxaban [Xarelto] 20 mg PO DAILY@1700 10/31/20 [History] Mag Hydrox/Aluminum Hyd/Simeth [Mylanta Maximum Strength Liq] 1 dose PO DIRECTED PRN 12/23/20 [History] Ondansetron [Zofran] 4 mg PO QID PRN 12/23/20 [History] Sertraline [Zoloft] 25 mg PO DAILY 12/23/20 [History] Sodium Bicarbonate Tab 650 mg PO Q8H 12/23/20 [History] lisinopriL [Zestril] 10 mg PO HS 12/23/20 [History] Folic Acid 1 mg PO DAILY@1200 tab 12/28/20 [Rx] Gabapentin [Neurontin] 200 mg PO TID #12 cap 12/28/20 [Rx] HYDROcodone/APAP 5-325MG [[place] 5-325] 1 tab PO Q6HR PRN #12 tab 12/28/20 [Rx] INSULIN ASPART (NovoLOG) [NovoLOG (formulary)] 0 unit SQ AC-TID vial 12/28/20 [Rx] Insulin Detemir (Levemir) [Levemir] 10 unit SQ HS syr 12/28/20 [Rx] Multivitamins, Thera [Multivitamin (formulary)] 1 each PO DAILY@1200 tab 12/28/20 [Rx] Thiamine [Vitamin B-1] 100 mg PO DAILY@1200 tab 12/28/20 [Rx] Follow up Appointment(s)/Referral(s): Alisa Alfred MD [Primary Care Provider] - 1-2 days Ambulatory/Diagnostic Orders: Complete Blood Count w/diff [LAB.AMB] Time Frame: 3 Days, Location: None Selected Activity/Diet/Wound Care/Special Instructions: Patient is going to [facility] as tolerated Continue with consistent carb heart healthy diet Continue to monitor Accu-Cheks before meals and at bedtime and treat with sliding scale and continue with long-acting NovoLog sliding scale 0-150 equals 0 units 151-200 equals 2 units 201-250 equals 4 units 251-300 equals 6 units 301-350 equals 8 units 351-400 equals 10 units Please notify provider if blood sugar is 400 or above Follow-up with primary care provider upon discharge Discharge Disposition: TRANSFER TO SNF/ECF
[2020-12-28 15:06] VITALS: BP 106/68; PULSE 93; RESP 14; TEMP 97.9
== END 2020-12-28 14:29 ==
LOC: EC 16:14 → 3SCARD 19:12 → INTOOBSV 19:12 → 3SCARD 20:58 → 4SSUR 12-23 20:32 → UNDODISIN 12-28 14:29
PROVIDERS: ADMIT Hospitalist; ATTEND Hospitalist
DX: R53.1 Weakness (principal); Z89.511 Acquired absence of right leg below knee; R26.9 Unspecified abnormalities of gait and mobility; E87.6 Hypokalemia; E11.649 Type 2 diabetes mellitus with hypoglycemia without coma; E11.52 Type 2 diabetes mellitus with diabetic peripheral angiopathy with gangrene; E11.65 Type 2 diabetes mellitus with hyperglycemia; I48.91 Unspecified atrial fibrillation; E87.1 Hypo-osmolality and hyponatremia; I10 Essential (primary) hypertension; D64.9 Anemia, unspecified; F17.200 Nicotine dependence, unspecified, uncomplicated; Z20.822 Contact with and (suspected) exposure to COVID-19; Z79.01 Long term (current) use of anticoagulants; Z79.4 Long term (current) use of insulin; Z79.899 Other long term (current) drug therapy; Z88.2 Allergy status to sulfonamides; Z88.5 Allergy status to narcotic agent; Z86.14 Personal history of Methicillin resistant Staphylococcus aureus infection; Z98.891 History of uterine scar from previous surgery; Z86.69 Personal history of other diseases of the nervous system and sense organs; Z86.59 Personal history of other mental and behavioral disorders; Z74.01 Bed confinement status; Z63.8 Other specified problems related to primary support group; Z83.3 Family history of diabetes mellitus; Z82.49 Family history of ischemic heart disease and other diseases of the circulatory system
CPT/HCPCS: 99285; 36415; 93005; 97530 ×3; 97162; 97535 ×2; 97166; 80053; 80048 ×4; 82728; 82550; 83540; 83550; 83605; 84132; 85025 ×5; 85610; 85730; 81003; 87324; 83036; 87635 ×2; G0378 ×8